=== PATIENT | male | born 1980 | race Caucasian/White ===

== ENCOUNTER 2017-11-04 21:00 | Emergency (ER) | payer OTHER ==
[~2017-11-04] VITALS: Ht 182.9 cm; Wt 80.4 kg
--- OUTSIDE RECORDS SUMMARY | ~2017-11-04 | XMS | Encounter Summary ---
Demographics + + + | Address | [address] | | | [place] [address] | + + + | Home Phone | | + + + | Preferred Language | Unknown | + + + | Marital Status | Single | + + + | Temple Affiliation | NON | + + + | Race | White | + + + | Ethnic Group | Not or | + + + Author + + + | Author | [facility] | + + + | Organization | [facility] | + + + | Address | Unknown | + + + | Phone | Unavailable | + + + Support +------+ +---------+ + | Name | Relationship | Address | Phone | +------+ +---------+ + ECON | Unknown | | +------+ +---------+ + Care Team Providers + +------+ + | Care Mottler Machine Feeder Name | Role | Phone | + +------+ + | Marlee Duarte MD | PCP | | + +------+ + Encounter Details +--------+ + + + + | Date | Type | Department | Care Team | Description | +--------+ + + + + | 09/16/ | Anesthesia | Preoperative | Chika Dorsey NP | | | 2017 | Event | [facility] at | [address] | | | | | [facility] 4th Floor [address], | | | | | [address] | [place] [address] | | | | | Code: [facility] | [phone] | | | | | for Health and | | | | | | [facility],4th Floor | | | | | | [place], [place] | | | | | | [address] | | | | | | [phone] | | | +--------+ + + + + Anesthesia Record + + + + + | Procedure Name | Responsible | Anesthesia Start | Anesthesia Stop Time | | | Anesthesiologist | Time | | + + + + + | [facility] CONSULT | | | | + + + + + + + | No events on file. | + + +------+ | Meds | +------+ + + + No medications | on file. | + + + + + | No agents on file. | + + + + | No blood administrations on file. | + + + + | No LDAs on file. | + + in this encounter Social History + +-------+ +--------+------+ | Tobacco [...] + + + as of this encounter Plan of Treatment +--------+---------+ + + + | Date | Type | Specialty | Care Team | Description | +--------+---------+ + + + | 12/31/ | Office | Surgery | Constantino Romero, | | | 2017 | Visit | | [address] | | | | | | [address] | | | | | | [place], [place] | | | | | | [address] | | | | | | [phone] | | | | | | | | +--------+---------+ + + + | 04/05/ | Office | Surgery | Liz Rodriguez MD | | | 2018 | Visit | | [address] | | | | | | [address] [place], | | | | | | [place] [address] | | | | | | [phone] | | | | | | | | +--------+---------+ + + + as of this encounter Visit Diagnoses Not on filein this encounter"
--- OUTSIDE RECORDS SUMMARY | ~2017-11-04 | XMS | Encounter Summary ---
Demographics + + + | Address | [address] | | | [place] [address] | + + + | Home Phone [...] Author + + + | Author | [facility] | + + + | Organization | [facility] | + + + | Address | Unknown | + + + | Phone | Unavailable | + + + Support +------+ +---------+ + | Name | Relationship | Address | Phone | +------+ +---------+ + ECON | Unknown | | +------+ +---------+ + Care Team Providers + +------+ + | Care Coal Chute Worker Name | Role | Phone | + +------+ + | Marlee Duarte MD | PCP | | + +------+ + Reason for Visit AUTH/CERT +--------+--------+ + + + + | Status | Reason | Specialty | Diagnoses / | Referred By | Referred To | | | | | Procedures | Contact | Contact | +--------+--------+ + + + + | | | | | | | +--------+--------+ + + + + Encounter Details +--------+---------+ + + + | Date | Type | Department | Care Team | Description | +--------+---------+ + + + | 10/09/ | Surgery | 6A Intra Op [facility] | Jaleesa Burleson, | OPEN VENTRAL HERNIA | | 2018 | | [facility] | MD [address] | REPAIR WITH MESH, | | | | Admitting Desk | [facility] | TRANSVERSUS | | | | Located on the | [place], [place] | ABDOMINIS MUSCLE | | | | floor [address] | [address] | RELEASE | | | | [facility] [address] | [phone] | | | | | [place], [place] | | | | | | [address] | | | +--------+---------+ + + + [...] + + + | Blood Pressure | 130/77 | 10/23/2017 7:58 AM PST | + + + + | Pulse | 83 | 10/23/2017 7:58 AM PST | + + + + | Temperature | 36.6 C (97.9 F) | 10/23/2017 7:58 AM PST | + + + + | Respiratory Rate | 18 | 10/23/2017 7:58 AM PST | + + + + | Oxygen Saturation | 100% | 10/23/2017 7:58 AM PST | + + + + | Inhaled Oxygen | - | - | | Concentration | | | + + + + | Weight | 88 kg (194 lb 0.1 | 10/22/2017 9:13 PM PST | | | oz) | | + + + + | Height | 182.9 cm (6' 0.01") | 10/12/2017 7:00 AM PST | + + + + | Body Mass Index | 26.31 | 10/22/2017 9:13 PM PST | + + + + in this [...] + + + as of this encounter Discharge Summaries Aniket Scott DO - 10/23/2017 12:38 PM PSTFormatting of this note may be different from t he original. Formerly [facility], [facility] and [facility] Green Surgery Team Inpatient Discharge Summary Aniket Scott DO Attending Physician: Jaleesa Burleson Author: Aniket Scott DO Attending Physician: Jaleesa Burleson MD PCP: Marlee Duarte MD Admission Date: 10/09/2017 Discharge Date: 23 Oct 2017 5:58 PM Diagnoses Principal Final Diagnosis: 1. Recurrent Ventral Hernias with Incarceration Additional Diagnoses: 1. Ulcerative colitis with ileoanal anastomosis 2. Postoperative nausea and vomiting 3. Hypokalemia 4. Postoperative ileus 5. Protein-calorie malnutrition 6. Intractable hiccups 7. Perianal abscess Procedures 1. Myofascial cutaneous flap advancement on the right (TAR). 2. Myofascial cutaneous flap advancement on the left (partial TAR). 3. Open repair of recurrent incarcerated ventral hernia. 4. Implantation of a large mesh prosthetic. 5. Cutaneous advancement flap on the right (60 cm2). 6. Cutaneous advancement flap on the left.(60 cm2). 7. Exploratory laparotomy with extensive lysis of adhesions (modifier-[id number] requested). Brief Hospital Course Mr Sharp is a 36 y.o. 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 Hepresents with recurrent incarcerated right ventral hernia as well as incarcerated umbilical incisional hernias. He was admitted on 10/09/17 for repair of large recurrent ventral hernia. He tolerated the p rocedure well, was admitted to [facility] surgery post operatively for ongoing management. His po st operative course was complicated by prolonged ileus, nausea and vomiting. NGT was placed, patient was made NPO, started on TPN. A repeat CT on 10/19/17 was remarkable for a small ~1. 5 cm perianal abscess. Patient was started on IV antibiotics with cipro and flagyl. He respo nded well with resolving leukocytosis. He had return of bowel function. Nausea and vomiting improved with scheduled Reglan. NGT removed, gladys removed. Patient tolerating regular t and taking in adequate calories without issues. He will be discharge today in stable condition. Instructions to follow up with Dr. Fred queen in clinic in two weeks. Pathology: None Medications: Medication List START taking these medications acetaminophen 500 mg Tab Commonly known as: TYLENOL Take 2 tablets by mouth every six hours. baclofen 10 mg Tab Commonly known as: LIORESAL Take 1 tablet by mouth two times daily for 14 days. Indications: intractable hiccups calcium carbonate chewable 200 mg elemental (500 mg total salt) Chew Commonly known as: TUMS Chew and swallow 1 tablet every two hours as needed. ciprofloxacin HCl 500 mg Tab Commonly known as: CIPRO Take 1 tablet by mouth two times daily for 4 days. Indications: abdominal infection HYDROmorphone 2 mg Tab Commonly known as: DILAUDID Take 1 to 2 tablets by mouth every three hours as needed for moderate pain. metoclopramide HCl 5 mg Tab Commonly known as: REGLAN Take 1 tablet by mouth every six hours for 5 days. Indications: prolonged nausea and vomiti ng. metroNIDAZOLE 500 mg Tab Commonly known as: FLAGYL Take 1 tablet by mouth three times daily for 4 days. Wound Care Keep your incision clean and dry. Shower daily with antibacterial soap, pat the incision, let the shower water rinse off the incision and pat dry. Diet Regular Regular diet- There are no restrictions to your diet. You may eat or drink whatever you pr efer, though healthy food choices are recommended. Activity SURGERY DISCHARGE INSTRUCTIONS DIET: Resume your normal pre-operative diet, however it is advisable to eat a light diet for a da y or two following surgery. It is normal to have a decreased appetite for several days afte r surgery. Many patients find that eating multiple small meals after surgery is easier than trying to eat 3 large meals. ACTIVITY: Resume your normal daily pre-operative activities. It is OK, and even encouraged, to do so me light activity such as walking following surgery. There are no recommended restrictions after surgery, however if you lift something and your surgical wounds and areas of repair hu rt, then please stop performing that activity (e.g. Bending over to lift a child, box, etc). If you normally perform strenuous activity including activities such weight lifting, chopp ing wood, or do any significant lifting at work, you should stop these activities should unt il cleared by your doctor at time of followup. You will return to your preoperative activity level, but try to not exhaust yourself while healing. If taking narcotic pain medicine (e.g. Oxycodone, Percocet, Hydrocodone, Vicodin) you canno t drive or operate machinery, as these medicines may make you drowsy and lose concentration. Your reaction time and judgement will be impaired, just as though you were intoxicated. WOUND CARE: You have one of two types of coverings over your surgical incisions: either a special surgi pradeep glue or steri-strips with a covered dressing. If you received Dermabond surgical glue o eugenie your incisions it will start to fall off naturally and eventually flake off; there are n o outer dressings to remove. If you received steri-strips, there will be an outer dressing with gauze & tape or clear Tegaderm. The outer dressing should be removed in 48 hours, but leave the steri-strips on. The steri-strips will remain on until they start to curl off on the ends. After they start to curl (~10-14 days), it is ok to gently tease them off your sk in. Shower: When your dressing is removed in 48 hours, you may shower regularly and allow soapy water to wash over your incision(s). Pat them dry; do not scrub. Baths: Do not submerge your incisions (tub/pool/bath) for at least 7 days. Rubbing/Irritation: If clothes rub your incision, we recommend covering with loose gauze or a band-aid after your outer dressing has been removed. Sunscreen: Protection of a recent incision from the sun is preferable for the first 6 month s, otherwise the scar tissue may darken abnormally. Using sunblock over incisions reduces th is cosmetic concern. Lotions/Creams: Do not use other lotions, creams or ointments on incision unless directed t o do so by your physician. MEDICATIONS: Resume all your normal pre-operative medications. If you were on high-dose aspirin (324 mg ), it is ok to restart that in 1 week. If you were on baby-dose aspirin (81 mg), it is ok t o continue that medication. Pain Medications: Acetaminophen (Tylenol) and ibuprofen (Advil, Motrin) can be very effecti ve for post-operative pain. As long as you don't have allergies or sensitivities to these me dications you may take 650mg of acetaminophen and 400mg ibuprofen every 6 hours. Stagger the m every 3 hours for better pain control. Take ibuprofen with food and limit its use to one week, as it can irritate your stomach. If you still experience significant post-operative p ain, then you may take the prescribed narcotic-opioid (e.g. oxycodone, hydrocodone, Vicodin, [place], Percocet, Dilaudid) as needed. However, Vicodin/[place] and Percocet contain acetam inophen in the pill itself so be sure to take EITHER Vicodin/Percocet OR Tylenol (Acetaminop hen), not both at the same time. Opioid pain medications may cause constipation, so be sure to take a stool softener if you take an opioid pain medication. Swelling/Pain: In addition to pain medications, you should apply an ice pack or bag of froz en peas in a thin cloth for the next [address] over the bandaged incision and the area of surgery (e.g. groin regions) for about 20-30 minutes at a time. This will help to n umb the area and reduce swelling, however it does not hasten healing. CONSTIPATION: Narcotic-opioid pain medications (e.g. oxycodone, hydrocodone, Vicodin, [place], Percocet, Di laudid) can be constipating, therefore you should take a stool softener on the same day as s tarting your narcotic pain medicine. Options include: Milk of Magnesia: 2 Tablespoons Twice daily Colace (=Docusate): 1 pill Twice daily While these are some recommendations, any [id number] stool softener should work, and generics are fine to use. Increase your fluids, especially your intake of water Increase your activity. Walk frequently. CALL MD: Please call your surgeon if you experience persistent pain not controlled with medications, persistent nausea or vomiting, chest pain, difficulty breathing, or drainage/redness from t he wound. If you are concerned about any aspect of your postoperative course, please call Dr Holger Burleson's office ([phone]), especially if you are considering going to an Emergency Room. FOLLOW-UP: Please call Dr. Burleson's office ([phone]) to schedule a follow-up appointment for 2 weeks after discharge. Condition on Discharge Stable Future Appointments Provider Department Dept Phone Center 10/29/2017 12:00 PM Jaleesa Burleson [facility] at [facility] 6th Floor [phone] D [facility] 04/05/2018 1:40 PM Liz Rodriguez [facility] 6th Floor [phone] Formerly [facility] Schedule the following appointment(s) when you get home Marlee Duarte MD . Specialty: Internal Medicine Contact information [facility] [address] [place] [address] Physical Exam: Vital Signs at discharge: Ht 1.829 m (6' 0.01"), Wt 88 kg (194 lb 0.1 oz), BP 130/77, Pulse 83, Temperature 36.6 C (97.9 F), RR 18, SpO2 100%, BMI 26.31 kg/(m^2). General: comfortable, NAD Respiratory: unlabored breathing Cardio: Mild regular tachycardia Abdomen: soft, nontender, Incision clean dry and intact. Wearing abd binder, mildly distend ed. [place] out, steri strips placed. Minimal drainage from superior aspect of incision, mil d erythema. Extremities: WWP, no edema Mental status: awake and alert Drain: removed Outstanding labs/studies: None When to Call: Please call [facility] ([phone]) or the [facility] typesetting machine operator/tender [phone] after hours and ask for the [facility] Physician Production Control Specialist, Nurse or Surgery Resi dent information clerk cashier if you have any of the followin. Difficulty breathing or unusual shortness of breath 2. Excessive bleeding, drainage, redness and/or swelling at the operative site 3. Fevers (>101.5), chills, increased pain that is not relieved by pain medications 4. Persistent nausea or vomiting Discharging Physician: Aniket Scott DO Attending Physician: Jaleesa Scott DO [facility] Surgery Pager# [phone] [facility] [address] [address] in this encounter Discharge Instructions Jenny Boyer RN - 10/23/2017 Discharge Nurse: Jenny Boyer RN Date: 10/23/2017 Discharge Time: 11:29 AM in this encounter Medications at Time of Discharge + + +--------+---------+ + + | Medication | Sig. | Disp. | Refills | Start | End Date | | | | | | Date | | + + +--------+---------+ + + | acetaminophen 500 | Take 2 tablets by | 100 | 3 | 10/23/19 | | | mg oral tablet | mouth every six | tablet | | 18 | | | | hours. | | | | | + + +--------+---------+ + + | baclofen 10 mg | Take 1 tablet by | 28 | 1 | 10/23/19 | | | oral | mouth two times | tablet | | 18 | 8 | | tabletIndications: | daily for 14 days. | | | | | | intractable hiccups | Indications: | | | | | | | intractable hiccups | | | | | + + +--------+---------+ + + | calcium carbonate | Chew and swallow 1 | | | 10/23/19 | | | chewable 200 mg | tablet every two | | | 18 | | | elemental (500 mg | hours as needed. | | | | | | total salt) oral | | | | | | | tablet,chewable | | | | | | + + +--------+---------+ + + | HYDROmorphone 2 mg | Take 1 to 2 tablets | 60 | 0 | 10/23/19 | | | oral tablet | by mouth every three | tablet | | 18 | | | | hours as needed for | | | | | | | moderate pain. | | | | | + + +--------+---------+ + + | ciprofloxacin HCl | Take 1 tablet by | 8 | 0 | 10/23/19 | | | 500 mg oral | mouth two times | tablet | | 18 | 8 | | tabletIndications: | daily for 4 days. | | | | | | intra-abdominal | Indications: | | | | | | infection | abdominal infection | | | | | + + +--------+---------+ + + | metoclopramide HCl | Take 1 tablet by | 20 | 0 | 10/23/19 | | | 5 mg oral | mouth every six | tablet | | 18 | 8 | | tabletIndications: | hours for 5 days. | | | | | | prolonged nausea and | Indications: | | | | | | vomiting. | prolonged nausea and | | | | | | | vomiting. | | | | | + + +--------+---------+ + + | metroNIDAZOLE 500 | Take 1 tablet by | 12 | 0 | 10/23/19 | | | mg oral tablet | mouth three times | tablet | | 18 | 8 | | | daily for 4 days. | | | | | + + +--------+---------+ + + as of this encounter Progress Notes Mark Haynes MD - 10/22/2017 5:44 AM PSTFormatting of this note may be different f rom the original. [facility] Surgery Progress Note Attending Physician: Jaleesa Burleson MD Patient: NEW LICEA [id number] 24H events/Subjective: -tolerating diet -continued BM -no further emesis -ambulating -WBC down to 10.6 this am -1632 kcal yesterday, 684 kcal the day before Objective: BP 134/68 | Pulse 80 | Temp 36.7 C (98.1 F) | RR 18 | Ht 1.829 m (6' 0.01") | Wt 82.5 k g (181 lb 12.8 oz) | SpO2 100% | BMI 24.65 kg/(m^2) Exam: General: comfortable, NAD Respiratory: unlabored breathing Cardio: Mild regular tachycardia Abdomen: soft, nontender, Incision clean dry and intact. Wearing abd binder, mildly distend ed Extremities: WWP, no edema Mental status: awake and alert Drain: removed Lab Results Component Value Date NA 134 10/21/2017 K 3.8 10/21/2017 CL 99 10/21/2017 BICARB 29 10/21/2017 BUN 14 10/21/2017 CR 0.77 10/21/2017 GLU 130 10/21/2017 CA 8.4 10/21/2017 ANIONGAP 6 10/21/2017 ANIONALBCOR 9 10/21/2017 Assessment and Plan: New Licea is a 37 y.o. male sp sp Retrorectus ventral hernia repair with transversus a bdominus release and placement of Bard soft mesh and Lysis of adhesions 10/09/17. Postoperati ve course notable for prolonged ileus, extensive workup negative POD#13 Abdominal Wall Reconstruction Comprehensive Care Pathway Plan: deviations from standard pathway bolded 1. Activity: Ambulate TID 2. regular diet 3. Enoxaparin prophylaxis 4. 5. Bowel regimen: Senna S BID, miralax daily - holding in the setting of loose stool 6. Pain: po HM + IV HM Acetaminophen 1000mg q6h 7. Drains removed, staple removal before discharge with blue package steri strips with alte rnating full and half length 8. Abdominal Binder PRN for comfort as ambulating 9. Glucose WNL, stop checks and SSI 11. Continue Baclofen BID prn hiccups. 12. Protein calorie malnutrition - moderate: On TPN #Perianal abscess -empiric cipro + metronidazole x 7 days Dispo: 1-2 days, if continues to tolerate diet without n/v The attending of record for this patient is Dr. Nick MD. Mark Haynes MD General Surgery, R-3 pg. [id number] Formerly [facility], [facility] [place] Associated attestation - Jaleesa Burleson MD - 10/22/2017 8:14 PM PST ATTENDING ADDENDUM: I saw, examined, and evaluated the patient. I agree with the findings and the plan of care as documented in the resident's/fellow s/advanced practitioner provider's note, with akil tions/edits made to the note to reflect my findings and clinical impression. -Patient continues to improve. No n/v overnight and hernandez PO. Afebrile and WBC down to 10. -Anticipate discharge tomorrow. Based on PO intake, possible dc without TPN. Jaleesa Burleson MD [facility] [address] [place] [address] Aniket Scott DO - 10/21/2017 7:48 AM PSTFormatting of this note may be different from t erma original. [facility] Surgery Progress Note Attending Physician: Jaleesa Burleson MD Patient: NEW LICEA [id number] 24H events/Subjective: -one episode of emesis yesterday -passing flatus, BM x 4 -tolerating PO, increasing in quantity -drain out yesterday -started IV cipro/flagyl yesterday -wbc from 18.5-16 -afebrile Objective: BP 122/73 | Pulse 92 | Temp 36.5 C (97.7 F) | RR 16 | Ht 1.829 m (6' 0.01") | Wt 83.1 k g (183 lb 3.2 oz) | SpO2 100% | BMI 24.84 kg/(m^2) Exam: General: comfortable, NAD Respiratory: unlabored breathing Cardio: Mild regular tachycardia Abdomen: soft, nontender, Incision clean dry and intact. Wearing abd binder, distention imp roved Extremities: WWP, no edema Mental status: awake and alert Drain: removed Lab Results Component Value Date NA 134 10/21/2017 K 3.8 10/21/2017 CL 99 10/21/2017 BICARB 29 10/21/2017 BUN 14 10/21/2017 CR 0.77 10/21/2017 GLU 101 10/21/2017 CA 8.4 10/21/2017 ANIONGAP 6 10/21/2017 ANIONALBCOR 9 10/21/2017 Assessment and Plan: New Licea is a 37 y.o. male sp sp Retrorectus ventral hernia repair with transversus a bdominus release and placement of Bard soft mesh and Lysis of adhesions 10/09/17 POD#12 Abdominal Wall Reconstruction Comprehensive Care Pathway Plan: deviations from standard pathway bolded 1. Activity: Ambulate TID 2. regular diet 3. Enoxaparin prophylaxis 4. Entereg (alvimopan) 12mg PO BID until documented bowel function or POD#7 - dc now with b owel function 5. Antibiotics: None indicated 6. Bowel regimen: Senna S BID, miralax daily - holding in the setting of loose stool 7. Pain: po HM + IV HM Acetaminophen 1000mg q6h Gabapentin 300mg PO TID-discontinued Diazepam (for muscle spasm) 2mg PO q6h for 48h w/ holding for sedation parameters (not f or MARCIN, >65yo) Will increase IV HM interval to q 6 hrs 8. Drains removed, staple removal before discharge with blue package steri strips with alte rnating full and half length 9. Abdominal Binder PRN for comfort as ambulating 10. Glucose WNL, stop checks and SSI 11. Continue Baclofen BID prn hiccups. 12. Protein calorie malnutrition - moderate: On TPN, contacted CM about home TPN Dispo: 4-5 days, if improved bowel function, leukocytosis resolving, likely home with TPN and po abx The attending of record for this patient is Dr. Nick MD. [place] [place] [id number] Associated attestation - Jaleesa Burleson MD - 10/21/2017 8:38 PM PST ATTENDING ADDENDUM: I saw, examined, and evaluated the patient. I agree with the findings and the plan of care as documented in the resident's/fellow s/advanced practitioner provider's note, with akil tions/edits made to the note to reflect my findings and clinical impression. -Continues to improved, but still intermittent emesis. Decreasing WBC on abx. Started TPN. -Will start Reglan to assist with GI motility. Cont reg diet + TPN until hernandez adequate prot ein/calories by mouth. Anticipate discharge on TPN in next couple days. Jaleesa Burleson MD [facility] [address] [place] [address] Mark Haynes MD - 10/20/2017 6:43 PM PSTGreen Surgery Rectal Exam: External anus without lesion, defect or erythema. Tone good, staple line intact, anastomosi s patent, no blood, nontender, no palpable fluid collection, or fluctuance. Mark Haynes MD General Surgery, R-3 pg. [id number] [facility] [place] KristinejuliannKylahKATHYA - 10/20/2017 6:16 AM PSTFormatting of this note may be different f rom the original. [facility] Progress Note Attending Physician: Jaleesa Burleson MD Patient: NEW LICEA [id number] 24H events/Subjective: -one episode of emesis yesterday -continued with hiccups, improved -passing flatus, BM x 3 -tolerating minimal PO, had strawberries -the drain has low output, 10 mls, light brown, will evaluate later Objective: BP 124/74 | Pulse 89 | Temp 37 C (98.6 F) | RR 16 | Ht 1.829 m (6' 0.01") | Wt 87.7 kg (193 lb 5.5 oz) | SpO2 96% | BMI 26.22 kg/(m^2) Exam: General: comfortable, NAD Respiratory: unlabored breathing Cardio: Mild regular tachycardia Abdomen: soft, nontender, Incision clean dry and intact. Wearing abd binder, distention imp roved Extremities: WWP, no edema Mental status: awake and alert Drain: SS fluid x1 Lab Results Component Value Date NA 133 10/20/2017 K 3.7 10/20/2017 CL 98 10/20/2017 BICARB 30 10/20/2017 BUN 18 10/20/2017 CR 0.78 10/20/2017 GLU 122 10/20/2017 CA 8.4 10/20/2017 ANIONGAP 5 10/20/2017 ANIONALBCOR 12 10/19/2017 Assessment and Plan: New Licea is a 37 y.o. male sp sp Retrorectus ventral hernia repair with transversus a bdominus release and placement of Bard soft mesh and Lysis of adhesions 10/09/17 POD#11 Abdominal Wall Reconstruction Comprehensive Care Pathway Plan: deviations from standard pathway bolded 1. Activity: Ambulate TID 2. regular diet 3. Enoxaparin prophylaxis 4. Entereg (alvimopan) 12mg PO BID until documented bowel function or POD#7 - dc now with b owel function 5. Antibiotics: None indicated 6. Bowel regimen: Senna S BID, miralax daily - holding in the setting of loose stool 7. Pain: po HM + IV HM Acetaminophen 1000mg q6h Gabapentin 300mg PO TID Diazepam (for muscle spasm) 2mg PO q6h for 48h w/ holding for sedation parameters (not f or MARCIN, >65yo) 8. One drain, stripped BID on MD barlow, RN TID. To be removed possibly today, staple remov al before discharge with blue package steri strips with alternating full and half length 9. Abdominal Binder PRN for comfort as ambulating 10. Glucose WNL, stop checks and SSI 11. Continue Baclofen BID prn hiccups. 12. Protein calorie malnutrition - moderate: PICC line placement and TPN today. Labs richard wn. -advance diet today -CT AP completed. Findings: GI TRACT: 1.6 x 1.6 cm rim-enhancing collection at the anus. Ileoanal anastomosi s with an appears intact. Patient is status post colectomy. There is diffuse dilatation of t he small bowel, measuring up to 7.6 cm, without transition point. No bowel wall thickening. The stomach is distended. There is a small hiatal hernia. PERITONEUM: Trace pelvic free fluid. IMPRESSION: 1. Diffuse small bowel dilatation without transition point, consistent with ileus. 2. 1.6 cm collection at the anus may represent perianal abscess. Dispo: 4-5 days, if improved bowel function, leukocytosis resolving, able to transition of f TPN, PICC placement 10/20. The attending of record for this patient is Dr. Nick MD. Mrak Haynes MD General Surgery, R-3 pg. [phone] [facility] Kylah Casas, [facility] [address] [place] [address] Associated attestation - Jaleesa Burleson MD - 10/21/2017 7:44 AM [facility] ATTENDING ADDENDUM: I saw, examined, and evaluated the patient. I agree with the findings and the plan of care as documented in the resident's/fellow s/advanced practitioner provider's note, with akil tions/edits made to the note to reflect my findings and clinical impression. -CT showed diffuse ileus without focal obstruction. Very small yaakov-anal fluid collection without air. AWR looks intact. WBC up to 18. -Clinically, patient looks and feels improved. Abd with min distention, soft, min tender. Incision c/d/i. Drain with thin serosang. -A/P: -While he continues to improve, he still has intermittent n/v with ileus, though with + parish wel function. -Will start cipro/flagyl for presumed yaakov-anal abscess, as there are no other sources of elevated WBC, though patient afebrile with stable vitals. -TPN via PICC for inconsistent PO intake. Can continue reg diet as hernandez. -OK to remove drain. Jaleesa Burleson MD [facility] [address] [place] [address] KristineKylah [facility] - 10/19/2017 5:45 AM PSTFormatting of this note may be different f rom the original. [facility] Progress Note Attending Physician: Jaleesa Burleson MD Patient: NEW LICEA [id number] 24H events/Subjective: -one episode of emesis yesterday -continued with hiccups, not improved -passing flatus Objective: BP 125/84 | Pulse 101 | Temp 37.2 C (99 F) | RR 16 | Ht 1.829 m (6' 0.01") | Wt 87.7 kg (193 lb 5.5 oz) | SpO2 95% | BMI 26.22 kg/(m^2) Exam: General: comfortable, NAD Respiratory: unlabored breathing Cardio: Mild regular tachycardia Abdomen: soft, nontender, Incision clean dry and intact. Wearing abd binder, distention imp roved Extremities: WWP, no edema Mental status: awake and alert Drain: SS fluid x1 Assessment and Plan: New Licea is a 37 y.o. male sp sp Retrorectus ventral hernia repair with transversus a bdominus release and placement of Bard soft mesh and Lysis of adhesions 10/09/17 POD#10 Abdominal Wall Reconstruction Comprehensive Care Pathway Plan: deviations from standard pathway bolded 1. Activity: Ambulate TID 2. CLD advance to regular diet this am 3. Enoxaparin prophylaxis 4. Entereg (alvimopan) 12mg PO BID until documented bowel function or POD#7 - dc now with b owel function 5. Antibiotics: None indicated 6. Bowel regimen: Senna S BID, miralax daily - holding in the setting of loose stool 7. Pain: po HM + IV HM Acetaminophen 1000mg q6h Gabapentin 300mg PO TID Diazepam (for muscle spasm) 2mg PO q6h for 48h w/ holding for sedation parameters (not f or MARCIN, >65yo) 8. One drain, stripped BID on MD cain, RN TID. To be removed when reaches 30mL/24hr., rem oving right drain today: right drain removed 10/13 9. Abdominal Binder PRN for comfort as ambulating 10. Glucose WNL, stop checks and SSI 11. Discontinue Flomax. 12. Start Baclofen BID prn hiccups. -advance diet today -CT AP completed. Findings: GI TRACT: 1.6 x 1.6 cm rim-enhancing collection at the anus. Ileoanal anastomosi s with an appears intact. Patient is status post colectomy. There is diffuse dilatation of t he small bowel, measuring up to 7.6 cm, without transition point. No bowel wall thickening. The stomach is distended. There is a small hiatal hernia. PERITONEUM: Trace pelvic free fluid. IMPRESSION: 1. Diffuse small bowel dilatation without transition point, consistent with ileus. 2. 1.6 cm collection at the anus may represent perianal abscess. Dispo: TBD, pending nausea/vomiting control, ROBF The attending of record for this patient is Dr. Nick MD. Mark Haynes MD General Surgery, R-3 pg. [id number] [facility] [place] Kylah Casas, [facility] [address] [place] [address] Associated attestation - Jaleesa Burleson MD - 10/20/2017 3:37 PM PST ATTENDING ADDENDUM: I saw, examined, and evaluated the patient. I agree with the findings and the plan of care as documented in the resident's/fellow s/advanced practitioner provider's note, with akil tions/edits made to the note to reflect my findings and clinical impression. -Pt continues to slowly improve, but still reports hiccups. Afebrile with stable vital sign s. Only hernandez small amount PO. +BMs. -On exam, abd softly distended. Incision c/d/i without any erythema or drainage. . Mild ten derness without any rebound/guarding. Drain with thin serosang fluid without any purulence. -Plan: -Given prolonged length of ileus will get CT abd/pelvis with IV and PO contrast. -Will consider initiating TPN with PICC line, though no clear source of obstruction. The CT will help guide decisions on TPN and PO intake. Jaleesa Burleson MD [facility] [address] [place] [address] Mark Haynes MD - 10/18/2017 11:11 AM PSTGreen Surgery Progress Note Attending Physician: Jaleesa Burleson MD Patient: NEW LICEA [id number] 24H events/Subjective: -one episode of emesis yesterday, associated with hiccups -diet decreased to CLD -continued stools yesterday -pain, distention improved -hungry this am -WBC up to 16k today Objective: BP 118/78 | Pulse 92 | Temp 36.8 C (98.2 F) | RR 16 | Ht 1.829 m (6' 0.01") | Wt 87.7 k g (193 lb 5.5 oz) | SpO2 93% | BMI 26.22 kg/(m^2) Exam: General: comfortable, NAD Respiratory: unlabored breathing Cardio: Mild regular tachycardia Abdomen: soft, nontender, Incision clean dry and intact. Wearing abd binder, distention imp roved Extremities: WWP, no edema Mental status: awake and alert Drain: SS fluid x1 Assessment and Plan: New Licea is a 37 y.o. male sp sp Retrorectus ventral hernia repair with transversus a bdominus release and placement of Bard soft mesh and Lysis of adhesions 18 POD#9 Abdominal Wall Reconstruction Comprehensive Care Pathway Plan: deviations from standard pathway bolded 1. Activity: Ambulate TID 2. CLD advance to regular diet this am 3. Enoxaparin prophylaxis 4. Entereg (alvimopan) 12mg PO BID until documented bowel function or POD#7 - dc now with b owel function 5. Antibiotics: None indicated 6. Bowel regimen: Senna S BID, miralax daily - holding in the setting of loose stool 7. Pain: po HM + IV HM Acetaminophen 1000mg q6h Gabapentin 300mg PO TID Diazepam (for muscle spasm) 2mg PO q6h for 48h w/ holding for sedation parameters (not f or MARCIN, >65yo) 8. One drain, stripped BID on MD barlow, RN TID. To be removed when reaches 30mL/24hr., rem oving right drain today: right drain removed 10/13 9. Abdominal Binder PRN for comfort as ambulating 10. Glucose WNL, stop checks and SSI -advance diet today -consider CT AP if continued unexplained emesis and inability to tolerate po without ongoin g bowel function Dispo: TBD, pending nausea/vomiting control, ROBF The attending of record for this patient is Dr. Nick MD. Mark Haynes MD General Surgery, R-3 pg. [id number] [facility] Associated attestation - Shawna Rahman MD - 10/19/2017 3:09 PM PSTATTENDING NOTE I saw and evaluated the patient. I agree with the findings and the plan of care as kvng olivera in the resident s note. Clinically looks well this morning. Feeling hungry and passing "lots of gas". Frequency of bowel movements near baseline. Abdomen is soft, flat and nonte nder. He does have an elevated WBC but in the absence of signs and symptoms of infection (no fevers, benign abdomen, no incisional erythema, negative ROS (no cough, dysuria, pain)), wi ll hold off on further imaging. Advance diet as tolerated. Shawna Rahman MD Division of Gastrointestinal and [place] [address] Office: [phone] Mark Haynes MD - 10/17/2017 4:12 PM PSTGreen Surgery Progress Note Attending Physician: Jaleesa Burleson MD Patient: NEW LICEA [id number] 24H events/Subjective: -NGT out yesterday evening -denies nausea, no emesis overnight -tolerating sips -continued stools yesterday Objective: BP 148/81 | Pulse 85 | Temp 36.4 C (97.5 F) | RR 16 | Ht 1.829 m (6' 0.01") | Wt 87.7 k g (193 lb 5.5 oz) | SpO2 100% | BMI 26.22 kg/(m^2) Exam: General: comfortable, NAD Respiratory: unlabored breathing Cardio: Mild regular tachycardia Abdomen: soft, appropriately tender, Incision clean dry and intact. Wearing abd binder, mi ldly distended Extremities: WWP, no edema Mental status: awake and alert Drain: SS fluid x1 Assessment and Plan: New Licea is a 37 y.o. male sp sp Retrorectus ventral hernia repair with transversus a bdominus release and placement of Bard soft mesh and Lysis of adhesions 10/09/17 POD#8 Abdominal Wall Reconstruction Comprehensive Care Pathway Plan: deviations from standard pathway bolded 1. Activity: Ambulate TID 2. CLD advance to regular diet tonight 3. Enoxaparin prophylaxis 4. Entereg (alvimopan) 12mg PO BID until documented bowel function or POD#7 - dc now with b owel function 5. Antibiotics: None indicated 6. Bowel regimen: Senna S BID, miralax daily - holding in the setting of loose stool 7. Pain: Hydromorphone [employer] - transition off today to po HM + IV HM Acetaminophen 1000mg q6h Gabapentin 300mg PO TID Diazepam (for muscle spasm) 2mg PO q6h for 48h w/ holding for sedation parameters (not f or MARCIN, >65yo) 8. One drain, stripped BID on MD barlow, RN TID. To be removed when reaches 30mL/24hr., rem oving right drain today: right drain removed 10/13 9. Abdominal Binder PRN for comfort as ambulating 10. Glucose WNL, stop checks and SSI -advance diet tonight, transition off [employer] Dispo: TBD, pending nausea/vomiting control, ROBF The attending of record for this patient is Dr. Nick MD. Mark Haynes MD General Surgery, R-3 pg. [phone] [facility] Associated attestation - Shawna Rahman MD - 10/19/2017 3:04 PM PSTATTENDING NOTE I saw and evaluated the patient. I agree with the findings and the plan of care as kvng olivera in the resident s note. Decreased appetite but no nausea currently. Having flatus and BMs. Will advance diet as tolerated and transition to oral pain meds. Incision looks good. Shawna Rahman MD Division of Gastrointestinal and [place] [address] Office: [phone] Mark Haynes MD - 10/16/2017 6:25 AM PSTGreen Surgery Progress Note Attending Physician: Jaleesa Burleson MD Patient: NEW LICEA [id number] 24H events/Subjective: -AF -Feeling better this am with 1 BM -NGT ~850 light bilious output -SBFT w/contrast yesterday - contrast quickly dissipated, no obvious evidence of progressio n -drain 50 ml Objective: BP 136/85 | Pulse 83 | Temp 36.3 C (97.3 F) | RR 18 | Ht 1.829 m (6' 0.01") | Wt 87.7 k g (193 lb 5.5 oz) | SpO2 98% | BMI 26.22 kg/(m^2) Exam: General: comfortable, NAD Respiratory: unlabored breathing Cardio: Mild regular tachycardia Abdomen: soft, appropriately tender, Incision clean dry and intact. Wearing abd binder, mi ldly distended Extremities: WWP, no edema Mental status: awake and alert Drain: SS fluid x1, clot in tubing, stripped Assessment and Plan: New Licea is a 37 y.o. male sp sp Retrorectus ventral hernia repair with transversus a bdominus release and placement of Bard soft mesh and Lysis of adhesions 10/09/17 POD#7 Abdominal Wall Reconstruction Comprehensive Care Pathway Plan: deviations from standard pathway bolded 1. Activity: Ambulate TID 2. NPO with NGT for nausea/vomiting, ileus 3. Enoxaparin prophylaxis 4. Entereg (alvimopan) 12mg PO BID until documented bowel function or POD#7 - dc now with b owel function 5. Antibiotics: None indicated 6. Bowel regimen: Senna S BID, miralax daily - holding in the setting of loose stool 7. Pain: Hydromorphone [employer] - transition off when tolerating diet Acetaminophen 1000mg q6h Gabapentin 300mg PO TID Diazepam (for muscle spasm) 2mg PO q6h for 48h w/ holding for sedation parameters (not f or MARCIN, >65yo) 8. Two drains, stripped BID on MD barlow, RN TID. To be removed when reaches 30mL/24hr., re moving right drain today: right drain removed 10/13 9. Abdominal Binder PRN for comfort as ambulating 10. Glucose WNL, stop checks and SSI -can place NGT to gravity if additional BM later today Dispo: TBD, pending nausea/vomiting control, ROBF The attending of record for this patient is Dr. Nick MD. [place] [id number] Mark Haynes MD General Surgery, R-3 pg. [id number] [facility] [place] Associated attestation - Jaleesa Burleson MD - 10/18/2017 11:40 AM PST ATTENDING ADDENDUM: I saw, examined, and evaluated the patient. I agree with the findings and the plan of care as documented in the resident's/fellow s/advanced practitioner provider's note, with akil tions/edits made to the note to reflect my findings and clinical impression. -Ileus continue to trouble patient, though he is showing signs of improvement and having in creased bowel function. -OK for NGT to gravity trials and likely removal later today. Will need to start PO intake soon or consider TPN, though will still attempt enteral nutrition. Jaleesa Burleson MD [facility] [address] [place] [address] Aniekt Scott DO - 10/15/2017 6:07 AM PSTGreen Surgery Progress Note Attending Physician: Jaleesa Burleson MD Patient: NEW LICEA [id number] 24H events/Subjective: -AF -episodes of nausea, w/bilious emesis ~ 1L -KUB revealed dilated loops of bowel -no BMs since early yesterday -placed NGT ~350 light bilious output since placement Objective: BP 145/84 | Pulse 91 | Temp 36.7 C (98.1 F) | RR 16 | Ht 1.829 m (6' 0.01") | Wt 87.7 k g (193 lb 5.5 oz) | SpO2 95% | BMI 26.22 kg/(m^2) Exam: General: comfortable, NAD Respiratory: unlabored breathing Cardio: Mild regular tachycardia Abdomen: soft, appropriately tender, Incision clean dry and intact. Wearing abd binder, mi ldly distended Extremities: WWP, no edema Mental status: awake and alert Drain: SS fluid x1, clot in tubing, stripped Assessment and Plan: New Licea is a 37 y.o. male sp sp Retrorectus ventral hernia repair with transversus a bdominus release and placement of Bard soft mesh and Lysis of adhesions 10/09/17 POD#6 Abdominal Wall Reconstruction Comprehensive Care Pathway Plan: deviations from standard pathway bolded 1. Activity: Ambulate TID 2. NPO for nausea/vomiting, ileus 3. Enoxaparin prophylaxis 4. Entereg (alvimopan) 12mg PO BID until documented bowel function or POD#7 - dc now with b owel function 5. Antibiotics: None indicated 6. Bowel regimen: Senna S BID, miralax daily - holding in the setting of loose stool 7. Pain: Hydromorphone [employer] - transition off today Acetaminophen 1000mg q6h Gabapentin 300mg PO TID Diazepam (for muscle spasm) 2mg PO q6h for 48h w/ holding for sedation parameters (not f or MARCIN, >65yo) 8. Two drains, stripped BID on MD barlow, RN TID. To be removed when reaches 30mL/24hr., re moving right drain today: right drain removed yesterday 9. Abdominal Binder PRN for comfort as ambulating 10. Glucose WNL, stop checks and SSI 11. Increasing nausea and vomiting, NGT placed, will do contrast study today with gastrogra fin with follow up KUB in 4 hours. -transitioned off [employer] Dispo: TBD, pending nausea/vomiting control, ROBF The attending of record for this patient is Dr. Nick MD. Jovanni Scott [place] Pg [phone] Associated attestation - Jaleesa Burleson MD - 10/15/2017 5:56 PM PST ATTENDING ADDENDUM: I saw, examined, and evaluated the patient. I agree with the findings and the plan of care as documented in the resident's/fellow s/advanced practitioner provider's note, with akil tions/edits made to the note to reflect my findings and clinical impression. -N/V overnight necessitating NGT placement. No bowel function overnight. -On exam, patient looks uncomfortable. Abd is softly distended. Incision c/d/i with very mild staple erythema; no drainage. Mildly tender to palp. -Plan: Restart IVF and IV pain medicine. Will increase anti-emetics. Initial abd x-rays a ppear more like ileus pattern, but will instill gastrografin down NGT and take additional xr ays to track progression of contrast. Hold discharge. Jaleesa Burleson MD [facility] [address] [place] [address] Aniket Scott, DO - 10/14/2017 8:28 AM PSTGreen Surgery Progress Note Attending Physician: Jaleesa Burleson MD Patient: NEW LICEA [id number] 24H events/Subjective: -AF/AGUILAR overnight -d/c'ed [employer]EL yesterday, pain controlled -episodes of nausea, emesis x1 -still taking in minimal PO Objective: BP 131/85 | Pulse 103 | Temp 36.8 C (98.2 F) | RR 16 | Ht 1.829 m (6' 0.01") | Wt 87.7 kg (193 lb 5.5 oz) | SpO2 97% | BMI 26.22 kg/(m^2) Exam: General: comfortable, NAD Respiratory: unlabored breathing Cardio: Mild regular tachycardia Abdomen: soft, appropriately tender, Incision clean dry and intact. Wearing abd binder Extremities: WWP, no edema Mental status: awake and alert Drain: SS fluid x1, clot in tubing, stripped Assessment and Plan: New Licea is a 37 y.o. male sp sp Retrorectus ventral hernia repair with transversus a bdominus release and placement of Bard soft mesh and Lysis of adhesions 18 POD#5 Abdominal Wall Reconstruction Comprehensive Care Pathway Plan: deviations from standard pathway bolded 1. Activity: Ambulate TID 2. Reg diet 3. Enoxaparin prophylaxis 4. Entereg (alvimopan) 12mg PO BID until documented bowel function or POD#7 - dc now with b owel function 5. Antibiotics: None indicated 6. Bowel regimen: Senna S BID, miralax daily - holding in the setting of loose stool 7. Pain: Hydromorphone [employer] - transition off today Acetaminophen 1000mg q6h Gabapentin 300mg PO TID Diazepam (for muscle spasm) 2mg PO q6h for 48h w/ holding for sedation parameters (not f or MARCIN, >65yo) 8. Two drains, stripped BID on MD barlow, RN TID. To be removed when reaches 30mL/24hr., re moving right drain today: right drain removed yesterday 9. Abdominal Binder PRN for comfort as ambulating 10. Glucose WNL, stop checks and SSI -transitioned off [employer], now with ROBF Dispo: dc in 1-2 days with pain control and improved PO intake The attending of record for this patient is Dr. Nick MD. Jovanni Hassanu [place] Pg [phone] Associated attestation - Jaleesa Burleson MD - 10/14/2017 2:15 PM PST ATTENDING ADDENDUM: I saw, examined, and evaluated the patient. I agree with the findings and the plan of care as documented in the resident's/fellow s/advanced practitioner provider's note, with akil tions/edits made to the note to reflect my findings and clinical impression. -Intermittent small volume emesis, but still having multiple BMs. Hernandez only small amount PO . -On exam, somewhat uncomfortable, but no acute distress. Abd soft, nondistended, approp te nder without any peritoneal signs. Very mild staple erythema superiorly, but no cellulitis or drainage. Drain with serosang fluid. -Plan: -Would schedule anti-emetics as well as PRN -Cont reg diet with protein supplements. Advised patient to try and take in some PO, even sipping on protein suppl. -Will switch PO meds to dilaudid to see if that helps with pain and nausea (possiblly from oxycodone)/ -Will hold off discharge for now, but if improved today will consider discharge in net 24- 48 hours. Jaleesa Burleson MD [facility] [address] [place] [address] TylerAniket - 10/13/2017 6:20 AM PSTGreen Surgery Progress Note Attending Physician: Jaleesa Burleson MD Patient: NEW LICEA [id number] 24H events/Subjective: -AF/AGUILAR overnight -tolerating diet, still minimal PO -continues to have multiple small liquid BMs overnight -transition off [employer] today Objective: BP 132/84 | Pulse 107 | Temp 37 C (98.6 F) | RR 18 | Ht 1.829 m (6' 0.01") | Wt 87.7 kg (193 lb 5.5 oz) | SpO2 95% | BMI 26.22 kg/(m^2) Exam: General: comfortable, NAD Respiratory: unlabored breathing Cardio: Mild regular tachycardia Abdomen: soft, appropriately tender, Incision clean dry and intact. Wearing abd binder Extremities: WWP, no edema Mental status: awake and alert Drain: SS fluid x2 Assessment and Plan: New Licea is a 37 y.o. male sp sp Retrorectus ventral hernia repair with transversus a bdominus release and placement of Bard soft mesh and Lysis of adhesions 10/09/17 POD#4 Abdominal Wall Reconstruction Comprehensive Care Pathway Plan: deviations from standard pathway bolded 1. Activity: Ambulate TID 2. Reg diet 3. Enoxaparin prophylaxis 4. Entereg (alvimopan) 12mg PO BID until documented bowel function or POD#7 - dc now with b owel function 5. Antibiotics: None indicated 6. Bowel regimen: Senna S BID, miralax daily - holding in the setting of loose stool 7. Pain: Hydromorphone [employer] - transition off today Acetaminophen 1000mg q6h Gabapentin 300mg PO TID Diazepam (for muscle spasm) 2mg PO q6h for 48h w/ holding for sedation parameters (not f or MARCIN, >65yo) 8. Two drains, stripped BID on MD rounds, RN TID. To be removed when reaches 30mL/24hr., re moving right drain today 9. Abdominal Binder PRN for comfort as ambulating 10. Glucose WNL, stop checks and SSI -transitioning off [employer] today, now with ROBF Dispo: dc in 1-2 days with pain control The attending of record for this patient is Dr. Nick MD. Jovanni Scott R1 Pg [phone] Associated attestation - Jaleesa Burleson MD - 10/13/2017 12:24 PM PST ATTENDING ADDENDUM: I saw, examined, and evaluated the patient. I agree with the findings and the plan of care as documented in the resident's/fellow s/advanced practitioner provider's note, with akil tions/edits made to the note to reflect my findings and clinical impression. -+bowel function, hernandez PO though with limited appetite. -On exam, no signs of infection. R drain with serous fluid and L with thin serosang fluid. Approp tenderness without any rebound/guarding. -Plan: -Cont to ambulate in hallway -Reg diet + Protein supplements. -Advised to take in at least 1/2 yogurt daily (pro-biotics) -Remove RIGHT drain today -Anticipate discharge tomorrow. Jaleesa Burleson MD [facility] [address] [place] [address] Dalila Jonas MD - 10/10/2017 7:15 AM PSTFormatting of this note may be different from the original. [facility] Progress Note Hospital Day: 1 Author: Dalila Jonas MD Attending Physician: Jaleesa Burleson MD Patient: NEW LICEA [id number] 24H events/Subjective: Pt comfortable in bed this morning. - No acute events overnight. - sp Retrorectus ventral hernia repair with transversus abdominus release and placement of Bard soft mesh and Lysis of adhesions 10/09/17 - pain controlled ov - afebrile Objective: BP 123/65 | Pulse 114 | Temp 36.1 C (97 F) | RR 16 | Ht 1.829 m (6') | Wt 87.7 kg (193 lb 5.5 oz) | SpO2 96% | BMI 26.22 kg/(m^2) Intake/Output Summary (Last 24 hours) at 10/10/17 0715 Last data filed at 10/10/17 0700 Gross per 24 hour Intake 4828.75 ml Output 1689 ml Net 3139.75 ml Exam: General: comfortable, NAD HEENT: NCAT Respiratory: unlabored breathing on RA Cardio: Regular rate Abdomen: soft, appropriately tender, Incision clean dry and intact. Wearing abd binder Extremities: WWP, no edema Mental status: awake and alert : Llanos in place and draining yellow urine Drain: SS fluid x2 Data: Reviewed Mg low 1.8 Assessment and Plan: New Licea is a 37 y.o. male sp sp Retrorectus ventral hernia repair with transversus a bdominus release and placement of Bard soft mesh and Lysis of adhesions 118 POD#1 Abdominal Wall Reconstruction Comprehensive Care Pathway Plan: deviations from standard pathway bolded 1. Activity: Ambulate TID; PT referral (POD#1) for abdominal precautions 2. Clear liquid diet with plan to advance to regular breakfast tomorrow (const. Carb) Currently on ISS, not IDDM at home 3. Enoxaparin prophylaxis started POD# 0 4. Entereg (alvimopan) 12mg PO BID until documented bowel function or POD#7 5. Antibiotics: None indicated 6. Bowel regimen: Senna S BID 7. Fluids: mIVF POD 0: D5 / 0.45NS+KCL at 125mL/hr POD#1 change to 75/hr POD#2 continue at 75/hr, heplock at end of day if tolerating PO 8. Pain: Hydromorphone [employer] until POD #3 Acetaminophen 1000mg q6h Gabapentin 300mg PO TID Diazepam (for muscle spasm) 2mg PO q6h for 48h w/ holding for sedation parameters (not f or MARCIN, >65yo) 9. Labs: morning on POD# 1 only Remarkable for low Mg, repleted 10. Two drains, stripped BID on MD barlow, RN TID. To be removed when reaches 30mL/24hr. 11. Llanos in place, will d/c POD#1 12. Abdominal Binder PRN for comfort as ambulating 13. Discontinue insulin drip, place on moderate sliding scale Stable Problems/ issues Disposition Planning: Remains POD# 3-4 The plan of care was discussed with the [facility] Team. The attending of record for this patient is Jaleesa Burleson MD. Dalila Jonas MD R1 =[place] Team= Pager: [phone] Associated attestation - Jaleesa Burleson MD - 10/10/2017 1:52 PM PST ATTENDING ADDENDUM: I saw, examined, and evaluated the patient. I agree with the findings and the plan of care as documented in the resident's/fellow s/advanced practitioner provider's note, with akil tions/edits made to the note to reflect my findings and clinical impression. -Pt looks well POD#1. Dressings c/d/i. Drains with serosang fluid. Mild-mod tenderness to palpation. -Plan: AWR Pathway: Start clears + isopure. OOB/ambulate. D/C rodolfo Burleson MD [facility] [address]A [address] [place] [address] Sebas Gunter MD - 10/09/2017 10:47 PM PSTPost-op check Patient is comfortable in bed, saying pain is well controlled, no nausea or vomiting. Patie nt is hemodynamically appropriate and incisions look c/d/i. Sebas Gunter MDin this encounter Plan of Treatment +--------+---------+ + + + | Date | Type | Specialty | Care Team | Description | +--------+---------+ + + + | 12/31/ | Office | Surgery | Jaleesa Burleson, | | | 2017 | Visit | | [address] | | | | | | [address] | | | | | | [place] | | | | | | [address] | | | | | | [phone] | | | | | | | | +--------+---------+ + + + | 04/05/ | Office | Surgery | Liz Rodriguez MD | | | 2017 | Visit | | [address] | | | | | | [place] [address] [facility] | | | | | | [place] [address] | | | | | | [phone] | | | | | | | | +--------+---------+ + + + as of this encounter Procedures + +--------+ + + + | Procedure Name | Priori | Date/Time | Associated Diagnosis | Comments | | | ty | | | | + +--------+ + + + | VENTRAL HERNIA | Electi | 10/09/2017 | RECURRENT | | | REPAIR WITH | ve | 10:15 AM | INCARCERATED VENTRAL | | | TRANSVERSUS | Surgic | PST | HERNIA | | | ABDOMINIS MUSCLE | al | | | | | RELEASE | | | | | + +--------+ + + + +---+--------+ | | | | | Specia | | | l | | | Needs | | | | | | OVERNI | | | GHT | | | DAYPAT | | | IENT | +---+--------+ in this encounter Results CAPILLARY BLOOD GLUCOSE (NO CHG), POC (10/23/2017 7:49 AM) + +-------+ + | Component | Value | Ref Range | + +-------+ + | BLOOD GLUCOSE, POC | 97 | 70 - 99 mg/dL | + +-------+ + + + + | Specimen | Performing Laboratory | + + + | | [facility] [address] | | | [place] [address] | + + + CAPILLARY BLOOD GLUCOSE (NO CHG), POC (10/23/2017 5:39 AM) + +-------+ + | Component | Value | Ref Range | + +-------+ + | BLOOD GLUCOSE, POC | 93 | 70 - 99 mg/dL | + +-------+ + + + + | Specimen | Performing Laboratory | + + + | | [facility] POINT OF CARE TESTS [address] | | | [place] [address] | + + + CAPILLARY BLOOD GLUCOSE (NO CHG), POC (10/23/2017 12:02 AM) + +---------+ + | Component | Value | Ref Range | + +---------+ + | BLOOD GLUCOSE, POC | 108 (H) | 70 - 99 mg/dL | + +---------+ + + + + | Specimen | Performing Laboratory | + + + | | [facility], POINT OF CARE TESTS [address] | | | [place] [address] | + + + CAPILLARY BLOOD GLUCOSE (NO CHG), POC (10/22/2017 6:31 PM) + +---------+ + | Component | Value | Ref Range | + +---------+ + | BLOOD GLUCOSE, POC | 106 (H) | 70 - 99 mg/dL | + +---------+ + + + + | Specimen | Performing Laboratory | + + + | | [facility], POINT OF CARE TESTS [address] | | | [place] [address] | + + + CAPILLARY BLOOD GLUCOSE (NO CHG), POC (10/22/2017 1:16 PM) + +---------+ + | Component | Value | Ref Range | + +---------+ + | BLOOD GLUCOSE, POC | 109 (H) | 70 - 99 mg/dL | + +---------+ + + + + | Specimen | Performing Laboratory | + + + | | [facility], POINT OF CARE TESTS [address] | | | [place] [address] | + + + CAPILLARY BLOOD GLUCOSE (NO CHG), POC (10/22/2017 5:48 AM) + +---------+ + | Component | Value | Ref Range | + +---------+ + | BLOOD GLUCOSE, POC | 125 (H) | 70 - 99 mg/dL | + +---------+ + + + + | Specimen | Performing Laboratory | + + + | | [facility], POINT OF CARE TESTS [address] | | | [place] [address] | + + + CBC (HEMOGRAM) ONLY (10/22/2017 4:22 AM) + + + + | Component | Value | Ref Range | + + + + | WHITE CELL COUNT | 10.58 | 3.50 - 10.80 K/cu mm | + + + + | RED CELL COUNT | 4.40 (L) | 4.50 - 6.00 M/cu mm | + + + + | HEMOGLOBIN | 11.2 (L) | 13.5 - 17.5 g/dL | + + + + | HEMATOCRIT | 35.7 (L) | 41.0 - 53.0 % | + + + + | MCV | 81.1 | 80.0 - 96.0 fL | + + + + | MCHC | 31.4 | 33.0 - 35.5 g/dL | + + + + | RDW SD | 42.4 | 35.1 - 46.3 fL | + + + + | PLATELET COUNT | 271 | 150 - 400 K/cu mm | + + + + | MPV | 9.2 (L) | 9.7 - 12.3 fL | + + + + | NRBC% | 0.0 | 0.0 - 0.3 % | + + + + | NRBC# | 0.00 | 0.00 - 0.02 K/cu mm | + + + + + + + | Specimen | Performing Laboratory | + + + | Blood | [facility], CORE [address] [place] [address] | | | [place] [address] | + + + CBC ONLY (10/22/2017 4:22 AM) + + + | Specimen | Performing Laboratory | + + + | Blood | | + + + + + | Narrative | + + | The following orders were created for panel order CBC ONLY. | | Procedure | | Abnormality Status | | --------- | | ------ CBC (HEMOGRAM) | | ONLY[[id number]] Abnormal Final | | result Please view results for these tests on the | | individual orders. | + + CAPILLARY BLOOD GLUCOSE (NO CHG), POC (10/21/2017 11:51 PM) + +---------+ + | Component | Value | Ref Range | + +---------+ + | BLOOD GLUCOSE, POC | 130 (H) | 70 - 99 mg/dL | + +---------+ + + + + | Specimen | Performing Laboratory | + + + | | [facility] POINT OF CARE TESTS [address] | | | [place] [address] | + + + CAPILLARY BLOOD GLUCOSE (NO CHG), POC (10/21/2017 6:05 PM) + +-------+ + | Component | Value | Ref Range | + +-------+ + | BLOOD GLUCOSE, POC | 91 | 70 - 99 mg/dL | + +-------+ + + + + | Specimen | Performing Laboratory | + + + | | [facility] POINT OF CARE TESTS [address] | | | [place] [address] | + + + CAPILLARY BLOOD GLUCOSE (NO CHG), POC (10/21/2017 12:20 PM) + +---------+ + | Component | Value | Ref Range | + +---------+ + | BLOOD GLUCOSE, POC | 124 (H) | 70 - 99 mg/dL | + +---------+ + + + + | Specimen | Performing Laboratory | + + + | | [facility], POINT OF CARE TESTS [address] | | | [place] [address] | + + + CAPILLARY BLOOD GLUCOSE (NO CHG), POC (10/21/2017 6:35 AM) + +---------+ + | Component | Value | Ref Range | + +---------+ + | BLOOD GLUCOSE, POC | 101 (H) | 70 - 99 mg/dL | + +---------+ + + + + | Specimen | Performing Laboratory | + + + | | [facility], [facility] TEST[facility] [address] | | | [place] [address] | + + + CBC (HEMOGRAM) ONLY (10/21/2017 4:07 AM) + + + + | Component | Value | Ref Range | + + + + | WHITE CELL COUNT | 15.98 (H) | 3.50 - 10.80 K/cu mm | + + + + | RED CELL COUNT | 5.10 | 4.50 - 6.00 M/cu mm | + + + + | HEMOGLOBIN | 13.0 (L) | 13.5 - 17.5 g/dL | + + + + | HEMATOCRIT | 41.0 | 41.0 - 53.0 % | + + + + | MCV | 80.4 | 80.0 - 96.0 fL | + + + + | MCHC | 31.7 | 33.0 - 35.5 g/dL | + + + + | RDW SD | 41.9 | 35.1 - 46.3 fL | + + + + | PLATELET COUNT | 310 | 150 - 400 K/cu mm | + + + + | MPV | 9.0 (L) | 9.7 - 12.3 fL | + + + + | NRBC% | 0.0 | 0.0 - 0.3 % | + + + + | NRBC# | 0.00 | 0.00 - 0.02 K/cu mm | + + + + + + + | Specimen | Performing Laboratory | + + + | Blood | [facility], CORE [address] [place] [address] | | | [place] [address] | + + + CBC ONLY (10/21/2017 4:07 AM) + + + | Specimen | Performing Laboratory | + + + | Blood | | + + + + + | Narrative | + + | The following orders were created for panel order CBC ONLY. | | Procedure | | Abnormality Status | | --------- | | ------ CBC (HEMOGRAM) | | ONLY[[id number]] Abnormal Final | | result Please view results for these tests on the | | individual orders. | + + RENAL FUNCTION SET (NA,K,CL,CO2,BUN,CREAT,GLUC,CA,PHOS,ALB ) (10/21/2017 4:06 AM) + +---------+ + | Component | Value | Ref Range | + +---------+ + | GLUCOSE, PLASMA | 113 (H) | 70 - 99 mg/dL | | (LAB) | | | + +---------+ + | BUN, PLASMA (LAB) | 14 | 6 - 20 mg/dL | + +---------+ + | CREATININE PLASMA | 0.77 | 0.70 - 1.30 mg/dL | | (LAB) | | | + +---------+ + | EGFR - | >60 | >60 mL/min | | [place] | | | + +---------+ + | EGFR NON | >60 | >60 mL/min | | -[place] | | | + +---------+ + | SODIUM, PLASMA (LAB) | 134 (L) | 136 - 145 mmol/L | + +---------+ + | POTASSIUM, PLASMA | 3.8 | 3.4 - 5.0 mmol/L | | (LAB) | | | + +---------+ + | CHLORIDE, PLASMA | 99 | 97 - 108 mmol/L | | (LAB) | | | + +---------+ + | TOTAL CO2, PLASMA | 29 | 21 - 32 mmol/L | | (LAB) | | | + +---------+ + | CALCIUM, PLASMA | 8.4 (L) | 8.6 - 10.2 mg/dL | | (LAB) | | | + +---------+ + | CALCIUM(ALB | 9.4 | 8.6 - 10.2 mg/dL | | CORRECTED) | | | + +---------+ + | ALBUMIN, PLASMA | 2.8 (L) | 3.5 - 4.7 g/dL | | (LAB) | | | + +---------+ + | PHOSPHORUS, PLASMA | 3.3 | 2.4 - 4.7 mg/dL | | (LAB) | | | + +---------+ + | POTASSIUM CMNT | No Hemo | | + +---------+ + | ANION GAP | 6 | 4 - 11 mmol/L | + +---------+ + | ANION GAP(ALB | 9 | 4 - 11 mmol/L | | CORRECTED) | | | + +---------+ + + + + | Specimen | Performing Laboratory | + + + | Blood | [facility], [facility] [address] [place] [address] | | | [place] [address] | + + + + + | Narrative | + + | Adult glucose reference range change effective 7-12-17. GFR is estimated using the | | MDRD equation recommended by the National Kidney Disease Education Program. | | Estimated GFR Interpretive Information: <60 mL/min/1.73 sq | | m Chronic Kidney Disease <15 mL/min/1.73 sq | | m Kidney Failure Estimated GFR greater that 60 mL/min/1.73 | | sq m is of limited clinical value. The MDRD equation is not valid in the following | | situations: - Patients under 18 years of age - Severe malnutrition or obesity - | | Vegetarian diet - Rapidly changing kidney function | + + CAPILLARY BLOOD GLUCOSE (NO CHG), POC (10/21/2017 12:01 AM) + +---------+ + | Component | Value | Ref Range | + +---------+ + | BLOOD GLUCOSE, POC | 133 (H) | 70 - 99 mg/dL | + +---------+ + + + + | Specimen | Performing Laboratory | + + + | | [facility], POINT OF [facility] TESTS [address] | | | [place] [address] | + + + CBC (HEMOGRAM) ONLY (10/20/2017 10:29 AM) + + + + | Component | Value | Ref Range | + + + + | WHITE CELL COUNT | 18.50 (H) | 3.50 - 10.80 K/cu mm | + + + + | RED CELL COUNT | 5.31 | 4.50 - 6.00 M/cu mm | + + + + | HEMOGLOBIN | 13.4 (L) | 13.5 - 17.5 g/dL | + + + + | HEMATOCRIT | 43.1 | 41.0 - 53.0 % | + + + + | MCV | 81.2 | 80.0 - 96.0 fL | + + + + | MCHC | 31.1 | 33.0 - 35.5 g/dL | + + + + | RDW SD | 42.8 | 35.1 - 46.3 fL | + + + + | PLATELET COUNT | 447 (H) | 150 - 400 K/cu mm | + + + + | MPV | 9.0 (L) | 9.7 - 12.3 fL | + + + + | NRBC% | 0.0 | 0.0 - 0.3 % | + + + + | NRBC# | 0.00 | 0.00 - 0.02 K/cu mm | + + + + + + + | Specimen | Performing Laboratory | + + + | Blood | [facility], CORE [address] [facility] | | | [place] [address] | + + + CBC ONLY (10/20/2017 10:29 AM) + + + | Specimen | Performing Laboratory | + + + | Blood | | + + + + + | Narrative | + + | The following orders were created for panel order CBC ONLY. | | Procedure | | Abnormality Status | | --------- | | ------ CBC (HEMOGRAM) | | ONLY[[id number]] Abnormal Final | | result Please view results for these tests on the | | individual orders. | + + C-REACTIVE PROTEIN (10/20/2017 10:29 AM) + + + + | Component | Value | Ref Range | + + + + | C-REACTIVE PROTEIN | 18.9 (H) | <10.0 mg/L | + + + + + + + | Specimen | Performing Laboratory | + + + | Blood | [facility], [address]ORE [address] | | | [place] [address] | + + + + + | Narrative | + + | New method, new reference range and new reporting units as of 03/01/2014. | + + PREALBUMIN (10/20/2017 10:29 AM) + +-------+ + | Component | Value | Ref Range | + +-------+ + | PREALBUMIN | 21.0 | 17.0 - 42.0 mg/dL | + +-------+ + + + + | Specimen | Performing Laboratory | + + + | Blood | [facility] [id number] [place] [address] | | | [phone] | + + + CALCIUM, IONIZED, WHOLE BLOOD (10/20/2017 10:29 AM) + + + + | Component | Value | Ref Range | + + + + | DELMY ICA, WHOLE BLD | 1.11 (L) | 1.14 - 1.32 mmol/L | + + + + | PH, WHOLE BLOOD | 7.42 | | + + + + | ICA, CORRECTED TO PH | 1.13 (L) | 1.14 - 1.28 mmol/L | | 7.4 | | | + + + + + + + | Specimen | Performing Laboratory | + + + | Blood | [facility], [address] [place] [address] | | | [place] [address] | + + + ALT, PLASMA (10/20/2017 10:29 AM) + +--------+ + | Component | Value | Ref Range | + +--------+ + | ALT (SGPT) | 82 (H) | <=60 U/L | + +--------+ + + + + | Specimen | Performing Laboratory | + + + | Blood | [facility], CORE [address] [place] [address] | | | [place] [address] | + + + TRIGLYCERIDES, PLASMA (10/20/2017 10:29 AM) + +---------+ + | Component | Value | Ref Range | + +---------+ + | TRIGLYCERIDES | 182 (H) | <150 mg/dL | + +---------+ + + + + | Specimen | Performing Laboratory | + + + | Blood | [facility], CORE [address] | | | [place] [address] | + + + + + | Narrative | + + | Triglyceride Reference Range: Normal: <150 mg/dL | | Borderline High: 150-199 mg/dL High: 200-499 mg/dL | | Very High: >=500 mg/dL | + + AST, PLASMA (10/20/2017 10:29 AM) + +---------+ + | Component | Value | Ref Range | + +---------+ + | AST(SGOT) | 34 | <=41 U/L | + +---------+ + | AST CMNT | No Hemo | | + +---------+ + + + + | Specimen | Performing Laboratory | + + + | Blood | [facility], [address] [facility] [address] | | | [place] [address] | + + + ALKALINE PHOSPHATASE, PLASMA (10/20/2017 10:29 AM) + +-------+ + | Component | Value | Ref Range | + +-------+ + | ALK PHOS | 99 | 53 - 128 U/L | + +-------+ + + + + | Specimen | Performing Laboratory | + + + | Blood | [facility], [address] | | | [place] [address] | + + + BILIRUBIN DIRECT (10/20/2017 10:29 AM) + +---------+ + | Component | Value | Ref Range | + +---------+ + | BILIRUBIN DIRECT | <0.1 | 0.0 - 0.3 mg/dL | + +---------+ + | BILI D CMNT | No Hemo | | + +---------+ + + + + | Specimen | Performing Laboratory | + + + | Blood | [facility], CORE [address] | | | [place] [address] | + + + BILIRUBIN TOTAL (10/20/2017 10:29 AM) + +---------+ + | Component | Value | Ref Range | + +---------+ + | BILIRUBIN TOTAL | 0.4 | 0.3 - 1.2 mg/dL | + +---------+ + | BILI T CMNT | No Hemo | | + +---------+ + + + + | Specimen | Performing Laboratory | + + + | Blood | [facility], [address] | | | [place] [address] | + + + PHOSPHORUS, PLASMA (10/20/2017 10:29 AM) + +-------+ + | Component | Value | Ref Range | + +-------+ + | PHOSPHORUS, PLASMA | 3.3 | 2.4 - 4.7 mg/dL | | (LAB) | | | + +-------+ + + + + | Specimen | Performing Laboratory | + + + | Blood | [facility], [address] [place] [address] | | | [place] [address] | + + + ALBUMIN, PLASMA (10/20/2017 10:29 AM) + +---------+ + | Component | Value | Ref Range | + +---------+ + | ALBUMIN, PLASMA | 2.8 (L) | 3.5 - 4.7 g/dL | | (LAB) | | | + +---------+ + + + + | Specimen | Performing Laboratory | + + + | Blood | [facility], CORE [address] [facility] | | | [place], [place] [address] | + + + MAGNESIUM, PLASMA (10/20/2017 10:29 AM) + +-------+ + | Component | Value | Ref Range | + +-------+ + | MAGNESIUM,PLASMA | 2.4 | 1.6 - 2.6 mg/dL | + +-------+ + + + + | Specimen | Performing Laboratory | + + + | Blood | [facility], [address]ORE [address] [facility] | | | [place] [address] | + + + + + | Narrative | + + | Reference range change effective 8/15/17. | + + BASIC METABOLIC SET (NA, K, CL, TCO2, BUN, CR, GLU, CA) (10/20/2017 10:29 AM) + +---------+ + | Component | Value | Ref Range | + +---------+ + | GLUCOSE, PLASMA | 122 (H) | 70 - 99 mg/dL | | (LAB) | | | + +---------+ + | BUN, PLASMA (LAB) | 18 | 6 - 20 mg/dL | + +---------+ + | CREATININE PLASMA | 0.78 | 0.70 - 1.30 mg/dL | | (LAB) | | | + +---------+ + | EGFR - | >60 | >60 mL/min | | [place] | | | + +---------+ + | EGFR NON | >60 | >60 mL/min | | -[place] | | | + +---------+ + | SODIUM, PLASMA (LAB) | 133 (L) | 136 - 145 mmol/L | + +---------+ + | POTASSIUM, PLASMA | 3.7 | 3.4 - 5.0 mmol/L | | (LAB) | | | + +---------+ + | CHLORIDE, PLASMA | 98 | 97 - 108 mmol/L | | (LAB) | | | + +---------+ + | TOTAL CO2, PLASMA | 30 | 21 - 32 mmol/L | | (LAB) | | | + +---------+ + | CALCIUM, PLASMA | 8.4 (L) | 8.6 - 10.2 mg/dL | | (LAB) | | | + +---------+ + | ANION GAP | 5 | 4 - 11 mmol/L | + +---------+ + | POTASSIUM CMNT | No Hemo | | + +---------+ + + + + | Specimen | Performing Laboratory | + + + | Blood | [facility], CORE [address] [facility] | | | [place] [address] | + + + + + | Narrative | + + | Adult glucose reference range change effective 7-12-17. GFR is estimated using the | | MDRD equation recommended by the National Kidney Disease Education Program. | | Estimated GFR Interpretive Information: <60 mL/min/1.73 sq | | m Chronic Kidney Disease <15 mL/min/1.73 sq | | m Kidney Failure Estimated GFR greater that 60 mL/min/1.73 | | sq m is of limited clinical value. The MDRD equation is not valid in the following | | situations: - Patients under 18 years of age - Severe malnutrition or obesity - | | Vegetarian diet - Rapidly changing kidney function | + + X-RAY PORTABLE CHEST PICC LINE CHECK (10/20/2017 9:45 AM) + + + | Specimen | Performing Laboratory | + + + | | [facility] VOICE RECOGNITION | + + + + + | Narrative | + + | EXAM: SD CHEST PICC LINE CHECK 10/20/17 09:17:09 HISTORY: PICC placement | | COMPARISON: None FINDINGS: Left upper extremity PICC tip is at the cavoatrial | | junction. The cardiomediastinal silhouette is unremarkable. Scattered atelectasis noted. | | There is no pleural effusion, pneumothorax or pulmonary edema. IMPRESSION: | | Left upper extremity PICC tip at the cavoatrial junction. Minimal scattered | | atelectasis. I have personally reviewed the images and, if necessary, edited the | | report. I agree with the report as now presented. | + + + + | Procedure Note | + + | Service Account, [employer] Res In Interface - 10/20/2017 1:09 PM PST EXAM: SD CHEST | | PICC LINE CHECK 10/20/17 09:17:09 HISTORY: PICC placementCOMPARISON: NoneFINDINGS: Left | | upper extremity PICC tip is at the cavoatrial junction. The cardiomediastinal silhouette | | is unremarkable. Scattered atelectasis noted. There is no pleural effusion, | | pneumothorax or pulmonary edema.IMPRESSION: Left upper extremity PICC tip at the | | cavoatrial junction.Minimal scattered atelectasis.I have personally reviewed the images | | and, if necessary, edited the report. I agree with the report as now presented. | | | |Left upper extremity PICC tip is at the cavoatrial junction. The cardiomediastinal silhouet te is unremarkable. Scattered atelectasis noted. There is no pleural effusion, pneumothorax or pulmonary edema. | | | |IMPRESSION: | | | |Left upper extremity PICC tip at the cavoatrial junction. | | | |Minimal scattered atelectasis. | | | | | |I have personally reviewed the images and, if necessary, edited the report. I agree with t he report as now presented. | + + PICC LINE (10/20/2017 9:09 AM) + + | Narrative | + + | Uzma Poon RN 10/20/2017 9:40 AM PICC LINE Performed by: YURY, | | UZMA Authorized by: JALEESA BURLESON PICC/Midline Insertion Procedure Note | | Indications:Antibiotics Procedure location: Unit:14 Room: #12 Providers: PICC | | Nurse name: Elana Poon RN Assisted by Isabel Barakat RN BSN Pre-Procedure Consent: | | written consent obtained Consent given by: Patient Patient identity confirmed per | | protocol: Yes Team Pause: Immediatly prior to the procedure a pause per protocol was | | called. A pause verifies correct patient, procedure, equipment, child support specialist and | | site/side marked as required. CLABSI Prevention Bundle: Skin | | preparation: Chloraprep Protective barrier: Cap, Mask, Hand scrub, Gown, | | Gloves and Full body drape. Cap and mask worn by assistive personnel.Sterile | | Ultrasound techniques (sterile gel, and sterile probe cover) used | | Dressing: Dressing applied prior of removal of full | | barrier drape and hemostatic agent applied Procedure Details Patient was placed | | in appropriate position The vascular anatomy was identified by Ultrasound Guidance.wire | | through the needle, introducer over the wire, then catheter through the introducer | | Tip was placed using TLS (Tip Locating System) and TPS (Tip Positioning System). . A | | non-tunneled PICC Double lumen 5 Fr was placed in the Left Head area Basilic | | vein. Catheter lot number: [id number] with a length of 55 cm was selected and | | trimmed 0 to a remaining length of 55 All ports aspirated for blood and flushed | | with saline Procedure comments: Arm circumference 29 inch 13 cm above AC Vein | | .68 Power-injectable line: yes Attempts 1 attempt(s) were made Complications None | | PICC catheter tip location Chest radiograph ordered to verify placement and Line | | verified by radiograph Adjustments made after chest film obtained: none External | | measurement of catheter exposed: 7 cm. PICC catheter tip location: Cavo-Atrial | | Junction Estimated blood loss: <10mL | + + VAT: PICC INSERTION W/US (10/20/2017 8:45 AM) + + | Narrative | + + | See procedure note. | + + CT ABDOMEN AND PELVIS W IV CONTRAST (10/19/2017 11:47 AM) + + + | Specimen | Performing Laboratory | + + + | | [facility] VOICE RECOGNITION | + + + + + | Narrative | + + | EXAM: CT of the abdomen and pelvis with contrast HISTORY: Postop ileus. History of | | retrorectus ventral hernia repair with transversus abdominis release and placement of | | Bard soft mesh. History of ulcerative colitis status post colectomy. COMPARISON: | | 03/04/17 TECHNIQUE: CT of the abdomen and pelvis with non-ionic iodinated | | intravenous contrast. Coronal and sagittal reformats were created. FINDINGS: | | LOWER THORAX: Unremarkable. LIVER: Unremarkable. BILIARY: The gallbladder is | | surgically absent. No biliary dilatation. PANCREAS: Unremarkable. SPLEEN: | | Unremarkable. ADRENALS: Unremarkable. KIDNEYS/URETERS: Unremarkable. PELVIC | | ORGANS/BLADDER: Unremarkable. GI TRACT: 1.6 x 1.6 cm rim-enhancing collection at the | | anus at the 6:00 position. Ileoanal anastomosis with an appears intact. Patient is | | status post colectomy. There is diffuse dilatation of the small bowel, measuring up to | | 7.6 cm, without transition point. No bowel wall thickening. The stomach is distended. | | There is a small hiatal hernia. PERITONEUM: Trace pelvic free fluid. LYMPH NODES: | | No lymphadenopathy. VESSELS: Unremarkable. BONES AND SOFT TISSUES: Postsurgical | | changes from recent anterior abdominal wall hernia repair noted. A surgical drain | | terminates in the pelvis. IMPRESSION: 1. Diffuse small bowel dilatation without | | transition point, consistent with ileus. 2. 1.6 cm collection at the anus may | | represent perianal abscess. I have personally reviewed the images and, if | | necessary, edited the report. I agree with the report as now presented. | + + + + | Procedure Note | + + | Service Account, Radiant Res In Interface - 10/20/2017 8:31 AM PST EXAM: CT of the | | abdomen and pelvis with contrastHISTORY: Postop ileus. History of retrorectus ventral | | hernia repair with transversus abdominis release and placement of Bard soft mesh. | | History of ulcerative colitis status post colectomy. COMPARISON: 03/04/17TECHNIQUE: CT of | | the abdomen and pelvis with non-ionic iodinated intravenous contrast. Coronal and | | sagittal reformats were created.FINDINGS:LOWER THORAX: Unremarkable.LIVER: | | Unremarkable.BILIARY: The gallbladder is surgically absent. No biliary | | dilatation.PANCREAS: Unremarkable.SPLEEN: Unremarkable.ADRENALS: | | Unremarkable.KIDNEYS/URETERS: Unremarkable.PELVIC ORGANS/BLADDER: Unremarkable.GI TRACT: | | 1.6 x 1.6 cm rim-enhancing collection at the anus at the 6:00 position. Ileoanal | | anastomosis with an appears intact. Patient is status post colectomy. There is diffuse | | dilatation of the small bowel, measuring up to 7.6 cm, without transition point. No | | bowel wall thickening. The stomach is distended. There is a small hiatal | | hernia.PERITONEUM: Trace pelvic free fluid.LYMPH NODES: No lymphadenopathy.VESSELS: | | Unremarkable.BONES AND SOFT TISSUES: Postsurgical changes from recent anterior abdominal | | wall hernia repair noted. A surgical drain terminates in the pelvis.IMPRESSION: 1. | | Diffuse small bowel dilatation without transition point, consistent with ileus.2. 1.6 cm | | collection at the anus may represent perianal abscess.I have personally reviewed the | | images and, if necessary, edited the report. I agree with the report as now presented. | |PELVIC ORGANS/BLADDER: Unremarkable. | | | |GI TRACT: 1.6 x 1.6 cm rim-enhancing collection at the anus at the 6:00 position. Ileoanal anastomosis with an appears intact. Patient is status post colectomy. There is diffuse dilat ation of the small bowel, measuring | |up to 7.6 cm, without transition point. No bowel wall thickening. The stomach is distended. There is a small hiatal hernia. | |PERITONEUM: Trace pelvic free fluid. | | | |LYMPH NODES: No lymphadenopathy. | |VESSELS: Unremarkable. | | | |BONES AND SOFT TISSUES: Postsurgical changes from recent anterior abdominal wall hernia rep air noted. A surgical drain terminates in the pelvis. | | | |IMPRESSION: | | | |1. Diffuse small bowel dilatation without transition point, consistent with ileus. | | | |2. 1.6 cm collection at the anus may represent perianal abscess. | | | | | |I have personally reviewed the images and, if necessary, edited the report. I agree with t he report as now presented. | + + RENAL FUNCTION SET (NA,K,CL,CO2,BUN,CREAT,GLUC,CA,PHOS,ALB ) (10/19/2017 10:02 AM) + +---------+ + | Component | Value | Ref Range | + +---------+ + | GLUCOSE, PLASMA | 100 (H) | 70 - 99 mg/dL | | (LAB) | | | + +---------+ + | BUN, PLASMA (LAB) | 22 (H) | 6 - 20 mg/dL | + +---------+ + | CREATININE PLASMA | 0.90 | 0.70 - 1.30 mg/dL | | (LAB) | | | + +---------+ + | EGFR - | >60 | >60 mL/min | | [place] | | | + +---------+ + | EGFR NON | >60 | >60 mL/min | | -[place] | | | + +---------+ + | SODIUM, PLASMA (LAB) | 135 (L) | 136 - 145 mmol/L | + +---------+ + | POTASSIUM, PLASMA | 3.7 | 3.4 - 5.0 mmol/L | | (LAB) | | | + +---------+ + | CHLORIDE, PLASMA | 96 (L) | 97 - 108 mmol/L | | (LAB) | | | + +---------+ + | TOTAL CO2, PLASMA | 29 | 21 - 32 mmol/L | | (LAB) | | | + +---------+ + | CALCIUM, PLASMA | 8.9 | 8.6 - 10.2 mg/dL | | (LAB) | | | + +---------+ + | CALCIUM(ALB | 9.7 | 8.6 - 10.2 mg/dL | | CORRECTED) | | | + +---------+ + | ALBUMIN, PLASMA | 3.0 (L) | 3.5 - 4.7 g/dL | | (LAB) | | | + +---------+ + | PHOSPHORUS, PLASMA | 4.1 | 2.4 - 4.7 mg/dL | | (LAB) | | | + +---------+ + | POTASSIUM CMNT | No Hemo | | + +---------+ + | ANION GAP | 10 | 4 - 11 mmol/L | + +---------+ + | ANION GAP(ALB | 12 (H) | 4 - 11 mmol/L | | CORRECTED) | | | + +---------+ + + + + | Specimen | Performing Laboratory | + + + | Blood | [facility], [address] [facility] | | | [place] [address] | + + + + + | Narrative | + + | Adult glucose reference range change effective 712-17. GFR is estimated using the | | MDRD equation recommended by the National Kidney Disease Education Program. | | Estimated GFR Interpretive Information: <60 mL/min/1.73 sq | | m Chronic Kidney Disease <15 mL/min/1.73 sq | | m Kidney Failure Estimated GFR greater that 60 mL/min/1.73 | | sq m is of limited clinical value. The MDRD equation is not valid in the following | | situations: - Patients under 18 years of age - Severe malnutrition or obesity - | | Vegetarian diet - Rapidly changing kidney function | + + CBC (HEMOGRAM) ONLY (10/18/2017 7:00 AM) + + + + | Component | Value | Ref Range | + + + + | WHITE CELL COUNT | 16.21 (H) | 3.50 - 10.80 K/cu mm | + + + + | RED CELL COUNT | 5.31 | 4.50 - 6.00 M/cu mm | + + + + | HEMOGLOBIN | 13.4 (L) | 13.5 - 17.5 g/dL | + + + + | HEMATOCRIT | 42.9 | 41.0 - 53.0 % | + + + + | MCV | 80.8 | 80.0 - 96.0 fL | + + + + | MCHC | 31.2 | 33.0 - 35.5 g/dL | + + + + | RDW SD | 43.5 | 35.1 - 46.3 fL | + + + + | PLATELET COUNT | 489 (H) | 150 - 400 K/cu mm | + + + + | MPV | 8.5 (L) | 9.7 - 12.3 fL | + + + + | NRBC% | 0.0 | 0.0 - 0.3 % | + + + + | NRBC# | 0.00 | 0.00 - 0.02 K/cu mm | + + + + + + + | Specimen | Performing Laboratory | + + + | Blood | [facility], [address] | | | [place] [address] | + + + CBC ONLY (10/18/2017 7:00 AM) + + + | Specimen | Performing Laboratory | + + + | Blood | | + + + + + | Narrative | + + | The following orders were created for panel order CBC ONLY. | | Procedure | | Abnormality Status | | --------- | | ------ CBC (HEMOGRAM) | | ONLY[[id number]] Abnormal Final | | result Please view results for these tests on the | | individual orders. | + + RENAL FUNCTION SET (NA,K,CL,CO2,BUN,CREAT,GLUC,CA,PHOS,ALB ) (10/18/2017 7:00 AM) + +---------+ + | Component | Value | Ref Range | + +---------+ + | GLUCOSE, PLASMA | 111 (H) | 70 - 99 mg/dL | | (LAB) | | | + +---------+ + | BUN, PLASMA (LAB) | 19 | 6 - 20 mg/dL | + +---------+ + | CREATININE PLASMA | 0.80 | 0.70 - 1.30 mg/dL | | (LAB) | | | + +---------+ + | EGFR - | >60 | >60 mL/min | | [place] | | | + +---------+ + | EGFR NON | >60 | >60 mL/min | | -[place] | | | + +---------+ + | SODIUM, PLASMA (LAB) | 136 | 136 - 145 mmol/L | + +---------+ + | POTASSIUM, PLASMA | 3.9 | 3.4 - 5.0 mmol/L | | (LAB) | | | + +---------+ + | CHLORIDE, PLASMA | 101 | 97 - 108 mmol/L | | (LAB) | | | + +---------+ + | TOTAL CO2, PLASMA | 27 | 21 - 32 mmol/L | | (LAB) | | | + +---------+ + | CALCIUM, PLASMA | 9.1 | 8.6 - 10.2 mg/dL | | (LAB) | | | + +---------+ + | CALCIUM(ALB | 9.9 | 8.6 - 10.2 mg/dL | | CORRECTED) | | | + +---------+ + | ALBUMIN, PLASMA | 3.0 (L) | 3.5 - 4.7 g/dL | | (LAB) | | | + +---------+ + | PHOSPHORUS, PLASMA | 4.6 | 2.4 - 4.7 mg/dL | | (LAB) | | | + +---------+ + | POTASSIUM CMNT | No Hemo | | + +---------+ + | ANION GAP | 8 | 4 - 11 mmol/L | + +---------+ + | ANION GAP(ALB | 10 | 4 - 11 mmol/L | | CORRECTED) | | | + +---------+ + + + + | Specimen | Performing Laboratory | + + + | Blood | [facility], [address] [facility] [address] | | | [place] [address] | + + + + + | Narrative | + + | Adult glucose reference range change effective 7-12-17. GFR is estimated using the | | MDRD equation recommended by the National Kidney Disease Education Program. | | Estimated GFR Interpretive Information: <60 mL/min/1.73 sq | | m Chronic Kidney Disease <15 mL/min/1.73 sq | | m Kidney Failure Estimated GFR greater that 60 mL/min/1.73 | | sq m is of limited clinical value. The MDRD equation is not valid in the following | | situations: - Patients under 18 years of age - Severe malnutrition or obesity - | | Vegetarian diet - Rapidly changing kidney function | + + RENAL FUNCTION SET (NA,K,CL,CO2,BUN,CREAT,GLUC,CA,PHOS,ALB ) (10/18/2017 4:15 AM) + + + + | Component | Value | Ref Range | + + + + | GLUCOSE, PLASMA | 109 (H) | 70 - 99 mg/dL | | (LAB) | | | + + + + | BUN, PLASMA (LAB) | 18 | 6 - 20 mg/dL | + + + + | CREATININE PLASMA | 0.68 (L) | 0.70 - 1.30 mg/dL | | (LAB) | | | + + + + | EGFR - | >60 | >60 mL/min | | [place] | | | + + + + | EGFR NON | >60 | >60 mL/min | | -[place] | | | + + + + | SODIUM, PLASMA (LAB) | 135 (L) | 136 - 145 mmol/L | + + + + | POTASSIUM, PLASMA | 6.2 (HH) | 3.4 - 5.0 mmol/L | | (LAB) | | | + + + + | CHLORIDE, PLASMA | 100 | 97 - 108 mmol/L | | (LAB) | | | + + + + | TOTAL CO2, PLASMA | 26 | 21 - 32 mmol/L | | (LAB) | | | + + + + | CALCIUM, PLASMA | 9.1 | 8.6 - 10.2 mg/dL | | (LAB) | | | + + + + | CALCIUM(ALB | 10.1 | 8.6 - 10.2 mg/dL | | CORRECTED) | | | + + + + | ALBUMIN, PLASMA | 2.8 (L) | 3.5 - 4.7 g/dL | | (LAB) | | | + + + + | PHOSPHORUS, PLASMA | 5.1 (H) | 2.4 - 4.7 mg/dL | | (LAB) | | | + + + + | POTASSIUM CMNT | Mk Hemo | | + + + + | ANION GAP | 9 | 4 - 11 mmol/L | + + + + | ANION GAP(ALB | 12 (H) | 4 - 11 mmol/L | | CORRECTED) | | | + + + + + + + | Specimen | Performing Laboratory | + + + | Blood | [facility], [address] [facility] | | | [place] [address] | + + + + + | Narrative | + + | Adult glucose reference range change effective 7-12-17. Sample hemolyzed. Results | | for K, Total Bili, Direct Bili, AST, LDH, or HDL may be inaccurate. Refer to comment | | under test result. GFR is estimated using the MDRD equation recommended by the National | | Kidney Disease Education Program. Estimated GFR Interpretive Information: <60 | | mL/min/1.73 sq m Chronic Kidney Disease <15 mL/min/1.73 sq | | m Kidney Failure Estimated GFR greater that 60 mL/min/1.73 | | sq m is of limited clinical value. The MDRD equation is not valid in the following | | situations: - Patients under 18 years of age - Severe malnutrition or obesity - | | Vegetarian diet - Rapidly changing kidney function | + + MAGNESIUM, PLASMA (10/16/2017 6:07 AM) + +---------+ + | Component | Value | Ref Range | + +---------+ + | MAGNESIUM,PLASMA | 2.7 (H) | 1.6 - 2.6 mg/dL | + +---------+ + + + + | Specimen | Performing Laboratory | + + + | Blood | [facility], [address] [facility] | | | [place] [address] | + + + + + | Narrative | + + | Reference range change effective 05/12/17. | + + RENAL FUNCTION SET (NA,K,CL,CO2,BUN,CREAT,GLUC,CA,PHOS,ALB ) (10/16/2017 6:07 AM) + +---------+ + | Component | Value | Ref Range | + +---------+ + | GLUCOSE, PLASMA | 123 (H) | 70 - 99 mg/dL | | (LAB) | | | + +---------+ + | BUN, PLASMA (LAB) | 17 | 6 - 20 mg/dL | + +---------+ + | CREATININE PLASMA | 0.80 | 0.70 - 1.30 mg/dL | | (LAB) | | | + +---------+ + | EGFR - | >60 | >60 mL/min | | [place] | | | + +---------+ + | EGFR NON | >60 | >60 mL/min | | -[place] | | | + +---------+ + | SODIUM, PLASMA (LAB) | 143 | 136 - 145 mmol/L | + +---------+ + | POTASSIUM, PLASMA | 3.8 | 3.4 - 5.0 mmol/L | | (LAB) | | | + +---------+ + | CHLORIDE, PLASMA | 107 | 97 - 108 mmol/L | | (LAB) | | | + +---------+ + | TOTAL CO2, PLASMA | 29 | 21 - 32 mmol/L | | (LAB) | | | + +---------+ + | CALCIUM, PLASMA | 8.6 | 8.6 - 10.2 mg/dL | | (LAB) | | | + +---------+ + | CALCIUM(ALB | 9.7 | 8.6 - 10.2 mg/dL | | CORRECTED) | | | + +---------+ + | ALBUMIN, PLASMA | 2.6 (L) | 3.5 - 4.7 g/dL | | (LAB) | | | + +---------+ + | PHOSPHORUS, PLASMA | 3.5 | 2.4 - 4.7 mg/dL | | (LAB) | | | + +---------+ + | POTASSIUM CMNT | No Hemo | | + +---------+ + | ANION GAP | 7 | 4 - 11 mmol/L | + +---------+ + | ANION GAP(ALB | 10 | 4 - 11 mmol/L | | CORRECTED) | | | + +---------+ + + + + | Specimen | Performing Laboratory | + + + | Blood | [facility], [address] [facility] | | | [place] [address] | + + + + + | Narrative | + + | Adult glucose reference range change effective 7-12-17. GFR is estimated using the | | MDRD equation recommended by the National Kidney Disease Education Program. | | Estimated GFR Interpretive Information: <60 mL/min/1.73 sq | | m Chronic Kidney Disease <15 mL/min/1.73 sq | | m Kidney Failure Estimated GFR greater that 60 mL/min/1.73 | | sq m is of limited clinical value. The MDRD equation is not valid in the following | | situations: - Patients under 18 years of age - Severe malnutrition or obesity - | | Vegetarian diet - Rapidly changing kidney function | + + X-RAY ABDOMEN 1 VIEW (10/15/2017 6:15 PM) + + + | Specimen | Performing Laboratory | + + + | | [facility] | + + + + + | Narrative | + + | EXAM: ABDOMEN 1 VIEW HISTORY: KUB performed 10/15/17 at 5:57 PM compared to | | 12:34 PM on the same date COMPARISON: Same date 12:34 PM FINDINGS: 2 | | portable upright views of the abdomen obtained after the administration of positive oral | | contrast by non-radiology personnel. Nasogastric tube remains within position. | | Interval decompression of the stomach. Some contrast is noted within the left lower | | quadrant, and there continues to be marked distention of the small bowel without | | evidence of significant interval decompression. IMPRESSION: Contrast still | | within the stomach with some within the left lower quadrant without significant interval | | change in the intervening 5 hours. END IMPRESSION I have personally | | reviewed the images and, if necessary, edited the report. I agree with the report as | | now presented. | + + + + | Procedure Note | + + | Service Account, Quippi In Interface - 10/16/2017 10:44 AM PST EXAM: ABDOMEN 1 | | VIEWHISTORY: KUB performed 10/15/17 at 5:57 PM compared to 12:34 PM on the same | | dateCOMPARISON: Same date 12:34 PMFINDINGS: 2 portable upright views of the abdomen | | obtained after the administration of positive oral contrast by non-radiology | | personnel.Nasogastric tube remains within position. Interval decompression of the | | stomach. Some contrast is noted within the left lower quadrant, and there continues to | | be marked distention of the small bowel without evidence of significant interval | | decompression.IMPRESSION:Contrast still within the stomach with some within the left | | lower quadrant without significant interval change in the intervening 5 hours.END | | IMPRESSIONI have personally reviewed the images and, if necessary, edited the report. I | | agree with the report as now presented. | |IMPRESSION: | | | |Contrast still within the stomach with some within the left lower quadrant without signific ant interval change in the intervening 5 hours. | | | | | |END IMPRESSION | | | | | |I have personally reviewed the images and, if necessary, edited the report. I agree with t he report as now presented. | + + X-RAY PORTABLE ABDOMEN 1 VIEW (10/15/2017 12:43 PM) + + + | Specimen | Performing Laboratory | + + + | | [facility] | + + + + + | Narrative | + + | HISTORY: Evaluate postoperative ileus after contrast ingestion. COMPARISON: KUB | | performed 3:07 AM earlier the same day. IMPRESSION: 2 portable upright views of | | the abdomen obtained after the administration of positive oral contrast by non-radiology | | personnel. Most of the contrast remains within the gastric fundus and distal | | esophagus. The tip of a nasogastric tube remains in the gastric outlet. Persistent | | moderate to marked gaseous distention of the small bowel reidentified. Some positive | | oral contrast has progressed into dilated small bowel loops in the left lower quadrant. | | I have personally reviewed the images and, if necessary, edited the report. I | | agree with the report as now presented. | + + + -+ | Procedure Note | + -+ | Service Account, Murphy Ledezma In Interface - 10/15/2017 1:28 PM PST HISTORY: Evaluate | | postoperative ileus after contrast ingestion.COMPARISON: KUB performed 3:07 AM earlier | | the same day.IMPRESSION:2 portable upright views of the abdomen obtained after the | | administration of positive oral contrast by non-radiology personnel.Most of the contrast | | remains within the gastric fundus and distal esophagus. The tip of a nasogastric tube | | remains in the gastric outlet.Persistent moderate to marked gaseous distention of the | | small bowel reidentified. Some positive oral contrast has progressed into dilated small | | bowel loops in the left lower quadrant.I have personally reviewed the images and, if | | necessary, edited the report. I agree with the report as now presented. | | | |Persistent moderate to marked gaseous distention of the small bowel reidentified. Some posi tive oral contrast has progressed into dilated small bowel loops in the left lower quadrant. | | | | | |I have personally reviewed the images and, if necessary, edited the report. I agree with t he report as now presented. | + -+ CBC (HEMOGRAM) ONLY (10/15/2017 4:06 AM) + + + + | Component | Value | Ref Range | + + + + | WHITE CELL COUNT | 11.32 (H) | 3.50 - 10.80 K/cu mm | + + + + | RED CELL COUNT | 4.62 | 4.50 - 6.00 M/cu mm | + + + + | HEMOGLOBIN | 11.7 (L) | 13.5 - 17.5 g/dL | + + + + | HEMATOCRIT | 36.9 (L) | 41.0 - 53.0 % | + + + + | MCV | 79.9 (L) | 80.0 - 96.0 fL | + + + + | MCHC | 31.7 | 33.0 - 35.5 g/dL | + + + + | RDW SD | 43.0 | 35.1 - 46.3 fL | + + + + | PLATELET COUNT | 464 (H) | 150 - 400 K/cu mm | + + + + | MPV | 8.6 (L) | 9.7 - 12.3 fL | + + + + | NRBC% | 0.0 | 0.0 - 0.3 % | + + + + | NRBC# | 0.00 | 0.00 - 0.02 K/cu mm | + + + + + + + | Specimen | Performing Laboratory | + + + | Blood | [facility] [address] [place] [address] | | | [place] [address] | + + + CBC ONLY (10/15/2017 4:06 AM) + + + | Specimen | Performing Laboratory | + + + | Blood | | + + + + + | Narrative | + + | The following orders were created for panel order CBC ONLY. | | Procedure | | Abnormality Status | | --------- | | ------ CBC (HEMOGRAM) | | ONLY[[id number]] Abnormal Final | | result Please view results for these tests on the | | individual orders. | + + MAGNESIUM, PLASMA (10/15/2017 4:06 AM) + +-------+ + | Component | Value | Ref Range | + +-------+ + | MAGNESIUM,PLASMA | 2.6 | 1.6 - 2.6 mg/dL | + +-------+ + + + + | Specimen | Performing Laboratory | + + + | Blood | [facility], [address] | | | [place], [place] [address] | + + + + + | Narrative | + + | Reference range change effective 05/12/17. | + + RENAL FUNCTION SET (NA,K,CL,CO2,BUN,CREAT,GLUC,CA,PHOS,ALB ) (10/15/2017 4:06 AM) + +---------+ + | Component | Value | Ref Range | + +---------+ + | GLUCOSE, PLASMA | 143 (H) | 70 - 99 mg/dL | | (LAB) | | | + +---------+ + | BUN, PLASMA (LAB) | 19 | 6 - 20 mg/dL | + +---------+ + | CREATININE PLASMA | 0.75 | 0.70 - 1.30 mg/dL | | (LAB) | | | + +---------+ + | EGFR - | >60 | >60 mL/min | | [place] | | | + +---------+ + | EGFR NON | >60 | >60 mL/min | | -[place] | | | + +---------+ + | SODIUM, PLASMA (LAB) | 139 | 136 - 145 mmol/L | + +---------+ + | POTASSIUM, PLASMA | 3.7 | 3.4 - 5.0 mmol/L | | (LAB) | | | + +---------+ + | CHLORIDE, PLASMA | 105 | 97 - 108 mmol/L | | (LAB) | | | + +---------+ + | TOTAL CO2, PLASMA | 29 | 21 - 32 mmol/L | | (LAB) | | | + +---------+ + | CALCIUM, PLASMA | 8.7 | 8.6 - 10.2 mg/dL | | (LAB) | | | + +---------+ + | CALCIUM(ALB | 10.0 | 8.6 - 10.2 mg/dL | | CORRECTED) | | | + +---------+ + | ALBUMIN, PLASMA | 2.4 (L) | 3.5 - 4.7 g/dL | | (LAB) | | | + +---------+ + | PHOSPHORUS, PLASMA | 2.8 | 2.4 - 4.7 mg/dL | | (LAB) | | | + +---------+ + | POTASSIUM CMNT | No Hemo | | + +---------+ + | ANION GAP | 5 | mmol/L | + +---------+ + | ANION GAP(ALB | 9 | 4 - 11 mmol/L | | CORRECTED) | | | + +---------+ + + + + | Specimen | Performing Laboratory | + + + | Blood | [facility], [address] | | | [place] [address] | + + + + + | Narrative | + + | Adult glucose reference range change effective 712-17. GFR is estimated using the | | MDRD equation recommended by the National Kidney Disease Education Program. | | Estimated GFR Interpretive Information: <60 mL/min/1.73 sq | | m Chronic Kidney Disease <15 mL/min/1.73 sq | | m Kidney Failure Estimated GFR greater that 60 mL/min/1.73 | | sq m is of limited clinical value. The MDRD equation is not valid in the following | | situations: - Patients under 18 years of age - Severe malnutrition or obesity - | | Vegetarian diet - Rapidly changing kidney function | + + X-RAY ABD LTD FEEDING TUBE EVAL PORTABLE (10/15/2017 3:12 AM) + + + | Specimen | Performing Laboratory | + + + | | [facility] | + + + + + | Narrative | + + | HISTORY: Evaluate nasogastric tube. COMPARISON: KUB of 10/14/17. IMPRESSION: | | Single frontal view of the abdomen obtained. The tip of nasogastric tube is in the | | gastric outlet, pointing toward the pylorus. Moderate to marked gaseous distention of | | visualized small bowel loops persists. I have personally reviewed the images and, | | if necessary, edited the report. I agree with the report as now presented. | + + + + | Procedure Note | + + | Service Account, [employer] Res In Interface - 10/15/2017 9:01 AM PST HISTORY: Evaluate | | nasogastric tube.COMPARISON: KUB of 10/14/17.IMPRESSION:Single frontal view of the | | abdomen obtained. The tip of nasogastric tube is in the gastric outlet, pointing toward | | the pylorus. Moderate to marked gaseous distention of visualized small bowel loops | | persists.I have personally reviewed the images and, if necessary, edited the report. I | | agree with the report as now presented. | |Single frontal view of the abdomen obtained. The tip of nasogastric tube is in the gastric outlet, pointing toward the pylorus. Moderate to marked gaseous distention of visualized sma ll bowel loops persists. | | | | | |I have personally reviewed the images and, if necessary, edited the report. I agree with t he report as now presented. | + + X-RAY PORTABLE ABDOMEN 1 VIEW (10/14/2017 6:24 PM) + + + | Specimen | Performing Laboratory | + + + | | [facility] | + + + + + | Narrative | + + | HISTORY: Evaluate for ileus. COMPARISON: Outside CT of 03/04/17. IMPRESSION: | | 2 frontal views of the abdomen obtained. Midline skin gladys noted. Moderate to marked | | gaseous distention of visualized bowel loops suggests ileus. I have personally | | reviewed the images and, if necessary, edited the report. I agree with the report as | | now presented. | + + + + | Procedure Note | + + | Service Account, Murphy Ledezma In Interface - 10/15/2017 9:01 AM PST HISTORY: Evaluate | | for ileus.COMPARISON: Outside CT of 03/04/17.IMPRESSION:2 frontal views of the abdomen | | obtained. Midline skin gladys noted. Moderate to marked gaseous distention of | | visualized bowel loops suggests ileus.I have personally reviewed the images and, if | | necessary, edited the report. I agree with the report as now presented. | | | |2 frontal views of the abdomen obtained. Midline skin gladys noted. Moderate to marked gas eous distention of visualized bowel loops suggests ileus. | | | | | |I have personally reviewed the images and, if necessary, edited the report. I agree with t he report as now presented. | + + MAGNESIUM, PLASMA (10/14/2017 6:00 AM) + +-------+ + | Component | Value | Ref Range | + +-------+ + | MAGNESIUM,PLASMA | 2.4 | 1.6 - 2.6 mg/dL | + +-------+ + + + + | Specimen | Performing Laboratory | + + + | Blood | [facility], [address] | | | [place] [address] | + + + + + | Narrative | + + | Reference range change effective 05/12/17. | + + RENAL FUNCTION SET (NA,K,CL,CO2,BUN,CREAT,GLUC,CA,PHOS,ALB ) (10/14/2017 6:00 AM) + +---------+ + | Component | Value | Ref Range | + +---------+ + | GLUCOSE, PLASMA | 119 (H) | 70 - 99 mg/dL | | (LAB) | | | + +---------+ + | BUN, PLASMA (LAB) | 14 | 6 - 20 mg/dL | + +---------+ + | CREATININE PLASMA | 0.73 | 0.70 - 1.30 mg/dL | | (LAB) | | | + +---------+ + | EGFR - | >60 | >60 mL/min | | [place] | | | + +---------+ + | EGFR NON | >60 | >60 mL/min | | -[place] | | | + +---------+ + | SODIUM, PLASMA (LAB) | 140 | 136 - 145 mmol/L | + +---------+ + | POTASSIUM, PLASMA | 3.7 | 3.4 - 5.0 mmol/L | | (LAB) | | | + +---------+ + | CHLORIDE, PLASMA | 103 | 97 - 108 mmol/L | | (LAB) | | | + +---------+ + | TOTAL CO2, PLASMA | 26 | 21 - 32 mmol/L | | (LAB) | | | + +---------+ + | CALCIUM, PLASMA | 8.8 | 8.6 - 10.2 mg/dL | | (LAB) | | | + +---------+ + | CALCIUM(ALB | 10.0 | 8.6 - 10.2 mg/dL | | CORRECTED) | | | + +---------+ + | ALBUMIN, PLASMA | 2.5 (L) | 3.5 - 4.7 g/dL | | (LAB) | | | + +---------+ + | PHOSPHORUS, PLASMA | 3.2 | 2.4 - 4.7 mg/dL | | (LAB) | | | + +---------+ + | POTASSIUM CMNT | No Hemo | | + +---------+ + | ANION GAP | 11 | mmol/L | + +---------+ + | ANION GAP(ALB | 14 (H) | 4 - 11 mmol/L | | CORRECTED) | | | + +---------+ + + + + | Specimen | Performing Laboratory | + + + | Blood | [facility], [address] | | | [place] [address] | + + + + + | Narrative | + + | Adult glucose reference range change effective 7-12-17. GFR is estimated using the | | MDRD equation recommended by the National Kidney Disease Education Program. | | Estimated GFR Interpretive Information: <60 mL/min/1.73 sq | | m Chronic Kidney Disease <15 mL/min/1.73 sq | | m Kidney Failure Estimated GFR greater that 60 mL/min/1.73 | | sq m is of limited clinical value. The MDRD equation is not valid in the following | | situations: - Patients under 18 years of age - Severe malnutrition or obesity - | | Vegetarian diet - Rapidly changing kidney function | + + CAPILLARY BLOOD GLUCOSE (NO CHG), POC (10/10/2017 9:36 PM) + +---------+ + | Component | Value | Ref Range | + +---------+ + | BLOOD GLUCOSE, POC | 123 (H) | 70 - 99 mg/dL | + +---------+ + + + + | Specimen | Performing Laboratory | + + + | | [facility], [facility] [address] | | | [place] [address] | + + + CAPILLARY BLOOD GLUCOSE (NO CHG), POC (10/10/2017 6:32 PM) + +---------+ + | Component | Value | Ref Range | + +---------+ + | BLOOD GLUCOSE, POC | 116 (H) | 70 - 99 mg/dL | + +---------+ + + + + | Specimen | Performing Laboratory | + + + | | [facility] [address] | | | [place] [address] | + + + CAPILLARY BLOOD GLUCOSE (NO CHG), POC (10/10/2017 12:29 PM) + +---------+ + | Component | Value | Ref Range | + +---------+ + | BLOOD GLUCOSE, POC | 121 (H) | 70 - 99 mg/dL | + +---------+ + + + + | Specimen | Performing Laboratory | + + + | | [facility] [address] | | | [place] [address] | + + + CAPILLARY BLOOD GLUCOSE (NO CHG), POC (10/10/2017 8:45 AM) + +-------+ + | Component | Value | Ref Range | + +-------+ + | BLOOD GLUCOSE, POC | 98 | 70 - 99 mg/dL | + +-------+ + + + + | Specimen | Performing Laboratory | + + + | | [facility], [facility] [address] | | | [place] [address] | + + + CAPILLARY BLOOD GLUCOSE (NO CHG), POC (10/10/2017 6:58 AM) + +---------+ + | Component | Value | Ref Range | + +---------+ + | BLOOD GLUCOSE, POC | 117 (H) | 70 - 99 mg/dL | + +---------+ + + + + | Specimen | Performing Laboratory | + + + | | [facility] [address] | | | [place] [address] | + + + CBC (HEMOGRAM) ONLY (10/10/2017 5:06 AM) + + + + | Component | Value | Ref Range | + + + + | WHITE CELL COUNT | 15.74 (H) | 3.50 - 10.80 K/cu mm | + + + + | RED CELL COUNT | 5.15 | 4.50 - 6.00 M/cu mm | + + + + | HEMOGLOBIN | 13.1 (L) | 13.5 - 17.5 g/dL | + + + + | HEMATOCRIT | 40.8 (L) | 41.0 - 53.0 % | + + + + | MCV | 79.2 (L) | 80.0 - 96.0 fL | + + + + | MCHC | 32.1 | 33.0 - 35.5 g/dL | + + + + | RDW SD | 41.1 | 35.1 - 46.3 fL | + + + + | PLATELET COUNT | 420 (H) | 150 - 400 K/cu mm | + + + + | MPV | 9.2 (L) | 9.7 - 12.3 fL | + + + + | NRBC% | 0.0 | 0.0 - 0.3 % | + + + + | NRBC# | 0.00 | 0.00 - 0.02 K/cu mm | + + + + + + + | Specimen | Performing Laboratory | + + + | Blood | [facility], [address]ORE [address] | | | [place] [address] | + + + MAGNESIUM, PLASMA (10/10/2017 5:06 AM) + +-------+ + | Component | Value | Ref Range | + +-------+ + | MAGNESIUM,PLASMA | 1.8 | 1.6 - 2.6 mg/dL | + +-------+ + + + + | Specimen | Performing Laboratory | + + + | Blood | [facility], [address] [address] | | | [place] [address] | + + + + + | Narrative | + + | Reference range change effective 05/12/17. | + + RENAL FUNCTION SET (NA,K,CL,CO2,BUN,CREAT,GLUC,CA,PHOS,ALB ) (10/10/2017 5:06 AM) + +---------+ + | Component | Value | Ref Range | + +---------+ + | GLUCOSE, PLASMA | 110 (H) | 70 - 99 mg/dL | | (LAB) | | | + +---------+ + | BUN, PLASMA (LAB) | 10 | 6 - 20 mg/dL | + +---------+ + | CREATININE PLASMA | 0.97 | 0.70 - 1.30 mg/dL | | (LAB) | | | + +---------+ + | EGFR - | >60 | >60 mL/min | | [place] | | | + +---------+ + | EGFR NON | >60 | >60 mL/min | | -[place] | | | + +---------+ + | SODIUM, PLASMA (LAB) | 136 | 136 - 145 mmol/L | + +---------+ + | POTASSIUM, PLASMA | 4.2 | 3.4 - 5.0 mmol/L | | (LAB) | | | + +---------+ + | CHLORIDE, PLASMA | 103 | 97 - 108 mmol/L | | (LAB) | | | + +---------+ + | TOTAL CO2, PLASMA | 25 | 21 - 32 mmol/L | | (LAB) | | | + +---------+ + | CALCIUM, PLASMA | 7.8 (L) | 8.6 - 10.2 mg/dL | | (LAB) | | | + +---------+ + | CALCIUM(ALB | 8.7 | 8.6 - 10.2 mg/dL | | CORRECTED) | | | + +---------+ + | ALBUMIN, PLASMA | 2.9 (L) | 3.5 - 4.7 g/dL | | (LAB) | | | + +---------+ + | PHOSPHORUS, PLASMA | 3.0 | 2.4 - 4.7 mg/dL | | (LAB) | | | + +---------+ + | POTASSIUM CMNT | No Hemo | | + +---------+ + | ANION GAP | 8 | mmol/L | + +---------+ + | ANION GAP(ALB | 10 | 4 - 11 mmol/L | | CORRECTED) | | | + +---------+ + + + + | Specimen | Performing Laboratory | + + + | Blood | [facility], [address] | | | [place] [address] | + + + + + | Narrative | + + | Adult glucose reference range change effective 7-12-17. GFR is estimated using the | | MDRD equation recommended by the National Kidney Disease Education Program. | | Estimated GFR Interpretive Information: <60 mL/min/1.73 sq | | m Chronic Kidney Disease <15 mL/min/1.73 sq | | m Kidney Failure Estimated GFR greater that 60 mL/min/1.73 | | sq m is of limited clinical value. The MDRD equation is not valid in the following | | situations: - Patients under 18 years of age - Severe malnutrition or obesity - | | Vegetarian diet - Rapidly changing kidney function | + + CBC ONLY (10/10/2017 5:06 AM) + + + | Specimen | Performing Laboratory | + + + | Blood | | + + + + + | Narrative | + + | The following orders were created for panel order CBC ONLY. | | Procedure | | Abnormality Status | | --------- | | ------ CBC (HEMOGRAM) | | ONLY[[id number]] Abnormal Final | | result Please view results for these tests on the | | individual orders. | + + CAPILLARY BLOOD GLUCOSE (NO CHG), POC (10/10/2017 5:04 AM) + +---------+ + | Component | Value | Ref Range | + +---------+ + | BLOOD GLUCOSE, POC | 115 (H) | 70 - 99 mg/dL | + +---------+ + + + + | Specimen | Performing Laboratory | + + + | | [facility], [facility] [address] | | | [place] [address] | + + + CAPILLARY BLOOD GLUCOSE (NO CHG), POC (10/10/2017 2:59 AM) + +---------+ + | Component | Value | Ref Range | + +---------+ + | BLOOD GLUCOSE, POC | 113 (H) | 70 - 99 mg/dL | + +---------+ + + + + | Specimen | Performing Laboratory | + + + | | [facility], [facility]ARE TESTS [address] | | | [place] [address] | + + + CAPILLARY BLOOD GLUCOSE (NO CHG), POC (10/10/2017 12:54 AM) + +---------+ + | Component | Value | Ref Range | + +---------+ + | BLOOD GLUCOSE, POC | 104 (H) | 70 - 99 mg/dL | + +---------+ + + + + | Specimen | Performing Laboratory | + + + | | [facility], [facility] [address] | | | [place] [address] | + + + CAPILLARY BLOOD GLUCOSE (NO CHG), POC (10/09/2017 11:47 PM) + +---------+ + | Component | Value | Ref Range | + +---------+ + | BLOOD GLUCOSE, POC | 106 (H) | 70 - 99 mg/dL | + +---------+ + + + + | Specimen | Performing Laboratory | + + + | | [facility], [facility] [address] | | | [place] [address] | + + + CAPILLARY BLOOD GLUCOSE (NO CHG), POC (10/09/2017 10:40 PM) + +---------+ + | Component | Value | Ref Range | + +---------+ + | BLOOD GLUCOSE, POC | 148 (H) | 70 - 99 mg/dL | + +---------+ + + + + | Specimen | Performing Laboratory | + + + | | [facility], POINT OF CARE TESTS [address] | | | [place] [address] | + + + GLUCOSE, PLASMA (10/09/2017 9:17 PM) + +---------+ + | Component | Value | Ref Range | + +---------+ + | GLUCOSE, PLASMA | 188 (H) | 70 - 99 mg/dL | | (LAB) | | | + +---------+ + + + + | Specimen | Performing Laboratory | + + + | Blood | [facility], [address]ORE [address] | | | [place] [address] | + + + + + | Narrative | + + | Adult glucose reference range change effective 04-08-17. On arrival to unit | + + CAPILLARY BLOOD GLUCOSE (NO CHG), POC (10/09/2017 9:07 PM) + +---------+ + | Component | Value | Ref Range | + +---------+ + | BLOOD GLUCOSE, POC | 187 (H) | 70 - 99 mg/dL | + +---------+ + + + + | Specimen | Performing Laboratory | + + + | | [facility], [facility] TEST[facility] [address] | | | [place] [address] | + + + PROCEDURE NOTE (10/09/2017 8:00 PM)CAPILLARY BLOOD GLUCOSE (NO CHG), POC (10/09/2017 7:33 PM) + +---------+ + | Component | Value | Ref Range | + +---------+ + | BLOOD GLUCOSE, POC | 160 (H) | 70 - 99 mg/dL | + +---------+ + + + + | Specimen | Performing Laboratory | + + + | | [facility], [facility] [address] | | | [place] [address] | + + + PROCEDURE NOTE (10/09/2017 7:15 PM) + + | Procedure Note | + + | Jaleesa Burleson MD - 10/09/2017 7:15 PM [facility] OPERATIVE REPORT PROCEDURE DATE: | | 10/09/2017PREOPERATIVE DIAGNOSIS: Recurrent ventral hernias with incarceration. | | POSTOPERATIVE DIAGNOSIS: Recurrent ventral hernia with incarceration. | | OPERATION/PROCEDURE: 1. Myofascial cutaneous flap advancement on the right (TAR).2. | | Myofascial cutaneous flap advancement on the left (partial TAR).3. Open repair of | | recurrent incarcerated ventral hernia.4. Implantation of a large mesh prosthetic.5. | | Cutaneous advancement flap on the right (60 cm2). 6. Cutaneous advancement flap on the | | left.(60 cm2). 7. Exploratory laparotomy with extensive lysis of adhesions (modifier-22 | | requested).ATTENDING SURGEON: Jaleesa Burleson MDASSISTANT(S): Mark Haynes MD | | R3 ANESTHESIA: General + Local.FLUIDS: 4000 mLESTIMATED BLOOD LOSS: 250 mL.URINE | | OUTPUT: 600 DRAINS: 19-Fr Donavon drains x2 (retromuscular above mesh), Llanos catheter. | | SPECIMEN(S): None.COMPLICATIONS: None.FINDINGS: Large right-sided stoma site hernia at | | linea semilunaris with incarcerated omentum, large dilated small bowel anastomosis with | | multiple interloop adhesions taken down. Numerous abdominal wall adhesions, worse in | | the pelvis. Retrorectus dissection performed bilaterally plus transversus abdominus | | release (TAR) performed on the right (side of stoma site hernia) and partial TAR on | | left. Thin transversalis fascia with a number of defects, patched with Vicryl mesh x2. | | HERNIA DIMENSIONS: Total size of 12.5 cm wide x 15 cm vertical length, inclusive of | | large right-sided previous stoma site defect at the linea semilunaris ~6 cm wide x 8 cm | | vertical + 2 cm umbilical defect + a couple tiny Vietnamese cheese defects along the midline. | | MESH IMPLANTS: 33 cm wide x 42 cm long Bard soft polypropylene mesh (trimmed 30x30 cm | | mesh rotated in a padmaja formation).INDICATIONS: New Licea is a 37 year old male | | with a complex abdominal history including ulcerative pancolitis s/p laparoscopic total | | abdominal colectomy and end ileostomy (09/25/2006), cholelithiasis s/p laparoscopic | | cholecystectomy (09/2012), bowel obstruction s/p ileostomy revision for strangulation | | (12/05/2013), open completion proctocolectomy, ileal J pouch-anal anastomosis and | | diverting ileostomy, and primary repair of large parastomal hernia (10/18/2015), | | ileostomy takedown (01/17/2016). He presented to my office with symptomatic enlargement | | of his hernias and understood all the risks and benefits of a major abdominal | | reconstruction. A complete PARQ session was held in my office, additional questions | | with discussion were completed.DESCRIPTION OF PROCEDURE: The patient was brought to the | | room and placed on the table in supine position. he was induced, intubated and general | | anesthesia given. Perioperative DVT prophylaxis was achieved using preoperative | | subcutaneous heparin and SCD stockings throughout the case. Prophylactic antibiotics | | were given prior to incision as well as re-dosed during the case at appropriate | | intervals. After a pause and pediatric radiologist-out by the entire operating staff, the abdomen | | was prepped and draped very widely using Ioban as an additional covering after marking | | any scars or superficial abnormalities. Any safety precautions were addressed. We then | | performed a midline laparotomy extending from the subxiphoid region to the suprapubic | | region. We excised the majority of his midline stretched chronic ischemic scar tissue | | (discussed more in detail later in this note). Upon entering the abdomen, we | | encountered significant adhesions. Because of the significant adhesive disesase, we | | spent almost 3 hours performing adhesiolysis to free up the bowel, with the most severe | | adhesions in the suprapubic region and the right lateral abdominal wall. A previous | | small bowel anastomosis was noted to be dilated, but without any signs of ischemia. | | There was no abrupt transition point nearby, though there were multiple adhesions in | | this area of bowel, along with adherent bands of omentum. The combination of these bands | | may have been contributing to the bowel distention. We freed up almost all of the | | anterior abdominal wall adhesions. However, given the tenacity of the pelvic adhesions | | we limited our suprapubic and pelvic dissections in an effort to reduce risk to bowel. | | Several omental bleeding sites were clamped and tied with 2-0 Polysorb ties, and light | | use of cautery was used for smaller vessels well away from bowel. We carefully | | inspected the viscera and found no evidence of inadvertent injury. Hemostasis was | | excellent. We then placed a large countable white towel in the abdominal cavity to | | cover and protect the viscera during further dissection.We turned our attention to the | | hernia for repair. The total size of the hernias was approximately 12.5 cm wide | | (transverse) x 15 cm long (vertical length), inclusive of large right-sided previous | | stoma site defect at the linea semilunaris ~6 cm wide x 8 cm vertical + 2 cm umbilical | | defect + a couple tiny [place] cheese defects along the midline. Given the size and | | complexity of the hernia, this clearly required a major abdominal reconstruction. We | | proceeded with the retromuscular repair utilizing myofascial cutaneous advancement flaps | | using the Transversus Abdominis Muscle Release (TAR) technique. We discussed | | performing just a retro-rectus dissection, however, there was excessive tension on the | | fascia as well as the larger defect at the right linea semilunaris, and a retro-rectus | | repair would clearly be insufficient to properly repair this hernia. We started on the | | patient's right side and entered the retromuscular plane. The retrorectus space was | | dissected to identify the perforators to the rectus muscle, just medial to the linea | | semilunaris. Of note, the central area of the retrorectus plane was quite scarred from | | his previous operations. We dissected inferiorly into the space of Retzius, identifying | | Harjeet | | | | s ligaments, and superiorly towards the costal margin. Preserving the perforators to | | the rectus muscle, we incised the posterior rectus fascia just medial to the linea | | semilunaris and exposed the underlying fibers of the transverse abdominis muscle. Those | | fibers were divided in their entirety along the medial attachment to allow significant | | medialization of posterior rectus fascia and subsequent medial advancement of the rectus | | muscle. This was done to subsequently restore the linea alba. It also allowed | | significant dissection in the retromuscular space into the lateral retroperitoneum. Of | | note, the central area, which was noted to be immediately adjacent to his large | | right-sided previous ostomy site hernia, was very stuck. In order to release this | | portion the TAR plane was dissected from the superior and inferior aspects then joined | | laterally to the hernia. The stuck area was dissected away from the hernia defect, | | leaving a large rent in the posterior fascia which was later closed with a vicryl mesh | | patch. Inferiorly, the myopectineal orifice was dissected and planes, while superiorly, | | we dissected above the costal margin in the retrosternal space. Because of the size | | and complexity of this defect, this was not sufficient and we performed myofascial | | release on the left side. Once again, the posterior rectus fascia was incised and | | retromuscular plane was created. The perforators to the rectus muscle were identified | | and spared. However, on the left side only a partial TAR was performed to gain | | additional myofascial advancement superiorly, as well as to place the mesh in a | | contiguous plane in the subxiphoid region. Just medial to the linea semilunaris at the | | superior aspect, the posterior rectus fascia was incised and the underlying fibers of | | the transverse abdominis muscle were identified and divided. We dissected out laterally | | in the retromuscular space and then superiorly into the subcostal region and subxiphoid | | space. The release allowed enough medialization of posterior rectus fascia and | | subsequent advancement of the rectus muscle for the purpose of episcopal of linea | | alba, as well as to achieve good superior mesh overlap. Inferiorly, the myopectineal | | orifice was dissected and planes with the previously dissected space of Retzius were | | connected. Once again, we were able to dissect above the costal margin superiorly, thus | | connecting the dissection planes. Both Harjeet ligaments were visualized. After | | completing our transversus abdominis muscle release on the right and a partial TAR on | | the left (only superiorly) with complete retrorectus dissection on this side, providing | | sufficient space and medialization for hernia repair, hemostasis was achieved. Prior to | | closing the posterior fascia we addressed rents on the right side. Using Vicryl mesh, | | two large rents on the right posterior fascia were closed using a Vicryl mesh patch. | | The inferior rent (site of larger hernia) was patched with an ~8x8 cm patch while a more | | superior subcostal rent was patched with a ~5 cm x 7 cm vicryl mesh piece; these were | | sewn in using running 2-0 Maxon sutures. Other small fenestrations were closed with | | simple figure-of-8 stitches using 2-0 Maxon. At this point, the advanced posterior | | rectus fasciae and transversalis fascia were reapproximated using 2-0 Maxon sutures, | | starting at both ends and tying in the middle. When complete the posterior fascia was | | complete without any defects. The large countable white towel was removed prior to | | complete closure of the posterior sheath. The retromuscular pocket and hernia sac were | | then thoroughly irrigated and lavaged using a Pulsavac lavage with 3 L of antibiotic | | solution. The right-sided hernia sac was excised from the hernia cavity using traction | | and cautery. The space received additional Pulseavac lavage, and hemostasis was achieved | | with cautery. The hernia cavity was collapsed down using several interrupted 2-0 | | Polysorb sutures to lessen the space of the hernia cavity. The fascia defect edges | | were closed vertically (orientation of less tension) using multiple #1 Maxon | | figure-of-8 sutures. The defect closed well without excess tension. After this we then | | moved on to mesh placement. We utilized a 33 cm wide x 42 cm long Bard soft | | polypropylene mesh (trimmed 30x30 cm mesh and rotated in a padmaja formation). This was | | secured superiorly, inferiorly, and laterally using #1 Maxon sutures and a suture | | passer. The wound was then thoroughly irrigated with the antibiotic solution Pulsavac | | lavage. Two 19-Fr round Donavon drains were then placed at the superior aspect and draped | | above the mesh superiorly and inferiorly. These drains were secured in place using 2-0 | | Prolene suture. For postoperative pain control, a transversus abdominis plane (TAP) | | block was performed on the right side using 1/4% Bupivacaine, which was infused infusing | | in the transversalis abdomins plane on the right side under direct visualization; | | additional local was infused into the fascia of the closed right-sided hernia defect. | | Our attention was then made to close our anterior fascia to restore the linea alba, | | using running #1 Maxons starting at both ends and tying in the middle. Of note, we | | incorporated the smaller midline hernia defects within our midline closure. We were | | able to successfully close the fascia fully thus restoring the linea alba and covering | | our synthetic mesh. Attention was then turned to the skin where a gap was present from | | excising the chronic ischemic scar as previously dictated. This gap necessitated | | cutaneous advancement flaps bilaterally. Approximately 4 cm wide x 30 cm of chronic | | ischemic scar was excised using a combination of sharp and cautery dissection. Because | | of the skin and soft tissue defect overlying the closed fascia, cutaneous advancement | | flaps were required. We started on the right using cautery to dissect a suprafascial | | flap, extending approximately 2-3 cm lateral, with total flap size 2 cm wide x 30 cm | | long. Bleeding was stopped with cautery. Because this was insufficient for wound | | closure the same had to be performed on the contralateral (left) side. As before, | | cautery was used to dissect a suprafascial flap, extending approximately 2 cm lateral, | | with total flap size mirroring the other side, approximately 2-3 cm wide x 30 cm long. | | Light oozing was easily stopped with cautery. The flaps were thoroughly irrigated with | | the antibiotic-solution and pulse-vac. Subcutaneous tissue was closed in layers, using | | multiple interrupted deep dermal sutures using 2-0 Polysorb followed by the skin running | | 3-0 Polysorb. Skin gladys were also used to close the skin. Dermabond was applied | | over the stab incisions. The skin was then cleaned and dried and sterile dressings were | | applied over the wounds. All needle, sponge, and instrument counts were correct | | throughout and at the end the case. I, the attending surgeon, was present throughout | | the entire case. The patient was extubated in the OR and transported to the PACU in | | stable condition. Family was notified of the patient's status and course of the | | operation with questions answered. CHRISTINA Holder CHARACTERISTICS:# Prior | | Abdominal Surgeries: 5+# Prior Hernia Repairs: 2Mesh Used?: yesType of Mesh(es): | | unknown [facility] Wound Classification: 1Modified Ventral Hernia Working Group Grade: 1 | | Grade 1: Low risk of complications; No Hx wound infection Grade 2: Co-Morbid (smoker, | | obese, COPD, DM, Hx wound infection) Grade 3: A. Clean-Contaminated, B. Contaminated, | | C. DirtyEHS Hernia Location Classification (M1-5, L1-4): M2-4 + L2-3----- | + + CAPILLARY BLOOD GLUCOSE (NO CHG), POC (10/09/2017 7:01 PM) + +---------+ + | Component | Value | Ref Range | + +---------+ + | BLOOD GLUCOSE, POC | 190 (H) | 70 - 99 mg/dL | + +---------+ + + + + | Specimen | Performing Laboratory | + + + | | [facility] [address] | | | [place] [address] | + + + PROCEDURE NOTE (10/09/2017 6:50 PM) + + | Narrative | + + | Jaleesa Burleson MD 10/09/2017 7:15 PM BRIEF OPERATIVE NOTE Procedure | | Date: 10/09/2017 Author: Mark Haynes MD Attending Physician: Jaleesa | | MD Nick Assistants: Mark Haynes MD Preoperative | | Diagnosis: Recurrent incarcerated ventral hernias Postoperative Diagnosis: same | | Procedure Performed: 1. Retrorectus ventral hernia repair with transversus | | abdominus release and placement of Bard soft mesh 2. Lysis of adhesions Findings: | | Large parastomal hernia with incarcerated omentum, large dilated small bowel | | anastomosis with number of interloop adhesions, taken down. Thin adhesions to the | | lower midline abdominal wall taken down, Retrorectus dissection performed | | bilaterally, transversus abdominus release performed on the right (side of parastomal | | hernia). Thin transversalis fascia with a number of defects, patched with Vicryl mesh | | x2. Soft Bard mesh placed in retrorectus/TAR plane. Two drains left above mesh. | | Complications: none Fluids: EBL: 250 ml, UOP: 600 ml and crystalloid: 3 L | | Specimens: None Drains: L BECKY placed in pelvis, R BECKY placed superiorly, both above | | mesh Disposition: PACU then acute care [place]: Remove POD #1 by MD | | Diet: CLD in am on POD#1 DVT prophylaxis: okay to begin POD 0 at 2100 | | Antibiotic Plan: None Glycemic control: None Dressing care: No wound care | | required Activity restrictions: Abdominal precautions Initial surgical | | contact: Bertin aguero at pager [phone] | + + CAPILLARY BLOOD GLUCOSE (NO CHG), POC (10/09/2017 4:29 PM) + +---------+ + | Component | Value | Ref Range | + +---------+ + | BLOOD GLUCOSE, POC | 129 (H) | 70 - 99 mg/dL | + +---------+ + + + + | Specimen | Performing Laboratory | + + + | | [facility] [place] [facility] [address] | | | [place] [address] | + + + CARDIOLOGY (10/09/2017)in this encounter Visit Diagnoses Not on filein this encounter Admitting Diagnoses + + | Diagnosis | + + | RECURRENT INCARCERATED VENTRAL HERNIA | + + Administered Medications + +--------+ +------+------+---------+ | Medication Order | MAR | Action | Dose | Rate | Site | | | Action | Date | | | | + +--------+ +------+------+---------+ | | Given | | | | Abdomen | | [id number] | | 8 16:15 | | | | | S IRRGATION (antibiotic implant) | | PST | | | | | INTRAPROCEDURE PRN, Starting Fri | | | | | | | 10/09/17 at 1615, Until Fri | | | | | | | 10/09/17 at 1846 | | | | | | + +--------+ +------+------+---------+ +---+---+ | | | +---+---+ + +-------+ +-------+---+ + | bupivacaine (PF) | Given | | 40 mL | | Surgical | | (MARCAINE,SENSORCAINE-MPF) 0.25 % | | 8 17:28 | | | Site | | (2.5 mg/mL) injection | | PST | | | | | INTRAPROCEDURE PRN, Starting Fri | | | | | | | 10/09/17 at 1728, Until Fri | | | | | | | 10/09/17 at 1846 | | | | | | + +-------+ +-------+---+ + +---+---+ | | | +---+---+ in this encounter
--- OUTSIDE RECORDS SUMMARY | ~2017-11-04 | XMS | Encounter Summary ---
Demographics + + + | Address | [address] | | | [place] [address] | + + + | Home Phone | | + + + | Preferred Language | Unknown | + + + | Marital Status | Single | + + + | Mandaeism Affiliation | NON | + + + | Race | White | + + + | Ethnic Group | Not or | + + + Author + + + | Author | [facility] | + + + | Organization | [facility] | + + + | Address | Unknown | + + + | Phone | Unavailable | + + + Support +------+ +---------+ + | Name | Relationship | Address | Phone | +------+ +---------+ + ECON | Unknown | | +------+ +---------+ + Care Team Providers + +------+ + | Care Parlor Maid Name | Role | Phone | + +------+ + | Marlee Duarte MD | PCP | | + +------+ + Encounter Details +--------+---------+ + + + | Date | Type | Department | Care Team | Description | +--------+---------+ + + + | 10/05/ | Office | Preoperative | Willie, | Preop examination | | 2018 | Visit | Medicine Clinic at | Juan Carlos Gordillo NP [phone] | (Primary Dx) | | | | [facility] 4th Floor [address] | [facility] | | | | | [address] | [address] [place], [place] | | | | | Code: [address] | [address] | | | | | for Health and | [phone] | | | | | Healing,4th Floor | | | | | | [facility] [place] | | | | | | [address] | | | | | | [phone] | | | +--------+---------+ + + + Anesthesia Record + + [...] + + + | Blood Pressure | 136/82 | 10/05/2017 1:10 PM PST | + + + + | Pulse | 104 | 10/05/2017 1:10 PM PST | + + + + | Temperature | 36.7 C (98 F) | 10/05/2017 1:10 PM PST | + + + + | Respiratory Rate | 20 | 10/05/2017 1:10 PM PST | + + + + | Oxygen Saturation | 98% | 10/05/2017 1:10 PM PST | + + + + | Inhaled Oxygen | - | - | | Concentration | | | + + + + | Weight | 88.9 kg (196 lb) | 10/05/2017 1:10 PM PST | + + + + | Height | 182.9 cm (6') | 10/05/2017 1:10 PM PST | + + + + | Body Mass Index | 26.58 | 10/05/2017 1:10 PM PST | + + + + in this encounter Instructions Patient Instructions - Juan Carlos Tapia NP - 10/05/2017 1:20 PM PST PREOPERATIVE INSTRUCTIONS Please consider having a flu shot, if possible, before surgery Empty stomach before surgery On the day BEFORE your surgery, drink plenty of fluids and stay well hydrated NOTHING to eat or drink after midnight the night before surgery. This includes water, coffee, candy, mints, gum. Medications Instructions On the evening before your surgery, take ALL your usual evening medications Other medications not specifically mentioned are at your discretion as to taking or not taking on the morning of surgery. Unless otherwise directed by your surgeon, do not take any Aspirin, fish oil supplements , vitamin E or non-steroidal anti-inflammatory (NSAIDs i.e. Advil, Aleve, Ibuprofen) or herb al supplements 7 days prior to your surgery. These drugs may interfere with normal blood lion tting and may cause excessive bleeding and bruising during or after the surgery. If you need a pain medication for general purposes, use Tylenol as directed. OK to take it even on the morning of surgery, if needed. If you are in doubt about any medications that you are taking, please contact our office . Skin preparation to help avoid surgical site infections ERINNS GUIDE TO GENERAL SKIN CLEANSING AT HOME BEFORE SURGERY Before you bathe or shower: ? Read the instructions given to you by your healthcare practitioner, and begin your genera l skin cleansing protocol as directed. ? Carefully read all directions on the product label. ? Hibiclens is not to be used on the head or face, keep out of the eyes, ears and mouth. ? Hibiclens is not to be used in the genital area. ? Hibiclens should not be used if you are allergic to chlorhexidine gluconate or any other ingredients in this preparation. *See Hibiclens label for full product information and precautions. When you bathe or shower the night before your surgery: ? If you plan to wash your hair, do so with your regular shampoo. Then rinse hair and body thoroughly to remove any shampoo residue. ? Wash your face with your regular soap or water only. ? Thoroughly rinse your body with warm water from neck down. ? Use Hibiclens as you would any other liquid soap. Please do not put the Hibiclens on a wa sh cloth, apply directly to the skin and wash gently. Apply the minimum amount of Hibiclens necessary to cover the skin. Leave the Hibiclens on your skin for 1 minute, then rinse off. ? Rinse thoroughly with warm water. ? Do not use your regular soap after applying and rinsing Hibiclens. When using Hibiclens for a second day in a row (morning of surgery, as soon as you wake up) : ? Shower/bathe again using Hibiclens in the same method as described above. ? Do not apply any lotions, deodorants, powders or perfumes to the body areas that have been cleaned with Hibiclens. Other Important Guidelines ? Do not shave the surgical area Do not smoke, drink alcohol or use recreational drugs for 24 hours before your surgery Watch for any change in your health condition. Let your surgeon know right away if you do not feel well. ? Do not wear makeup, perfume, lotions, deodorant, powder or hairspray. Do not wear any jewelry to the hospital. Wear loose, comfortable clothing. Leave all your valuables at home. Allow enough travel time so you re not late for your check in for surgery. Please remember to brush your teeth the night before and the morning of your procedure. Preventing post op complications while you are in the hospital Use an incentive spirometer or peep breathe to keep your lungs working properly an d to help prevent respiratory complications. It helps you take long, deep breaths. Use it at least once every hour while you are awake. Leg and feet exercises will maintain good circulation and help prevent blood clots in yo ur legs. Sometimes your doctor will order sequential air compression stockings. Compressed air helps the circulation in your legs. Walking and moving will help stimulate normal circulation and deep breathing. After you r surgery, your nurse may ask you to sit, stand or walk. Surgery check-in location: Admitting - [facility], ninth floor [facility] Surgery Check in Time: The Preoperative Medicine Clinic is not in the position to give you accurate information regarding surgical check in time. We refer you back to your surgical office regarding this important information. Going Home Your surgical team will decide when you are medically ready to go home. If you stayed in the hospital after surgery, please arrange for your ride to come for yo u around 9AM on the day your doctor says you can go home. If you have questions or concerns after you go home, call your doctor s office. If it is after office hours, call the [facility] recovery operator at [phone] and ask them to page him or h er. in this encounter Progress Notes Monica Bowers MA - 10/05/2017 1:20 PM PSTVenipuncture performed in clinic, blood sample obtained from Right antecubital site Juan Carlos Tapia NP - 10/05/2017 1:20 PM PSTFor matting of this note may be different from the original. PREOPERATIVE CONSULT NOTE Author: Juan Carlos Tapia NP Referring Physician: Constantino Romero MD Primary Care Provider: Marlee Duarte MD Reason for Consult: Preoperative evaluation and risk assessment Proposed Procedure/Date: OPEN VENTRAL HERNIA REPAIR WITH MESH (TRANSVERSUS ABDOMINIS MUSCLE RELEASE)/10-09-2017 HISTORY OF PRESENT ILLNESS: New Valencia is a 37 y.o. male here for preoperative evaluati on of medical problems in anticipation of the above procedure. Pt has dx of ventral hernia. Symptoms related to the diagnosis: Mr. Valencia has had a colectomy Aug-2006 for ulcerativ e colitis, then had bowel obstruction in November-2013, cholecystectomy in 2011, colostomy take down in 2015, developed multiple ventral hernias and returns to have it fixed (location, d uration,timing, quality, associated symptoms, modifying factors) Pertinent medical problems discussed during this visit: GERD, uses milk PRN H/o ulcerative colitis, s/p complete colectomy in 2005 Perioperative cardiac risks: CAD no CHF no CVA no CKD with creatinine >2 no DM treated with insulin no Functional Capacity: High (>10 mets) Prior complications of anesthesia: none ROS: Pertinent HPI: New Valencia is a pleasant 37 y.o. male seen in [facility] clinic today for pre-o p evaluation prior to OPEN VENTRAL HERNIA REPAIR WITH MESH (TRANSVERSUS ABDOMINIS MUSCLE REL EASE) Pulmonary: Within Defined Limits except as noted below no cough no sputum no URI no shor tness of breath no wheezing Pt. Has no asthma no COPD No dx of sleep apnea Cardiovascular: No physical limitations, walks 10,000 steps a day at work, denies SOB, PARRA, CP, angina Within Defined Limits except as noted below Functional Capacity: Moderate - cyanosis, PND, palpitations, chest pressure and syncope no CAD no CHF no hypertension no valvular problems/murmurs no pacemaker GI/Hepatic: Within Defined Limits except as noted below no GI Bleed GERD Control: rare/on ly with certain foods No liver disease no hepatitis OTHER GI gallstones : Within Defined Limits except as noted below no renal failure no dialysis Endo: Within Defined Limits except as noted below no Diabetes: Neurological: Within Defined limits except as noted below no seizures HX CORTICOSTEROID (h ad prednisone for ulcerative colitis in 2005) Remote > 6 months no psychiatric problem no d ementia no pain Current Pain Level: Current pain level: 0 MS: Within Defined Limits except as noted below no arthritis Heme/Onc: Within Defined Limits except as noted below Pt. has: no active bleeding no Bleedi ng diathesis / thrombotic bleeding Previous Transfusions: no transfusion hx Hx: no other he me, Malignancy: no cancer, Location: Metastasis: Skin: Within Defined Limits except as noted below No open wounds or sores No hx MRSA/VRE/Ac tive skin infection Obstetrics: Current medications reviewed / updated Current Outpatient Prescriptions Medication Sig ACETAMINOPHEN (TYLENOL ORAL) Take 1,000 mg by mouth every six hours as needed. CALCIUM CARBONATE (TUMS ORAL) Take by mouth. Level of confidence in medication reconciliation accuracy: High Allergies reviewed / updated Allergies Allergen Reactions Bee Pollen Bronchospasm and Wheez/Dyspnea Morphine Arthralgia Reaction is pain to the back of neck. Past medical history reviewed / updated Past Medical History: Diagnosis Date Bowel obstruction Fulminant ulcerative colitis (HCC) Parastomal hernia Past surgery reviewed / updated Past Surgical History Procedure Laterality Date Pr biopsy/excision, lymph node(s) 1980 Laparoscopic total abdominal colectomy/end ileostomy 09/25/2006 Right shoulder arthroscopy 05/07/12 Exploratory laparotomy for blockage December 05, 2013 [place], [place] Laparoscopic cholecystectomy September, Open completion proctocolectomy, ileal j pouch-anal anastomosis, parastomal hernia repa ir 10/18/15 epidural side effects : had to have NG tube 2x Ileostomy takedown 01/17/2016 Family history reviewed / updated Family History Problem Relation Heart Disease Mother pericarditis GI Mother no IBD in family Cancer Mother no colorectal polyps or cancer in family Non-contributory Mother pericarditis GI Maternal Grandmother diverticulitis Social history reviewed / updated Social History Substance Use Topics Smoking status: Never Smoker Smokeless tobacco: Never Used Alcohol use No PHYSICAL EXAM: Last Vitals: BP 136/82 | Pulse 104 | Temp (Src) 36.7 C (98 F) (Oral) | RR 20 | Ht 1.829 m (6') | Wt 88.9 kg (196 lb) | SpO2 98% | BMI 26.58 kg/(m^2) Body mass index is 26.58 kg/m . General: Patients general appearance: Healthy, Alert, No distress, Cooperative, Age appropr iate and Smiling Head & Neck/Airway: NC/AT; PERRL; EOMI; nl appearing ears and nose. Neck ROM: full Neck Cir cumference: 40 cm. TM Distance:Normal Dentition: dental implants, bridges or caps present, missing teeth and c hipped teeth Dentition Comments: upper partial. Ramirez: Yes Mallampati: I Mouth Opening: > = 3 cm C-Spine: normal Neck Anatomy: Normal Jaw Protrusion: Normal, lower incisors can protr ude past upper incisors Lung Exam: No respiratory distress. Normal breathing pattern. breath sounds normal Cardiac: No murmurs, gallops or rubs. Rhythm: regular Rate: normal murmur, carotid bruit a nd peripheral edema Abdominal: General Findings: no abdominal tenderness Bowel Sounds: bowel sounds are anuj l Musculoskeletal: Findings: tone normal and normal strength Neuro/Psych: No focal neuro deficits; Alert and appropriate; nl affect. alert Findings: Cr anial nerves 2-12 intact, Motor 5/5 strength globally with normal tone, No tremor, Alert, or iented to person, place, time, Normal affect and Normal gait and station Integument: At the site of the ostomy the patient reports it is reddened and "raw "appearin g. No purulent drainage noted. - lesion, rash and open wounds Color: pink Texture: Skin texture - normal Turgor: turgor normal Implants: None, Comments: ostomy LABS & DATA REVIEWED/ORDERED Lab Results Component Value Date WBC 14.86 01/18/2016 HB 11.9 01/18/2016 HCT 37.1 01/18/2016 PLT 296 01/18/2016 MCV 78.4 01/18/2016 RDW 41.1 01/18/2016 Lab Results Component Value Date NA 135 01/18/2016 K 4.5 01/18/2016 CL 105 01/18/2016 BICARB 22 01/18/2016 BUN 11 01/18/2016 CR 0.78 01/18/2016 GLU 120 01/18/2016 CA 8.3 01/18/2016 AST 42 01/02/2016 ALT 92 01/02/2016 AP 143 01/02/2016 TBILI 0.5 01/02/2016 TP 9.1 01/02/2016 ALB 4.6 01/02/2016 DIRBILI 0.1 09/27/2006 Lab Results Component Value Date ABO A 01/02/2016 RH Positive 01/02/2016 Lab Results Component Value Date A1C 5.2 01/02/2016 EKG: Not needed Perioperative risk calculators 2014 ACC/AHA Perioperative Cardiac Risk Stratification (assumes non-emergent, non-cardiac p rocedure) Are active cardiac conditions present? No Calculate the combined surgical and patient-specific risk: using the Irizarry perioperative ca rdiac risk calculator, the risk of major adverse cardiac event (MACE) is: less than 1%. No further risk stratification for coronary disease is indicated. Estimated ASA class 3 Other perioperative risk calculators: Not Applicable ASSESSMENT and RECOMMENDATIONS: Perioperative risk assessment: New [place] is a 37 y.o. male with diagnosis of vent ral hernia, scheduled for OPEN VENTRAL HERNIA REPAIR WITH MESH (TRANSVERSUS ABDOMINIS MUSCLE RELEASE). Based on the clinical information obtained and reviewed during this visit, the o verall assessment is that the patient is having elective major surgery with no identified ri sk factors. The patient is stable / optimized for surgery. Additional testing/optimizatio n is not needed. Medication management recommendations: The patient was advised to continue all usual med ications except as noted in Patient Instructions (After Visit Summary given to pt) Pre-procedure antibiotic recommendation: Per standard protocol. GERD, uses milk PRN H/o ulcerative colitis, s/p complete colectomy in 2005 Thank you for the opportunity to contribute to this patient's care. Juan Carlos Tapia NP [facility] PREOPERATIVE MEDICINE CL[facility]IC AT [facility] 4TH FLOOR [address] [facility] [address] I spent time (45 minutes, >50% of the visit) counseling the pt regarding perioperative risk (cardiac/bleeding/ DVT/ respiratory failure/ infection, etc) and methods to mitigate risk. I advised the patient regarding NPO requirements, hydration before surgery, showering, gen eral body hygiene. All pre-procedure instructions given to the patient (after-visit summary ). All of patient's questions were addressed. The patient verbalized understanding of the instructions given. in this encounter Plan of Treatment +--------+---------+ + + + | Date | Type | Specialty | Care Team | Description | +--------+---------+ + + + | 12/31/ | Office | Surgery | Constantino Romero, | | | 2017 | Visit | | [address] | | | | | | [facility] | | | | | | [place], [place] | | | | | | [address] | | | | | | [phone] | | | | | | | | +--------+---------+ + + + | 04/05/ | Office | Surgery | Liz Rodriguez MD | | | 2018 | Visit | | [address] | | | | | | [address] [place], | | | | | | [place] [address] | | | | | | [phone] | | | | | | | | +--------+---------+ + + + + +--------+ + + | Name | Priori | Associated Diagnoses | Order Schedule | | | ty | | | + +--------+ + + | COMMUNICATION TO [facility] LAB DRAW | Routin | Preop examination | Ordered: 10/05/2017 | | | e | | | + +--------+ + + as of this encounter Procedures + +--------+ + + + | Procedure Name | Priori | Date/Time | Associated Diagnosis | Comments | | | ty | | | | + +--------+ + + + | WA COLLECTION VENOUS | Routin | 10/06/2017 | Preop examination | | | BLOOD,VENIPUNCTURE | e | 4:25 PM | | | | | | PST | | | + +--------+ + + + | WA COLLECTION VENOUS | Routin | 10/05/2017 | Preop examination | | | BLOOD,VENIPUNCTURE | e | 1:28 PM | | | | | | PST | | | + +--------+ + + + in this encounter Results CBC (HEMOGRAM) ONLY (10/05/2017 1:42 PM) + + + + | Component | Value | Ref Range | + + + + | WHITE CELL COUNT | 8.70 | 3.50 - 10.80 K/cu mm | + + + + | RED CELL COUNT | 5.93 | 4.50 - 6.00 M/cu mm | + + + + | HEMOGLOBIN | 15.5 | 13.5 - 17.5 g/dL | + + + + | HEMATOCRIT | 46.9 | 41.0 - 53.0 % | + + + + | MCV | 79.1 (L) | 80.0 - 96.0 fL | + + + + | MCHC | 33.0 | 33.0 - 35.5 g/dL | + + + + | RDW SD | 40.8 | 35.1 - 46.3 fL | + + + + | PLATELET COUNT | 364 | 150 - 400 K/cu mm | + + + + | MPV | 8.8 (L) | 9.7 - 12.3 fL | + + + + | NRBC% | 0.0 | 0.0 - 0.3 % | + + + + | NRBC# | 0.00 | 0.00 - 0.02 K/cu mm | + + + + + + + | Specimen | Performing Laboratory | + + + | Blood | [facility], CORE [address] | | | [place] [address] | + + + CBC ONLY (10/05/2017 1:42 PM) + + + | Specimen | Performing Laboratory | + + + | Blood | | + + + + + | Narrative | + + | The following orders were created for panel order CBC ONLY. | | Procedure | | Abnormality Status | | --------- | | ------ CBC (HEMOGRAM) | | ONLY[[id number]] Abnormal Final | | result Please view results for these tests on the | | individual orders. | + + RENAL FUNCTION SET (NA,K,CL,CO2,BUN,CREAT,GLUC,CA,PHOS,ALB ) (10/05/2017 1:42 PM) + +---------+ + | Component | Value | Ref Range | + +---------+ + | GLUCOSE, PLASMA | 77 | 70 - 99 mg/dL | | (LAB) | | | + +---------+ + | BUN, PLASMA (LAB) | 10 | 6 - 20 mg/dL | + +---------+ + | CREATININE PLASMA | 0.94 | 0.70 - 1.30 mg/dL | | (LAB) | | | + +---------+ + | EGFR - | >60 | >60 mL/min | | QATARI | | | + +---------+ + | EGFR NON | >60 | >60 mL/min | | -QATARI | | | + +---------+ + | SODIUM, PLASMA (LAB) | 135 (L) | 136 - 145 mmol/L | + +---------+ + | POTASSIUM, PLASMA | 3.4 | 3.4 - 5.0 mmol/L | | (LAB) | | | + +---------+ + | CHLORIDE, PLASMA | 102 | 97 - 108 mmol/L | | (LAB) | | | + +---------+ + | TOTAL CO2, PLASMA | 26 | 21 - 32 mmol/L | | (LAB) | | | + +---------+ + | CALCIUM, PLASMA | 9.0 | 8.6 - 10.2 mg/dL | | (LAB) | | | + +---------+ + | CALCIUM(ALB | 9.2 | 8.6 - 10.2 mg/dL | | CORRECTED) | | | + +---------+ + | ALBUMIN, PLASMA | 3.8 | 3.5 - 4.7 g/dL | | (LAB) | | | + +---------+ + | PHOSPHORUS, PLASMA | 2.8 | 2.4 - 4.7 mg/dL | | (LAB) | | | + +---------+ + | POTASSIUM CMNT | No Hemo | | + +---------+ + | ANION GAP | 7 | mmol/L | + +---------+ + | ANION GAP(ALB | 7 | 4 - 11 mmol/L | | CORRECTED) | | | + +---------+ + + + + | Specimen | Performing Laboratory | + + + | Blood | [facility], [facility]ORE [address] | | | [place], [place] [address] | + + + + + | Narrative | + + | Adult glucose reference range change effective 7-17. GFR is estimated using the | | [...] Rapidly changing kidney function | + + ANTIBODY SCREEN (10/05/2017 1:41 PM) + + + + | Component | Value | Ref Range | + + + + | Antibody Screen | Negative | | + + + + + + + | Specimen | Performing Laboratory | + + + | Blood | [facility], [facility] MEDICINE [address] [place] [address] | | | [place] [address] | + + + ABO & RH TYPE (10/05/2017 1:41 PM) + + + + | Component | Value | Ref Range | + + + + | ABO Group | A | | + + + + | Rh Type | Positive | | + + + + + + + | Specimen | Performing Laboratory | + + + | Blood | [facility], [facility] MEDICINE [address] | | | [place] [address] | + + + TYPE AND SCREEN (10/05/2017 1:41 PM) + + + | Specimen | Performing Laboratory | + + + | Blood | | + + + + + | Narrative | + + | The following orders were created for panel order TYPE AND SCREEN. | | Procedure | | Abnormality Status | | --------- | | ------ ABO & RH | | TYPE[[id number]] F | | inal result ANTIBODY | | SCREEN[[id number]] Fin | | al result Please view results for these tests on the | | individual orders. | + + in this encounter Visit Diagnoses + + | Diagnosis | + + | Preop examination - Primary | + + | Preoperative examination, unspecified | + +
--- OUTSIDE RECORDS SUMMARY | ~2017-11-04 | XMS | Encounter Summary ---
Demographics + + + | Address | [address] | | | [place] [address] | + + + | Home Phone | | + + + | Preferred Language | Unknown | + + + | Marital Status | Single | + + + | Zoroastrian Affiliation | NON | + + + | Race | White | + + + | Ethnic Group | Not or | + + + Author + + + | Author | [facility] | + + + | Organization | [facility] | + + + | Address | Unknown | + + + | Phone | Unavailable | + + + Support +------+ +---------+ + | Name | Relationship | Address | Phone | +------+ +---------+ + ECON | Unknown | | +------+ +---------+ + Care Team Providers + +------+ + | Care Can Top Setter Name | Role | Phone | + +------+ + | Marlee Duarte MD | PCP | | + +------+ + Encounter Details +--------+ + + + + | Date | Type | Department | Care Team | Description | +--------+ + + + + | 10/19/ | Procedure | [facility] [address] | | | | [address] | [address] | [address] | | | | | | [place] [address] | | | | | | [phone] | | | +--------+ + + + [...] | | 2017 | Visit | | MD Donna Ashraf | | | | | | [address] | | | | | | [place], [place] | | | | | | [address] | | | | | | [phone] | | | | | | | | +--------+---------+ + + + | 04/05/ | Office | Surgery | Liz Rodriguez MD | | | 2017 | Visit | | [address] | | | | | | [address] [facility] | | | | | | [place] [address] | | | | | | [phone] | | | | | | | | +--------+---------+ + + + as of this encounter Visit Diagnoses Not on filein this encounter"
--- OUTSIDE RECORDS SUMMARY | ~2017-11-04 | XMS | Encounter Summary ---
Demographics + + + | Address | [address] | | | [place] [address] | + + + | Home Phone | | + + + | Preferred Language | Unknown | + + + | Marital Status | Single | + + + | Quaker Affiliation | NON | + + + | Race | White | + + + | Ethnic Group | Not or | + + + Author + + + | Author | [facility] | + + + | Organization | [facility] | + + + | Address | Unknown | + + + | Phone | Unavailable | + + + Support +------+ +---------+ + | Name | Relationship | Address | Phone | +------+ +---------+ + ECON | Unknown | | +------+ +---------+ + Care Team Providers + +------+ + | Care Dispensing Optician Apprentice Name | Role | Phone | + [...] | | 2018 | | Center at [facility] 6th | [address] | | | | | Floor [address] | [address] | | | | | Ave Mailcode: CH4S | [place], [place] | | | | | [place] for [facility] | [address] | | | | | [address] | [phone] | | | | | floor [place], [place] | | | | | | [address] | | | | | | [phone] | | | +--------+ + + + [...] Rd | | | | | | [place], [place] | | | | | | [address] | | | | | | [phone] | | | | | | | | +--------+---------+ + + + | 04/05/ | Office | Surgery | Liz Rodriguez MD | | | 2017 | Visit | | [address] | | | | | | [place], | | | | | | [place] [address] | | | | | | [phone] | | | | | | | | +--------+---------+ + + + as of this encounter Visit Diagnoses Not on filein this encounter"
--- OUTSIDE RECORDS SUMMARY | ~2017-11-04 | XMS | Encounter Summary ---
Demographics + + + | Address | [address] | | | [place] [address] | + + + | Home Phone | | + + + | Preferred Language | Unknown | + + + | Marital Status | Single | + + + | Jew Affiliation | NON | + + + | Race | White | + + + | Ethnic Group | Not or | + + + Author + + + | Author | [facility] | + + + | Organization | [facility] | + + + | Address | Unknown | + + + | Phone | Unavailable | + + + Support +------+ +---------+ + | Name | Relationship | Address | Phone | +------+ +---------+ + ECON | Unknown | | +------+ +---------+ + Care Team Providers + +------+ + | Care Integration Specialist Name | Role | Phone | + [...] Request | | Radiology | Diagnoses | [facility], | | | | | | Left arm | Constantino Dunaway MD | | | | | | pain | [address] | | | | | | Procedures | [address] | | | | | | [facility] | [place] | | | | | | VENOUS | [place], [place] | | | | | | DUPLEX UPPER | [address] | | | | | | EXTREMITY | Phone: | | | | | | BILAT COMP | [phone] | | | | | | | Fax: | | | | | | | [phone] | | + +--------+ + + + + Reason for Visit +--------+ + | Reason | Comments | +--------+ + | Other | VM left on [facility] line 11/04/17 at 1018 am | +--------+ + Encounter Details +--------+ + + + + | Date | Type | Department | Care Team | Description | +--------+ + + + + | 11/04/ | Telephone | Digestive Health | Constantino Romero, | Other (VM left on | | 2018 | | Center at [facility] 6th | [address] | [facility] line 11/04/17 at | | | | Floor [address] | [address] | 1018 am) | | | | [address] Mailcode: CH4S | [place], [place] | | | | | [facility] | [address] | | | | | and [address], [address]th | [phone] | | | | | floor [place], [place] | | | | | | [address] | | | | | | [phone] | | | +--------+ + + + [...] Rd | | | | | | [place], [place] | | | | | | [address] | | | | | | [phone] | | | | | | | | +--------+---------+ + + + | 04/05/ | Office | Surgery | Liz Rodriguez MD | | | 2017 | Visit | | [address] | | | | | | [place], | | | | | | [place] [address] | | | | | | [phone] | | | | | | | [...]
--- OUTSIDE RECORDS SUMMARY | ~2017-11-04 | XMS | Encounter Summary ---
Demographics + + + | Address | [address] | | | [place] [address] | + + + | Home Phone | | + + + | Preferred Language | Unknown | + + + | Marital Status | Single | + + + | Episcopal Affiliation | NON | + + + | Race | White | + + + | Ethnic Group | Not or | + + + Author + + + | Author | [facility] | + + + | Organization | [facility] | + + + | Address | Unknown | + + + | Phone | Unavailable | + + + Support +------+ +---------+ + | Name | Relationship | Address | Phone | +------+ +---------+ + ECON | Unknown | | +------+ +---------+ + Care Team Providers + +------+ + | Care Space Controller Name | Role | Phone | + [...] | | Radiology | Diagnoses | [facility], | | | | | | Left arm | Consatntino Dunaway MD | | | | | | pain | [address] | | | | | | Procedures | [address] | | | | | | [facility] | [place] [address] | | | | | | VENOUS | [place], [place] | | | | | | DUPLEX UPPER | [address] | | | | | | EXTREMITY | Phone: | | | | | | BILAT COMP | [phone] | | | | | | | Fax: | | | | | | | [phone] | | + +--------+ + + + + Reason for Visit +--------+ + | Reason | Comments | +--------+ + | Other | VM left on [facility] line 11/04/17 at 1018 am | +--------+ + Encounter Details +--------+ + + + + | Date | Type | Department | Care Team | Description | +--------+ + + + + | 11/04/ | Telephone | Digestive Health | Constantino Romero, | Other (VM left on | | 2018 | | Center at [facility] 6th | [address] | [facility] line 11/04/17 at | | | | Floor [address] | [address] | 1018 am) | | | | [address] Mailcode: CH4S | [place], [place] | | | | | [facility] | [address] | | | | | and [address], 6th | [phone] | | | | | floor [place], [place] | | | | | | [address] | | | | | | [phone] | | | +--------+ + + + [...] Rd | | | | | | [place], [place] | | | | | | [address] | | | | | | [phone] | | | | | | | | +--------+---------+ + + + | 04/05/ | Office | Surgery | Liz Rodriguez MD | | | 2017 | Visit | | [address] | | | | | | [place], | | | | | | [place] [address] | | | | | | [phone] | | | | | | | [...]
--- OUTSIDE RECORDS SUMMARY | ~2017-11-04 | XMS | Encounter Summary ---
Demographics + + + | Address | [address] | | | [place] [address] | + + + | Home Phone | | + + + | Preferred Language | Unknown | + + + | Marital Status | Single | + + + | Orthodoxy Affiliation | NON | + + + | Race | White | + + + | Ethnic Group | Not or | + + + Author + + + | Author | [facility] | + + + | Organization | [facility] | + + + | Address | Unknown | + + + | Phone | Unavailable | + + + Support +------+ +---------+ + | Name | Relationship | Address | Phone | +------+ +---------+ + ECON | Unknown | | +------+ +---------+ + Care Team Providers + +------+ + | Care Lumber Stacker Driver Name | Role | Phone | + +------+ + | Marlee Duarte MD | PCP | | + +------+ + Encounter Details +--------+ + + + + | Date | Type | Department | Care Team | Description | +--------+ + + + + | 09/16/ | Anesthesia | Preoperative | Chika Dorsey NP | | | 2017 | Event | [facility] at | [address] | | | | | [facility] 4th Floor [address] | [address] [place], | | | | | [address] | [place] [address] | | | | | Code: [facility] Center | [phone] | | | | | for Health and | | | | | | [facility],4th Floor | | | | | | [place], [place] | | | | | | [address] | | | | | | [phone] | | | +--------+ + + + [...] Rd | | | | | | [place], [place] | | | | | | [address] | | | | | | [phone] | | | | | | | | +--------+---------+ + + + | 04/05/ | Office | Surgery | Liz Rodriguez MD | | | 2018 | Visit | | [address] | | | | | | [place], | | | | | | [place] [address] | | | | | | [phone] | | | | | | | | +--------+---------+ + + + as of this encounter Visit Diagnoses Not on filein this encounter"
--- OUTSIDE RECORDS SUMMARY | ~2017-11-04 | XMS | Encounter Summary ---
Demographics + + + | Address | [address] | | | [place] [address] | + + + | Home Phone | | + + + | Preferred Language | Unknown | + + + | Marital Status | Single | + + + | Mormonism Affiliation | NON | + + + | Race | White | + + + | Ethnic Group | Not or | + + + Author + + + | Author | [facility] | + + + | Organization | [facility] | + + + | Address | Unknown | + + + | Phone | Unavailable | + + + Support +------+ +---------+ + | Name | Relationship | Address | Phone | +------+ +---------+ + ECON | Unknown | | +------+ +---------+ + Care Team Providers + +------+ + | Care Tire Fabric Impregnating Range Tender Name | Role | Phone | [...] | | 2018 | | Center at [facility] 6th | [address] | | | | | Floor [address] | [address] | | | | | Ave Mailcode: CH[address]S | [place], [place] | | | | | [place] [facility] | [address] | | | | | [address] | [phone] | | | | | floor [place], [place] | | | | | | [address] | | | | | | [phone] | | | +--------+ + + + [...] Rd | | | | | | [place], [place] | | | | | | [address] | | | | | | [phone] | | | | | | | | +--------+---------+ + + + | 04/05/ | Office | Surgery | Liz Rodriguez MD | | | 2017 | Visit | | [address] | | | | | | [place], | | | | | | [place] [address] | | | | | | [phone] | | | | | | | | +--------+---------+ + + + as of this encounter Visit Diagnoses Not on filein this encounter"
--- OUTSIDE RECORDS SUMMARY | ~2017-11-04 | XMS | Encounter Summary ---
Demographics + + + | Address | [address] | | | [place] [address] | + + + | Home Phone | | + + + | Preferred Language | Unknown | + + + | Marital Status | Single | + + + | Confucianism Affiliation | NON | + + + | Race | White | + + + | Ethnic Group | Not or | + + + Author + + + | Author | [facility] | + + + | Organization | [facility] | + + + | Address | Unknown | + + + | Phone | Unavailable | + + + Support +------+ +---------+ + | Name | Relationship | Address | Phone | +------+ +---------+ + ECON | Unknown | | +------+ +---------+ + Care Team Providers + +------+ + | Care Water Regulator And Valve Repairer Name | Role | Phone | + [...] + + | 10/09/ | Hospital | [facility] [address] | Jaleesa Burleson, | | | 2018 - | Encounter | ASIA Luna MD | | | | | [place] [address] | | | | 10/23/ | | [phone] | | | | 2017 | | [...] of this note may be different from kyle srinivasan. [facility] Team Inpatient Discharge Summary Aniket [...] vomiting improved with scheduled Reglan. NGT removed, elpidio removed. Patient tolerating regular t and taking [...] the prescribed narcotic-opioid (e.g. oxycodone, hydrocodone, Vicodin, Chesnee, Percocet, Dilaudid) as needed. However, Vicodin/Chesnee and Percocet contain acetam inophen in the [...] Narcotic-opioid pain medications (e.g. oxycodone, hydrocodone, Vicodin, Chesnee, Percocet, Di laudid) can be constipating, therefore you should take a stool softener on the same day as s tarting your narcotic pain medicine. Options include: Milk of Magnesia: 2 Tablespoons Twice daily Colace (=Docusate): 1 pill Twice daily While these are some recommendations, any xiwp-rea-[id number] stool softener should work, and generics are [...] course, please call Dr Holger Burleson's office ([phone]), especially if you are considering going to an Emergency Room. FOLLOW-UP: Please call Dr. Burleson's office ([phone]) to schedule a follow-up appointment for 2 weeks after discharge. Condition on Discharge Stable Future Appointments Provider Department Dept Phone Center 10/29/2017 12:00 PM Jaleesa Burleson [facility] at [facility] 6th Floor [phone] [facility] 04/05/2018 1:40 PM Liz Rodriguez [facility] at [facility] 6th Floor [phone] [facility] Schedule the following appointment(s) when you get home Marlee Duarte MD . Specialty: Internal Medicine Contact information [facility] [address] [facility] [address] Physical Exam: Vital Signs at discharge: Ht 1.829 m (6' 0.01"), Wt 88 kg (194 lb 0.1 oz), BP 130/77, Pulse 83, Temperature 36.6 C (97.9 F), RR 18, SpO2 100%, BMI 26.31 kg/(m^2). General: comfortable, NAD Respiratory: unlabored breathing Cardio: Mild regular tachycardia Abdomen: soft, nontender, Incision clean dry and intact. Wearing abd binder, mildly distend ed. Elpidio out, steri strips placed. Minimal drainage from superior aspect of incision, mil d erythema. Extremities: WWP, no edema Mental status: awake and alert Drain: removed Outstanding labs/studies: None When to Call: Please call [facility] ([phone]) or the [facility] hydroelectric plant operator after hours and ask for the [facility] Physician Population Health Coach, Nurse or Surgery Resi dent hand stoner if you have any of the followin. Difficulty breathing or unusual shortness of breath 2. Excessive bleeding, drainage, redness and/or swelling at the operative site 3. Fevers (>101.5), chills, increased pain that is not relieved by pain medications 4. Persistent nausea or vomiting Discharging Physician: Aniket Scott DO Attending Physician: Jaleesa Scott DO [facility] Surgery Pager# [phone] [facility] [address] [place], [place] [phone] in this encounter Discharge Instructions Jenny Boyer [...] Physician: Jaleesa Burleson MD Patient: NEW LICEA [id number] 24H events/Subjective: -tolerating diet -continued BM -no [...] Mark Haynes MD General Surgery, R-3 pg. [id number] [facility] Associated attestation - Jaleesa Burleson MD - [...] possible dc without TPN. Jaleesa Burleson MD [facility] [address] [place] [address] Aniket Scott DO - 10/21/2017 7:48 AM PSTFormatting of this note may be different from t erma original. Green Surgery Progress Note Attending Physician: Jaleesa Burleson MD Patient: NEW LICEA [id number] 24H events/Subjective: -one episode of emesis yesterday [...] Dr. Nick MD. Jovanni Scott R1 Pg [id number] Associated attestation - Jaleesa Burleson MD - [...] in next couple days. Jaleesa Burleson MD [facility] [address] [facility] [place] [address] Mark Haynes MD - 10/20/2017 6:43 PM PSTGreen Surgery Rectal Exam: External anus without lesion, defect or erythema. Tone good, staple line intact, anastomosi s patent, no blood, nontender, no palpable fluid collection, or fluctuance. Mark Haynes MD General Surgery, R-3 pg. [id number] [facility] KristineKylah, ACNP - 10/20/2017 6:16 AM PSTFormatting of this note may be different f rom the original. Green Surgery Progress Note Attending Physician: Jaleesa Burleson MD Patient: NEW LICEA [id number] 24H events/Subjective: -one episode of emesis yesterday [...] soft mesh and Lysis of adhesions 18 POD#11 Abdominal Wall Reconstruction Comprehensive Care Pathway [...] PICC line placement and TPN today. Labs wn. -advance diet today -CT AP completed. [...] Mark Haynes MD General Surgery, R-3 pg. [id number] [facility] Kylah Selma Yessenia, [facility] [address] [place] [address] Associated attestation - Jaleesa Burleson MD - [...] -OK to remove drain. Jaleesa Burleson MD [facility] [address] [place], [place] [id number] Kylah Casas, ACNP - 10/19/2017 5:45 AM PSTFormatting of this note may be different f rom the original. Green Surgery Progress Note Attending Physician: Jaleesa Burleson MD Patient: NEW LICEA [id number] 24H events/Subjective: -one episode of emesis yesterday [...] Mark Haynes MD General Surgery, R-3 pg. [id number] [facility] Kylah Selma Yessenia, [facility] [address] [place] [address] Associated attestation - Jaleesa Burleson MD - [...] TPN and PO intake. Jaleesa Burleson MD [facility] [address] [place] [address] Mark Haynes MD - 10/18/2017 11:11 AM PSTGreen Surgery Progress Note Attending Physician: Jaleesa Burleson MD Patient: NEW [id number] 24H events/Subjective: -one episode of emesis yesterday, [...] Drain: SS fluid x1 Assessment and Plan: eNw Licea is a [...] Mark Haynes MD General Surgery, R-3 pg. [id number] [facility] Associated attestation - Shawna Rahman MD - [...] MD Division of Gastrointestinal [place] [address] Office: [phone] Mark Haynes MD - 10/17/2017 4:12 PM PSTGreen Surgery Progress Note Attending Physician: Jaleesa Burleson MD Patient: NEW LICEA [id number] 24H events/Subjective: -NGT out yesterday evening -denies [...] setting of loose stool 7. 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 Nick MD. Mark Haynes MD General Surgery, R-3 pg. [id number] [facility] Associated attestation - Shawna Rahman MD - [...] MD Division of Gastrointestinal and General Surgery [address], [place] [address] Office: [phone] Mark Haynes MD - 10/16/2017 6:25 AM PSTGreen Surgery Progress Note Attending Physician: Jaleesa Burleson MD Patient: NEW LICEA [id number] 24H events/Subjective: -AF -Feeling better this am [...] setting of loose stool 7. 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 Nick MD. Jovanni Scott R1 Pg [id number] Mark Haynes MD General Surgery, R-3 pg. [id number] [facility] Associated attestation - Jaleesa Burleson MD - [...] still attempt enteral nutrition. Jaleesa Burleson MD [facility] [address] [place] [address] Tyler Aniket, DO - 10/15/2017 6:07 AM PSTGreen Surgery Progress Note Attending Physician: Jaleesa Burleson MD Patient: NEW LICEA [id number] 24H events/Subjective: -AF -episodes of nausea, w/bilious [...] setting of loose stool 7. 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 -transitioned off MERCHANDISE ASSOCIATE Dispo: TBD, pending nausea/vomiting control, ROBF The attending of record for this patient is Dr. Nick MD. Jovanni Scott R1 Pg [id number] Associated attestation - Jaleesa Burleson MD - [...] of contrast. Hold discharge. Jaleesa Burleson MD [facility] [address] [facility] [facility] [place] [address] Aniket Scott DO - 10/14/2017 8:28 AM PSTGreen Surgery Progress Note Attending Physician: Jaleesa Burleson MD Patient: NEW LICEA [id number] 24H events/Subjective: -AF/AGUILAR overnight -d/c'ed MERCHANDISE ASSOCIATE yesterday, pain controlled -episodes of nausea, emesis [...] setting of loose stool 7. 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 Nick MD. Jovanni Scott R1 Pg [id number] Associated attestation - Jaleesa Burleson MD - [...] net 24- 48 hours. Jaleesa Burleson MD [facility] [address] [facility] [place] [address] Aniket Scott DO - 10/13/2017 6:20 AM PSTGreen Surgery Progress Note Attending Physician: Jaleesa Burleson MD Patient: NEW [place]A [id number] 24H events/Subjective: -AF/AGUILAR overnight -tolerating diet, still minimal PO -continues to have multiple small liquid BMs overnight -transition off MERCHANDISE ASSOCIATE today Objective: BP 132/84 | Pulse 107 [...] setting of loose stool 7. 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 Nick MD. Jovanni Scott R1 Pg [id number] Associated attestation - Jaleesa Burleson MD - [...] any rebound/guarding. -Plan: -Cont to ambulate in [facility] -Reg diet + Protein supplements. -Advised to take in at least 1/2 yogurt daily (pro-biotics) -Remove RIGHT drain today -Anticipate discharge tomorrow. Jaleesa Burleson MD [facility] [address] [facility] [address] [place], [place] [phone] Dalila Jonas MD - 10/10/2017 7:15 AM PSTFormatting of this note may be different from the original. Green Surgery Progress Note Hospital Day: 1 Author: Dalila Jonas MD Attending Physician: Jaleesa Burleson MD Patient: NEW [id number] 24H events/Subjective: Pt comfortable in bed this [...] kg/(m^2) Intake/Output Summary (Last 24 hours) at 18 0715 Last data filed at 10/10/17 0700 Gross per 24 hour Intake 4828.75 ml Output 1689 ml Net 3139.75 ml Exam: General: comfortable, NAD HEENT: NCAT Respiratory: unlabored breathing on RA Cardio: Regular rate Abdomen: soft, appropriately tender, Incision clean dry and intact. Wearing abd binder Extremities: WWP, no edema Mental status: awake and alert : Reynolds in place and draining yellow urine Drain: [...] day if tolerating PO 8. Pain: Hydromorphone MERCHANDISE ASSOCIATE until POD #3 Acetaminophen 1000mg q6h Gabapentin 300mg PO TID Diazepam (for muscle spasm) 2mg PO q6h for 48h w/ holding for sedation parameters (not f or MARCIN, >65yo) 9. Labs: morning on POD# 1 only Remarkable for low Mg, repleted 10. Two drains, stripped BID on MD barlow RN TID. To be removed when reaches 30mL/24hr. 11. Reynolds in place, will d/c POD#1 12. Abdominal Binder PRN for comfort as ambulating 13. Discontinue insulin drip, place on moderate sliding scale Stable Problems/ issues Disposition Planning: Remains POD# 3-4 The plan of care was discussed with the Green Surgery Team. The attending of record for this patient is Jaleesa Burleson MD. Dalila Jonas MD R1 =[place] [facility]= Pager: [phone] Associated attestation - Jaleesa Burleson MD - [...] Pathway: Start clears + isopure. OOB/ambulate. D/C reynolds Jaleesa Burleson MD [facility] [address] [facility] [place] [address] Sebas Gunter MD - 10/09/2017 10:47 PM [...] | 2017 | Visit | | MD [address] | | | | | | [address] | | | | | | [place], [place] | | | | | | [address] | | | | | | [phone] | | | | | | | | +--------+---------+ + + + | 04/05/ | Office | Surgery | Liz Rodriguez MD | | | 2017 | Visit | | [address] | | | | | | [place], | | | | | | [place] [address] | | | | | | [phone] | | | | | | | [...] TESTS [address] | | | [place] [address] | + + + CAPILLARY BLOOD GLUCOSE (NO CHG), POC (10/23/2017 5:39 AM) + +-------+ + | Component | Value | Ref Range | + +-------+ + | BLOOD GLUCOSE, POC | 93 | 70 - 99 mg/dL | + +-------+ + + + + | Specimen | Performing Laboratory | + + + | | [facility], POINT OF CARE TESTS [address] | | | [place] [address] | + + + CAPILLARY BLOOD GLUCOSE [...] [address] | | | [place] [address] | + + + CAPILLARY BLOOD GLUCOSE (NO CHG), POC (10/22/2017 6:31 PM) + +---------+ + | Component | Value | Ref Range | + +---------+ + | BLOOD GLUCOSE, POC | 106 (H) | 70 - 99 mg/dL | + +---------+ + + + + | Specimen | Performing Laboratory | + + + | | [facility] - ARACELY [facility], POINT OF CARE TESTS [address] | | | [place] [address] | + + + CAPILLARY BLOOD GLUCOSE (NO CHG), POC (10/22/2017 1:16 PM) + +---------+ + | Component | Value | Ref Range | + +---------+ + | BLOOD GLUCOSE, POC | 109 (H) | 70 - 99 mg/dL | + +---------+ + + + + | Specimen | Performing Laboratory | + + + | | [facility] [address] | | | [place] [address] | + + + CAPILLARY BLOOD GLUCOSE (NO CHG), POC (10/22/2017 5:48 AM) + +---------+ + | Component | Value | Ref Range | + +---------+ + | BLOOD GLUCOSE, POC | 125 (H) | 70 - 99 mg/dL | + +---------+ + + + + | Specimen | Performing Laboratory | + + + | | [facility], POINT OF CARE TESTS [address] | | | [place] [address] | + + + CBC (HEMOGRAM) ONLY [...] | + + + | Blood | [facility], CORE [address] [facility] | | | [place] [address] | + + + CBC ONLY (10/22/2017 4:22 AM) + + + | Specimen | Performing Laboratory | + + + | Blood | | + + + + + | Narrative | + + | The following orders were created for panel order CBC ONLY. | | Procedure | | Abnormality Status | | --------- | | ------ CBC (HEMOGRAM) | | ONLY[[id number]] Abnormal Final | | result Please view [...] + + | | [facility] - AR[facility], POINT OF CARE TESTS [address] | | | [place] [address] | + + + CAPILLARY BLOOD GLUCOSE [...] TESTS [address] | | | [place] [address] | + + + CAPILLARY BLOOD GLUCOSE (NO CHG), POC (10/21/2017 12:20 PM) + +---------+ + | Component | Value | Ref Range | + +---------+ + | BLOOD GLUCOSE, POC | 124 (H) | 70 - 99 mg/dL | + +---------+ + + + + | Specimen | Performing Laboratory | + + + | | [facility] JESSICA [facility], POINT OF CARE TESTS [address] | | | [place] [address] | + + + CAPILLARY BLOOD GLUCOSE [...] TESTS [address] | | | [place] [address] | + + + CBC (HEMOGRAM) ONLY [...] | + + + | Blood | [facility], CORE [address] [place] [address] | | | [place] [address] | + + + CBC ONLY (10/21/2017 4:07 AM) + + + | Specimen | Performing Laboratory | + + + | Blood | | + + + + + | Narrative | + + | The following orders were created for panel order CBC ONLY. | | Procedure | | Abnormality Status | | --------- | | ------ CBC (HEMOGRAM) | | ONLY[[id number]] Abnormal Final | | result Please view [...] | >60 | >60 mL/min | | MALIAN | | | + +---------+ + | EGFR NON | >60 | >60 mL/min | | -MALIAN | | | + +---------+ + | [...] | + + + | Blood | [facility], [facility] [address] | | | [place] [address] | + + + + + | [...] Laboratory | + + + | | [facility], POINT OF CARE TESTS [address] | | | [place] [address] | + + + CBC (HEMOGRAM) ONLY [...] | + + + | Blood | [facility], CORE [address] | | | [place] [address] | + + + CBC ONLY (10/20/2017 10:29 AM) + + + | Specimen | Performing Laboratory | + + + | Blood | | + + + + + | Narrative | + + | The following orders were created for panel order CBC ONLY. | | Procedure | | Abnormality Status | | --------- | | ------ CBC (HEMOGRAM) | | ONLY[[id number]] Abnormal Final | | result Please view [...] | + + + | Blood | [facility], CORE [address] [facility] [facility] | | | [place] [address] | + + + + + | [...] | + + + | Blood | [facility] [address] [place], [place] | | | [address] | + + + CALCIUM, IONIZED, WHOLE [...] | + + + | Blood | [facility], CORE [address] [place] [address] | | | [place] [address] | + + + ALT, PLASMA (10/20/2017 10:29 AM) + +--------+ + | Component | Value | Ref Range | + +--------+ + | ALT (SGPT) | 82 (H) | <=60 U/L | + +--------+ + + + + | Specimen | Performing Laboratory | + + + | Blood | [facility], CORE [address] | | | [place], [place] [address] | + + + TRIGLYCERIDES, PLASMA (10/20/2017 10:29 AM) + +---------+ + | Component | Value | Ref Range | + +---------+ + | TRIGLYCERIDES | 182 (H) | <150 mg/dL | + +---------+ + + + + | Specimen | Performing Laboratory | + + + | Blood | [facility], CORE [address] | | | [place] [address] | + + + + + | [...] | + + + | Blood | [facility], CORE [address] | | | [place] [address] | + + + ALKALINE PHOSPHATASE, PLASMA (10/20/2017 10:29 AM) + +-------+ + | Component | Value | Ref Range | + +-------+ + | ALK PHOS | 99 | 53 - 128 U/L | + +-------+ + + + + | Specimen | Performing Laboratory | + + + | Blood | [facility], CORE [address] | | | [place] [address] | + + + BILIRUBIN DIRECT (10/20/2017 [...] | + + + | Blood | [facility], CORE [address] | | | [place] [address] | + + + BILIRUBIN TOTAL (10/20/2017 [...] | + + + | Blood | [facility], CORE [address] | | | [place] [address] | + + + PHOSPHORUS, PLASMA (10/20/2017 10:29 AM) + +-------+ + | Component | Value | Ref Range | + +-------+ + | PHOSPHORUS, PLASMA | 3.3 | 2.4 - 4.7 mg/dL | | (LAB) | | | + +-------+ + + + + | Specimen | Performing Laboratory | + + + | Blood | [facility], CORE [address] [place] [address] | | | [place] [address] | + + + ALBUMIN, PLASMA (10/20/2017 10:29 AM) + +---------+ + | Component | Value | Ref Range | + +---------+ + | ALBUMIN, PLASMA | 2.8 (L) | 3.5 - 4.7 g/dL | | (LAB) | | | + +---------+ + + + + | Specimen | Performing Laboratory | + + + | Blood | [facility], CORE [address] [place] [address] | | | [place] [address] | + + + MAGNESIUM, PLASMA (10/20/2017 10:29 AM) + +-------+ + | Component | Value | Ref Range | + +-------+ + | MAGNESIUM,PLASMA | 2.4 | 1.6 - 2.6 mg/dL | + +-------+ + + + + | Specimen | Performing Laboratory | + + + | Blood | [facility], CORE [address] | | | [place] [address] | + + + + + | [...] | >60 | >60 mL/min | | MALIAN | | | + +---------+ + | EGFR NON | >60 | >60 mL/min | | -MALIAN | | | + +---------+ + | [...] | + + + | Blood | [facility], CORE [address] | | | [place] [address] | + + + + + | [...] | Narrative | + + | EXAM: GA CHEST PICC LINE CHECK 10/20/17 09:17:09 HISTORY: [...] Account, Radiant Res In Interface - 10/20/2017 1:09 PM PST EXAM: GA CHEST | | PICC LINE CHECK 10/20/17 [...] Procedure Note | | Indications:Antibiotics Procedure location: Unit:[facility] Room: #12 Providers: PICC | | Nurse name: Elana Poon RN Assisted by Isabel Barakat GREEN BUILDING ENERGY ENGINEER Pre-Procedure Consent: | | written consent obtained Consent given by: Patient Patient identity confirmed per | | protocol: Yes Team Pause: Immediatly prior to the procedure a pause per protocol was | | called. A pause verifies correct patient, procedure, equipment, production support engineer and | | site/side marked as required. [...] Basilic | | vein. Catheter lot number: [id number] with a length of 55 cm was [...] Laboratory | + + + | | [facility] RADIOLOGY VOICE RECOGNITION | + + + [...] Note | + + | Service Account, Augmate Res In Interface - 10/20/2017 8:31 AM [...] | >60 | >60 mL/min | | MALIAN | | | + +---------+ + | EGFR NON | >60 | >60 mL/min | | -MALIAN | | | + +---------+ + | [...] | + + + | Blood | [facility], CORE [address] | | | [place], [place] [address] | + + + + + | [...] | + + + | Blood | [facility], CORE [address] [facility] | | | [place] [address] | + + + CBC ONLY (10/18/2017 7:00 AM) + + + | Specimen | Performing Laboratory | + + + | Blood | | + + + + + | Narrative | + + | The following orders were created for panel order CBC ONLY. | | Procedure | | Abnormality Status | | --------- | | ------ CBC (HEMOGRAM) | | ONLY[[id number]] Abnormal Final | | result Please view [...] | >60 | >60 mL/min | | MALIAN | | | + +---------+ + | EGFR NON | >60 | >60 mL/min | | -MALIAN | | | + +---------+ + | [...] | + + + | Blood | [facility], CORE [address] | | | [place] [address] | + + + + + | [...] | >60 | >60 mL/min | | MALIAN | | | + + + + | EGFR NON | >60 | >60 mL/min | | -MALIAN | | | + + + + [...] | + + + | Blood | [facility], CORE [address] [facility] | | [facility] [address] | + + + + + | [...] | + + + | Blood | [facility], CORE [address] [place] [address] [place] | | | [place] [address] | + + + + + | [...] | >60 | >60 mL/min | | MALIAN | | | + +---------+ + | EGFR NON | >60 | >60 mL/min | | -MALIAN | | | + +---------+ + | [...] | + + + | Blood | [facility], CORE [address] [facility] | | | [place] [address] | + + + + + | Narrative | + + | Adult glucose reference range change effective 04-08-. GFR is estimated using the | | [...] Service Account, Murphy Ledezma In Interface - 10/16/2017 10:44 AM PST [...] Laboratory | + + + | | [facility] RADIOLOGY VOICE RECOGNITION | + + + [...] Note | + -+ | Service Account, Radiant Res In Interface - 10/15/2017 1:28 PM PST [...] | + + + | Blood | [facility], CORE [address] | | | [place] [address] | + + + CBC ONLY (10/15/2017 4:06 AM) + + + | Specimen | Performing Laboratory | + + + | Blood | | + + + + + | Narrative | + + | The following orders were created for panel order CBC ONLY. | | Procedure | | Abnormality Status | | --------- | | ------ CBC (HEMOGRAM) | | ONLY[[id number]] Abnormal Final | | result Please view [...] | + + + | Blood | [facility], [address] [address] | | | [place] [address] | + + + + + | [...] | >60 | >60 mL/min | | MALIAN | | | + +---------+ + | EGFR NON | >60 | >60 mL/min | | -MALIAN | | | + +---------+ + | [...] | + + + | Blood | [facility], [facility] [address] | | | [place] [address] | + + + + + | [...] Note | + + | Service Account, [employer] In Interface - 10/15/2017 9:01 AM PST [...] views of the abdomen obtained. Midline skin elpidio noted. Moderate to marked | | gaseous distention of visualized bowel loops suggests ileus. I have personally | | reviewed the images and, if necessary, edited the report. I agree with the report as | | now presented. | + + + + | Procedure Note | + + | Service Anabella, [employer] In Interface - 10/15/2017 9:01 AM PST HISTORY: Evaluate | | for ileus.COMPARISON: Outside CT of 03/04/17.IMPRESSION:2 frontal views of the abdomen | | obtained. Midline skin elpidio noted. Moderate to marked gaseous distention of | | visualized bowel loops suggests ileus.I have personally reviewed the images and, if | | necessary, edited the report. I agree with the report as now presented. | | | |2 frontal views of the abdomen obtained. Midline skin elpidio noted. Moderate to marked gas eous distention [...] | + + + | Blood | [facility], [facility]ORE [address] [place] [address] | | | [place] [address] | + + + + + | [...] | >60 | >60 mL/min | | MALIAN | | | + +---------+ + | EGFR NON | >60 | >60 mL/min | | -MALIAN | | | + +---------+ + | [...] | + + + | Blood | [facility], [facility] [address] | | | [place] [address] | + + + + + | Narrative | + + | Adult glucose reference range change effective 04-08-. GFR is estimated using the | | [...] [address] | | | [place] [address] | + + + CAPILLARY BLOOD GLUCOSE [...] [address] | | | [place] [address] | + + + CAPILLARY BLOOD GLUCOSE (NO CHG), POC (10/10/2017 12:29 PM) + +---------+ + | Component | Value | Ref Range | + +---------+ + | BLOOD GLUCOSE, POC | 121 (H) | 70 - 99 mg/dL | + +---------+ + + + + | Specimen | Performing Laboratory | + + + | | [facility] [place], POINT OF CARE TESTS [address] | | | [place] [address] | + + + CAPILLARY BLOOD GLUCOSE (NO CHG), POC (10/10/2017 8:45 AM) + +-------+ + | Component | Value | Ref Range | + +-------+ + | BLOOD GLUCOSE, POC | 98 | 70 - 99 mg/dL | + +-------+ + + + + | Specimen | Performing Laboratory | + + + | | [facility] POINT OF CARE TESTS [address] | | | [place] [address] | + + + CAPILLARY BLOOD GLUCOSE (NO CHG), POC (10/10/2017 6:58 AM) + +---------+ + | Component | Value | Ref Range | + +---------+ + | BLOOD GLUCOSE, POC | 117 (H) | 70 - 99 mg/dL | + +---------+ + + + + | Specimen | Performing Laboratory | + + + | | [facility], POINT OF CARE TESTS [address] | | | [place] [address] | + + + CBC (HEMOGRAM) ONLY [...] | + + + | Blood | [facility], [facility] [address] | | | [place] [address] | + + + MAGNESIUM, PLASMA (10/10/2017 5:06 AM) + +-------+ + | Component | Value | Ref Range | + +-------+ + | MAGNESIUM,PLASMA | 1.8 | 1.6 - 2.6 mg/dL | + +-------+ + + + + | Specimen | Performing Laboratory | + + + | Blood | [facility], [facility] [address] | | | [place] [address] | + + + + + | [...] | >60 | >60 mL/min | | MALIAN | | | + +---------+ + | EGFR NON | >60 | >60 mL/min | | -MALIAN | | | + +---------+ + | [...] | + + + | Blood | [facility], CORE [address] | | | [place] [address] | + + + + + | [...] | | ------ CBC (HEMOGRAM) | | ONLY[[id number]] Abnormal Final | | result Please view [...] [facility], POINT OF CARE TESTS [address] | | | [place] [address] | + + + CAPILLARY BLOOD GLUCOSE (NO CHG), POC (10/10/2017 2:59 AM) + +---------+ + | Component | Value | Ref Range | + +---------+ + | BLOOD GLUCOSE, POC | 113 (H) | 70 - 99 mg/dL | + +---------+ + + + + | Specimen | Performing Laboratory | + + + | | [facility], PO[facility] OF CARE TESTS [address] | | | [place] [address] | + + + CAPILLARY BLOOD GLUCOSE (NO CHG), POC (10/10/2017 12:54 AM) + +---------+ + | Component | Value | Ref Range | + +---------+ + | BLOOD GLUCOSE, POC | 104 (H) | 70 - 99 mg/dL | + +---------+ + + + + | Specimen | Performing Laboratory | + + + | | [facility] [employer], POINT OF CARE TESTS [address] | | | [place] [address] | + + + CAPILLARY BLOOD GLUCOSE [...] [address] | | | [facility] [place] [address] | + + + CAPILLARY BLOOD GLUCOSE (NO CHG), POC (10/09/2017 10:40 PM) + +---------+ + | Component | Value | Ref Range | + +---------+ + | BLOOD GLUCOSE, POC | 148 (H) | 70 - 99 mg/dL | + +---------+ + + + + | Specimen | Performing Laboratory | + + + | | [facility] POINT OF [facility] TESTS [address] | | | [place] [address] | + + + GLUCOSE, PLASMA (10/09/2017 9:17 PM) + +---------+ + | Component | Value | Ref Range | + +---------+ + | GLUCOSE, PLASMA | 188 (H) | 70 - 99 mg/dL | | (LAB) | | | + +---------+ + + + + | Specimen | Performing Laboratory | + + + | Blood | [facility], [address] [address] | | | [place] [address] | + + + + + | Narrative | + + | Adult glucose reference range change effective 04-08-. On arrival to unit | + + [...] [address] | | | [place] [address] | + + + PROCEDURE NOTE (10/09/2017 8:00 PM)CAPILLARY BLOOD GLUCOSE (NO CHG), POC (10/09/2017 7:33 PM) + +---------+ + | Component | Value | Ref Range | + +---------+ + | BLOOD GLUCOSE, POC | 160 (H) | 70 - 99 mg/dL | + +---------+ + + + + | Specimen | Performing Laboratory | + + + | | [facility], POINT OF CARE TESTS [address] | | | [place] [address] | + + + PROCEDURE NOTE (10/09/2017 [...] 19-Fr Donavon drains x2 (retromuscular above mesh), Reynolds catheter. | | SPECIMEN(S): None.COMPLICATIONS: None.FINDINGS: Large [...] cm umbilical defect + a couple tiny Mozambican cheese defects along the midline. | | [...] | | intervals. After a pause and time clock inspector-out by the entire operating staff, the abdomen [...] | | defect + a couple tiny [place] cheese defects along the midline. Given the [...] the rectus muscle for the purpose of congregation of linea | | alba, as well [...] skin running | | 3-0 Polysorb. Skin elpidio were also used to close the skin. [...] | + + + | | [facility], POINT OF CARE TESTS [address] | | | [place] [address] | + + + PROCEDURE NOTE (10/09/2017 6:50 PM) + + | Narrative | + + | aJleesa Burleson MD 10/09/2017 7:15 PM BRIEF OPERATIVE [...] | mesh Disposition: PACU then acute care Reynolds: Remove POD #1 by MD | | Diet: CLD in am on POD#1 DVT prophylaxis: okay to begin POD 0 at 2100 | | Antibiotic Plan: None Glycemic control: None Dressing care: No wound care | | required Activity restrictions: Abdominal precautions Initial surgical | | contact: Bertin aguero at pager [phone] | + + CAPILLARY BLOOD GLUCOSE (NO CHG), POC (10/09/2017 4:29 PM) + +---------+ + | Component | Value | Ref Range | + +---------+ + | BLOOD GLUCOSE, POC | 129 (H) | 70 - 99 mg/dL | + +---------+ + + + + | Specimen | Performing Laboratory | + + + | | [facility], POINT OF [facility] TESTS [address] | | | [place] [address] | + + + CARDIOLOGY (10/09/2017)in this [...] +---+---+ | | | +---+---+ + + | acetaminophen (TYLENOL) tablet | | 1 dose, Starting 10/09/17 at | | 2010, Until 10/09/17 at 2016 | + + +---+---+ | | +---+---+ + +-------+ +-------+---+---+ | [...] +---+---+ | | | +---+---+ + + | alvimopan (ENTEREG) capsule 1 | | dose, Starting 10/09/17 at | | 0844, Until 10/09/17 at 0857 | + + +---+---+ | | +---+---+ + +-------+ +-------+---+---+ | baclofen (LIORESAL) tablet 10 | Given | | 10 mg | | | | mg 10 mg, oral, THREE TIMES | | 8 17:18 | | | | | DAILY NEEDED, Starting Mon | | PST | | | | | 10/19/17 at 0953, Until Fri | | | | | | | 10/23/17 at 1838, hiccups | | | | | | + [...] | | | | | 0205, Until Thu10/23/17 at 1838, | | | [...] | | TWICE DAILY, First dose on Yessi | | PST | | | | [...] +-------+-------+---+ +---+---+ | | | +---+---+ + +-------+ +-------+---+---+ | diatrizoate meglumine-sodium | Given | | 90 mL | | | | (JOSEFAAFSEBASTIEN JONES) | | 8 09:26 | | | [...] | | | | | 1009, Until 10/23/17 at 1838, | | | [...] +---+---+ | | | +---+---+ + + | diphenhydrAMINE (BENADRYL) | | injection 1 dose, Starting Fri | | 10/09/17 at 2010, Until Fri | | 10/09/17 at 2012 | + + +---+---+ | | +---+---+ + +-------+ +-------+---+---+ | diphenhydrAMINE (BENADRYL) | Given | | 25 mg | | | | injection 25 mg 25 mg, | | 8 20:13 | | | | | intravenous, ONCE, 1 dose, Fri | | PST | | | | | 10/09/17 at 2045 | | | | | | + +-------+ +-------+---+---+ +---+---+ | | | +---+---+ + +-------+ +---------+---+---+ | diphenhydrAMINE (BENADRYL) oral [...] +---+---+ | | | +---+---+ + + | heparin injection 1 dose, | | Starting 10/09/17 at 0845, | | Until Thu10/09/17 at 0927 | + + +---+---+ | | +---+---+ + +-------+ +--------+---+---------+ | heparin injection 5,000 Units | Given | | 5,000 | | Abdomen | | 5,000 Units, subcutaneous, | | 8 09:27 | Units | | | | PREPROCEDURE ONCE, 1 dose, | | PST | | | | | Starting 10/09/17 at 0841, | | | | | | | Until 10/09/17 at 0927 | | | | | | + +-------+ +--------+---+---------+ +---+---+ | | | +---+---+ + +-------+ +--------+---+---+ | HYDROmorphone (DILAUDID) | Given | | 0.2 mg | | | | injection 0.2-0.5 mg 0.2-0.5 mg, | | 8 19:12 | | | | | intravenous, POSTPROCEDURE PRN, | | PST | | | | | Starting 10/09/17 at 1742, | | | | | | | Until Thu10/09/17 at 2048, | | | | | [...] | | | | | 0751, Until Thu10/15/17 at 1533, | | | | | [...] + + +---+---+---+ | HYDROmorphone 0.5 mg/mL [employer] | Rate/Dos | | | | | | (ADULT STANDARD DOSE) in 0.9 % | e Verify | 8 05:10 | | | | | NaCl [employer] Dose: 0.2 mg, Lockout | | PST [...] + + +---+---+---+ | HYDROmorphone 0.5 mg/mL [employer] | Rate/Dos | | | | | | (ADULT STANDARD DOSE) in 0.9 % | e Verify | 8 02:00 | | | | | NaCl [employer] Dose: 0.2 mg, Lockout | | PST [...] + + +---+---+---+ | HYDROmorphone 0.5 mg/mL [employer] | Rate/Dos | | | | | | (ADULT STANDARD DOSE) in 0.9 % | e Verify | 8 04:13 | | | | | NaCl [employer] Dose: 0.1 mg, Lockout | | PST [...] mg | | | | bolus from [employer] (ADULT STANDARD | from | 8 08:42 | | | | | DOSE) 0.2 mg intravenous, EVERY | Same Bag | PST | | | | | 10 MINUTES NEEDED, Starting | | | | | | | 10/09/17 at 1848, Until Mon | | | | | | | 10/12/17 at 1310, [employer] clinician | | | | | | | rescue bolus. If exceeding 2 | | | | | | | doses in a rolling 60 minute time | | | | | | | frame, contact provider for [employer] | | | | | | | [...] mg | | | | bolus from [employer] (ADULT STANDARD | from | 8 18:46 | | | | | DOSE) 0.2 mg intravenous, EVERY | Same Bag | PST | | | | | 10 MINUTES NEEDED, Starting | | | | | | | 10/12/17 at 1318, Until Tue | | | | | | | 10/13/17 at 0751, [employer] clinician | | | | | | | rescue bolus. If exceeding 2 | | | | | | | doses in a rolling 60 minute time | | | | | | | frame, contact provider for [employer] | | | | | | | assessment | | | | | | + + + +--------+---+---+ +---+---+ | | | +---+---+ + + + +--------+---+---+ | HYDROmorphone 0.5 mg/mL rescue | Bolus | | 0.2 mg | | | | bolus from [employer] (ADULT STANDARD | from | 8 01:41 | | | | | DOSE) 0.2 mg intravenous, EVERY | Same Bag | PST | | | | | 10 MINUTES NEEDED, Starting | | | | | | | Yessi 10/15/17 at 1532, Until Sat | | | | | | | 10/17/17 at 1614, [employer] clinician | | | | | | | rescue bolus. If exceeding 2 | | | | | | | doses in a rolling 60 minute time | | | | | | | frame, contact provider for [employer] | | | | | | | [...] | | | | | NEEDED, Starting Thu10/16/17 at | | PST | | | [...] | | | | | 0751, Until e 10/13/17 at 1514, | | | | [...] | | | | | 10/21/17 at 2058 | | | | | [...] | mL/hr | | | intravenous, TPN 2099, Starting | | PST | | | | | 10/21/17 at 2100, Until Yessi | | | | | | | 10/22/17 at 2059 | | | | | | + [...] | | +-------+ +--------+---+---+ | Given | 10/17/201 | 0.4 mg | | | | | 8 09:29 | | | | | | PST | | | | +-------+ +--------+---+---+ +---+---+ | | | +---+---+
--- OUTSIDE RECORDS SUMMARY | ~2017-11-04 | XMS | Encounter Summary ---
Demographics + + + | Address | [address] | | | [place] [address] | + + + | Home Phone | | + + + | Preferred Language | Unknown | + + + | Marital Status | Single | + + + | Hinduism Affiliation | NON | + + + [...] Team Providers + +------+ + | Care Project Management Professional Name | Role | Phone | + +------+ + | Marlee Duarte MD | PCP | | + +------+ + Encounter Details +--------+ + + + + | Date | Type | Department | Care Team | Description | +--------+ + + + + | 10/23/ | Pharmacy | Outpatient Retail | | | | 2017 | Visit | [facility]acy | | | | | | [address] | | | | | | [facility] | | | | | | [place], [place] | | | | | | [address] | | | +--------+ + + + [...] | | | | | | [place], [place] | | | | | | [address] | | | | | | [phone] | | | | | | | | +--------+---------+ + + + | 04/05/ | Office | Surgery | Liz Rodriguez MD | | | 2017 | Visit | | [address] | | | | | | [facility] | | | | | | [place] [address] | | | | | | [phone] | | | | | | | | +--------+---------+ + + + as of this encounter Visit Diagnoses Not on filein this encounter"
--- OUTSIDE RECORDS SUMMARY | ~2017-11-04 | XMS | Clinical Summary ---
Demographics + + + | Address | [address] | | | [place] [address] | + + + | Home Phone | | + + + | Preferred Language | Unknown | + + + | Marital Status | Single | + + + | Holiness Affiliation | NON | + + + [...] Team Providers + +------+ + | Care Printer [employer] Print [employer] Name | Role | Phone | + +------+ + | Marlee Duarte MD | PP | | + +------+ + Source Comments JEREMY is fully live on both [facility] Amb[facility] and [facility] InPatient.[facility] Allergies + + + + + + [...] | | | + + +--------+---------+------+------+-------+ | baclofen 10 mg | Take 1 tablet by | 28 | 1 | 01/2 | 02/0 | Activ | | oral | mouth two times | tablet | | 6/20 | 9/20 | e | | tabletIndications: | daily for 14 days. | | | 18 | 18 | | | intractable hiccups | Indications: | | | | | | | | intractable hiccups | | | | | | + + +--------+---------+------+------+-------+ | HYDROmorphone 2 mg | Take 1 to 2 tablets | 60 | 0 | 01/2 | | Activ | | oral tablet | by mouth every three | tablet | | 6/20 | | e | | | hours as needed for | | | 18 | | | | | moderate pain. | | | | | | + + +--------+---------+------+------+-------+ | ciprofloxacin HCl | Take 1 tablet by | 8 | 0 | 01/2 | 01/3 | Expir | | 500 mg oral | mouth two times | tablet | | 6/20 | 0/20 | ed | | tabletIndications: | daily for 4 days. | | | 18 | 18 | | | intra-abdominal | Indications: | | | | | | | infection | abdominal infection | | | | | | + + +--------+---------+------+------+-------+ | metoclopramide HCl | Take 1 tablet by | 20 | 0 | 01/2 | / | Expir | | 5 mg oral | mouth every six | tablet | | 6/20 | 10/17 | ed | | tabletIndications: | hours for 5 days. | | | 18 | 18 | | | prolonged nausea and | Indications: | | | | | | | vomiting. | prolonged nausea and | | | | | | | | vomiting. | | | | | | + + +--------+---------+------+------+-------+ | metroNIDAZOLE 500 | Take 1 tablet by | 12 | 0 | 01/2 | 09/30 | Expir | | mg oral tablet | mouth three times | tablet | | / | 020 | ed | | | daily for 4 days. | | | 18 | 18 | | + + +--------+---------+------+------+-------+ Active Problems [...] + | 11/04/ | Telephone | | Jaleesa Burleson, | Irene ( left on | | 2017 | | | MD | [facility] line 11/04/17 at | | | | | | 1018 am) | +--------+ + + + + | 10/28/ | Telephone | | Jaleesa Burleson, | Scheduling | 2017 | | | MD | | +--------+ + + + + | 10/23/ | Pharmacy | | | | | 2017 | Visit | | | | +--------+ + + + + | 10/19/ | Procedure | | | | | 2017 | Pass | | | | +--------+ + + + + | 10/09/ | Hospital | | Jaleesa Burleson, | | | 2018 - | Encounter | | | | | | | | | | | 10/23/ | | | | | | 2018 | | | | | +--------+ + [...] | | | original. | | | [place] | | | Health and | | | Science | | | [facility] | | | reen | | | Surgery | | | TeamInpatie | | | nt | | | Discharge | | | SummaryBenj | | | zambrano Tyler, | | | DOAttending | | | Physician: | | | Jaleesa | | | Nick | | | Author: | | | Aniket | | | Tyler, | | | DOAttending | | | Physician: | | | Jaleesa | | | Nick | | | MDPCP: | | | Mkertridge | | | MD Gerald | | | Admission | | | Date: | | | 10/09/2017Di | | | scharge | | | Date: | | | Sep 2017 | | [...] | | up with | | | | | | Nick | | | [...] | | , Vicodin, | | | Grampian, | | | Percocet, | | | [...] | | , Vicodin, | | | Grampian, | | | Percocet, | | | [...] | | | Dr. | | | iNck's | | | office | | | [phone] | | | [phone]), | | | especially | | | if you are | | | considering | | | going to | | | an | | | Emergency | | | Room. | | | FOLLOW-UP: | | | Please call | | | Dr. | | | Nick's | | | office | | | [phone] | | | [phone]) to | | [...] | | 12:00 PM | | | Jaleesa B | | | Nick | | | Digestive | | | Health | | | Center at | | | [facility] | | | Floor | | | [phone] | | | 3 Dig | | [...] | | Keerti | | | MD Holger Duarte | | | | | | Specialty: | | | Internal | | | MedicineCon | | | tact | | | information | | | [place] | | | Medical | | | [id number] | | | [place] | | | [place] | | | [place] | | | [phone] | | | | | | Physical | | | [...] | | | clinic | | | [phone] | | | [phone]) or the | | | [facility] | | | inverform machine operator | | | [phone]) | | | [phone] | | | after hours | | | and ask | | | for the | | | Green | | | Surgery | | | Physician | | | Grave Cleaner, | | | Nurse or | | [...] | | | Physician: | | | Jaleesa | | | Nick | | | Benjamin | | | Tyler, | | | [facility] | | | Surgery | | | [phone] | | | [phone] Pager# | | | [phone] | | | [phone] | | | [address] | | | [place], | | | [place] | | | [phone] | | [phone] | +---+ + +--------+ +---+ + + | 10/09/ | Anesthesia | | Jaswinder Tao, | | | 2017 | Event | | MD | | +--------+ +---+ + + | 10/09/ | Procedure | | | | | 2018 | Pass | | | | +--------+ +---+ + + | 10/09/ | Surgery | | Jaleesa Burleson, | OPEN VENTRAL HERNIA | | 2018 | | | MD | REPAIR WITH MESH, | | | | | | TRANSVERSUS | | | | | | ABDOMINIS MUSCLE | | | | | | RELEASE | +--------+ +---+ + + | 10/05/ | Office | | Willie, | Preop examination | | 2018 | Visit | | Juan Carlos Gordillo NP | (Primary Dx) | +--------+ +---+ + + | 09/16/ | Anesthesia | | Chika Dorsey NP | | | 2016 | Event | | | | +--------+ +---+ + + from Last 3 Months Family History [...] PM PST | + + + + Plan of Treatment +--------+---------+ + + + | Date | Type | Specialty | Care Team | Description | +--------+---------+ + + + | 12/31/ | Office | | Jaleesa Burleson, | | | 2017 | Visit | | [address] | | | | | | [address] | | | | | | [place], [place] | | | | | | [address] | | | | | | [phone] | | | | | | | | +--------+---------+ + + + | 04/05/ | Office | | Liz Rodriguez MD | | | 2017 | Visit | | [address] | | | | | | [place] [place], | | | | | | [place] [address] | | | | | | [phone] | | | | | | | | +--------+---------+ + + + + + + + + | Health Maintenance | Due Date | Last Done | Comments | + + + + + | INFLUENZA VACCINE | | | | | (FLU SHOT) | 7 | | | + + + + [...] | n | ETHICON | | | [id number] | | Hernia Repair - | | | | | | | | [id number]: Qty: 1 on | | | | | | | | 10/09/2017 by Nick, | | | | | | | | Jaleesa Dunaway MD | | | | | | | + +------+--------+ +--------+--------+--------+ | M[employer] Bard [id number] | | N/A: | BARD | | 08/27/ | [id number] | | Hernia Soft Lightweight Low | | Abdome | | | 2019 | 6 / | | Profile Strong Knit | | n | | | | [id number] | | Construction Monofilament - | | | | | | 029 | | [id number]: Qty: 1 on | | | | | | | | 10/09/2017 by Nick, | | | | | | | | Jaleesa Dunaway MD | | | | | | | + +------+--------+ +--------+--------+--------+ Procedures + +--------+ + + + | [...] DAYPAT | | | IENT | +---+--------+ + +--------+ + +---+ | [facility] COLLECTION VENOUS | Routin | 10/06/2017 | Preop examination | | | BLOOD,VENIPUNCTURE | e | 4:25 PM | | | | | | PST | | | + +--------+ + +---+ | [facility] COLLECTION VENOUS | Routin | 10/05/2017 | Preop examination | | | BLOOD,VENIPUNCTURE | e | 1:28 PM | | | | | | PST | | | + +--------+ + +---+ from Last 3 Months Results CAPILLARY BLOOD GLUCOSE (NO CHG), POC (10/23/2017 7:49 AM)Only the most recent of 25 resul ts within the time period is included. + +-------+ + | Component | Value | Ref Range | + +-------+ + | BLOOD GLUCOSE, POC | 97 | 70 - 99 mg/dL | + +-------+ + + + + | Specimen | Performing Laboratory | + + + | | [facility], POINT OF CARE TESTS [address] | | | [place] [address] | + + + CBC (HEMOGRAM) ONLY (10/22/2017 4:22 AM)Only the most recent of 7 results within the time period is included. + + + + | Component | [...] | + + + | Blood | [facility], CORE [address] [place] [address] | | | [place] [address] | + + + CBC ONLY (10/22/2017 4:22 AM)Only the most recent of 7 results within the time period is i ncluded. + + + | Specimen | Performing Laboratory | + + + | Blood | | + + + + + | Narrative | + + | The following orders were created for panel order CBC ONLY. | | Procedure | | Abnormality Status | | --------- | | ------ CBC (HEMOGRAM) | | ONLY[[id number]] Abnormal Final | | result Please view results for these tests on the | | individual orders. | + + RENAL FUNCTION SET (NA,K,CL,CO2,BUN,CREAT,GLUC,CA,PHOS,ALB ) (10/21/2017 4:06 AM)Only the most recent of 9 results within the time period is included. + +---------+ + | Component | Value [...] | >60 | >60 mL/min | | AUSTRALIAN | | | + +---------+ + | EGFR NON | >60 | >60 mL/min | | -AUSTRALIAN | | | + +---------+ + | [...] | + + + | Blood | [facility], CORE [address] [facility] | | | [place] [address] | + + + + + | [...] Rapidly changing kidney function | + + PREALBUMIN (10/20/2017 10:29 AM) + +-------+ + | Component | Value | Ref Range | + +-------+ + | PREALBUMIN | 21.0 | 17.0 - 42.0 mg/dL | + +-------+ + + + + | Specimen | Performing Laboratory | + + + | Blood | [facility] [id number] [place] [address] | | | [address] | + + + ALT, PLASMA (10/20/2017 10:29 AM) + +--------+ + | Component | Value | Ref Range | + +--------+ + | ALT (SGPT) | 82 (H) | <=60 U/L | + +--------+ + + + + | Specimen | Performing Laboratory | + + + | Blood | [facility], CORE [address] | | | [place] [address] | + + + BASIC METABOLIC SET (NA, K, [...] | >60 | >60 mL/min | | AUSTR[place]IAN | | | + +---------+ + | EGFR NON | >60 | >60 mL/min | | -AUSTRALIAN | | | + +---------+ + | [...] | + + + | Blood | [facility], CORE [address] [facility] [address] | | | [place] [address] | + + + + + | [...] Rapidly changing kidney function | + + C-REACTIVE PROTEIN (10/20/2017 10:29 AM) + + + + | Component | Value | Ref Range | + + + + | C-REACTIVE PROTEIN | 18.9 (H) | <10.0 mg/L | + + + + + + + | Specimen | Performing Laboratory | + + + | Blood | [facility], CORE [address] [facility] | | | [place] [address] | + + + + + | Narrative | + + | New method, new reference range and new reporting units as of 03/01/2014. | + + PHOSPHORUS, PLASMA (10/20/2017 10:29 AM) + +-------+ + | Component | Value | Ref Range | + +-------+ + | PHOSPHORUS, PLASMA | 3.3 | 2.4 - 4.7 mg/dL | | (LAB) | | | + +-------+ + + + + | Specimen | Performing Laboratory | + + + | Blood | [facility], CORE [address] [place] [address] | | | [place] [address] | + + + AST, PLASMA (10/20/2017 10:29 AM) + +---------+ + | Component | Value | Ref Range | + +---------+ + | AST(SGOT) | 34 | <=41 U/L | + +---------+ + | AST CMNT | No Hemo | | + +---------+ + + + + | Specimen | Performing Laboratory | + + + | Blood | [facility], CORE [address] [facility] | | | [place] [address] | + + + CALCIUM, IONIZED, WHOLE [...] | + + + | Blood | [facility], CORE [address] [place] [address] | | | [place] [address] | + + + ALBUMIN, PLASMA (10/20/2017 10:29 AM) + +---------+ + | Component | Value | Ref Range | + +---------+ + | ALBUMIN, PLASMA | 2.8 (L) | 3.5 - 4.7 g/dL | | (LAB) | | | + +---------+ + + + + | Specimen | Performing Laboratory | + + + | Blood | [facility], CORE [address] [facility] | | | [place] [address] | + + + BILIRUBIN DIRECT (10/20/2017 [...] | + + + | Blood | [facility], [facility] [address] [place] [address] | | | [place] [address] | + + + ALKALINE PHOSPHATASE, PLASMA (10/20/2017 10:29 AM) + +-------+ + | Component | Value | Ref Range | + +-------+ + | ALK PHOS | 99 | 53 - 128 U/L | + +-------+ + + + + | Specimen | Performing Laboratory | + + + | Blood | [facility], CORE [address] [place] [address] | | | [place] [address] | + + + MAGNESIUM, PLASMA (10/20/2017 10:29 AM)Only the most recent of 5 results within the time sheree chawla is included. + +-------+ + | Component | Value | Ref Range | + +-------+ + | MAGNESIUM,PLASMA | 2.4 | 1.6 - 2.6 mg/dL | + +-------+ + + + + | Specimen | Performing Laboratory | + + + | Blood | [facility], CORE [address] [place] [address] | | | [place] [address] | + + + + + | Narrative | + + | Reference range change effective 05/12/17. | + + TRIGLYCERIDES, PLASMA (10/20/2017 10:29 AM) + +---------+ + | Component | Value | Ref Range | + +---------+ + | TRIGLYCERIDES | 182 (H) | <150 mg/dL | + +---------+ + + + + | Specimen | Performing Laboratory | + + + | Blood | [facility], CORE [address] [facility] | | | [place] [address] | + + + + + | Narrative | + + | Triglyceride Reference Range: Normal: <150 mg/dL | | Borderline High: 150-199 mg/dL High: 200-499 mg/dL | | Very High: >=500 mg/dL | + + BILIRUBIN TOTAL (10/20/2017 10:29 AM) + +---------+ + | Component | Value | Ref Range | + +---------+ + | BILIRUBIN TOTAL | 0.4 | 0.3 - 1.2 mg/dL | + +---------+ + | BILI T CMNT | No Hemo | | + +---------+ + + + + | Specimen | Performing Laboratory | + + + | Blood | [facility], CORE [address] [facility] | | | [place] [address] | + + + X-RAY PORTABLE CHEST PICC LINE CHECK (10/20/2017 9:45 AM) + + + | Specimen | Performing Laboratory | + + + | | [facility] RAD[facility] VOICE RECOGNITION | + + + + + | Narrative | + + | EXAM: VA CHEST PICC LINE CHECK 10/20/17 09:17:09 HISTORY: [...] Note | + + | Service Account, [employer] In Interface - 10/20/2017 1:09 PM PST EXAM: VA CHEST | | PICC LINE CHECK 10/20/17 [...] necessary, edited the report. I agree with kyle ritchie report as now presented. | + + [...] A pause verifies correct patient, procedure, equipment, support architect and | | site/side marked as required. [...] Basilic | | vein. Catheter lot number: [id number] with a length of 55 cm was [...] Laboratory | + + + | | [facility] RADIOLOGY VOICE RECOGNITION | + + + [...] as now presented. | + + X-RAY ABDOMEN 1 VIEW [...] | + + | Service Account, [facility] In Interface - 10/16/2017 10:44 AM PST [...] X-RAY PORTABLE ABDOMEN 1 VIEW (10/15/2017 12:43 PM)Only the most recent of 2 results within the time period is included. + + + | Specimen | Performing Laboratory | + + + | | [facility] RAD[facility] VOICE RECOGNITION | + + + [...] | Procedure Note | + -+ | Murphy Polanco Res In Interface - 10/15/2017 1:28 PM [...] report as now presented. | + -+ X-RAY ABD LTD FEEDING TUBE EVAL PORTABLE [...] Account, Radiant Res In Interface - 10/15/2017 9:01 [...] report as now presented. | + + GLUCOSE, PLASMA (10/09/2017 9:17 PM) + +---------+ + | Component | Value | Ref Range | + +---------+ + | GLUCOSE, PLASMA | 188 (H) | 70 - 99 mg/dL | | (LAB) | | | + +---------+ + + + + | Specimen | Performing Laboratory | + + + | Blood | [facility], CORE [address] | | | [place] [address] | + + + + + | Narrative | + + | Adult glucose reference range change effective 04-08-17. On arrival to unit | + + PROCEDURE NOTE (10/09/2017 8:00 PM)Only the most recent of 3 results within the time o is included.ANE ETT (10/09/2017 7:47 PM) + + | Narrative | + + | Tom Michaels CRNA 10/09/2017 11:48 AM Procedure Reason for Intubation: | | For surgical procedure, Location Performed: [place] , Patient was preoxygenated Mask | | Ventilation Grade 1 - Ventilated by mask Intubation Blade type: Akira , Blade | | size: 4, Atraumatic laryngoscopy: Atraumatic Laryngoscopy, Intubation adjuncts: Other | | Other intubation adjuncts: BURP, Laryngoscopic view: Grade II, Number of Attempts: 2, | | Positive for EtCO2: Yes, Breath sounds: Bilateral and equal Prior intubation | | attempts: Blade type: Akira , Blade size: 3, Atraumatic Laryngoscopy: second | | Atraumatic Laryngoscopy, Intubation adjuncts: N/A, , Laryngoscopic view: Grade IV, | | Fiberoptics used: N/A ETT Ett Adult: Single-lumen cuffed ETT Size: 7.5 ETT | | secured with: ETT kingsley and adhesive tape Depth at Teeth: 22 Cm Airway | | leak: No Narrative Attending physically present | + + CARDIOLOGY (10/09/2017)ANTIBODY SCREEN (10/05/2017 1:41 PM) + + + + | Component | Value | Ref Range | + + + + | Antibody Screen | Negative | | + + + + + + + | Specimen | Performing Laboratory | + + + | Blood | [facility], TRANSF[facility]ION MEDICINE [address] | | | [address] [address] | + + + TYPE AND SCREEN [...] | ------ ABO & RH | | TYPE[[id number]] F | | inal result ANTIBODY | | SCREEN[[id number]] Fin | | al result Please view results for these tests on the | | individual orders. | + + ABO & RH TYPE (10/05/2017 1:41 PM) + + + + | Component | Value | Ref Range | + + + + | ABO Group | A | | + + + + | Rh Type | Positive | | + + + + + + + | Specimen | Performing Laboratory | + + + | Blood | [facility], TRANSF[facility]ION MEDICINE [address] [place] [address] | | | [place] [address] | + + + from Last 3 Months
--- OUTSIDE RECORDS SUMMARY | ~2017-11-04 | XMS | Encounter Summary ---
Demographics + + + | Address | [address] | | | [place] [address] | + + + | Home Phone | | + + + | Preferred Language | Unknown | + + + | Marital Status | Single | + + + | Scientologist Affiliation | NON | + + + | Race | White | + + + | Ethnic Group | Not or | + + + Author + + + | Author | [facility] | + + + | Organization | [facility] | + + + | Address | Unknown | + + + | Phone | Unavailable | + + + Support +------+ +---------+ + | Name | Relationship | Address | Phone | +------+ +---------+ + ECON | Unknown | | +------+ +---------+ + Care Team Providers + +------+ + | Care Sales Trainee Name | Role | Phone | + [...] [address] | | | | | | [place] [address] | | | | | | [phone] | | | +--------+ + + + [...] Rd | | | | | | [place], [place] | | | | | | [address] | | | | | | [phone] | | | | | | | | +--------+---------+ + + + | 04/05/ | Office | Surgery | Liz Rodriguez MD | | | 2017 | Visit | | [address] | | | | | | [place] [address] [facility] | | | | | | [place] [address] | | | | | | [phone] | | | | | | | | +--------+---------+ + + + as of this encounter Visit Diagnoses Not on filein this encounter"
--- OUTSIDE RECORDS SUMMARY | ~2017-11-04 | XMS | Encounter Summary ---
Demographics + + + | Address | [address] | | | [place] [address] | + + + | Home Phone | | + + + | Preferred Language | Unknown | + + + | Marital Status | Single | + + + | Tenriism Affiliation | NON | + + + | Race | White | + + + | Ethnic Group | Not or | + + + Author + + + | Author | [facility] | + + + | Organization | [facility] | + + + | Address | Unknown | + + + | Phone | Unavailable | + + + Support +------+ +---------+ + | Name | Relationship | Address | Phone | +------+ +---------+ + ECON | Unknown | | +------+ +---------+ + Care Team Providers + +------+ + | Care Commissary Steward Name | Role | Phone | + [address] | | | | | | [facility] | | | | | | [place], [place] | | | | | | [address] | | | +--------+ + + + [...] [address] | | | | | | [place], [place] | | | | | | [address] | | | | | | [phone] | | | | | | | | +--------+---------+ + + + | 04/05/ | Office | Surgery | Liz Rodriguez MD | | | 2017 | Visit | | [address] | | | | | | [place] [address]fer [facility] | | | | | | [place] [address] | | | | | | [phone] | | | | | | | | +--------+---------+ + + + as of this encounter Visit Diagnoses Not on filein this encounter"
--- OUTSIDE RECORDS SUMMARY | ~2017-11-04 | XMS | Encounter Summary ---
Demographics + + + | Address | [address] | | | [place] [address] | + + + | Home Phone | | + + + | Preferred Language | Unknown | + + + | Marital Status | Single | + + + | Lutheran Affiliation | NON | + + + | Race | White | + + + | Ethnic Group | Not or | + + + Author + + + | Author | [facility] | + + + | Organization | [facility] | + + + | Address | Unknown | + + + | Phone | Unavailable | + + + Support +------+ +---------+ + | Name | Relationship | Address | Phone | +------+ +---------+ + ECON | Unknown | | +------+ +---------+ + Care Team Providers + +------+ + | Care Civil Engineering Design Draftsperson Name | Role | Phone | + [...] + + + + | 10/09/ | Anesthesia | 6A Intra Op [facility] | Jaswinder Tao, | | | 2017 | | [facility] | [address] | | | | | Admitting Desk | [facility] | | | | | Located on the | [place], [place] | | | | | [facility] [address] [facility] | [address] | | | | | [facility] | [phone] | | | | | [place], [place] | | | | | | [address] | | | +--------+ + + + + Anesthesia Record + + + + + | Procedure Name | Responsible | Anesthesia Start | Anesthesia Stop Time | | | Anesthesiologist | Time | | + + + + + | VENTRAL HERNIA | Jaswinder Tao MD | 01/12/18 1021 | 10/09/17 1855 | | REPAIR WITH | | | | | TRANSVERSUS | | | | | ABDOMINIS MUSCLE | | | | | RELEASE (N/A | | | | | Abdomen) | | | | + + + + + +----+---+ + + | Da | T | Event | Comment | | te | i | | | | | m | | | | | e | | | +----+---+ + + | 01 | 1 | Pt. Check | Prior to anesthesia start, pt. Identified, examined, chart | | /1 | 0 | | reviewed, PARQ held, anesthetic plan made or approved by | | 2/ | 1 | | attending anesthesiologist. NPO status confirmed as appropriate | | 20 | 0 | | for procedure Preoperative evaluation: unchanged | | 18 | | | | +----+---+ + + | | 1 | Eq Check | Anesthesia machine checked Equipment verified | | | 0 | | | | | 1 | | | | | 9 | | | +----+---+ + + | | 1 | An Start | | | | 0 | | | | | 2 | | | | | 1 | | | +----+---+ + + | | 1 | An Start | | | | 0 | Data | | | | 2 | | | | | 8 | | | +----+---+ + + | | 1 | An Start | | | | 0 | Data | | | | 3 | | | | | 1 | | | +----+---+ + + | | 1 | Vitals | Monitors applied Vital signs checked Patient ready for anesthesia | | | 0 | Checked | | | | 3 | | | | | 8 | | | +----+---+ + + | | 1 | ETT | | | | 0 | | | | | 3 | | | | | 8 | | | +----+---+ + + | | 1 | Ready | | | | 0 | | | | | 4 | | | | | 0 | | | +----+---+ + + | | 1 | Abx | | | | 0 | Administere | | | | 5 | d | | | | 5 | | | +----+---+ + + | | 1 | Pause | | | | 0 | | | | | 5 | | | | | 9 | | | +----+---+ + + | | 1 | Incision | | | | 1 | | | | | 1 | | | | | 7 | | | +----+---+ + + | | 1 | Quick Note | Surgeon requests fluid restriction. | | | 3 | | | | | 3 | | | | | 2 | | | +----+---+ + + | | 1 | AN | X3 breaths for 10 seconds at 30 cm H20 | | | 6 | Recruitment | | | | 1 | Breath | | | | 1 | | | +----+---+ + + | | 1 | Quick Note | CBG 129 mg/dL | | | 6 | | | | | 3 | | | | | 0 | | | +----+---+ + + | | 1 | Local | 0.25% bupivicaine plain. 40 ml | | | 7 | Anesthetic | | | | 2 | by Surgeon | | | | 6 | | | +----+---+ + + | | 1 | Surgery end | | | | 8 | | | | | 4 | | | | | 0 | | | +----+---+ + + | | 1 | An Extubate | Neuromuscular function Intact. Pharynx suctioned. Patient obeys | | | 8 | | commands. Adequate pulmonary mechanics. | | | 4 | | | | | 4 | | | +----+---+ + + | | 1 | an stop | | | | 8 | data | | | | 4 | | | | | 6 | | | +----+---+ + + | | 1 | PACU Rpt | | | | 8 | Given | | | | 5 | | | | | 4 | | | +----+---+ + + | | 1 | Anesthesia | | | | 8 | End | | | | 5 | | | | | 5 | | | +----+---+ + + +------+ | Meds | +------+ + + + | Name | Total | + + + | ceFAZolin (ANCEF) injection 2 g | 4 g | + + + | midazolam | 2 mg | + + + | fentaNYL | 250 mcg | + + + | HYDROmorphone | 0.8 mg | + + + | ketamine | 30 mg | + + + | ketamine INF (10mg/mL) | 129,280 mcg | + + + | lidocaine 2% | 100 mg | + + + | rocuronium | 200 mg | + + + | lidocaine 0.4 % (4 mg/mL) INF | 902 mg | + + + | glycopyrrolate | 0.4 mg | + + + | neostigmine | 3 mg | + + + | dexamethasone | 10 mg | + + + | ondansetron | 4 mg | + + + | propofol | 160 mg | + + + | lidocaine 0.4% bolus (4 mg/mL) | 120 mg | + + + | PHENYLEPHrine | 500 mcg | + + + | LR | 3,500 mL | + + + | LR | 543.75 mL | + + + + + | No agents on file. | + + + + | No blood administrations on file. | + + +--------+ + + + | Type | Details | Placement | Removal | +--------+ + + + | Incisi | 10/09/17; 1123; Nick BURR; | 10/09/17 112 by | | | on | Anterior, Midline; abdomen | Hilda Joya RN | | +--------+ + + + | Wound | 10/09/17; 1650; No; Right; | 10/09/171650 by | | | | Lateral; abdomen | Hilda Joya RN | | +--------+ + + + | Wound | 10/09/17; 1653; No; Right; | 10/09/171653 by | | | | Anterior; adb- lower quadrant | Hilda Joya RN | | +--------+ + + + | Wound | 10/09/17; 1653; No; Right; | 10/09/171653 by | | | | Anterior; adb- upper quadrant | Hilda Joya RN | | +--------+ + + + | Wound | 10/09/17; 1654; No; Left; | 10/09/171654 by | | | | Anterior; abdomen | Hilda Joya RN | | +--------+ + + + | Wound | 10/09/17; 1654; No; Left; | 10/09/171654 by | | | | Anterior; adb- lower quadrant | Hilda Joya RN | | +--------+ + + + | Wound | 10/09/17; 1655; No; Left; | 10/09/171655 by | | | | Anterior; adb- upper quadrant | Hilda Joya RN | | +--------+ + + + | Periph | 10/09/17; 911; Right; | 10/09/17911 by | 10/14/171649 by | | eral | Antecubital; 20 g; No; Positive; | Bernie Schroeder RN | Amanda Ball RN | | IV | 10/14/17; 1650; Site problems | | | +--------+ + + + | Urethr | 10/09/17; 1045; Antione Joya RN; | 10/09/17 1045 by | 10/10/17 0950 by | | radha | Romi; 16 Fr.; 10 mL; 10/10/17; | Hilda Joya RN | Shalonda Looney CNA | | Ryan | 0950 | | | | er | | | | +--------+ + + + | Drain | 10/09/17; 1731; Dr. Romero; | 10/09/17 173 by | 10/20/171899 by | | | Donavon (19Fr); Left; Lower; | Dora Rader RN | Bessie Zafar, | | | abdomen; 1; 10/20/17; 1900; (per | | RN | | | MD) | | | +--------+ + + + | Drain | 10/09/17; 1732; Dr. Romero; | 10/09/17 173 by | 10/13/17 1400 by | | | Donavon (19Fr); Right; Upper; | Dora Rader RN | Marilyn Mcgraw RN | | | abdomen; 2; 10/13/17; 1400 | | | +--------+ + + + in this encounter Social History [...] Rd | | | | | | [place], [place] | | | | | | [address] | | | | | | [phone] | | | | | | | | +--------+---------+ + + + | 04/05/ | Office | Surgery | Liz Rodriguez MD | | | 2017 | Visit | | [address] | | | | | | [place], | | | | | | [place] [address] | | | | | | [phone] | | | | | | | | +--------+---------+ + + + as of this encounter Results ANE ETT (10/09/2017 7:47 PM) + + | [...] adjuncts: Other | | Other intubation adjuncts: BURLela, Laryngoscopic view: Grade II, Number of Attempts: [...] Narrative Attending physically present | + + in this encounter Visit Diagnoses Not on filein this encounter Administered Medications + +--------+ +------+------+------+ | Medication Order | MAR | Action | Dose | Rate | Site | | | Action | Date | | | | + +--------+ +------+------+------+ | ceFAZolin (ANCEF) injection 2 g | Given | | 2 g | | | | 2 g, intravenous, PREPROCEDURE | | 8 10:55 | | | | | ONCE, 1 dose, Starting Fri | | PST | | | | | 10/09/17 at 0841, Until Fri | | | | | | | 10/09/17 at 1455 | | | | | | + +--------+ +------+------+------+ +-------+ +-----+---+---+ | Given | | 2 g | | | | | 8 14:55 | | | | | | PST | | | | +-------+ +-----+---+---+ +---+---+ | | | +---+---+ + +-------+ +-------+---+---+ | dexamethasone (DECADRON) | Given | | 10 mg | | | | injection INTRAPROCEDURE PRN, | | 8 11:07 | | | | | Starting 10/09/17 at 1107, | | PST | | | | | Until 10/09/17 at 1846 | | | | | | + +-------+ +-------+---+---+ +---+---+ | | | +---+---+ + +-------+ +---------+---+---+ | fentaNYL citrate (PF) | Given | | 125 mcg | | | | (SUBLIMAZE) injection | | 8 10:38 | | | | | INTRAPROCEDURE PRN, Starting Fri | | PST | | | | | 10/09/17 at 1038, Until Fri | | | | | | | 10/09/17 at 1846 | | | | | | + +-------+ +---------+---+---+ +-------+ +--------+---+---+ | Given | | 50 mcg | | | | | 8 11:15 | | | | | | PST | | | | +-------+ +--------+---+---+ | Given | | 75 mcg | | | | | 8 12:13 | | | | | | PST | | | | +-------+ +--------+---+---+ +---+---+ | | | +---+---+ + +-------+ +--------+---+---+ | glycopyrrolate (REMA) | Given | | 0.4 mg | | | | injection INTRAPROCEDURE PRN, | | 8 18:15 | | | | | Starting 10/09/17 at 1815, | | PST | | | | | Until Thu10/09/17 at 1846 | | | | | | + +-------+ +--------+---+---+ +---+---+ | | | +---+---+ + +-------+ +--------+---+---+ | HYDROmorphone (DILAUDID) | Given | | 0.4 mg | | | | injection INTRAPROCEDURE PRN, | | 8 15:05 | | | | | Starting 10/09/17 at 1505, | | PST | | | | | Until 10/09/17 at 1846 | | | | | | + +-------+ +--------+---+---+ +-------+ +--------+---+---+ | Given | | 0.4 mg | | | | | 8 17:30 | | | | | | PST | | | | +-------+ +--------+---+---+ +---+---+ | | | +---+---+ + +-------+ +-------+---+---+ | ketamine (KETALAR) injection | Given | | 30 mg | | | | INTRAPROCEDURE PRN, Starting Fri | | 8 10:50 | | | | | 10/09/17 at 1050, Until Fri | | PST | | | | | 10/09/17 at 1846 | | | | | | + +-------+ +-------+---+---+ +---+---+ | | | +---+---+ + +---------+ + +-------+---+ | ketamine (KETALAR) IV infusion | New Bag | | 4 | 1.92 | | | INTRAPROCEDURE CONTINUOUS PRN, | | 8 10:50 | mcg/kg/m | mL/hr | | | Starting 10/09/17 at 1050, | | PST | in | | | | Until 10/09/17 at 1846 | | | | | | + +---------+ + +-------+---+ +---+---+ | | | +---+---+ + +---------+ +---+ +---+ | lactated Ringers IV | New Bag | | | 75 mL/hr | | | INTRAPROCEDURE CONTINUOUS PRN, | | 8 11:15 | | | | | Starting 10/09/17 at 1115, | | PST | | | | | Until 10/09/17 at 1846 | | | | | | + +---------+ +---+ +---+ +---+---+ | | | +---+---+ + + + +---+---+---+ | lactated Ringers IV | given by | | | | | | INTRAPROCEDURE CONTINUOUS PRN, | | 8 16:30 | | | | | Starting 10/09/17 at 1021, | anesthes | PST | | | | | Until 10/09/17 at 1846 | iology | | | | | + + + +---+---+---+ + + +---+---+---+ | New Bag | | | | | | | 8 17:25 | | | | | | PST | | | | + + +---+---+---+ | given by anesthesiology | | | | | | | 8 17:45 | | | | | | PST | | | | + + +---+---+---+ +---+---+ | | | +---+---+ + +-------+ +--------+---+---+ | lidocaine (XLYCAINE) injection | Given | | 120 mg | | | | INTRAPROCEDURE PRN, Starting Fri | | 8 10:50 | | | | | 10/09/17 at 1050, Until Fri | | PST | | | | | 18 at 1846 | | | | | | + +-------+ +--------+---+---+ +---+---+ | | | +---+---+ + +-------+ +--------+---+---+ | lidocaine (XYLOCAINE MPF) 2 % | Given | | 100 mg | | | | (20 mg/mL) injection | | 8 10:38 | | | | | INTRAPROCEDURE PRN, Starting Fri | | PST | | | | | 10/09/17 at 1038, Until Fri | | | | | | | 10/09/17 at 1846 | | | | | | + +-------+ +--------+---+---+ +---+---+ | | | +---+---+ + +---------+ + + +---+ | lidocaine (XYLOCAINE) 1999 | New Bag | | 1.5 | 30 mL/hr | | | mg/500 mL (4 mg/mL) IV infusion | | 8 10:56 | mg/kg/hr | | | | (RTU) INTRAPROCEDURE CONTINUOUS | | PST | | | | | PRN, Starting 10/09/17 at | | | | | | | 1056, Until 10/09/17 at 1846 | | | | | | + +---------+ + + +---+ +---+---+ | | | +---+---+ + +-------+ +------+---+---+ | midazolam (VERSED) injection | Given | | 2 mg | | | | INTRAPROCEDURE PRN, Starting Fri | | 8 10:21 | | | | | 10/09/17 at 1021, Until Fri | | PST | | | | | 10/09/17 at 1854 | | | | | | + +-------+ +------+---+---+ +---+---+ | | | +---+---+ + +-------+ +------+---+---+ | neostigmine (PROSTIGMIN) | Given | | 3 mg | | | | injection intravenous, | | 8 18:15 | | | | | INTRAPROCEDURE PRN, Starting Fri | | PST | | | | | 10/09/17 at 1815, Until Fri | | | | | | | 10/09/17 at 1846 | | | | | | + +-------+ +------+---+---+ +---+---+ | | | +---+---+ + +-------+ +------+---+---+ | ondansetron (ZOFRAN) injection | Given | | 4 mg | | | | INTRAPROCEDURE PRN, Starting Fri | | 8 17:50 | | | | | 10/09/17 at 1750, Until Fri | | PST | | | | | 10/09/17 at 1846 | | | | | | + +-------+ +------+---+---+ +---+---+ | | | +---+---+ + +-------+ +---------+---+---+ | PHENYLEPHrine 100 mcg/mL IV | Given | | 200 mcg | | | | syringe INTRAPROCEDURE PRN, | | 8 11:50 | | | | | Starting 10/09/17 at 1150, | | PST | | | | | Until 10/09/17 at 1846 | | | | | | + +-------+ +---------+---+---+ +-------+ +---------+---+---+ | Given | | 100 mcg | | | | | 8 12:13 | | | | | | PST | | | | +-------+ +---------+---+---+ | Given | | 200 mcg | | | | | 8 16:08 | | | | | | PST | | | | +-------+ +---------+---+---+ +---+---+ | | | +---+---+ + +-------+ +--------+---+---+ | propofol INTRAPROCEDURE PRN, | Given | | 160 mg | | | | Starting 10/09/17 at 1038, | | 8 10:38 | | | | | Until 10/09/17 at 1846 | | PST | | | | + +-------+ +--------+---+---+ +---+---+ | | | +---+---+ + +-------+ +-------+---+---+ | rocuronium (ZEMURON) injection | Given | | 20 mg | | | | INTRAPROCEDURE PRN, Starting Fri | | 8 14:56 | | | | | 10/09/17 at 1038, Until Fri | | PST | | | | | 10/09/17 at 1846 | | | | | | + +-------+ +-------+---+---+ +-------+ +-------+---+---+ | Given | | 20 mg | | | | | 8 16:04 | | | | | | PST | | | | +-------+ +-------+---+---+ | Given | | 10 mg | | | | | 8 17:00 | | | | | | PST | | | | +-------+ +-------+---+---+ +---+---+ | | | +---+---+ in this encounter"
--- OUTSIDE RECORDS SUMMARY | ~2017-11-04 | XMS | Clinical Summary ---
Demographics + + + | Address | [address] | | | [place] [address] | + + + | Home Phone | | + + + | Preferred Language | Unknown | + + + | Marital Status | Single | + + + | Faith Affiliation | NON | + + + [...] Team Providers + +------+ + | Care Staining Machine Operator Name | Role | Phone | + +------+ + | Marlee Duarte MD | PP | | + +------+ + Source Comments JEREMY is fully live on both [facility] Ambulatory and [facility] InPatient.[facility] Allergies + + + + [...] | 11/04/ | Telephone | | Jaleesa Bruleson, | Irene ( left on | | 2017 | | | MD | [facility] line 11/04/17 at | | | [...] | | | original. | | | [place] | | | Health and | | [...] | | , Vicodin, | | | [place], | | | Percocet, | | [...] | | , Vicodin, | | | [place], | | | Percocet, | | [...] | | | information | | | [place] | | | Medical | | | [id number] | | | [place] | | | Dr[place]os [place] | | | [place] | | | [phone] | | | | | | Physical [...] | | | [facility] | | | searchlight operator | | | [phone] | | | [phone] | | | after hours | | | and ask | | | for the | | | [place] | | | Surgery | | | Physician | | | Jewel Diameter Gauger, | | | Nurse or | | [...] | | | Surgery | | | [phone] | | | 11 Pager# | | | [phone] | | | [phone] | | | [address] | | | [place] | | | [place] | | | [phone] | | [phone] | +---+ + +--------+ +---+ + + [...] Rd | | | | | | [place], [place] | | | | | | [address] | | | | | | [phone] | | | | | | | | +--------+---------+ + + + | 04/05/ | Office | | Liz Rodriguez MD | | | 2017 | Visit | | [address] | | | | | | [place], | | | | | | [place] [address] | | | | | | [phone] | | | | | | | [...] | n | ETHICON | | | [id number] | | Hernia Repair - | | | | | | | | [id number]: Qty: 1 on | | | | | | | | 10/09/2017 by Nick, | | | | | | | | Jaleesa Dunaway MD | | | | | | | + +------+--------+ +--------+--------+--------+ | [facility] [employer] [facility] [id number] | | N/A: | BARD | | 08/27/ | [id number] | | Hernia Soft Lightweight Low | | Abdome | | | 2019 | 6 / | | Profile Strong Knit | | n | | | | [id number] | | Construction Monofilament - | | | | | | 029 | | [id number]: Qty: 1 on | | | | [...] | +---+--------+ + +--------+ + +---+ | KS COLLECTION VENOUS | Routin | 10/06/2017 | Preop examination | | | BLOOD,VENIPUNCTURE | e | 4:25 PM | | | | | | PST | | | + +--------+ + +---+ | KS COLLECTION VENOUS | Routin | 10/05/2017 | [...] Laboratory | + + + | | [facility], POINT OF CARE TESTS [address] | | | [place] [address] | + + + CBC (HEMOGRAM) ONLY [...] | + + + | Blood | [facility], CORE [address] [place] [address] | | | [place] [address] | + + + CBC ONLY (10/22/2017 [...] | | ------ CBC (HEMOGRAM) | | ONLY[[id number]] Abnormal Final | | result Please view [...] | >60 | >60 mL/min | | MOZAMBICAN | | | + +---------+ + | EGFR NON | >60 | >60 mL/min | | -MOZAMBICAN | | | + +---------+ + | [...] | + + + | Blood | [facility], CORE [address] [facility] | | | [place] [address] | + + + + + | [...] | + + + | Blood | [facility] [id number] [place] [address] | | | [address] | + + + ALT, PLASMA (10/20/2017 10:29 AM) + +--------+ + | Component | Value | Ref Range | + +--------+ + | ALT (SGPT) | 82 (H) | <=60 U/L | + +--------+ + + + + | Specimen | Performing Laboratory | + + + | Blood | [facility], CORE [address] | | | [place] [address] | + + + BASIC METABOLIC SET [...] | >60 | >60 mL/min | | MOZAMBICAN | | | + +---------+ + | EGFR NON | >60 | >60 mL/min | | -MOZAMBICAN | | | + +---------+ + | [...] | + + + | Blood | [facility], CORE [address] | | | [place] [address] | + + + + + | [...] | + + + | Blood | [facility], CORE [address] [facility] | | | [place] [address] | + + + + + | [...] | + + + | Blood | [facility], [address]ORE [address] [place] [address] | | | [place] [address] | + + + AST, PLASMA (10/20/2017 10:29 AM) + +---------+ + | Component | Value | Ref Range | + +---------+ + | AST(SGOT) | 34 | <=41 U/L | + +---------+ + | AST CMNT | No Hemo | | + +---------+ + + + + | Specimen | Performing Laboratory | + + + | Blood | [facility], [facility]ORE [address] [facility] | | | [place] [address] | + + + CALCIUM, IONIZED, WHOLE [...] | + + + | Blood | [facility], [place] [address] [place] [address] | | | [place] [address] | + + + ALBUMIN, PLASMA (10/20/2017 10:29 AM) + +---------+ + | Component | Value | Ref Range | + +---------+ + | ALBUMIN, PLASMA | 2.8 (L) | 3.5 - 4.7 g/dL | | (LAB) | | | + +---------+ + + + + | Specimen | Performing Laboratory | + + + | Blood | [facility], [facility] [address] [facility] | | | [place] [address] | + + + BILIRUBIN DIRECT (10/20/2017 [...] | + + + | Blood | [facility], [facility] [address] [place] [address] | | | [place] [address] | + + + ALKALINE PHOSPHATASE, PLASMA (10/20/2017 10:29 AM) + +-------+ + | Component | Value | Ref Range | + +-------+ + | ALK PHOS | 99 | 53 - 128 U/L | + +-------+ + + + + | Specimen | Performing Laboratory | + + + | Blood | [facility], CORE [address] [place] [address] | | | [place] [address] | + + + MAGNESIUM, PLASMA (10/20/2017 [...] | + + + | Blood | [facility], [place] [place] [address] | | | [place] [address] | + + + + + | [...] | + + + | Blood | [facility], [facility] [address] [facility] | | | [place] [address] | + + + + + | [...] | + + + | Blood | [facility], [facility]ORE [address] [facility] | | | [place] [address] | + + + X-RAY PORTABLE CHEST PICC LINE CHECK (10/20/2017 9:45 AM) + + + | Specimen | Performing Laboratory | + + + | | [facility] RADI[facility]Y VOICE RECOGNITION | + + + + + | Narrative | + + | EXAM: KS CHEST PICC LINE CHECK 10/20/17 09:17:09 HISTORY: [...] Note | + + | Service Account, NebuAd In Interface - 10/20/2017 1:09 PM PST EXAM: KS CHEST | | PICC LINE CHECK 10/20/17 [...] A pause verifies correct patient, procedure, equipment, patient support associate and | | site/side marked as required. [...] Basilic | | vein. Catheter lot number: [id number] with a length of 55 cm was [...] Laboratory | + + + | | [facility] RAD[facility] VOICE RECOGNITION | + + [...] | + + | Service Account, Murphy First To File In Interface - 10/16/2017 10:44 AM PST [...] Laboratory | + + + | | [facility] RADI[facility]Y VOICE RECOGNITION | + + [...] | + + + | Blood | [facility], CORE [address] | | | [place] [address] | + + + + + | [...] | + + + | Blood | [facility], TRANSFUSION MEDICINE [address] | | | [place] [address] | + + + TYPE AND SCREEN [...] | ------ ABO & RH | | TYPE[[id number]] F | | inal result ANTIBODY | | SCREEN[[id number]] Fin | | al result Please view [...] | + + + | Blood | [facility] LABORATORY SERVICES, TRANSFUSION MEDICINE [address] [place] [address] | | | [place] [address] | + + + from Last 3 Months
--- OUTSIDE RECORDS SUMMARY | ~2017-11-04 | XMS | Encounter Summary ---
Demographics + + + | Address | [address] | | | [place] [address] | + + + | Home Phone | | + + + | Preferred Language | Unknown | + + + | Marital Status | Single | + + + | Anabaptism Affiliation | NON | + + + | Race | White | + + + | Ethnic Group | Not or | + + + Author + + + | Author | [facility] | + + + | Organization | [facility] | + + + | Address | Unknown | + + + | Phone | Unavailable | + + + Support +------+ +---------+ + | Name | Relationship | Address | Phone | +------+ +---------+ + ECON | Unknown | | +------+ +---------+ + Care Team Providers + +------+ + | [facility] Education Coordinator Name | Role | Phone | + +------+ + | Marlee Duarte MD | PCP | | + +------+ + Encounter Details +--------+ + + + + | Date | Type | Department | Care Team | Description | +--------+ + + + + | 10/09/ | Procedure | 6A Intra Op [facility] | | | | 2017 | Pass | [facility] | | | | | | Admitting Desk | | | | | | Located on the 9 | | | | | | floor [facility] | | | | | | [facility] | | | | | | [place], [place] | | | | | | [address] | | | +--------+ + + + [...] [address] | | | | | | [place], [place] | | | | | | [address] | | | | | | [phone] | | | | | | | | +--------+---------+ + + + | 04/05/ | Office | Surgery | Liz Rodriguez MD | | | 2017 | Visit | | [address] | | | | | | [address] [facility] | | | | | | [place] [address] | | | | | | [phone] | | | | | | | | +--------+---------+ + + + as of this encounter Visit Diagnoses Not on filein this encounter"
--- OUTSIDE RECORDS SUMMARY | ~2017-11-04 | XMS | Encounter Summary ---
Demographics + + + | Address | [address] | | | [place] [address] | + + + | Home Phone | | + + + | Preferred Language | Unknown | + + + | Marital Status | Single | + + + | Evangelical Affiliation | NON | + + + | Race | White | + + + | Ethnic Group | Not or | + + + Author + + + | Author | [facility] | + + + | Organization | [facility] | + + + | Address | Unknown | + + + | Phone | Unavailable | + + + Support +------+ +---------+ + | Name | Relationship | Address | Phone | +------+ +---------+ + ECON | Unknown | | +------+ +---------+ + Care Team Providers + +------+ + | Care Cigar Packer And Shader Name | Role | Phone | + +------+ + | Marlee Duarte MD | PCP | | + +------+ + Encounter Details +--------+ + + + + | Date | Type | Department | Care Team | Description | +--------+ + + + + | 10/09/ | Procedure | 6A Intra [facility] | | | | 2017 | Pass | [facility] | | | | | | Admitting Desk | | | | | | Located on the 9 | | | | | | floor [facility] | | | | | | [facility] | | | | | | [place], [place] | | | | | | [address] | | | +--------+ + + + [...] [address] | | | | | | [place], [place] | | | | | | [address] | | | | | | [phone] | | | | | | | | +--------+---------+ + + + | 04/05/ | Office | Surgery | Liz Rodriguez MD | | | 2017 | Visit | | [address] | | | | | | [place]fer [facility] | | | | | | [place] [address] | | | | | | [phone] | | | | | | | | +--------+---------+ + + + as of this encounter Visit Diagnoses Not on filein this encounter"
--- OUTSIDE RECORDS SUMMARY | ~2017-11-04 | XMS | Encounter Summary ---
Demographics + + + | Address | [address] | | | [place] [address] | + + + | Home Phone | | + + + | Preferred Language | Unknown | + + + | Marital Status | Single | + + + | Baptist Affiliation | NON | + + + | Race | White | + + + | Ethnic Group | Not or | + + + Author + + + | Author | [facility] | + + + | Organization | [facility] | + + + | Address | Unknown | + + + | Phone | Unavailable | + + + Support +------+ +---------+ + | Name | Relationship | Address | Phone | +------+ +---------+ + ECON | Unknown | | +------+ +---------+ + Care Team Providers + +------+ + | Care Bunk Assembler Name | Role | Phone | + [...] | (Primary Dx) | | | | [facility] 4th Floor [address] | [facility] | | | | | [address] | [address] [place], [place] | | | | | Code: [address] | [address] | | | | | for Health and | [phone] | | | | | Healing,4th Floor | | | | | | [facility] [place] | | | | | | [address] | | | | | | [phone] | | | +--------+---------+ + + + [...] or walk. Surgery check-in location: Admitting - [facility], ninth floor [facility] Surgery Check in Time: The Preoperative Medicine [...] it is after office hours, call the [facility] dust collector operator at [phone] and ask them to page him or [...] Exploratory laparotomy for blockage December 05, 2013 [place], [place] Laparoscopic cholecystectomy September, Open completion proctocolectomy, [...] this patient's care. Juan Carlos Tapia NP [facility] AT [facility] 4TH FLOOR [address] [facility] [address] I spent time (45 minutes, >50% [...] | | 2017 | Visit | | [address] | | | | | | [facility] | | | | | | [place], [place] | | | | | | [address] | | | | | | [phone] | | | | | | | | +--------+---------+ + + + | 04/05/ | Office | Surgery | Liz Rodriguez MD | | | 2018 | Visit | | [address] | | | | | | [place]fer [place], | | | | | | [place] [address] | | | | | | [phone] | | | | | | | | +--------+---------+ + + + + +--------+ + + | Name | Priori | Associated Diagnoses | Order Schedule | | | ty | | | + +--------+ + + | COMMUNICATION TO [facility] | Routin | Preop examination | Ordered: 10/05/2017 | | | e | | | + +--------+ + + as of this encounter Procedures + +--------+ + + + | Procedure Name | Priori | Date/Time | Associated Diagnosis | Comments | | | ty | | | | + +--------+ + + + | [place] COLLECTION VENOUS | Routin | 10/06/2017 | Preop examination | | | BLOOD,VENIPUNCTURE | e | 4:25 PM | | | | | | PST | | | + +--------+ + + + | [place] COLLECTION VENOUS | Routin | 10/05/2017 | [...] + + + | Blood | [facility], CORE [address] [facility] | | | [place] [address] | + + + CBC ONLY (10/05/2017 1:42 PM) + + + | Specimen | Performing Laboratory | + + + | Blood | | + + + + + | Narrative | + + | The following orders were created for panel order CBC ONLY. | | Procedure | | Abnormality Status | | --------- | | ------ CBC (HEMOGRAM) | | ONLY[[id number]] Abnormal Final | | result Please view [...] | >60 | >60 mL/min | | [place] | | | + +---------+ + | EGFR NON | >60 | >60 mL/min | | -[place] | | | + +---------+ + | [...] + + + | Blood | [facility], CORE [address] [facility] | | | [place], [place] [address] | + + + + + | [...] + + + | Blood | [facility], TRANSFUSION MEDICINE [address] [place] [address] | | | [place] [address] | + + + ABO & RH [...] + + + | Blood | [facility], TRANSFUSION MEDICINE [address] | | | [place] [address] | + + + TYPE AND SCREEN [...] | ------ ABO & RH | | TYPE[[id number]] F | | inal result ANTIBODY | | SCREEN[[id number]] Fin | | al result Please view results for these tests on the | | individual orders. | + + in this encounter Visit Diagnoses + + | Diagnosis | + + | Preop examination - Primary | + + | Preoperative examination, unspecified | + +
--- OUTSIDE RECORDS SUMMARY | ~2017-11-04 | XMS | Encounter Summary ---
Demographics + + + | Address | [address] | | | [place] [address] | + + + | Home Phone [...] Author | [facility] | + + + | Organization | [facility] | + + + | Address | Unknown | + + + | Phone | Unavailable | + + + Support +------+ +---------+ + | Name | Relationship | Address | Phone | +------+ +---------+ + ECON | Unknown | | +------+ +---------+ + Care Team Providers + +------+ + | Care Rn Bariatric Name | Role | Phone | + [...] + + | 10/09/ | Hospital | [facility] [address] | Jaleesa Burleson, | | | 2018 - | Encounter | ASIA Luna MD | | | | | [place] [address] | | | | 10/23/ | | [phone] | | | | 2017 | | [...] note may be different from kyle srinivasan. [facility] Green [facility] Team Inpatient Discharge Summary Aniket [...] the prescribed narcotic-opioid (e.g. oxycodone, hydrocodone, Vicodin, Purchase, Percocet, Dilaudid) as needed. However, Vicodin/Purchase and Percocet contain acetam inophen in the [...] Narcotic-opioid pain medications (e.g. oxycodone, hydrocodone, Vicodin, Purchase, Percocet, Di laudid) can be constipating, therefore you should take a stool softener on the same day as s tarting your narcotic pain medicine. Options include: Milk of Magnesia: 2 Tablespoons Twice daily Colace (=Docusate): 1 pill Twice daily While these are some recommendations, any chhq-[id number] stool softener should work, and generics are [...] course, please call Dr Holger Burleson's office ([phone]), especially if you are considering going to an Emergency Room. FOLLOW-UP: Please call Dr. Burleson's office ([phone]) to schedule a follow-up appointment for 2 weeks after discharge. Condition on Discharge Stable Future Appointments Provider Department Dept Phone Center 10/29/2017 12:00 PM Jaleesa Burleson [facility] 6th Floor [phone] [facility] 04/05/2018 1:40 PM Liz Rodriguez [facility] 6th Floor [phone] [facility] Schedule the following appointment(s) when you get home Marlee Duarte MD . Specialty: Internal Medicine Contact information [facility] [address] [facility] [address] Physical Exam: Vital Signs at discharge: Ht [...] labs/studies: None When to Call: Please call [facility] ([phone]) or the [facility] pipe smoker machine operator [phone] after hours and ask for the [facility] Physician Stitchdown Toe Former, Nurse or Surgery Resi dent aeronautics teacher if you have any of the followin. Difficulty breathing or unusual shortness of breath 2. Excessive bleeding, drainage, redness and/or swelling at the operative site 3. Fevers (>101.5), chills, increased pain that is not relieved by pain medications 4. Persistent nausea or vomiting Discharging Physician: Aniket Scott DO Attending Physician: Jaleesa Scott DO [facility] Surgery Pager# [phone] [facility] [address] [place], [place] [phone] in this encounter Discharge Instructions Jenny Boyer [...] Physician: Jaleesa Burleson MD Patient: NEW LICEA [id number] 24H events/Subjective: -tolerating diet -continued BM -no [...] Mark Haynes MD General Surgery, R-3 pg. [id number] [facility] Associated attestation - Jaleesa Burleson MD - [...] possible dc without TPN. Jaleesa Burleson MD [facility] [address] [place] [address] Aniket Scott DO - 10/21/2017 7:48 AM PSTFormatting of this note may be different from t erma original. Green Surgery Progress Note Attending Physician: Jaleesa Burleson MD Patient: NEW LICEA [id number] 24H events/Subjective: -one episode of emesis yesterday [...] Dr. Nick MD. Jovanni Scott R1 Pg [id number] Associated attestation - Jaleesa Burleson MD - [...] in next couple days. Jaleesa Burleson MD [facility] [address] [facility] [place] [address] Mark Haynes MD - 10/20/2017 6:43 PM PSTGreen Surgery Rectal Exam: External anus without lesion, defect or erythema. Tone good, staple line intact, anastomosi s patent, no blood, nontender, no palpable fluid collection, or fluctuance. Mark Haynes MD General Surgery, R-3 pg. 14727 [facility] KristineKylah, ACNP - 10/20/2017 6:16 AM PSTFormatting of this note may be different f rom the original. [facility] Progress Note Attending Physician: Jaleesa Burleson MD Patient: NEW LICEA [id number] 24H events/Subjective: -one episode of emesis yesterday [...] Mark Haynes MD General Surgery, R-3 pg. 03645 [facility] Kylah Selma Yessenia, [facility] [address] [place] [address] Associated attestation - Jaleesa Burleson MD - [...] -OK to remove drain. Jaleesa Burleson MD [facility] [address] [place], [place] [phone] Kylah Casas, ACNP - 10/19/2017 5:45 AM PSTFormatting of this note may be different f rom the original. [facility] Progress Note Attending Physician: Jaleesa Burleson MD Patient: NEW LICEA [id number] 24H events/Subjective: -one episode of emesis yesterday [...] Mark Haynes MD General Surgery, R-3 pg. 48116 [facility] Kylah Selma Yessenia, [facility] [address] [place] [address] Associated attestation - Jaleesa Burleson MD - [...] TPN and PO intake. Jaleesa Burleson MD [facility] [address] [place] [address] Mark Haynes MD - 10/18/2017 11:11 AM [...] Mark Haynes MD General Surgery, R-3 pg. 33215 [facility] Associated attestation - Shawna Rahman MD - [...] MD Division of Gastrointestinal [place] [address] Office: [phone] Mark Haynes MD - 10/17/2017 4:12 PM PSTGreen Surgery Progress Note Attending Physician: Jaleesa Burleson MD Patient: NEW LICEA [id number] 24H events/Subjective: -NGT out yesterday evening -denies [...] setting of loose stool 7. 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 Nick MD. Mark Haynes MD General Surgery, R-3 pg. 18241 [facility] Associated attestation - Shawna Rahman MD - [...] MD Division of Gastrointestinal and General Surgery [address], [place] [address] Office: [phone] Mark Haynes MD - 10/16/2017 6:25 AM PSTGreen Surgery Progress Note Attending Physician: Jaleesa Burleson MD Patient: NEW LICEA [id number] 24H events/Subjective: -AF -Feeling better this am [...] setting of loose stool 7. 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 Nick MD. Jovanni Scott R1 Pg [id number] Mark Haynes MD General Surgery, R-3 pg. 55873 [facility] Associated attestation - Jaleesa Burleson MD - [...] still attempt enteral nutrition. Jaleesa Burleson MD [facility] [address] [place] [address] Tyler Aniket, DO - 10/15/2017 6:07 AM PSTGreen Surgery Progress Note Attending Physician: Jaleesa Burleson MD Patient: NEW LICEA [id number] 24H events/Subjective: -AF -episodes of nausea, w/bilious [...] setting of loose stool 7. 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 -transitioned off GRAVITY PROSPECTING OPERATOR HELPER Dispo: TBD, pending nausea/vomiting control, ROBF The attending of record for this patient is Dr. Nick MD. Jovanni Scott R1 Pg [phone] Associated attestation - Jaleesa Burleson MD - [...] of contrast. Hold discharge. 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 male sp sp [...] setting of loose stool 7. 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 Nick MD. Jovanni Scott R1 Pg [phone] Associated attestation - Jaleesa Burleson MD - [...] net 24- 48 hours. 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 Nick MD. Jovanni Scott R1 Pg [phone] Associated attestation - Jaleesa Burleson MD - [...] any rebound/guarding. -Plan: -Cont to ambulate in [facility] -Reg diet + Protein supplements. -Advised to take in at least 1/2 yogurt daily (pro-biotics) -Remove RIGHT drain today -Anticipate discharge tomorrow. Jaleesa Burleson MD [facility] [address] [facility] [address] [place], [place] [phone] Dalila Jonas MD - 10/10/2017 7:15 AM [...] day if tolerating PO 8. 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 Dalila Jonas MD R1 =[place] [facility]= Pager: [phone] Associated attestation - Jaleesa Burleson MD - [...] isopure. OOB/ambulate. D/C reynolds Jaleesa Burleson MD [facility] [address] [facility] [place] [address] Sebas Gunter MD - 10/09/2017 10:47 PM PSTPost-op check Patient is comfortable in bed, saying pain is well controlled, no nausea or vomiting. Patie nt is hemodynamically appropriate and incisions look c/d/i. eSbas Gunter MDin this encounter Plan of Treatment [...] | | | | | | [place], [place] | | | | | | [address] | | | | | | [phone] | | | | | | | | +--------+---------+ + + + | 04/05/ | Office | Surgery | Liz Rodriguez MD | | | 2017 | Visit | | [address] | | | | | | [place], | | | | | | [place] [address] | | | | | | [phone] | | | | | | | [...] TESTS [address] | | | [place] [address] | + + + CAPILLARY BLOOD GLUCOSE (NO CHG), POC (10/23/2017 5:39 AM) + +-------+ + | Component | Value | Ref Range | + +-------+ + | BLOOD GLUCOSE, POC | 93 | 70 - 99 mg/dL | + +-------+ + + + + | Specimen | Performing Laboratory | + + + | | [facility], POINT OF CARE TESTS [address] | | | [place] [address] | + + + CAPILLARY BLOOD GLUCOSE [...] [address] | | | [place] [address] | + + + CAPILLARY BLOOD GLUCOSE [...] [address] | | | [place] [address] | + + + CAPILLARY BLOOD GLUCOSE (NO CHG), POC (10/22/2017 1:16 PM) + +---------+ + | Component | Value | Ref Range | + +---------+ + | BLOOD GLUCOSE, POC | 109 (H) | 70 - 99 mg/dL | + +---------+ + + + + | Specimen | Performing Laboratory | + + + | | [facility], POINT OF CARE TESTS [address] | | | [place] [address] | + + + CAPILLARY BLOOD GLUCOSE (NO CHG), POC (10/22/2017 5:48 AM) + +---------+ + | Component | Value | Ref Range | + +---------+ + | BLOOD GLUCOSE, POC | 125 (H) | 70 - 99 mg/dL | + +---------+ + + + + | Specimen | Performing Laboratory | + + + | | [facility] [place] [facility], POINT OF CARE TESTS [address] | | | [place] [address] | + + + CBC (HEMOGRAM) ONLY [...] | + + + | Blood | [facility] LABORATORY SERVICES, CORE [address] [facility] | | | [place] [address] | + + + CBC ONLY (10/22/2017 4:22 AM) + + + | Specimen | Performing Laboratory | + + + | Blood | | + + + + + | Narrative | + + | The following orders were created for panel order CBC ONLY. | | Procedure | | Abnormality Status | | --------- | | ------ CBC (HEMOGRAM) | | ONLY[[id number]] Abnormal Final | | result Please view [...] + + | | [facility] - [facility] [place], POINT OF CARE TESTS [address] | | | [place] [address] | + + + CAPILLARY BLOOD GLUCOSE [...] TESTS [address] | | | [place] [address] | + + + CAPILLARY BLOOD GLUCOSE (NO CHG), POC (10/21/2017 12:20 PM) + +---------+ + | Component | Value | Ref Range | + +---------+ + | BLOOD GLUCOSE, POC | 124 (H) | 70 - 99 mg/dL | + +---------+ + + + + | Specimen | Performing Laboratory | + + + | | [facility] JESSICA [facility], POINT OF CARE TESTS [address] | | | [place] [address] | + + + CAPILLARY BLOOD GLUCOSE [...] TESTS [address] | | | [place] [address] | + + + CBC (HEMOGRAM) ONLY [...] | + + + | Blood | [facility] LABORATORY SERVICES, CORE [address] [place] [address] | | | [place] [address] | + + + CBC ONLY (10/21/2017 4:07 AM) + + + | Specimen | Performing Laboratory | + + + | Blood | | + + + + + | Narrative | + + | The following orders were created for panel order CBC ONLY. | | Procedure | | Abnormality Status | | --------- | | ------ CBC (HEMOGRAM) | | ONLY[[id number]] Abnormal Final | | result Please view [...] | >60 | >60 mL/min | | [place] | | | + +---------+ + | EGFR NON | >60 | >60 mL/min | | -[place] | | | + +---------+ + | [...] | + + + | Blood | [facility] LABORATORY SERVICES, [facility] [address] | | | [place] [address] | + + + + + | [...] Laboratory | + + + | | [facility], POINT OF CARE TESTS [address] | | | [place] [address] | + + + CBC (HEMOGRAM) ONLY [...] | + + + | Blood | [facility] LABORATORY SERVICES, CORE [address] [facility] | | | [place] [address] | + + + CBC ONLY (10/20/2017 10:29 AM) + + + | Specimen | Performing Laboratory | + + + | Blood | | + + + + + | Narrative | + + | The following orders were created for panel order CBC ONLY. | | Procedure | | Abnormality Status | | --------- | | ------ CBC (HEMOGRAM) | | ONLY[[id number]] Abnormal Final | | result Please view [...] | + + + | Blood | [facility] LABORATORY SERVICES, CORE [address] [facility] | | | [place] [address] | + + + + + | [...] | + + + | Blood | [facility] [address] [place], [place] | | | [address] | + + + CALCIUM, IONIZED, WHOLE [...] | + + + | Blood | [facility] LABORATORY SERVICES, CORE [address] [place] [address] | | | [place] [address] | + + + ALT, PLASMA (10/20/2017 10:29 AM) + +--------+ + | Component | Value | Ref Range | + +--------+ + | ALT (SGPT) | 82 (H) | <=60 U/L | + +--------+ + + + + | Specimen | Performing Laboratory | + + + | Blood | [facility] LABORATORY SERVICES, CORE [address] [facility] | | | [place], [place] [address] | + + + TRIGLYCERIDES, PLASMA (10/20/2017 10:29 AM) + +---------+ + | Component | Value | Ref Range | + +---------+ + | TRIGLYCERIDES | 182 (H) | <150 mg/dL | + +---------+ + + + + | Specimen | Performing Laboratory | + + + | Blood | [facility], CORE [address] | | | [place] [address] | + + + + + | [...] | + + + | Blood | [facility] LABORATORY SERVICES, CORE [address] | | | [place] [address] | + + + ALKALINE PHOSPHATASE, PLASMA (10/20/2017 10:29 AM) + +-------+ + | Component | Value | Ref Range | + +-------+ + | ALK PHOS | 99 | 53 - 128 U/L | + +-------+ + + + + | Specimen | Performing Laboratory | + + + | Blood | [facility] LABORATORY SERVICES, CORE [address] | | | [place] [address] | + + + BILIRUBIN DIRECT (10/20/2017 [...] | + + + | Blood | [facility] LABORATORY SERVICES, CORE [address] [facility] | | | [place] [address] | + + + BILIRUBIN TOTAL (10/20/2017 [...] | + + + | Blood | [facility] LABORATORY SERVICES, CORE [address] [facility] | | | [place] [address] | + + + PHOSPHORUS, PLASMA (10/20/2017 10:29 AM) + +-------+ + | Component | Value | Ref Range | + +-------+ + | PHOSPHORUS, PLASMA | 3.3 | 2.4 - 4.7 mg/dL | | (LAB) | | | + +-------+ + + + + | Specimen | Performing Laboratory | + + + | Blood | [facility] LABORATORY SERVICES, CORE [address] [place] [address] | | | [place] [address] | + + + ALBUMIN, PLASMA (10/20/2017 10:29 AM) + +---------+ + | Component | Value | Ref Range | + +---------+ + | ALBUMIN, PLASMA | 2.8 (L) | 3.5 - 4.7 g/dL | | (LAB) | | | + +---------+ + + + + | Specimen | Performing Laboratory | + + + | Blood | [facility] LABORATORY SERVICES, CORE [address] [place] [address] | | | [place] [address] | + + + MAGNESIUM, PLASMA (10/20/2017 10:29 AM) + +-------+ + | Component | Value | Ref Range | + +-------+ + | MAGNESIUM,PLASMA | 2.4 | 1.6 - 2.6 mg/dL | + +-------+ + + + + | Specimen | Performing Laboratory | + + + | Blood | [facility], CORE [address] [facility] | | | [place] [address] | + + + + + | [...] | >60 | >60 mL/min | | [place] | | | + +---------+ + | EGFR NON | >60 | >60 mL/min | | -[place] | | | + +---------+ + | [...] | + + + | Blood | [facility], CORE [address] [facility] | | | [place] [address] | + + + + + | [...] | Narrative | + + | EXAM: ND CHEST PICC LINE CHECK 10/20/17 09:17:09 HISTORY: [...] Interface - 10/20/2017 1:09 PM PST EXAM: ND CHEST | | PICC LINE CHECK 10/20/17 [...] Note | | Indications:Antibiotics Procedure location: Unit:[facility] Room: #12 Providers: PICC | | Nurse name: Elana Poon RN Assisted by Isabel Barakat AUTOMAT CAR ATTENDANT Pre-Procedure Consent: | | written consent obtained Consent given by: Patient Patient identity confirmed per | | protocol: Yes Team Pause: Immediatly prior to the procedure a pause per protocol was | | called. A pause verifies correct patient, procedure, equipment, it application support analyst and | | site/side marked as required. [...] Basilic | | vein. Catheter lot number: [id number] with a length of 55 cm was [...] Laboratory | + + + | | [facility] RADIOLOGY VOICE RECOGNITION | + + [...] Note | + + | Service Account, [employer] Res In Interface - 10/20/2017 8:31 AM [...] | >60 | >60 mL/min | | [place] | | | + +---------+ + | EGFR NON | >60 | >60 mL/min | | -[place] | | | + +---------+ + | [...] | + + + | Blood | [facility] LABORATORY SERVICES, CORE [address] [facility] | | | [place], [place] [address] | + + + + + | [...] | + + + | Blood | [facility] LABORATORY SERVICES, CORE [address] [facility] | | | [place] [address] | + + + CBC ONLY (10/18/2017 7:00 AM) + + + | Specimen | Performing Laboratory | + + + | Blood | | + + + + + | Narrative | + + | The following orders were created for panel order CBC ONLY. | | Procedure | | Abnormality Status | | --------- | | ------ CBC (HEMOGRAM) | | ONLY[[id number]] Abnormal Final | | result Please view [...] | >60 | >60 mL/min | | [place] | | | + +---------+ + | EGFR NON | >60 | >60 mL/min | | -[place] | | | + +---------+ + | [...] | + + + | Blood | [facility] LABORATORY SERVICES, CORE [address] | | | [place] [address] | + + + + + | [...] | >60 | >60 mL/min | | [place] | | | + + + + | EGFR NON | >60 | >60 mL/min | | -[place] | | | + + + + [...] | + + + | Blood | [facility] LABORATORY SERVICES, CORE [address] [facility] | | | [facility] [address] | + + + + + | [...] | + + + | Blood | [facility] LABORATORY SERVICES, CORE [address] [place] [address] [place] | | | [place] [address] | + + + + + | [...] | >60 | >60 mL/min | | [place] | | | + +---------+ + | EGFR NON | >60 | >60 mL/min | | -[place] | | | + +---------+ + | [...] | + + + | Blood | [facility], CORE [address] [facility] | | | [place] [address] | + + + + + | [...] Laboratory | + + + | | [facility] RADIOLOGY VOICE RECOGNITION | + + [...] | + + + | Blood | [facility] LABORATORY SERVICES, CORE [address] [facility] | | | [place] [address] | + + + CBC ONLY (10/15/2017 4:06 AM) + + + | Specimen | Performing Laboratory | + + + | Blood | | + + + + + | Narrative | + + | The following orders were created for panel order CBC ONLY. | | Procedure | | Abnormality Status | | --------- | | ------ CBC (HEMOGRAM) | | ONLY[[id number]] Abnormal Final | | result Please view [...] | + + + | Blood | [facility] LABORATORY SERVICES, CORE [address] [facility] | | | [place] [address] | + + + + + | [...] | >60 | >60 mL/min | | [place] | | | + +---------+ + | EGFR NON | >60 | >60 mL/min | | -[place] | | | + +---------+ + | [...] | + + + | Blood | [facility] LABORATORY SERVICES, CORE [address] [facility] | | | [place] [address] | + + + + + | [...] Note | + + | Service Account, Identify In Interface - 10/15/2017 9:01 AM PST [...] | + + + | Blood | [facility], CORE [address] [place] [address] | | | [place] [address] | + + + + + | [...] | >60 | >60 mL/min | | [place] | | | + +---------+ + | EGFR NON | >60 | >60 mL/min | | -[place] | | | + +---------+ + | [...] | + + + | Blood | [facility] LABORATORY SERVICES, CORE [address] | | | [place] [address] | + + + + + | [...] [address] | | | [place] [address] | + + + CAPILLARY BLOOD GLUCOSE [...] [address] | | | [place] [address] | + + + CAPILLARY BLOOD GLUCOSE (NO CHG), POC (10/10/2017 12:29 PM) + +---------+ + | Component | Value | Ref Range | + +---------+ + | BLOOD GLUCOSE, POC | 121 (H) | 70 - 99 mg/dL | + +---------+ + + + + | Specimen | Performing Laboratory | + + + | | [facility], POINT OF CARE TESTS [address] | | | [place] [address] | + + + CAPILLARY BLOOD GLUCOSE (NO CHG), POC (10/10/2017 8:45 AM) + +-------+ + | Component | Value | Ref Range | + +-------+ + | BLOOD GLUCOSE, POC | 98 | 70 - 99 mg/dL | + +-------+ + + + + | Specimen | Performing Laboratory | + + + | | [facility] [address] | | | [place] [address] | + + + CAPILLARY BLOOD GLUCOSE [...] [address] | | | [place] [address] | + + + CBC (HEMOGRAM) ONLY [...] | + + + | Blood | [facility], [facility] [place] [address] | | | [place] [address] | + + + MAGNESIUM, PLASMA (10/10/2017 5:06 AM) + +-------+ + | Component | Value | Ref Range | + +-------+ + | MAGNESIUM,PLASMA | 1.8 | 1.6 - 2.6 mg/dL | + +-------+ + + + + | Specimen | Performing Laboratory | + + + | Blood | [facility], [facility] [address] | | | [place] [address] | + + + + + | [...] | >60 | >60 mL/min | | [place] | | | + +---------+ + | EGFR NON | >60 | >60 mL/min | | -[place] | | | + +---------+ + | [...] | + + + | Blood | [facility], CORE [address] | | | [place] [address] | + + + + + | [...] | | ------ CBC (HEMOGRAM) | | ONLY[[id number]] Abnormal Final | | result Please view [...] TESTS [address] | | | [place] [address] | + + + CAPILLARY BLOOD GLUCOSE (NO CHG), POC (10/10/2017 2:59 AM) + +---------+ + | Component | Value | Ref Range | + +---------+ + | BLOOD GLUCOSE, POC | 113 (H) | 70 - 99 mg/dL | + +---------+ + + + + | Specimen | Performing Laboratory | + + + | | [facility], POINT OF CARE TESTS [address] | | | [place] [address] | + + + CAPILLARY BLOOD GLUCOSE (NO CHG), POC (10/10/2017 12:54 AM) + +---------+ + | Component | Value | Ref Range | + +---------+ + | BLOOD GLUCOSE, POC | 104 (H) | 70 - 99 mg/dL | + +---------+ + + + + | Specimen | Performing Laboratory | + + + | | [facility], POINT OF CARE TESTS [address] | | | [place] [address] | + + + CAPILLARY BLOOD GLUCOSE [...] [address] | | | [employer] [facility] [place] [address] | + + + CAPILLARY BLOOD GLUCOSE (NO CHG), POC (10/09/2017 10:40 PM) + +---------+ + | Component | Value | Ref Range | + +---------+ + | BLOOD GLUCOSE, POC | 148 (H) | 70 - 99 mg/dL | + +---------+ + + + + | Specimen | Performing Laboratory | + + + | | [facility] [address] | | | [place] [address] | + + + GLUCOSE, PLASMA (10/09/2017 9:17 PM) + +---------+ + | Component | Value | Ref Range | + +---------+ + | GLUCOSE, PLASMA | 188 (H) | 70 - 99 mg/dL | | (LAB) | | | + +---------+ + + + + | Specimen | Performing Laboratory | + + + | Blood | [facility], [facility] [address] | | | [place] [address] | + + + + + | [...] [address] | | | [place] [address] | + + + PROCEDURE NOTE (10/09/2017 8:00 PM)CAPILLARY BLOOD GLUCOSE (NO CHG), POC (10/09/2017 7:33 PM) + +---------+ + | Component | Value | Ref Range | + +---------+ + | BLOOD GLUCOSE, POC | 160 (H) | 70 - 99 mg/dL | + +---------+ + + + + | Specimen | Performing Laboratory | + + + | | [facility], POINT OF CARE TESTS [address] | | | [place] [address] | + + + PROCEDURE NOTE (10/09/2017 [...] cm umbilical defect + a couple tiny Sudanese cheese defects along the midline. | | [...] | | intervals. After a pause and signal timer-out by the entire operating staff, the abdomen [...] | | defect + a couple tiny Sudanese cheese defects along the midline. 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 | | | [place] [address] | + + + PROCEDURE NOTE (10/09/2017 [...] | | contact: Bertin aguero at pager [phone] | + + CAPILLARY BLOOD GLUCOSE (NO CHG), POC (10/09/2017 4:29 PM) + +---------+ + | Component | Value | Ref Range | + +---------+ + | BLOOD GLUCOSE, POC | 129 (H) | 70 - 99 mg/dL | + +---------+ + + + + | Specimen | Performing Laboratory | + + + | | [facility], [facility] [address] | | | [place] [address] | + + + CARDIOLOGY (10/09/2017)in this [...] + + +---+---+---+ | HYDROmorphone 0.5 mg/mL GRAVITY PROSPECTING OPERATOR HELPER | Rate/Dos | | | | | | (ADULT STANDARD DOSE) in 0.9 % | e Verify | 8 05:10 | | | | | NaCl GRAVITY PROSPECTING OPERATOR HELPER Dose: 0.2 mg, Lockout | | PST [...] + + +---+---+---+ | HYDROmorphone 0.5 mg/mL GRAVITY PROSPECTING OPERATOR HELPER | Rate/Dos | | | | | | (ADULT STANDARD DOSE) in 0.9 % | e Verify | 8 02:00 | | | | | NaCl GRAVITY PROSPECTING OPERATOR HELPER Dose: 0.2 mg, Lockout | | PST [...] + + +---+---+---+ | HYDROmorphone 0.5 mg/mL GRAVITY PROSPECTING OPERATOR HELPER | Rate/Dos | | | | | | (ADULT STANDARD DOSE) in 0.9 % | e Verify | 8 04:13 | | | | | NaCl GRAVITY PROSPECTING OPERATOR HELPER Dose: 0.1 mg, Lockout | | PST [...] mg | | | | bolus from GRAVITY PROSPECTING OPERATOR HELPER (ADULT STANDARD | from | 8 08:42 | | | | | DOSE) 0.2 mg intravenous, EVERY | Same Bag | PST | | | | | 10 MINUTES NEEDED, Starting | | | | | | | 10/09/17 at 1848, Until Mon | | | | | | | 10/12/17 at 1310, GRAVITY PROSPECTING OPERATOR HELPER clinician | | | | | | | rescue bolus. If exceeding 2 | | | | | | | doses in a rolling 60 minute time | | | | | | | frame, contact provider for GRAVITY PROSPECTING OPERATOR HELPER | | | | | | | [...] mg | | | | bolus from GRAVITY PROSPECTING OPERATOR HELPER (ADULT STANDARD | from | 8 18:46 | | | | | DOSE) 0.2 mg intravenous, EVERY | Same Bag | PST | | | | | 10 MINUTES NEEDED, Starting | | | | | | | 10/12/17 at 1318, Until Tue | | | | | | | 10/13/17 at 0751, GRAVITY PROSPECTING OPERATOR HELPER clinician | | | | | | | rescue bolus. If exceeding 2 | | | | | | | doses in a rolling 60 minute time | | | | | | | frame, contact provider for GRAVITY PROSPECTING OPERATOR HELPER | | | | | | | assessment | | | | | | + + + +--------+---+---+ +---+---+ | | | +---+---+ + + + +--------+---+---+ | HYDROmorphone 0.5 mg/mL rescue | Bolus | | 0.2 mg | | | | bolus from GRAVITY PROSPECTING OPERATOR HELPER (ADULT STANDARD | from | 8 01:41 | | | | | DOSE) 0.2 mg intravenous, EVERY | Same Bag | PST | | | | | 10 MINUTES NEEDED, Starting | | | | | | | Yessi 10/15/17 at 1532, Until Sat | | | | | | | 10/17/17 at 1614, GRAVITY PROSPECTING OPERATOR HELPER clinician | | | | | | | rescue bolus. If exceeding 2 | | | | | | | doses in a rolling 60 minute time | | | | | | | frame, contact provider for GRAVITY PROSPECTING OPERATOR HELPER | | | | | | | [...]
--- OUTSIDE RECORDS SUMMARY | ~2017-11-04 | XMS | Encounter Summary ---
Demographics + + + | Address | [address] | | | [place] [address] | + + + | Home Phone | | + + + | Preferred Language | Unknown | + + + | Marital Status | Single | + + + | Mandaen Affiliation | NON | + + + | Race | White | + + + | Ethnic Group | Not or | + + + Author + + + | Author | [facility] | + + + | Organization | [facility] | + + + | Address | Unknown | + + + | Phone | Unavailable | + + + Support +------+ +---------+ + | Name | Relationship | Address | Phone | +------+ +---------+ + ECON | Unknown | | +------+ +---------+ + Care Team Providers + +------+ + | Care Housing Property Manager Name | Role | Phone | + [...] VENTRAL HERNIA | | 2018 | | [facility] | MD [address] | REPAIR WITH MESH, | | | | Admitting Desk | [facility] | TRANSVERSUS | | | | Located on the | [place], [place] | ABDOMINIS MUSCLE | | | | floor [address] | [address] | RELEASE | | | | [facility] [address] | [phone] | | | | | [place], [place] | | | | | | [address] | | | +--------+---------+ + + + [...] may be different from t he original. [facility] Green Surgery Team Inpatient Discharge Summary [...] the prescribed narcotic-opioid (e.g. oxycodone, hydrocodone, Vicodin, Rimforest, Percocet, Dilaudid) as needed. However, Vicodin/Rimforest and Percocet contain acetam inophen in the [...] Narcotic-opioid pain medications (e.g. oxycodone, hydrocodone, Vicodin, Rimforest, Percocet, Di laudid) can be constipating, therefore you should take a stool softener on the same day as s tarting your narcotic pain medicine. Options include: Milk of Magnesia: 2 Tablespoons Twice daily Colace (=Docusate): 1 pill Twice daily While these are some recommendations, any lgpx-mdb-uericuj stool softener should work, and generics are [...] course, please call Dr Holger Burleson's office ([phone]), especially if you are considering going to an Emergency Room. FOLLOW-UP: Please call Dr. Burleson's office ([phone]) to schedule a follow-up appointment for 2 weeks after discharge. Condition on Discharge Stable Future Appointments Provider Department Dept Phone Center 10/29/2017 12:00 PM Jaleesa Burleson Digestive [facility] at [facility] 6th Floor [phone] [facility] 04/05/2018 1:40 PM Liz Rodriguez Digestive [facility] at [facility] 6th Floor [phone] [facility] Schedule the following appointment(s) when you get home Marlee Duarte MD . Specialty: Internal Medicine Contact information [facility] [address] [place] [address] Physical Exam: Vital Signs at discharge: Ht 1.829 m (6' 0.01"), Wt 88 kg (194 lb 0.1 oz), BP 130/77, Pulse 83, Temperature 36.6 C (97.9 F), RR 18, SpO2 100%, BMI 26.31 kg/(m^2). General: comfortable, NAD Respiratory: unlabored breathing Cardio: Mild regular tachycardia Abdomen: soft, nontender, Incision clean dry and intact. Wearing abd binder, mildly distend ed. [place] out, steri strips placed. Minimal drainage from superior aspect of incision, mil d erythema. Extremities: WWP, no edema Mental status: awake and alert Drain: removed Outstanding labs/studies: None When to Call: Please call [facility] ([phone]) or the [facility] pantograph machine set up operator [phone] after hours and ask for the [facility] Physician Bridge Instructor, Nurse or Surgery Resi dent director of publications if you have any of the followin. Difficulty breathing or unusual shortness of breath 2. Excessive bleeding, drainage, redness and/or swelling at the operative site 3. Fevers (>101.5), chills, increased pain that is not relieved by pain medications 4. Persistent nausea or vomiting Discharging Physician: Aniket Scott DO Attending Physician: Jaleesa Scott DO [facility] Surgery Pager# [phone] [facility] [address] [place] [address] in this encounter Discharge Instructions [...] Physician: Jaleesa Burleson MD Patient: [place] [id number] 24H events/Subjective: -tolerating diet -continued BM -no [...] Mark Haynes MD General Surgery, R-3 pg. [id number] [facility] Associated attestation - Jaleesa Burleson MD - [...] possible dc without TPN. Jaleesa Burleson MD [facility] [address]A [address] [place] [address] Aniket Scott DO - 10/21/2017 7:48 AM PSTFormatting of this note may be different from t erma original. Green Surgery Progress Note Attending Physician: Jaleesa Burleson MD Patient: [place] [id number] 24H events/Subjective: -one episode of emesis yesterday [...] Dr. Nick MD. Jovanni Scott R1 Pg [id number] Associated attestation - Jaleesa Burleson MD - [...] in next couple days. Jaleesa Burleson MD [facility] [address]A [address] [place] [address] Mark Haynes MD - 10/20/2017 6:43 PM PSTGreen Surgery Rectal Exam: External anus without lesion, defect or erythema. Tone good, staple line intact, anastomosi s patent, no blood, nontender, no palpable fluid collection, or fluctuance. Mark Haynes MD General Surgery, R-3 pg. [id number] [facility] [place] KristinejuliannKylahKATHYA - 10/20/2017 6:16 AM PSTFormatting of this note may be different f rom the original. Green Surgery Progress Note Attending Physician: Jaleesa Burleson MD Patient: [place] [id number] 24H events/Subjective: -one episode of emesis yesterday [...] Mark Haynes MD General Surgery, R-3 pg. [phone] [facility] Kylah Casas, [facility] [address]A [address] [place] [address] Associated attestation - Jaleesa Burleson MD - 10/21/2017 7:44 AM [facility] ATTENDING ADDENDUM: I saw, examined, and [...] -OK to remove drain. Jaleesa Burleson MD [facility] [address] [place] [address] KristineKylah [facility] - 10/19/2017 5:45 AM PSTFormatting of this note may be different f rom the original. Green Surgery Progress Note Attending Physician: Jaleesa Burleson MD Patient: [place] [id number] 24H events/Subjective: -one episode of emesis yesterday [...] Mark Haynes MD General Surgery, R-3 pg. [id number] [facility] [place] Kylah Casas, [facility] [address]A [address] [place] [address] Associated attestation - Jaleesa Burleson MD - [...] TPN and PO intake. Jaleesa Burleson MD [facility] [address]A [address] [place] [address] Mark Haynes MD - 10/18/2017 11:11 AM PSTGreen Surgery Progress Note Attending Physician: Jaleesa Burleson MD Patient: [place] [id number] 24H events/Subjective: -one episode of emesis yesterday, [...] Mark Haynes MD General Surgery, R-[phone] [facility] Associated attestation - Shawna Rahman MD - [...] MD Division of [place]astrointestinal [place] [address] Office: [phone] Mark Haynes MD - 10/17/2017 4:12 PM PSTGreen Surgery Progress Note Attending Physician: Jaleesa Burleson MD Patient: [place] [id number] 24H events/Subjective: -NGT out yesterday evening -denies [...] setting of loose stool 7. Pain: Hydromorphone BED RUBBER - transition off today to po HM [...] and SSI -advance diet tonight, transition off BED RUBBER Dispo: TBD, pending nausea/vomiting control, ROBF The attending of record for this patient is Dr. Nick MD. Mark Haynes MD General Surgery, R-[phone] [facility] Associated attestation - Shawna Rahman MD - [...] MD Division of Gastrointestinal [place] [address] Office: [phone] Mark Haynes MD - 10/16/2017 6:25 AM PSTGreen Surgery Progress Note Attending Physician: Jaleesa Burleson MD Patient: [place] [id number] 24H events/Subjective: -AF -Feeling better this am [...] setting of loose stool 7. Pain: Hydromorphone BED RUBBER - transition off when tolerating diet Acetaminophen [...] Dr. Nick MD. Jovanni Scott R1 Pg [id number] Mark Haynes MD General Surgery, R-3 pg. [phone] [facility] [place] Associated attestation - Jaleesa Burleson MD - [...] still attempt enteral nutrition. Jaleesa Burleson MD [facility] [address]A [address] [place] [address] Aniket Scott DO - 10/15/2017 6:07 AM PSTGreen Surgery Progress Note Attending Physician: Jaleesa Burleson MD Patient: [place] [id number] 24H events/Subjective: -AF -episodes of nausea, w/bilious [...] setting of loose stool 7. Pain: Hydromorphone BED RUBBER - transition off today Acetaminophen 1000mg q6h [...] up KUB in 4 hours. -transitioned off BED RUBBER Dispo: TBD, pending nausea/vomiting control, ROBF The attending of record for this patient is Dr. Nick MD. Jovanni Scott R1 Pg [id number] Associated attestation - Jaleesa Burleson MD - [...] of contrast. Hold discharge. Jaleesa Burleson MD [facility] [address]A [address] [facility] [place] [address] Aniket Scott, DO - 10/14/2017 8:28 AM PSTGreen Surgery Progress Note Attending Physician: Jaleesa Burleson MD Patient: [place] [id number] 24H events/Subjective: -AF/AGUILAR overnight -d/c'ed BED RUBBER yesterday, pain controlled -episodes of nausea, emesis [...] setting of loose stool 7. Pain: Hydromorphone BED RUBBER - transition off today Acetaminophen 1000mg q6h [...] WNL, stop checks and SSI -transitioned off BED RUBBER, now with ROBF Dispo: dc in 1-2 days with pain control and improved PO intake The attending of record for this patient is Dr. Nick MD. Jovanni Hassanu R1 Pg [phone] Associated attestation - Jaleesa Burleson MD - [...] net 24- 48 hours. Jaleesa Burleson MD [facility] [address]A [address] [place] [address] TylerAniket - 10/13/2017 6:20 AM PSTGreen Surgery Progress Note Attending Physician: Jaleesa Burleson MD Patient: [place] [id number] 24H events/Subjective: -AF/AGUILAR overnight -tolerating diet, still minimal PO -continues to have multiple small liquid BMs overnight -transition off BED RUBBER today Objective: BP 132/84 | Pulse 107 [...] setting of loose stool 7. Pain: Hydromorphone BED RUBBER - transition off today Acetaminophen 1000mg q6h [...] WNL, stop checks and SSI -transitioning off BED RUBBER today, now with ROBF Dispo: dc in 1-2 days with pain control The attending of record for this patient is Dr. Nick MD. Jovanni Scott R1 Pg [id number] Associated attestation - Jaleesa Burleson MD - [...] today -Anticipate discharge tomorrow. Jaleesa Burleson MD [facility] [address]A [address] [place] [address] Dalila Jonas MD - 10/10/2017 7:15 AM PSTFormatting of this note may be different from the original. Green Surgery Progress Note Hospital Day: 1 Author: Dalila Jonas MD Attending Physician: Jaleesa Burleson MD Patient: [place] [id number] 24H events/Subjective: Pt comfortable in bed this [...] day if tolerating PO 8. Pain: Hydromorphone BED RUBBER until POD #3 Acetaminophen 1000mg q6h Gabapentin [...] Jaleesa Burleson MD. Dalila Jonas MD R1 =[place] [facility]= Pager: [phone] Associated attestation - Jaleesa Burleson MD - [...] + isopure. OOB/ambulate. D/C rodolfo Burleson MD [facility] [address]A [address] [place] [address] Sebas Gunter MD - 10/09/2017 10:47 PM [...] Rd | | | | | | [place] | | | | | | [address] | | | | | | [phone] | | | | | | | | +--------+---------+ + + + | 04/05/ | Office | Surgery | Liz Rodriguez MD | | | 2017 | Visit | | [address] | | | | | | [address] [facility] | | | | | | [place] [address] | | | | | | [phone] | | | | | | | [...] Laboratory | + + + | | [facility], POINT OF CARE TESTS [address] | | | [place] [address] | + + + CAPILLARY BLOOD GLUCOSE (NO CHG), POC (10/23/2017 5:39 AM) + +-------+ + | Component | Value | Ref Range | + +-------+ + | BLOOD GLUCOSE, POC | 93 | 70 - 99 mg/dL | + +-------+ + + + + | Specimen | Performing Laboratory | + + + | | [facility] POINT OF CARE TESTS [address] | | | [place] [address] | + + + CAPILLARY BLOOD GLUCOSE (NO CHG), POC (10/23/2017 12:02 AM) + +---------+ + | Component | Value | Ref Range | + +---------+ + | BLOOD GLUCOSE, POC | 108 (H) | 70 - 99 mg/dL | + +---------+ + + + + | Specimen | Performing Laboratory | + + + | | [facility], POINT OF CARE TESTS [address] | | | [place] [address] | + + + CAPILLARY BLOOD GLUCOSE (NO CHG), POC (10/22/2017 6:31 PM) + +---------+ + | Component | Value | Ref Range | + +---------+ + | BLOOD GLUCOSE, POC | 106 (H) | 70 - 99 mg/dL | + +---------+ + + + + | Specimen | Performing Laboratory | + + + | | [facility], POINT OF CARE TESTS [address] | | | [place] [address] | + + + CAPILLARY BLOOD GLUCOSE (NO CHG), POC (10/22/2017 1:16 PM) + +---------+ + | Component | Value | Ref Range | + +---------+ + | BLOOD GLUCOSE, POC | 109 (H) | 70 - 99 mg/dL | + +---------+ + + + + | Specimen | Performing Laboratory | + + + | | [facility], POINT OF CARE TESTS [address] | | | [place] [address] | + + + CAPILLARY BLOOD GLUCOSE [...] [address] | | | [place] [address] | + + + CBC (HEMOGRAM) ONLY [...] | + + + | Blood | [facility], CORE [address] [place] [address] | | | [place] [address] | + + + CBC ONLY (10/22/2017 4:22 AM) + + + | Specimen | Performing Laboratory | + + + | Blood | | + + + + + | Narrative | + + | The following orders were created for panel order CBC ONLY. | | Procedure | | Abnormality Status | | --------- | | ------ CBC (HEMOGRAM) | | ONLY[[id number]] Abnormal Final | | result Please view [...] + + + | | [facility] POINT OF CARE TESTS [address] | | | [place] [address] | + + + CAPILLARY BLOOD GLUCOSE [...] [address] | | | [place] [address] | + + + CAPILLARY BLOOD GLUCOSE [...] [address] | | | [place] [address] | + + + CAPILLARY BLOOD GLUCOSE (NO CHG), POC (10/21/2017 6:35 AM) + +---------+ + | Component | Value | Ref Range | + +---------+ + | BLOOD GLUCOSE, POC | 101 (H) | 70 - 99 mg/dL | + +---------+ + + + + | Specimen | Performing Laboratory | + + + | | [facility], POINT OF CARE TESTS [address] | | | [place] [address] | + + + CBC (HEMOGRAM) ONLY [...] | + + + | Blood | [facility], CORE [address] [place] [address] | | | [place] [address] | + + + CBC ONLY (10/21/2017 4:07 AM) + + + | Specimen | Performing Laboratory | + + + | Blood | | + + + + + | Narrative | + + | The following orders were created for panel order CBC ONLY. | | Procedure | | Abnormality Status | | --------- | | ------ CBC (HEMOGRAM) | | ONLY[[id number]] Abnormal Final | | result Please view [...] | >60 | >60 mL/min | | [place] | | | + +---------+ + | EGFR NON | >60 | >60 mL/min | | -BAHRAINI | | | + +---------+ + | [...] | + + + | Blood | [facility] SERVICES, [facility] [address] [place] [address] | | | [place] [address] | + + + + + | [...] Laboratory | + + + | | [facility], POINT OF [facility] TESTS [address] | | | [place] [address] | + + + CBC (HEMOGRAM) ONLY [...] + + + | Blood | [facility], CORE [address] [facility] [address] | | | [place] [address] | + + + CBC ONLY (10/20/2017 10:29 AM) + + + | Specimen | Performing Laboratory | + + + | Blood | | + + + + + | Narrative | + + | The following orders were created for panel order CBC ONLY. | | Procedure | | Abnormality Status | | --------- | | ------ CBC (HEMOGRAM) | | ONLY[[id number]] Abnormal Final | | result Please view [...] + + + | Blood | [facility], CORE [address] | | | [place] [address] | + + + + + | [...] | + + + | Blood | [facility] [address] [place] [address] | | | [address] | + + + CALCIUM, IONIZED, WHOLE [...] | + + + | Blood | [facility], CORE [address] [place] [address] | | | [place] [address] | + + + ALT, PLASMA (10/20/2017 10:29 AM) + +--------+ + | Component | Value | Ref Range | + +--------+ + | ALT (SGPT) | 82 (H) | <=60 U/L | + +--------+ + + + + | Specimen | Performing Laboratory | + + + | Blood | [facility], CORE [address] [place] [address] | | | [place] [address] | + + + TRIGLYCERIDES, PLASMA (10/20/2017 10:29 AM) + +---------+ + | Component | Value | Ref Range | + +---------+ + | TRIGLYCERIDES | 182 (H) | <150 mg/dL | + +---------+ + + + + | Specimen | Performing Laboratory | + + + | Blood | [facility], CORE [address] | | | [place] [address] | + + + + + | [...] | + + + | Blood | [facility], CORE [address] [facility] [address] | | | [place] [address] | + + + ALKALINE PHOSPHATASE, PLASMA (10/20/2017 10:29 AM) + +-------+ + | Component | Value | Ref Range | + +-------+ + | ALK PHOS | 99 | 53 - 128 U/L | + +-------+ + + + + | Specimen | Performing Laboratory | + + + | Blood | [facility], CORE [address] | | | [place] [address] | + + + BILIRUBIN DIRECT (10/20/2017 [...] | + + + | Blood | [facility], CORE [address] | | | [place] [address] | + + + BILIRUBIN TOTAL (10/20/2017 [...] | + + + | Blood | [facility], CORE [address] | | | [place] [address] | + + + PHOSPHORUS, PLASMA (10/20/2017 10:29 AM) + +-------+ + | Component | Value | Ref Range | + +-------+ + | PHOSPHORUS, PLASMA | 3.3 | 2.4 - 4.7 mg/dL | | (LAB) | | | + +-------+ + + + + | Specimen | Performing Laboratory | + + + | Blood | [facility], CORE [address] [place] [address] | | | [place] [address] | + + + ALBUMIN, PLASMA (10/20/2017 10:29 AM) + +---------+ + | Component | Value | Ref Range | + +---------+ + | ALBUMIN, PLASMA | 2.8 (L) | 3.5 - 4.7 g/dL | | (LAB) | | | + +---------+ + + + + | Specimen | Performing Laboratory | + + + | Blood | [facility], CORE [address] [facility] | | | [place], [place] [address] | + + + MAGNESIUM, PLASMA (10/20/2017 10:29 AM) + +-------+ + | Component | Value | Ref Range | + +-------+ + | MAGNESIUM,PLASMA | 2.4 | 1.6 - 2.6 mg/dL | + +-------+ + + + + | Specimen | Performing Laboratory | + + + | Blood | [facility], CORE [address] [facility] | | | [place] [address] | + + + + + | [...] | >60 | >60 mL/min | | BAHRAINI | | | + +---------+ + | EGFR NON | >60 | >60 mL/min | | -BAHRAINI | | | + +---------+ + | [...] | + + + | Blood | [facility], CORE [address] [facility] [address] | | | [place] [address] | + + + + + | [...] | Narrative | + + | EXAM: AK CHEST PICC LINE CHECK 10/20/17 09:17:09 HISTORY: [...] Note | + + | Service Account, [employer] In Interface - 10/20/2017 1:09 PM PST EXAM: AK CHEST | | PICC LINE CHECK 10/20/17 [...] A pause verifies correct patient, procedure, equipment, academic support coordinator and | | site/side marked as required. [...] Basilic | | vein. Catheter lot number: [id number] with a length of 55 cm was [...] Laboratory | + + + | | [facility] RADIOLOGY VOICE RECOGNITION | + + + [...] | >60 | >60 mL/min | | BAHRAINI | | | + +---------+ + | EGFR NON | >60 | >60 mL/min | | -BAHRAINI | | | + +---------+ + | [...] + + + | Blood | [facility], CORE [address] [facility] [address] | | | [place] [address] | + + + + + | [...] | + + + | Blood | [facility], [address] | | | [place] [address] | + + + CBC ONLY (10/18/2017 7:00 AM) + + + | Specimen | Performing Laboratory | + + + | Blood | | + + + + + | Narrative | + + | The following orders were created for panel order CBC ONLY. | | Procedure | | Abnormality Status | | --------- | | ------ CBC (HEMOGRAM) | | ONLY[[id number]] Abnormal Final | | result Please view [...] | >60 | >60 mL/min | | BAHRAINI | | | + +---------+ + | EGFR NON | >60 | >60 mL/min | | -BAHRAINI | | | + +---------+ + | [...] | + + + | Blood | [facility], CORE [address] [facility] [address] | | | [place] [address] | + + + + + | [...] | >60 | >60 mL/min | | BAHRAINI | | | + + + + | EGFR NON | >60 | >60 mL/min | | -BAHRAINI | | | + + + + [...] | + + + | Blood | [facility], CORE [address] [facility] | | | [place] [address] | + + + + + | [...] | + + + | Blood | [facility], CORE [address] [facility] | | | [place] [address] | + + + + + | [...] | >60 | >60 mL/min | | BAHRAINI | | | + +---------+ + | EGFR NON | >60 | >60 mL/min | | -BAHRAINI | | | + +---------+ + | [...] | + + + | Blood | [facility], CORE [address] [facility] | | | [place] [address] | + + + + + | [...] Note | + + | Service Account, [employer] In Interface - 10/16/2017 10:44 AM PST [...] Laboratory | + + + | | [facility] RADIOLOGY VOICE RECOGNITION | + + + [...] + + + | Blood | [facility], [facility] [address] [place] [address] | | | [place] [address] | + + + CBC ONLY (10/15/2017 4:06 AM) + + + | Specimen | Performing Laboratory | + + + | Blood | | + + + + + | Narrative | + + | The following orders were created for panel order CBC ONLY. | | Procedure | | Abnormality Status | | --------- | | ------ CBC (HEMOGRAM) | | ONLY[[id number]] Abnormal Final | | result Please view [...] + + + | Blood | [facility], CORE [address] | | | [place], [place] [address] | + + + + + | [...] | >60 | >60 mL/min | | BAHRAINI | | | + +---------+ + | EGFR NON | >60 | >60 mL/min | | -BAHRAINI | | | + +---------+ + | [...] | + + + | Blood | [facility], CORE [address] | | | [place] [address] | + + + + + | [...] Note | + + | Service Account, [employer] In Interface - 10/15/2017 9:01 AM [...] | + + + | Blood | [facility], CORE [address] [facility] | | | [place] [address] | + + + + + | [...] | >60 | >60 mL/min | | BAHRAINI | | | + +---------+ + | EGFR NON | >60 | >60 mL/min | | -BAHRAINI | | | + +---------+ + | [...] | + + + | Blood | [facility], CORE [address] [facility] | | | [place] [address] | + + + + + | [...] [address] | | | [place] [address] | + + + CAPILLARY BLOOD GLUCOSE (NO CHG), POC (10/10/2017 6:32 PM) + +---------+ + | Component | Value | Ref Range | + +---------+ + | BLOOD GLUCOSE, POC | 116 (H) | 70 - 99 mg/dL | + +---------+ + + + + | Specimen | Performing Laboratory | + + + | | [facility] POINT OF CARE TESTS [address] | | | [place] [address] | + + + CAPILLARY BLOOD GLUCOSE [...] [address] | | | [place] [address] | + + + CAPILLARY BLOOD GLUCOSE [...] [address] | | | [place] [address] | + + + CAPILLARY BLOOD GLUCOSE [...] [address] | | | [place] [address] | + + + CBC (HEMOGRAM) ONLY [...] | + + + | Blood | [facility], CORE [address] | | | [place] [address] | + + + MAGNESIUM, PLASMA (10/10/2017 5:06 AM) + +-------+ + | Component | Value | Ref Range | + +-------+ + | MAGNESIUM,PLASMA | 1.8 | 1.6 - 2.6 mg/dL | + +-------+ + + + + | Specimen | Performing Laboratory | + + + | Blood | [facility], CORE [address] | | | [place] [address] | + + + + + | [...] | >60 | >60 mL/min | | BAHRAINI | | | + +---------+ + | EGFR NON | >60 | >60 mL/min | | -BAHRAINI | | | + +---------+ + | [...] | + + + | Blood | [facility], CORE [address] | | | [place] [address] | + + + + + | [...] | | ------ CBC (HEMOGRAM) | | ONLY[[id number]] Abnormal Final | | result Please view [...] + + + | | [facility], POINT OF CARE TESTS [address] | | | [place] [address] | + + + CAPILLARY BLOOD GLUCOSE (NO CHG), POC (10/10/2017 2:59 AM) + +---------+ + | Component | Value | Ref Range | + +---------+ + | BLOOD GLUCOSE, POC | 113 (H) | 70 - 99 mg/dL | + +---------+ + + + + | Specimen | Performing Laboratory | + + + | | [facility], POINT OF CARE TESTS [address] | | | [place] [address] | + + + CAPILLARY BLOOD GLUCOSE (NO CHG), POC (10/10/2017 12:54 AM) + +---------+ + | Component | Value | Ref Range | + +---------+ + | BLOOD GLUCOSE, POC | 104 (H) | 70 - 99 mg/dL | + +---------+ + + + + | Specimen | Performing Laboratory | + + + | | [facility], POINT OF CARE TESTS [address] | | | [place] [address] | + + + CAPILLARY BLOOD GLUCOSE [...] TESTS [address] | | | [place] [address] | + + + CAPILLARY BLOOD GLUCOSE (NO CHG), POC (10/09/2017 10:40 PM) + +---------+ + | Component | Value | Ref Range | + +---------+ + | BLOOD GLUCOSE, POC | 148 (H) | 70 - 99 mg/dL | + +---------+ + + + + | Specimen | Performing Laboratory | + + + | | [facility], POINT OF CARE TESTS [address] | | | [place] [address] | + + + GLUCOSE, PLASMA (10/09/2017 9:17 PM) + +---------+ + | Component | Value | Ref Range | + +---------+ + | GLUCOSE, PLASMA | 188 (H) | 70 - 99 mg/dL | | (LAB) | | | + +---------+ + + + + | Specimen | Performing Laboratory | + + + | Blood | [facility], CORE [address] | | | [place] [address] | + + + + + | [...] Laboratory | + + + | | [facility], POINT OF CARE TESTS [address] | | | [place] [address] | + + + PROCEDURE NOTE (10/09/2017 [...] [address] | | | [place] [address] | + + + PROCEDURE NOTE (10/09/2017 7:15 PM) + + | Procedure Note | + + | Jaleesa Burleson MD - 10/09/2017 7:15 PM [facility] OPERATIVE REPORT PROCEDURE DATE: | | [...] cm umbilical defect + a couple tiny Panamanian cheese defects along the midline. | | [...] | | intervals. After a pause and field trainer-out by the entire operating staff, the abdomen [...] | | defect + a couple tiny Panamanian cheese defects along the midline. Given the [...] the rectus muscle for the purpose of denominational of linea | | alba, as well [...] Used?: yesType of Mesh(es): | | unknown [facility] Wound Classification: 1Modified Ventral Hernia Working [...] TESTS [address] | | | [place] [address] | + + + PROCEDURE NOTE (10/09/2017 [...] | | contact: Bertin aguero at pager [phone] | + + CAPILLARY BLOOD GLUCOSE (NO CHG), POC (10/09/2017 4:29 PM) + +---------+ + | Component | Value | Ref Range | + +---------+ + | BLOOD GLUCOSE, POC | 129 (H) | 70 - 99 mg/dL | + +---------+ + + + + | Specimen | Performing Laboratory | + + + | | [facility] TESTS [address] | | | [place] [address] | + + + CARDIOLOGY (10/09/2017)in this [...] | | | | Abdomen | | [id number] | | 8 16:15 | | | [...]
--- OUTSIDE RECORDS SUMMARY | ~2017-11-04 | XMS | Encounter Summary ---
Demographics + + + | Address | [address] | | | [place] [address] | + + + | Home Phone | | + + + | Preferred Language | Unknown | + + + | Marital Status | Single | + + + | Amish Affiliation | NON | + + + [...] Team Providers + +------+ + | Care Jersey Knitter Name | Role | Phone | + [...] Tao, | | | 2017 | | [facility] | [address] | | | | | Admitting Desk | [facility] | | | | | Located on the | [place], [place] | | | | | [facility] [address] [facility] | [address] | | | | | [facility] | [phone] | | | | | [place], [place] | | | | | | [address] | | | +--------+ + + + [...] by | 10/20/171899 by | | | oDnavon (19Fr); Left; Lower; | Dora Rader RN [...] Rd | | | | | | [place], [place] | | | | | | [address] | | | | | | [phone] | | | | | | | | +--------+---------+ + + + | 04/05/ | Office | Surgery | Liz Rodriguze MD | | | 2017 | Visit | | [address] | | | | | | [place], | | | | | | [place] [address] | | | | | | [phone] | | | | | | | [...]
[~2017-11-04 21:00] MED LIST: AMOXICILLIN875 MG PO; IBUPROFEN600 MG PO
[2017-11-04] MEDS ORDERED: HYDROMORPHONE HC2 MG PO (21:13)
[2017-11-04] MEDS ORDERED: TYLENOL325 MG PO (21:14)
[2017-11-04] MEDS ORDERED: NAPROXEN500 MG PO (22:48)
[2018-01-26] MEDS ORDERED: PERCOCET 10-321 EACH PO (12:14)
== END 2017-11-04 23:03 | disposition home or self-care (01) ==
LOC: ED 21:00
DX: I80.8 Phlebitis and thrombophlebitis of other sites (principal); Z88.5 Allergy status to narcotic agent; Z91.038 Other insect allergy status; Z91.030 Bee allergy status
CPT/HCPCS: 93971; 99284

== ENCOUNTER 2018-01-20 19:53 | Emergency (ER) | payer OTHER ==
[~2018-01-20] VITALS: Ht 182.9 cm; Wt 80.4 kg
--- OUTSIDE RECORDS SUMMARY | ~2018-01-20 | XMS | Encounter Summary ---
Demographics + + + | Address | [address] | | | [place] [address] | + + + | Home Phone | | + + + | Preferred Language | Unknown | + + + | Marital Status | Single | + + + | Yarsani Affiliation | NON | + + + | Race | White | + + + | Ethnic Group | Not or | + + + Author + + + | Author | [facility] | + + + | Organization | [facility] | + + + | Address | Unknown | + + + | Phone | Unavailable | + + + Support + + +---------+ + | Name | Relationship | Address | Phone | + + +---------+ + | JULI ALLEN | ECON | Unknown | | + + +---------+ + Care Team Providers + +------+ + | Care Organic Search Lead Name | Role | Phone | + +------+ + | Marlee Duarte MD | PCP | | + +------+ + Reason for Visit + + + | Reason | Comments | + + + | Postoperative visit | | + + + Encounter Details +--------+---------+ + + + | Date | Type | Department | Care Team | Description | +--------+---------+ + + + | 12/31/ | Office | Digestive Health | Constantino Burleson, | Recurrent ventral | | 2018 | Visit | Center at [facility] | [address] | hernia with | | | | Floor [address] | [address] | incarceration | | | | [address] Mailcode: [id number] | [place], [place] | (Primary Dx) | | | | [facility] | [address] | | | | | and Healing, 6th | [phone] | | | | | floor [place], [place] | | | | | | [address] | | | | | | [phone] | | | +--------+---------+ + + + Social History + +-------+ +--------+------+ | Tobacco Use | Types | Packs/Day | Years | Date | | | | | Used | | + +-------+ +--------+------+ | Never Smoker | | | | | + +-------+ +--------+------+ + +---+---+---+ | Smokeless Tobacco: | | | | | Never Used | | | | + +---+---+---+ + + +---------+ + | Alcohol Use | Drinks/We | oz/Week | Comments | | | ek | | | + + +---------+ + | No | 0 | 0.0 | | | | Standard | | | | | drinks or | | | | | | | | | | equivalen | | | | | t | | | + + +---------+ + + + + | Sex Assigned at | Date Recorded | | | | + + + | Not on file | | + + + as of this encounter Last Filed Vital Signs + + + + | Vital Sign | Reading | Time Taken | + + + + | Blood Pressure | 145/81 | 12/31/2017 12:21 PM PDT | + + + + | Pulse | 97 | 12/31/2017 12:21 PM PDT | + + + + | Temperature | 36.8 C (98.3 F) | 12/31/2017 12:21 PM PDT | + + + + | Respiratory Rate | 18 | 12/31/2017 12:21 PM PDT | + + + + | Oxygen Saturation | 100% | 12/31/2017 12:21 PM PDT | + + + + | Inhaled Oxygen | - | - | | Concentration | | | + + + + | Weight | 88 kg (194 lb) | 12/31/2017 12:21 PM PDT | + + + + | Height | 182.9 cm (6') | 12/31/2017 12:21 PM PDT | + + + + | Body Mass Index | 26.31 | 12/31/2017 12:21 PM PDT | + + + + in this encounter Functional Status + + + + | Functional Status | Response | Date of Assessment | + + + + | Because of a physical, mental, or emotional | No | 10/15/2017 | | condition, do you have serious difficulty | | | | doing errands alone such as visiting the | | | | doctor? | | | + + + + + + + + | Cognitive Status | Response | Date of Assessment | + + + + | Because of a physical, mental, or emotional | No | 10/15/2017 | | condition, do you have serious difficulty | | | | concentrating, remembering, or making | | | | decisions? (5 years old or older) | | | + + + + as of this encounter Progress Notes Constantino Burleson MD - 12/31/2017 12:15 PM PDTFormatting of this note may be different fro m the original. GENERAL SURGERY POSTOP FOLLOW UP DATE OF VISIT: 12/31/2017 REASON FOR VISIT: 2 month postop check HISTORY: [place] is a(n) 37 y.o. male s/p Open ventral hernia repair with abdominal wall reconstruction using TAR component separation with cutaneous advancement flap bilatera lly (60 cm2) with 33 cm wide x 42 cm long Bard soft polypropylene mesh (trimmed 30x30 cm mes h rotated in a padmaja formation) and ex lap with extensive KAVYA on 10/09/17. During admission he developed a prolonged ileus, nausea, and vomiting. An NGT was placed, he was kept NPO an d started on TPN. He also had a perianal abscess seen on repeat CT for which he was started on IV antibiotics with Cipro and Flagyl. His n/v resolved and his NGT was removed and was di scharged on 10/23/17. He developed left arm swelling two weeks after having a PICC line removed, and had an US 11/04/17 showing a superficial vein thrombosis (see results below). He presents today for 2 month postop check. INTERVAL HISTORY: Since his last visit he has done well post op and has no major complain ts. Pain is mild, only requiring an occasional prescribed analgesic pill. he is tolerating PO without n/v and having non-bloody BMs. He reports some abdominal pain on the side with speed walking and has pain after a few steps when running. No drainage from wounds, and no fevers or chills. He denies any further troubles with his left arm. He has normal mobility, strength, and sen sation. Past Surgical History Procedure Laterality Date Pr biopsy/excision, lymph node(s) 1980 Laparoscopic total abdominal colectomy/end ileostomy 09/25/2006 Right shoulder arthroscopy 05/07/12 Exploratory laparotomy for blockage December 05, 2013 [place], Michael Laparoscopic cholecystectomy September, Open completion proctocolectomy, ileal j pouch-anal anastomosis, parastomal hernia repa ir 10/18/15 epidural side effects : had to have NG tube 2x Ileostomy takedown 01/17/2016 Open repair of ventral hernia 10/09/2017 Abdominal wall reconstruction with soft polypropylene mesh PHYSICAL EXAMINATION: BP 145/81 | Pulse 97 | Temp (Src) 36.8 C (98.3 F) (Oral) | RR 18 | Ht 1.829 m (6') | Wt 88 kg (194 lb) | SpO2 100% | BMI 26.31 kg/(m^2) ABDOMEN / SURGICAL SITE: Well healing midline laparotomy scar, no erythema or drainage. Th ere is some palpable midline scar ridge with some thicker deeper scaring in the infraumbilic al region. No fluctuance to suggest seroma. IMAGING: IMPRESSION: 37 y.o. male s/p Open ventral hernia repair with abdominal wall reconstructio n using TAR component separation with cutaneous advancement flap bilaterally with mesh and e x lap with extensive KAVYA, healing and overall doing well postop. No signs of infection and n o signs of hernia recurrence. PLAN: Continue to restrict heavy lifting to <25 lbs for 1 more month. While I encouraged him to increase his activity level overall, I counseled him to reduce physical activity if he ex periences any abdominal pain or symptoms. 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 If possible he should avoid strenuous exercises lifting <25 lbs and if he experience any pain/abdominal discomfort then stop that activity. Abdominal binder for comfort and with ambulation. He can use a T-shirt underneath his bi nder to prevent chaffing. OK to submerge midline wounds (pool/tub/bath). Follow up 1 year postop, or sooner if any questions or concerns. I, Sameer Alanis, am functioning as a scribe for Constantino Burleson MD. ATTENDING ATTESTATION: I have reviewed and verified the above scribed note of my visit with this patient as record ed by Sameer Alanis. CONSTANTINO BURLESON MD [facility] FLOOR [address] Mailcode: [place] [address] in this encounter Plan of Treatment +--------+---------+ + + + | Date | Type | Specialty | Care Team | Description | +--------+---------+ + + + | 04/05/ | Office | Surgery | Liz Rodriguez MD | | | 2017 | Visit | | [address] | | | | | | [place], | | | | | | [place] [address] | | | | | | [phone] | | | | | | | | +--------+---------+ + + + | 01/06/ | Office | Surgery | Constantino Burleson, | | | 2018 | Visit | | [address] | | | | | | [address] | | | | | | [place], [place] | | | | | | [address] | | | | | | [phone] | | | | | | | | +--------+---------+ + + + as of this encounter Visit Diagnoses + + | Diagnosis | + + | 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
--- OUTSIDE RECORDS SUMMARY | ~2018-01-20 | XMS | Encounter Summary ---
Demographics + + + | Address | [address] | | | [place] [address] | + + + | Home Phone | | + + + | Preferred Language | Unknown | + + + | Marital Status | Single | + + + | Anabaptist Affiliation | NON | + + + | Race | White | + + + | Ethnic Group | Not or | + + + Author + + + | Author | [facility] | + + + | Organization | [facility] | + + + | Address | Unknown | + + + | Phone | Unavailable | + + + Support + + +---------+ + | Name | Relationship | Address | Phone | + + +---------+ + | JULI ALLEN | ECON | Unknown | | + + +---------+ + Care Team Providers + +------+ + | Care Chief Mate Name | Role | Phone | + +------+ + | Marlee Duarte MD | PCP | | + +------+ + Reason for Visit + + + | Reason | Comments | + + + | Medical Records | | | Review | | + + + Encounter Details +--------+ + + + + | Date | Type | Department | Care Team | Description | +--------+ + + + + | 11/06/ | Abstract | Digestive Health | Constantino Romero, | Medical Records | | 2018 | | Center at [facility] 6[facility] | [address] | Review | | | | Floor [address] | [address] [facility] | | | | | [place] Mailcode: [address] | [place], [place] | | | | | [facility] | [address] | | | | | and [place]ela, [facility] | [phone] | | | | | floor [place], [place] | | | | | | [address] | | | | | | [phone] | | | +--------+ + + + + Social History + +-------+ [...] + + + as of this encounter Functional Status + + + [...] | | | | | [address] [place], | | | | | | [place] [address] | | | | | | [phone] | | | | | | | | +--------+---------+ + + + | 01/06/ | Office | Surgery | Constantino Romero, | | | 2018 | Visit | | [address] | | | | | | [address] | | | | | | [place], [place] | | | | | | [address] | | | | | | [phone] | | | | | | | | +--------+---------+ + + + as of this encounter Visit Diagnoses Not on filein this encounter"
--- OUTSIDE RECORDS SUMMARY | ~2018-01-20 | XMS | Encounter Summary ---
Demographics + + + | Address | [address] | | | [place] [address] | + + + | Home Phone | | + + + | Preferred Language | Unknown | + + + | Marital Status | Single | + + + | Sikh Affiliation | NON | + + + | Race | White | + + + | Ethnic Group | Not or | + + + Author + + + | Author | [facility] | + + + | Organization | [facility] | + + + | Address | Unknown | + + + | Phone | Unavailable | + + + Support + + +---------+ + | Name | Relationship | Address | Phone | + + +---------+ + | JULI ALLEN | ECON | Unknown | | + + +---------+ + Care Team Providers + +------+ + | Care Speed Operator Name | Role | Phone | + [...] | 2018 | Visit | Center at [facility] 6[facility] | [address] | hernia with | | | | Floor [address] | [address] | incarceration | | | | [address] Mail[address]: [address] | [place], [place] | (Primary Dx) | | | | [facility] | [address] | | | | | and Healing, 6th | [phone] | | | | | floor [place], [place] | | | | | | [address] | | | | | | [phone] | | | +--------+---------+ + + + [...] Exploratory laparotomy for blockage December 05, 2013 [place], Michael Laparoscopic cholecystectomy September, Open completion proctocolectomy, [...] CONSTANTINO BURLESON MD [facility] 6TH FLOOR [address] Mailcode: [place] [address] in this encounter Plan of Treatment +--------+---------+ + + + | Date | Type | Specialty | Care Team | Description | +--------+---------+ + + + | 04/05/ | Office | Surgery | Liz Rodriguez MD | | | 2017 | Visit | | [address] | | | | | | [place], | | | | | | [place] [address] | | | | | | [phone] | | | | | | | | +--------+---------+ + + + | 01/06/ | Office | Surgery | Constantino Burleson, | | | 2018 | Visit | | [address] | | | | | | [address] | | | | | | [place], [place] | | | | | | [address] | | | | | | [phone] | | | | | | | | +--------+---------+ + + + as of this encounter Visit Diagnoses + + | Diagnosis | + + | 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
--- OUTSIDE RECORDS SUMMARY | ~2018-01-20 | XMS | Clinical Summary ---
Demographics + + + | Address | [address] | | | [place] [address] | + + + | Home Phone | | + + + | Preferred Language | Unknown | + + + | Marital Status | Single | + + + | Jainism Affiliation | NON | + + + | Race | White | + + + | Ethnic Group | Not or | + + + Author + + + | Author | NON REVENUE LOCATIONS | + + + | Organization | NON REVENUE LOCATIONS | + + + | Address | Unknown | + + + | Phone | Unavailable | + + + Support + + +---------+ + | Name | Relationship | Address | Phone | + + +---------+ + | JULI ALLEN | ECON | Unknown | | + + +---------+ + Care Team Providers + +------+ + | Care Shaping Machine Tender Name | Role | Phone | + +------+ + | Marlee Duarte MD | PP | | + +------+ + Source Comments JEREMY is fully live on both [facility] and [facility] Allergies + + + + + + | Active Allergy | Reactions | Severity | Noted | Comments | | | | | Date | | + + + + + + | Bee Pollen | Bronchospasm, | High | 05/10/20 | | | | Wheez/Dyspnea | | 07 | | + + + + + + | Morphine | Arthralgia | | 10/01/19 | Reaction is pain | | | | | 16 | to the back of neck. | + + + + + + Current Medications + + +--------+---------+------+------+-------+ | Prescription | Sig. | Disp. | Refills | Star | End | Statu | | | | | | t | Date | s | | | | | | Date | | | + + +--------+---------+------+------+-------+ | calcium carbonate | Chew and swallow 1 | | | 01/2 | | Activ | | chewable 200 mg | tablet every two | | | 6/20 | | e | | elemental (500 mg | hours as needed. | | | 18 | | | | total salt) oral | | | | | | | | tablet,chewable | | | | | | | + + +--------+---------+------+------+-------+ | acetaminophen 500 | Take 2 tablets by | 100 | 3 | 01/2 | | Activ | | mg oral tablet | mouth every six | tablet | | 6/20 | | e | | | hours. | | | 18 | | | + + +--------+---------+------+------+-------+ | HYDROmorphone 2 mg | Take 1 to 2 tablets | 60 | 0 | 01/ | | Activ | | oral tablet | by mouth every three | tablet | | 6/20 | | e | | | hours as needed for | | | 18 | | | | | moderate pain. | | | | | | + + +--------+---------+------+------+-------+ Active Problems + + + | Problem | Noted Date | + + + | Left arm pain | 11/04/2017 | + + + | Postoperative ileus (HCC) | 10/23/2017 | + + + | Perianal abscess | 10/23/2017 | + + + | Moderate protein-calorie malnutrition (HCC) | 10/23/2017 | + + + | Hypokalemia | 10/23/2017 | + + + | Recurrent ventral hernia with incarceration | 07/28/2017 | + + + | Parastomal hernia without obstruction or gangrene | 10/01/2015 | + + + | Severe chronic ulcerative colitis (HCC) | 05/10/2007 | + + + | Parastomal hernia | | + + + | Fulminant ulcerative colitis (HCC) | | + + + | Bowel obstruction | | + + + Encounters +--------+ + + + + | Date | Type | Specialty | Care Team | Description | +--------+ + + + + | 01/14/ | Telephone | | Constantino Romero, | Disability Paperwork | | 2018 | | | MD | | +--------+ + + + + | 04/05/ | Office | | Constantino Romero, | Recurrent ventral | 2017 | Visit | | MD | hernia with | | | | | | incarceration | | | | | | (Primary Dx) | +--------+ + + + + | 12/22/ | Telephone | | Constantino Romero, | | 2017 | | | MD | | +--------+ + + + + | 11/06/ | Abstract | | Constantino Romero, | Medical Records | | 2017 | | | MD | Review | +--------+ + + + + | 11/04/ | Telephone | | Constantino Romero, | Other ( left on | 2017 | | | MD | [facility] line 11/04/17 at | | | | | | 1018 am) | +--------+ + + + + | 10/28/ | Telephone | | Constantino Romero, | Scheduling | | 2017 | | | MD | | +--------+ + + + + | 10/23/ | Pharmacy | | | | | 2017 | Visit | | | | +--------+ + + + + | 10/09/ | Hospital | | Constantino Romero, | | | 2017 - | Encounter | | MD | | | | | | | | | 10/23/ | | | | | | 2017 | | | | | +--------+ + + + + +---+ + | | Discharge | | | Summaries | | | - Tyler, | | | Aniket, | | | DO - | | | 10/23/2017 | | | 12:38 PM | | | PST | | | Formatting | | | of this | | | note may be | | | different | | | from the | | | original. | | | [facility] | | | [facility] | | | [facility] | | | reen | | | Surgery | | | TeamInpatie | | | nt | | | Discharge | | | SummaryBenj | | | juan manuel Scott, | | | DOAttending | | | Physician: | | | Constantino | | | Nick | | | Author: | | | Aniket | | | Tyler, | | | DOAttending | | | Physician: | | | Constantino | | | Nick | | | MDPCP: | | | Keerti | | | MD Gerald | | | Admission | | | Date: | | | 10/09/2017Di | | | scharge | | | Date: 26 | | | Sep 2017 | | | 5:58 PM | | | Diagnoses | | | Principal | | | Final | | | Diagnosis: | | | 1. | | | Recurrent | | | Ventral | | | Hernias | | | with | | | Incarcerati | | | onAdditiona | | | l | | | Diagnoses:1 | | | . | | | Ulcerative | | | colitis | | | with | | | ileoanal | | | anastomosis | | | 2. | | | Postoperati | | | ve nausea | | | and | | | vomiting3. | | | Hypokalemia | | | 4. | | | Postoperati | | | ve ileus5. | | | Protein-pradeep | | | orie | | | malnutritio | | | n6. | | | Intractable | | | hiccups7. | | | Perianal | | | abscessProc | | | edures 1. | | | Myofascial | | | cutaneous | | | flap | | | advancement | | | on the | | | right | | | (TAR). 2. | | | Myofascial | | | cutaneous | | | flap | | | advancement | | | on the | | | left | | | (partial | | | TAR).3. | | | Open repair | | | of | | | recurrent | | | incarcerate | | | d ventral | | | hernia.4. | | | Implantatio | | | n of a | | | large mesh | | | prosthetic. | | | 5. | | | Cutaneous | | | advancement | | | flap on | | | the right | | | (60 cm2). | | | 6. | | | Cutaneous | | | advancement | | | flap on | | | the | | | left.(60 | | | cm2). 7. | | | Exploratory | | | laparotomy | | | with | | | extensive | | | lysis of | | | adhesions | | | (modifier-2 | | | 2 | | | requested). | | | Brief | | | Hospital | | | Course Mr | | | Curtain is | | | a 36 y.o. | | | Male with | | | history of | | | ulcerative | | | colitis | | | with | | | multiple | | | prior | | | abdominal | | | surgeries, | | | most | | | recently | | | including | | | ileostomy | | | takedown | | | and primary | | | repair of | | | parastomal | | | hernia. | | | He present | | | s with | | | recurrent | | | incarcerate | | | d right | | | ventral | | | hernia as | | | well as | | | incarcerate | | | d umbilical | | | incisional | | | hernias. | | | He was | | | admitted on | | | 10/09/17 | | | for repair | | | of large | | | recurrent | | | ventral | | | hernia. He | | | tolerated | | | the | | | procedure | | | well, was | | | admitted to | | | [facility] | | | surgery | | | post | | | operatively | | | for | | | ongoing | | | management. | | | His post | | | operative | | | course was | | | complicated | | | by | | | prolonged | | | ileus, | | | nausea and | | | vomiting. | | | NGT was | | | placed, | | | patient was | | | made NPO, | | | started on | | | TPN. A | | | repeat CT | | | on 10/19/17 | | | was | | | remarkable | | | for a small | | | ~1.5 cm | | | perianal | | | abscess. | | | Patient was | | | started on | | | IV | | | antibiotics | | | with cipro | | | and | | | flagyl. He | | | responded | | | well with | | | resolving | | | leukocytosi | | | s. He had | | | return of | | | bowel | | | function. | | | Nausea and | | | vomiting | | | improved | | | with | | | scheduled | | | Reglan. NGT | | | removed, | | | elpidio | | | removed. | | | Patient | | | tolerating | | | regular | | | diet and | | | taking in | | | adequate | | | calories | | | without | | | issues. | | | He will | | | be | | | discharge | | | today in | | | stable | | | condition. | | | Instruction | | | s to follow | | | up with | | | Dr. | | | Nick | | | in clinic | | | in two | | | weeks. | | | Pathology | | | : | | | NoneMedicat | | | ions: | | | Medication | | | List START | | | taking | | | these | | | medications | | | | | | acetaminoph | | | en 500 mg | | | TabCommonly | | | known as: | | | | | | TYLENOLTake | | | 2 tablets | | | by mouth | | | every six | | | hours. | | | baclofen 10 | | | mg | | | TabCommonly | | | known as: | | | | | | LIORESALTak | | | e 1 tablet | | | by mouth | | | two times | | | daily for | | | 14 days. | | | Indications | | | : | | | intractable | | | hiccups | | | calcium | | | carbonate | | | chewable | | | 200 mg | | | elemental | | | (500 mg | | | total salt) | | | | | | ChewCommonl | | | y known as: | | | TUMSChew | | | and swallow | | | 1 tablet | | | every two | | | hours as | | | needed. | | | ciprofloxac | | | in HCl 500 | | | mg | | | TabCommonly | | | known as: | | | CIPROTake | | | 1 tablet by | | | mouth two | | | times daily | | | for 4 | | | days. | | | Indications | | | : abdominal | | | infection | | | HYDROmorpho | | | ne 2 mg | | | TabCommonly | | | known as: | | | | | | DILAUDIDTak | | | e 1 to 2 | | | tablets by | | | mouth every | | | three | | | hours as | | | needed for | | | moderate | | | pain. | | | metoclopram | | | carlos HCl 5 | | | mg | | | TabCommonly | | | known as: | | | REGLANTake | | | 1 tablet | | | by mouth | | | every six | | | hours for 5 | | | days. | | | Indications | | | : prolonged | | | nausea and | | | vomiting. | | | metroNIDAZO | | | LE 500 mg | | | TabCommonly | | | known as: | | | FLAGYLTake | | | 1 tablet | | | by mouth | | | three times | | | daily for | | | 4 days. | | | Wound Care | | | Keep your | | | incision | | | clean and | | | dry. | | | Shower | | | daily with | | | antibacteri | | | al soap, | | | pat the | | | incision, | | | let the | | | shower | | | water rinse | | | off the | | | incision | | | and pat | | | dry. Diet | | | Regular | | | Regular | | | diet- There | | | are no | | | restriction | | | s to your | | | diet. You | | | may eat or | | | drink | | | whatever | | | you prefer, | | | though | | | healthy | | | food | | | choices are | | | | | | recommended | | | . Activity | | | SURGERY | | | DISCHARGE | | | INSTRUCTION | | | S DIET: | | | Resume your | | | normal | | | pre-operati | | | ve diet, | | | however it | | | is | | | advisable | | | to eat a | | | light diet | | | for a day | | | or two | | | following | | | surgery. | | | It is | | | normal to | | | have a | | | decreased | | | appetite | | | for several | | | days after | | | surgery. | | | Many | | | patients | | | find that | | | eating | | | multiple | | | small meals | | | after | | | surgery is | | | easier than | | | trying to | | | eat 3 large | | | meals. | | | ACTIVITY: | | | Resume your | | | normal | | | daily | | | pre-operati | | | ve | | | activities. | | | It is OK, | | | and even | | | encouraged, | | | to do some | | | light | | | activity | | | such as | | | walking | | | following | | | surgery. | | | There are | | | no | | | recommended | | | | | | restriction | | | s after | | | surgery, | | | however if | | | you lift | | | something | | | and your | | | surgical | | | wounds and | | | areas of | | | repair | | | hurt, then | | | please stop | | | performing | | | that | | | activity | | | (e.g. | | | Bending | | | over to | | | lift a | | | child, box, | | | etc). If | | | you | | | normally | | | perform | | | strenuous | | | activity | | | including | | | activities | | | such weight | | | lifting, | | | chopping | | | wood, or do | | | any | | | significant | | | lifting at | | | work, you | | | should stop | | | these | | | activities | | | should | | | until | | | cleared by | | | your doctor | | | at time of | | | followup. | | | You will | | | return to | | | your | | | preoperativ | | | e activity | | | level, but | | | try to not | | | exhaust | | | yourself | | | while | | | healing. If | | | taking | | | narcotic | | | pain | | | medicine | | | (e.g. | | | Oxycodone, | | | Percocet, | | | Hydrocodone | | | , Vicodin) | | | you cannot | | | drive or | | | operate | | | machinery, | | | as these | | | medicines | | | may make | | | you drowsy | | | and lose | | | concentrati | | | on. Your | | | reaction | | | time and | | | judgement | | | will be | | | impaired, | | | just as | | | though you | | | were | | | intoxicated | | | . WOUND | | | CARE: You | | | have one of | | | two types | | | of | | | coverings | | | over your | | | surgical | | | incisions: | | | either a | | | special | | | surgical | | | glue or | | | steri-strip | | | s with a | | | covered | | | dressing. | | | If you | | | received | | | Dermabond | | | surgical | | | glue over | | | your | | | incisions | | | it will | | | start to | | | fall off | | | naturally | | | and | | | eventually | | | flake off; | | | there are | | | no outer | | | dressings | | | to remove. | | | If you | | | received | | | steri-strip | | | s, there | | | will be an | | | outer | | | dressing | | | with gauze | | | & tape or | | | clear | | | Tegaderm. | | | The outer | | | dressing | | | should be | | | removed in | | | 48 hours, | | | but leave | | | the | | | steri-strip | | | s on. The | | | steri-strip | | | s will | | | remain on | | | until they | | | start to | | | curl off on | | | the ends. | | | After they | | | start to | | | curl | | | (~10-14 | | | days), it | | | is ok to | | | gently | | | tease them | | | off your | | | skin.Shower | | | : When your | | | dressing | | | is removed | | | in 48 | | | hours, you | | | may shower | | | regularly | | | and allow | | | soapy water | | | to wash | | | over your | | | incision(s) | | | . Pat them | | | dry; do not | | | scrub. | | | Baths: Do | | | not | | | submerge | | | your | | | incisions | | | (tub/pool/b | | | ath) for at | | | least 7 | | | days. | | | Rubbing/Irr | | | itation: If | | | clothes | | | rub your | | | incision, | | | we | | | recommend | | | covering | | | with loose | | | gauze or a | | | band-aid | | | after your | | | outer | | | dressing | | | has been | | | removed. | | | Sunscreen: | | | Protection | | | of a recent | | | incision | | | from the | | | sun is | | | preferable | | | for the | | | first 6 | | | months, | | | otherwise | | | the scar | | | tissue may | | | darken | | | abnormally. | | | Using | | | sunblock | | | over | | | incisions | | | reduces | | | this | | | cosmetic | | | concern. | | | Lotions/Cre | | | ams: Do not | | | use other | | | lotions, | | | creams or | | | ointments | | | on incision | | | unless | | | directed to | | | do so by | | | your | | | physician. | | | MEDICATIONS | | | : Resume | | | all your | | | normal | | | pre-operati | | | ve | | | medications | | | . If you | | | were on | | | high-dose | | | aspirin | | | (324 mg), | | | it is ok to | | | restart | | | that in 1 | | | week. If | | | you were on | | | baby-dose | | | aspirin (81 | | | mg), it is | | | ok to | | | continue | | | that | | | medication. | | | Pain | | | Medications | | | : | | | Acetaminoph | | | en | | | (Tylenol) | | | and | | | ibuprofen | | | (Advil, | | | Motrin) can | | | be very | | | effective | | | for | | | post-operat | | | oswaldo pain. | | | As long as | | | you don't | | | have | | | allergies | | | or | | | sensitiviti | | | es to these | | | | | | medications | | | you may | | | take 650mg | | | of | | | acetaminoph | | | en and | | | 400mg | | | ibuprofen | | | every 6 | | | hours. | | | Stagger | | | them every | | | 3 hours for | | | better | | | pain | | | control. | | | Take | | | ibuprofen | | | with food | | | and limit | | | its use to | | | one week, | | | as it can | | | irritate | | | your | | | stomach. | | | If you | | | still | | | experience | | | significant | | | | | | post-operat | | | oswaldo pain, | | | then you | | | may take | | | the | | | prescribed | | | narcotic-op | | | ioid (e.g. | | | oxycodone, | | | hydrocodone | | | , Vicodin, | | | Mico, | | | Percocet, | | | Dilaudid) | | | as needed. | | | However, | | | | | | Vicodin/Nor | | | co and | | | Percocet | | | contain | | | acetaminoph | | | en in the | | | pill itself | | | so be sure | | | to take | | | EITHER | | | Vicodin/Per | | | cocet OR | | | Tylenol | | | (Acetaminop | | | hen), not | | | both at the | | | same time. | | | Opioid | | | pain | | | medications | | | may cause | | | constipatio | | | n, so be | | | sure to | | | take a | | | stool | | | softener if | | | you take | | | an opioid | | | pain | | | medication. | | | | | | Swelling/Pa | | | in: In | | | addition to | | | pain | | | medications | | | , you | | | should | | | apply an | | | ice pack or | | | bag of | | | frozen peas | | | in a thin | | | cloth for | | | the next 48 | | | hours. | | | Place this | | | over the | | | bandaged | | | incision | | | and the | | | area of | | | surgery | | | (e.g. groin | | | regions) | | | for about | | | 20-30 | | | minutes at | | | a time. | | | This will | | | help to | | | numb the | | | area and | | | reduce | | | swelling, | | | however it | | | does not | | | hasten | | | healing. | | | CONSTIPATIO | | | N: | | | Narcotic-op | | | ioid pain | | | medications | | | (e.g. | | | oxycodone, | | | hydrocodone | | | , Vicodin, | | | Mico, | | | Percocet, | | | Dilaudid) | | | can be | | | constipatin | | | g, | | | therefore | | | you should | | | take a | | | stool | | | softener on | | | the same | | | day as | | | starting | | | your | | | narcotic | | | pain | | | medicine. | | | Options | | | include:Mil | | | k of | | | Magnesia: 2 | | | | | | Tablespoons | | | Twice | | | dailyColace | | | | | | (=Docusate) | | | : 1 pill | | | Twice | | | dailyWhile | | | these are | | | some | | | recommendat | | | ions, any | | | over-the-co | | | unter stool | | | softener | | | should | | | work, and | | | generics | | | are fine to | | | use. | | | Increase | | | your | | | fluids, | | | especially | | | your intake | | | of water | | | Increase | | | your | | | activity. | | | Walk | | | frequently. | | | CALL MD: | | | Please call | | | your | | | surgeon if | | | you | | | experience | | | persistent | | | pain not | | | controlled | | | with | | | medications | | | , | | | persistent | | | nausea or | | | vomiting, | | | chest pain, | | | difficulty | | | breathing, | | | or | | | drainage/re | | | dness from | | | the wound. | | | If you are | | | concerned | | | about any | | | aspect of | | | your | | | postoperati | | | ve course, | | | please call | | | Dr. | | | Nick's | | | office | | | [phone] | [phone]), | | | especially | | | if you are | | | considering | | | going to | | | an | | | Emergency | | | Room. | | | FOLLOW-UP: | | | Please call | | | Dr. | | | Nick's | | | office | | | ( | | | [phone]) to | | | schedule a | | | follow-up | | | appointment | | | for 2 | | | weeks after | | | | | | discharge.C | | | ondition on | | | Discharge | | | Stable | | | Future | | | Appointment | | | s | | | Provider | | | Department | | | Dept Phone | | | Center | | | 10/29/2017 | | | 12:00 PM | | | [facility] | | | [facility] | | | [facility] | | | [facility] | | | [facility] at | | | [facility] | | | Floor | | | [phone] | | | [facility] | | | Health | | | 04/05/2018 | | | 1:40 PM Liz | | | [facility] | | | [facility] | | | Health | | | Center at | | | [facility] | | | Floor | | | [phone] | | | [address] [facility] | | | Health | | | Schedule | | | the | | | following | | | appointment | | | (s) when | | | you get | | | home | | | Keerti | | | MD Gerald . | | | | | | Specialty: | | | Internal | | | [facility] | | | tact | | | information | | | [place] | | | Medical | | | [id number] | | | [place] | | | [place] | | | [place] | | | [phone] | | [phone] | | | Physical | | | Exam:Vital | | | Signs at | | | discharge: | | | Ht 1.829 m | | | (6' 0.01"), | | | Wt 88 kg | | | (194 lb 0.1 | | | oz), BP | | | 130/77, | | | Pulse 83, | | | Temperature | | | 36.6 C | | | (97.9 F), | | | RR 18, | | | SpO2 100%, | | | BMI 26.31 | | | kg/(m^2). | | | General: | | | comfortable | | | , NAD | | | Respiratory | | | : unlabored | | | | | | breathingCa | | | rdio: Mild | | | regular | | | tachycardia | | | Abdomen: | | | soft, | | | nontender, | | | Incision | | | clean dry | | | and intact. | | | Wearing | | | abd binder, | | | mildly | | | distended. | | | Elpidio | | | out, steri | | | strips | | | placed. | | | Minimal | | | drainage | | | from | | | superior | | | aspect of | | | incision, | | | mild | | | erythema. | | | Extremities | | | : WWP, no | | | edema | | | Mental | | | status: | | | awake and | | | alertDrain: | | | | | | removedOuts | | | tanding | | | labs/studie | | | s: NoneWhen | | | to Call: | | | Please call | | | [facility] | | | Surgery | | | clinic | | | [phone] | | [phone]) or the | | | [facility] | | | acid operator | | | [phone] | | [phone] | | | after hours | | | and ask | | | for the | | | [facility] | | | Surgery | | | Physician | | | Jewelry Cutter, | | | Nurse or | | | Surgery | | | Resident on | | | call if | | | you have | | | any of the | | | followin | | | . | | | Difficulty | | | breathing | | | or unusual | | | shortness | | | of breath2. | | | Excessive | | | bleeding, | | | drainage, | | | redness | | | and/or | | | swelling at | | | the | | | operative | | | site3. | | | Fevers | | | (>101.5), | | | chills, | | | increased | | | pain that | | | is not | | | relieved by | | | pain | | | medications | | | 4. | | | Persistent | | | nausea or | | | vomitingDis | | | charging | | | Physician: | | | Aniket | | | Tyler, | | | DOAttending | | | Physician: | | | Constantino | | | Nick | | | MDBenjamin | | | Tyler, | | | DOOHSU | | | Surgery | | | [phone] | | | [phone] Pager# | | | [phone] | | | [phone] | | [address] | | | [address] | | | [place], | | | [place] | | | [phone] | | [phone] | [phone]+ + from Last 3 Months Family History + + +------+ + | Medical History | Relation | Name | Comments | + + +------+ + | GI | Maternal | | diverticulitis | | | Grandmoth | | | | | er | | | + + +------+ + | Cancer | Mother | | no colorectal polyps or cancer in family | + + +------+ + | GI | Mother | | no IBD in family | + + +------+ + | Heart Disease | Mother | | pericarditis | + + +------+ + | Non-contributory | Mother | | pericarditis | + + +------+ + + +------+--------+ + | Relation | Name | Status | Comments | + +------+--------+ + | Maternal Grandmother | | | | + +------+--------+ + | Mother | | | | + +------+--------+ + Social History + +-------+ +--------+------+ | Tobacco Use | Types | Packs/Day | Years | Date | | | | | Used | | + +-------+ +--------+------+ | Never Smoker | | | | | + +-------+ +--------+------+ + +---+---+---+ | Smokeless Tobacco: | | | | | Never Used | | | | + +---+---+---+ + + | Tobacco Cessation: Counseling Given: Yes | + + + + +---------+ + | Alcohol Use [...] on file | | + + + Last Filed Vital Signs + + + [...] PM PDT | + + + + Plan of Treatment +--------+---------+ + + + | Date | Type | Specialty | Care Team | Description | +--------+---------+ + + + | 04/05/ | Office | | Liz Rodriguez MD | | | 2017 | Visit | | [address] | | | | | | [place], | | | | | | [place] [address] | | | | | | [phone] | | | | | | | | +--------+---------+ + + + | 01/06/ | Office | | Constantino Romero, | | | 2018 | Visit | | [address] | | | | | | [address] | | | | | | [place], [place] | | | | | | [address] | | | | | | [phone] | | | | | | | | +--------+---------+ + + + + + + + + | Health Maintenance | Due Date | Last Done | Comments | + + + + + | INFLUENZA VACCINE | | | | | (FLU SHOT) | 8 | | | + + + + + Implants + +------+--------+ +--------+--------+--------+ | Implanted | Type | Area | Manufacture | Device | Expira | Model | | | | | r | | tion | / | | | | | | Identi | Date | Serial | | | | | | fier | | / Lot | + +------+--------+ +--------+--------+--------+ | Mesh Surgical Vicryl 6x6in | | N/A: | CHERELLE & | | 06/27/ | [id number] / | | Absorbable Sterile | | Abdome | CHERELLE | | 2020 | / | | Polyglactin [address] | | n | ETHICON | | | [id number] | | Hernia Repair - | | | | | | | | [id number]: Qty: 1 on | | | | | | | | 10/09/2017 by Nick, | | | | | | | | Constantino Dunaway MD | | | | | | | + +------+--------+ +--------+--------+--------+ | Mesh Surgical Bard [id number] | | N/A: | BARD | | 08/27/ | [id number] | | Hernia Soft Lightweight Low | | Abdome | | | 2019 | 6 / | | Profile [employer] | | n | | | | /[id number] | | [employer] - | | | | | | 029 | | [id number]: Qty: 1 on | | | | | | | | 10/09/2017 by Nick, | | | | | | | | Constantino Dunaway MD | | | | | | | + +------+--------+ +--------+--------+--------+ Results CAPILLARY BLOOD GLUCOSE (NO CHG), POC (10/23/2017 7:49 AM)Only the most recent of 6 result s within the time period is included. + +-------+ + | Component | Value | Ref Range | + +-------+ + | BLOOD GLUCOSE, POC | 97 | 70 - 99 mg/dL | + +-------+ + + + + | Specimen | Performing Laboratory | + + + | | [facility], POINT OF CARE TESTS [address] | | | [place] [address] | + + + CBC (HEMOGRAM) ONLY [...] | + + + | Blood | [facility], [address] | | | [place] [address] | + + + CBC ONLY (10/22/2017 4:22 AM) + + + | Specimen | Performing Laboratory | + + + | Blood | | + + + + + | Narrative | + + | The following orders were created for panel order CBC ONLY. | | Procedure | | Abnormality Status | | --------- | | ------ CBC (HEMOGRAM) | | ONLY[[id number]] Abnormal Final | | result Please view results for these tests on the | | individual orders. | + + from Last 3 Months
--- OUTSIDE RECORDS SUMMARY | ~2018-01-20 | XMS | Encounter Summary ---
Demographics + + + | Address | [address] | | | [place] [address] | + + + | Home Phone | | + + + | Preferred Language | Unknown | + + + | Marital Status | Single | + + + | Latter Day Affiliation | NON | + + + | Race | White | + + + | Ethnic Group | Not or | + + + Author + + + | Author | [facility] | + + + | Organization | [facility] | + + + | Address | Unknown | + + + | Phone | Unavailable | + + + Support + + +---------+ + | Name | Relationship | Address | Phone | + + +---------+ + | JULI ALLEN | ECON | Unknown | | + + +---------+ + Care Team Providers + +------+ + | Care Manager Aerospace Name | Role | Phone | + +------+ + | Marlee Duarte MD | PCP | | + +------+ + Reason for Visit + + + | Reason | Comments | + + + | Disability Paperwork | | + + + Encounter Details +--------+ + + + + | Date | Type | Department | Care Team | Description | +--------+ + + + + | 01/14/ | Telephone | Digestive Health | Constantino Romero, | Disability Paperwork | | 2017 | | Center at [facility] | MD [address] | | | | | Floor [address] | [address] | | | | | [address] Mailcode: [email or web address] | [place], [place] | | | | | [facility] | [address] | | | | | and [address], [address] | [phone] | | | | | floor [place], [place] | | | | | | [address] | | | | | | [phone] | | | +--------+ + + + [...] | | | | | [address] [place], | | | | | | [place] [address] | | | | | | [phone] | | | | | | | | +--------+---------+ + + + | 01/06/ | Office | Surgery | Constantino Romero, | | | 2018 | Visit | | MD Donna Ashraf | | | | | | [address] | | | | | | [place] | | | | | | [address] | | | | | | [phone] | | | | | | | | +--------+---------+ + + + as of this encounter Visit Diagnoses Not on filein this encounter"
--- OUTSIDE RECORDS SUMMARY | ~2018-01-20 | XMS | Encounter Summary ---
Demographics + + + | Address | [address] | | | [place] [address] | + + + | Home Phone | | + + + | Preferred Language | Unknown | + + + | Marital Status | Single | + + + | Congregational Affiliation | NON | + + + | Race | White | + + + | Ethnic Group | Not or | + + + Author + + + | Author | [facility] | + + + | Organization | [facility] | + + + | Address | Unknown | + + + | Phone | Unavailable | + + + Support + + +---------+ + | Name | Relationship | Address | Phone | + + +---------+ + | JULI ALLEN | ECON | Unknown | | + + +---------+ + Care Team Providers + +------+ + | Care Premix Operator Concentrate Name | Role | Phone | + [...] | | 2017 | | Center at [facility] [address] | MD [address] | | | | | Floor [address] | [address] | | | | | [address] Mailcode: [email or web address] | [place], [place] | | | | | [facility] | [address] | | | | | and [address], [address] | [phone] | | | | | floor [place], [place] | | | | | | [address] | | | | | | [phone] | | | +--------+ + + + [...] | | | | | [address] [place], | | | | | | [place] [address] | | | | | | [phone] | | | | | | | | +--------+---------+ + + + | 01/06/ | Office | Surgery | Constantino Romero, | | | 2018 | Visit | | MD Donna Ashraf | | | | | | [address] | | | | | | [place] | | | | | | [address] | | | | | | [phone] | | | | | | | | +--------+---------+ + + + as of this encounter Visit Diagnoses Not on filein this encounter"
--- OUTSIDE RECORDS SUMMARY | ~2018-01-20 | XMS | Encounter Summary ---
Demographics + + + | Address | [address] | | | [place] [address] | + + + | Home Phone | | + + + | Preferred Language | Unknown | + + + | Marital Status | Single | + + + | Orthodox Affiliation | NON | + + + [...] Team Providers + +------+ + | Care Converter Operator Name | Role | Phone | [...] +--------+--------+ + + + + Encounter Details +--------+ + + + + | Date | Type | Department | Care Team | Description | +--------+ + + + + | 10/09/ | Hospital | [facility] [address] | Jaleesa Burleson, | | | 2017 - | Encounter | [address] | | | | | | [place] [address] | | | | 10/23/ | | [phone] | | | | 2017 | | [...] may be different from t erma original. [facility] Surgery Team Inpatient Discharge Summary Aniket Scott [...] the prescribed narcotic-opioid (e.g. oxycodone, hydrocodone, Vicodin, [place], Percocet, Dilaudid) as needed. However, Vicodin/[place] and Percocet contain acetam inophen in the [...] Narcotic-opioid pain medications (e.g. oxycodone, hydrocodone, Vicodin, [place], Percocet, Di laudid) can be constipating, therefore you should take a stool softener on the same day as s tarting your narcotic pain medicine. Options include: Milk of Magnesia: 2 Tablespoons Twice daily Colace (=Docusate): 1 pill Twice daily While these are some recommendations, any uyra-qph-riltmmy stool softener should work, and generics are [...] course, please call Dr Holger Burleson's office ([phone]), especially if you are considering going to an Emergency Room. FOLLOW-UP: Please call Dr. Burleson's office ([phone]) to schedule a follow-up appointment for 2 weeks after discharge. Condition on Discharge Stable Future Appointments Provider Department Dept Phone Center 10/29/2017 12:00 PM Jaleesa Burleson Digestive [facility] at [facility] 6th Floor [phone] Alina [facility] 04/05/2018 1:40 PM Liz Rodriguez Dig[facility] at [facility] 6th Floor [phone] [facility] Schedule the following appointment(s) when you get home Marlee Duarte MD . Specialty: Internal Medicine Contact information [facility] [address] [place] [address] Physical Exam: Vital Signs at discharge: Ht 1.829 m (6' 0.01"), Wt 88 kg (194 lb 0.1 oz), BP 130/77, Pulse 83, Temperature 36.6 C (97.9 F), RR 18, SpO2 100%, BMI 26.31 kg/(m^2). General: comfortable, NAD Respiratory: unlabored breathing Cardio: Mild regular tachycardia Abdomen: soft, nontender, Incision clean dry and intact. Wearing abd binder, mildly distend ed. Armbrust out, steri strips placed. Minimal drainage from superior aspect of incision, mil d erythema. Extremities: WWP, no edema Mental status: awake and alert Drain: removed Outstanding labs/studies: None When to Call: Please call [facility] ([phone]) or the [facility] tensioning machine operator after hours and ask for the [facility] Physician Radiology Director, Nurse or Surgery Resi dent call worker person if you have any of the followin. Difficulty breathing or unusual shortness of breath 2. Excessive bleeding, drainage, redness and/or swelling at the operative site 3. Fevers (>101.5), chills, increased pain that is not relieved by pain medications 4. Persistent nausea or vomiting Discharging Physician: Aniket Scott DO Attending Physician: Jaleesa Scott DO [facility] Surgery Pager# [phone] [place], [place] [phone] in this encounter Discharge Instructions Jenny Boyer [...] Physician: Jaleesa Burleson MD Patient: NEW [place]A [id number] 24H events/Subjective: -tolerating diet -continued BM -no [...] Mark Haynes MD General Surgery, R-3 pg. [id number] [facility] [place] Associated attestation - Jaleesa Burleson MD - [...] possible dc without TPN. Jaleesa Burleson MD [facility] [address] [place] [address] Aniket Scott DO - 10/21/2017 7:48 AM PSTFormatting of this note may be different from t he original. [facility] Progress Note Attending Physician: Jaleesa Burleson MD Patient: NEW LICEA [id number] 24H events/Subjective: -one episode of emesis yesterday [...] Dr. Nick MD. Jovanni Scott R1 Pg [id number] Associated attestation - Jaleesa Burleson MD - [...] in next couple days. Jaleesa Burleson MD [facility] [address] [place] [address] Mark Haynes MD - 10/20/2017 6:43 PM PSTGreen Surgery Rectal Exam: External anus without lesion, defect or erythema. Tone good, staple line intact, anastomosi s patent, no blood, nontender, no palpable fluid collection, or fluctuance. Mark Haynes MD General Surgery, R-3 pg. [id number] [facility] [place] KristineKylah, [facility] - 10/20/2017 6:16 AM PSTFormatting of this note may be different f rom the original. [facility] Progress Note Attending Physician: Jaleesa Burleson MD Patient: NEW LICEA [id number] 24H events/Subjective: -one episode of emesis yesterday [...] Bard soft mesh and Lysis of adhesions 1 POD#11 Abdominal Wall Reconstruction Comprehensive Care Pathway [...] PICC line placement and TPN today. Labs dra deras. -advance diet today -CT AP completed. Findings: [...] Mark Haynes MD General Surgery, R-3 pg. [id number] [facility] Kylah Casas, [facility] [address] [place] [address] Associated attestation - Jaleesa Burleson MD - 10/21/2017 7:44 AM PST ATTENDING ADDENDUM: I saw, examined, [...] -OK to remove drain. Jaleesa Burleson MD [facility] [address] [place] [address] Yessenia Kylah, [facility] - 10/19/2017 5:45 AM PSTFormatting of this note may be different f rom the original. [facility] Progress Note Attending Physician: Jaleesa Burleson MD Patient: NEW LICEA [id number] 24H events/Subjective: -one episode of emesis yesterday [...] perianal abscess. Dispo: TBD, pending nausea/vomiting control, ROBGautam The attending of record for this patient is Dr. Nick MD. Mark Haynes MD General Surgery, R-3 pg. [id number] [facility] [place] Kylah Casas [facility] [address] [place] [address] Associated attestation - Jaleesa Burleson MD - [...] TPN and PO intake. Jaleesa Burleson MD [facility] [address] [place] [address] Mark Haynes MD - 10/18/2017 11:11 AM PSTGreen Surgery Progress Note Attending Physician: Jaleesa Burleson MD Patient: NEW [place]A [id number] 24H events/Subjective: -one episode of emesis yesterday, [...] soft mesh and Lysis of adhesions 10/09/17 POD#9 Abdominal Wall Reconstruction Comprehensive Care Pathway [...] Mark Haynes MD General Surgery, R-3 pg. [id number] [facility] Associated attestation - Shawna Rahman MD [...] MD Division of Gastrointestinal and [place] [address] Office: [phone] Mark Haynes MD - 10/17/2017 4:12 PM PSTGreen Surgery Progress Note Attending Physician: Jaleesa Burleson MD Patient: NEW LICEA [id number] 24H events/Subjective: -NGT out yesterday evening -denies [...] setting of loose stool 7. Pain: Hydromorphone PLAYGROUND MONITOR - transition off today to po HM [...] and SSI -advance diet tonight, transition off PLAYGROUND MONITOR Dispo: TBD, pending nausea/vomiting control, ROBF The attending of record for this patient is Dr. Nick MD. Mark Haynes MD General Surgery, R-3 pg. [id number] [facility] Associated attestation - Shawna Rahman MD [...] MD Division of Gastrointestinal and General Surgery [address], [place] [address] Office: [phone] Mark Haynes MD - 10/16/2017 6:25 AM PSTGreen Surgery Progress Note Attending Physician: Jaleesa Burleson MD Patient: [place] [id number] 24H events/Subjective: -AF -Feeling better this am [...] setting of loose stool 7. Pain: Hydromorphone PLAYGROUND MONITOR - transition off when tolerating diet Acetaminophen [...] Dr. Nick MD. Jovanni Scott R1 Pg [id number] Mark Haynes MD General Surgery, R-3 pg. [phone] [facility] [place] Associated attestation - Jaleesa Burleson MD - [...] TPN, though will still attempt enteral nutrition. Jaelesa Burleson MD [facility] [address] [place] [address] Aniket Scott DO - 10/15/2017 6:07 AM PSTGreen Surgery Progress Note Attending Physician: Jaleesa Burleson MD Patient: [place]A [id number] 24H events/Subjective: -AF -episodes of nausea, w/bilious [...] setting of loose stool 7. Pain: Hydromorphone PLAYGROUND MONITOR - transition off today Acetaminophen 1000mg q6h [...] up KUB in 4 hours. -transitioned off PLAYGROUND MONITOR Dispo: TBD, pending nausea/vomiting control, ROBF The attending of record for this patient is Dr. Nick MD. Jovanni Scott R1 Pg [id number] Associated attestation - Jaleesa Burleson MD - [...] of contrast. Hold discharge. Jaleesa Burleson MD [facility] [address] [place] [address] Aniket Scott DO - 10/14/2017 8:28 AM PSTGreen Surgery Progress Note Attending Physician: Jaleesa Burleson MD Patient: [place] [id number] 24H events/Subjective: -AF/AGUILAR overnight -d/c'ed PLAYGROUND MONITOR yesterday, pain controlled -episodes of nausea, emesis [...] soft mesh and Lysis of adhesions 10/09/17 POD#5 Abdominal Wall Reconstruction Comprehensive Care Pathway [...] setting of loose stool 7. Pain: Hydromorphone PLAYGROUND MONITOR - transition off today Acetaminophen 1000mg q6h [...] WNL, stop checks and SSI -transitioned off PLAYGROUND MONITOR, now with ROBF Dispo: dc in 1-2 days with pain control and improved PO intake The attending of record for this patient is Dr. Nick MD. Jovanni Scott R1 Pg [phone] Associated attestation - Jaleesa Burleson MD - [...] net 24- 48 hours. Jaleesa Burleson MD [facility] [address] [place] [address] Aniket Scott, - 10/13/2017 6:20 AM PSTGreen Surgery Progress Note Attending Physician: Jaleesa Burleson MD Patient: [place] [id number] 24H events/Subjective: -AF/AGUILAR overnight -tolerating diet, still minimal PO -continues to have multiple small liquid BMs overnight -transition off PLAYGROUND MONITOR today Objective: BP 132/84 | Pulse 107 [...] setting of loose stool 7. Pain: Hydromorphone PLAYGROUND MONITOR - transition off today Acetaminophen 1000mg q6h [...] WNL, stop checks and SSI -transitioning off PLAYGROUND MONITOR today, now with ROBF Dispo: dc in 1-2 days with pain control The attending of record for this patient is Dr. Nick MD. Jovanni Scott R1 Pg [phone] Associated attestation - Jaleesa Burleson MD - [...] today -Anticipate discharge tomorrow. Jaleesa Burleson MD [facility] [address] [place] [address] Dalila Jonas MD - 10/10/2017 7:15 AM PSTFormatting of this note may be different from the original. [facility] Surgery Progress Note Hospital Day: 1 Author: Dalila Jonas MD Attending Physician: Jaleesa Burleson MD Patient: NEW L[place]A [id number] 24H events/Subjective: Pt comfortable in bed this morning. - No acute events overnight. - sp Retrorectus ventral hernia repair with transversus abdominus release and placement of Bard soft mesh and Lysis of adhesions 118 - pain controlled ov - afebrile Objective: [...] day if tolerating PO 8. Pain: Hydromorphone PLAYGROUND MONITOR until POD #3 Acetaminophen 1000mg q6h Gabapentin [...] Jaleesa Burleson MD. Dalila Jonas MD R1 =Bertin Team= Pager: [phone] Associated attestation - Jaleesa Burleson MD - [...] + isopure. OOB/ambulate. D/C rodolfo Burleson MD [facility] [address] [place] [address] Sebas Gunter MD - 10/09/2017 10:47 PM [...] | | | | | [address] [place], | | | | | | [place] [address] | | | | | | [phone] | | | | | | | | +--------+---------+ + + + | 01/06/ | Office | Surgery | Jaleesa Burleson, | | | 2018 | Visit | | [address] | | | | | | [address] | | | | | | [place], [place] | | | | | | [address] | | | | | | [phone] | | | | | | | [...] Laboratory | + + + | | [facility], POINT OF CARE TESTS [address] | | | [place] [address] | + + + CAPILLARY BLOOD GLUCOSE (NO CHG), POC (10/23/2017 5:39 AM) + +-------+ + | Component | Value | Ref Range | + +-------+ + | BLOOD GLUCOSE, POC | 93 | 70 - 99 mg/dL | + +-------+ + + + + | Specimen | Performing Laboratory | + + + | | [facility], POINT OF CARE TESTS [address] | | | [place] [address] | + + + CAPILLARY BLOOD GLUCOSE (NO CHG), POC (10/23/2017 12:02 AM) + +---------+ + | Component | Value | Ref Range | + +---------+ + | BLOOD GLUCOSE, POC | 108 (H) | 70 - 99 mg/dL | + +---------+ + + + + | Specimen | Performing Laboratory | + + + | | [facility], POINT OF CARE TESTS [address] | | | [place] [address] | + + + CAPILLARY BLOOD GLUCOSE [...] [address] | | | [place] [address] | + + + CAPILLARY BLOOD GLUCOSE [...] [address] | | | [place] [address] | + + + CAPILLARY BLOOD GLUCOSE [...] [address] | | | [place] [address] | + + + CBC (HEMOGRAM) ONLY [...] | + + + | Blood | [facility], CORE [address] [facility] | | | [place] [address] | + + + CBC ONLY (10/22/2017 4:22 AM) + + + | Specimen | Performing Laboratory | + + + | Blood | | + + + + + | Narrative | + + | The following orders were created for panel order CBC ONLY. | | Procedure | | Abnormality Status | | --------- | | ------ CBC (HEMOGRAM) | | ONLY[[id number]] Abnormal Final | | result Please view [...] [address] | | | [place] [address] | + + + CAPILLARY BLOOD GLUCOSE (NO CHG), POC (10/21/2017 6:05 PM) + +-------+ + | Component | Value | Ref Range | + +-------+ + | BLOOD GLUCOSE, POC | 91 | 70 - 99 mg/dL | + +-------+ + + + + | Specimen | Performing Laboratory | + + + | | [facility], PO[facility] TEST[facility] [address] | | | [place] [address] | + + + CAPILLARY BLOOD GLUCOSE (NO CHG), POC (10/21/2017 12:20 PM) + +---------+ + | Component | Value | Ref Range | + +---------+ + | BLOOD GLUCOSE, POC | 124 (H) | 70 - 99 mg/dL | + +---------+ + + + + | Specimen | Performing Laboratory | + + + | | [facility], POINT OF CARE TESTS [address] | | | [place] [address] | + + + CAPILLARY BLOOD GLUCOSE [...] [address] | | | [place] [address] | + + + CBC (HEMOGRAM) ONLY [...] | + + + | Blood | [facility] SERVICES, CORE [address] [place] [address] | | | [place] [address] | + + + CBC ONLY (10/21/2017 4:07 AM) + + + | Specimen | Performing Laboratory | + + + | Blood | | + + + + + | Narrative | + + | The following orders were created for panel order CBC ONLY. | | Procedure | | Abnormality Status | | --------- | | ------ CBC (HEMOGRAM) | | ONLY[[id number]] Abnormal Final | | result Please view [...] | >60 | >60 mL/min | | [place] | | | + +---------+ + | EGFR NON | >60 | >60 mL/min | | -[place] | | | + +---------+ + | [...] | + + + | Blood | [facility]OR[facility] SERVICES, [facility] [address] [facility] | | | [place] [address] | + + + + + | [...] [address] | | | [place] [address] | + + + CBC (HEMOGRAM) ONLY [...] | + + + | Blood | [facility], CORE [address] [facility] | | | [place] [address] | + + + CBC ONLY (10/20/2017 10:29 AM) + + + | Specimen | Performing Laboratory | + + + | Blood | | + + + + + | Narrative | + + | The following orders were created for panel order CBC ONLY. | | Procedure | | Abnormality Status | | --------- | | ------ CBC (HEMOGRAM) | | ONLY[[id number]] Abnormal Final | | result Please view [...] | + + + | Blood | [facility], CORE [address] [place] [address] | | | [place] [address] | + + + + + | [...] | + + + | Blood | [facility] [id number] [place] [address] | | | [address] | + + + CALCIUM, IONIZED, WHOLE [...] | + + + | Blood | [facility], CORE [address] [facility] | | | [place] [address] | + + + ALT, PLASMA (10/20/2017 10:29 AM) + +--------+ + | Component | Value | Ref Range | + +--------+ + | ALT (SGPT) | 82 (H) | <=60 U/L | + +--------+ + + + + | Specimen | Performing Laboratory | + + + | Blood | [facility] LABORATORY [facility], CORE [address] [place] [address] | | | [place], [place] [address] | + + + TRIGLYCERIDES, PLASMA (10/20/2017 10:29 AM) + +---------+ + | Component | Value | Ref Range | + +---------+ + | TRIGLYCERIDES | 182 (H) | <150 mg/dL | + +---------+ + + + + | Specimen | Performing Laboratory | + + + | Blood | [facility], CORE [address] [facility] | | | [place] [address] | + + + + + | [...] | + + + | Blood | [facility], CORE [address] | | | [place] [address] | + + + ALKALINE PHOSPHATASE, PLASMA (10/20/2017 10:29 AM) + +-------+ + | Component | Value | Ref Range | + +-------+ + | ALK PHOS | 99 | 53 - 128 U/L | + +-------+ + + + + | Specimen | Performing Laboratory | + + + | Blood | [facility], CORE [address] [facility] | | | [place] [address] | + + + BILIRUBIN DIRECT (10/20/2017 [...] | + + + | Blood | [facility], CORE [address] | | | [place] [address] | + + + BILIRUBIN TOTAL (10/20/2017 [...] | + + + | Blood | [facility], CORE [address] | | | [place] [address] | + + + PHOSPHORUS, PLASMA (10/20/2017 10:29 AM) + +-------+ + | Component | Value | Ref Range | + +-------+ + | PHOSPHORUS, PLASMA | 3.3 | 2.4 - 4.7 mg/dL | | (LAB) | | | + +-------+ + + + + | Specimen | Performing Laboratory | + + + | Blood | [facility], CORE [address] [facility] | | | [place] [address] | + + + ALBUMIN, PLASMA (10/20/2017 10:29 AM) + +---------+ + | Component | Value | Ref Range | + +---------+ + | ALBUMIN, PLASMA | 2.8 (L) | 3.5 - 4.7 g/dL | | (LAB) | | | + +---------+ + + + + | Specimen | Performing Laboratory | + + + | Blood | [facility], CORE [address] [place] [address] | | | [place] [address] | + + + MAGNESIUM, PLASMA (10/20/2017 10:29 AM) + +-------+ + | Component | Value | Ref Range | + +-------+ + | MAGNESIUM,PLASMA | 2.4 | 1.6 - 2.6 mg/dL | + +-------+ + + + + | Specimen | Performing Laboratory | + + + | Blood | [facility], CORE [address] [facility] | | | [place] [address] | + + + + + | Narrative | + + | Reference range change effective 05/12/17. | + + BASIC METABOLIC SET (NA, [...] | >60 | >60 mL/min | | [place] | | | + +---------+ + | EGFR NON | >60 | >60 mL/min | | -[place] | | | + +---------+ + | [...] | + + + | Blood | [facility] LAB[facility], CORE [address] [facility] | | | [facility] [address] | + + + + + | Narrative | + + | Adult glucose reference range change effective 04-08-17. GFR is estimated using the | | [...] Note | + + | Service Account, [employer] In Interface - 10/20/2017 1:09 PM [...] Procedure Note | | Indications:Antibiotics Procedure location: Unit:[facility] Room: #12 Providers: PICC | | Nurse name: Elana Poon RN Assisted by Isabel Barakat RN BSN Pre-Procedure Consent: | | written consent obtained Consent given by: Patient Patient identity confirmed per | | protocol: Yes Team Pause: Immediatly prior to the procedure a pause per protocol was | | called. A pause verifies correct patient, procedure, equipment, bioinformatics support specialist and | | site/side marked [...] Basilic | | vein. Catheter lot number: [id number] with a length of 55 cm was [...] Laboratory | + + + | | [facility] RADIOLOGY VOICE RECOGNITION | + [...] | >60 | >60 mL/min | | [place] | | | + +---------+ + | EGFR NON | >60 | >60 mL/min | | -[place] | | | + +---------+ + | [...] | + + + | Blood | [facility], CORE [address] [place] [address] | | | [place] [address] | + + + + + | [...] | + + + | Blood | [facility] SERVICES, [facility] [address] [place] [address] | | | [place] [address] | + + + CBC ONLY (10/18/2017 7:00 AM) + + + | Specimen | Performing Laboratory | + + + | Blood | | + + + + + | Narrative | + + | The following orders were created for panel order CBC ONLY. | | Procedure | | Abnormality Status | | --------- | | ------ CBC (HEMOGRAM) | | ONLY[[id number]] Abnormal Final | | result Please view [...] | >60 | >60 mL/min | | [place] | | | + +---------+ + | EGFR NON | >60 | >60 mL/min | | -[place] | | | + +---------+ + | [...] | + + + | Blood | [facility], [facility] [address] | | | [place] [address] | + + + + + | [...] | >60 | >60 mL/min | | [place] | | | + + + + | EGFR NON | >60 | >60 mL/min | | -[place] | | | + + + + [...] | + + + | Blood | [facility], [facility] [address] [facility] | | | [place] [address] | + + + + + | [...] | + + + | Blood | [facility], CORE [address] | | | [place] [address] | + + + + + | [...] | >60 | >60 mL/min | | [place] | | | + +---------+ + | EGFR NON | >60 | >60 mL/min | | -[place] | | | + +---------+ + | [...] | + + + | Blood | [facility], CORE [address] | | | [facility] [address] | + + + + + | Narrative | + + | Adult glucose reference range change effective 717. GFR is estimated using the | | [...] Note | + + | Service Account, [employer]) In Interface - 10/16/2017 10:44 AM PST [...] Laboratory | + + + | | [facility] RADIOLOGY VOICE RECOGNITION | + [...] Note | + -+ | Service Account, [employer] [facility]) In Interface - 10/15/2017 1:28 PM PST [...] | + + + | Blood | [facility], CORE [address] [facility] | | | [place] [address] | + + + CBC ONLY (10/15/2017 4:06 AM) + + + | Specimen | Performing Laboratory | + + + | Blood | | + + + + + | Narrative | + + | The following orders were created for panel order CBC ONLY. | | Procedure | | Abnormality Status | | --------- | | ------ CBC (HEMOGRAM) | | ONLY[[id number]] Abnormal Final | | result Please view [...] | + + + | Blood | [facility], CORE [address] [facility] | | | [place] [address] | + + + + + | [...] | >60 | >60 mL/min | | [place] | | | + +---------+ + | EGFR NON | >60 | >60 mL/min | | -[place] | | | + +---------+ + | [...] | + + + | Blood | [facility], CORE [address] [facility] | | | [place] [address] | + + + + + | [...] Note | + + | Service Account, [employer] In Interface - 10/15/2017 9:01 AM [...] | + + | Service Account, [employer] In Interface - 10/15/2017 9:01 AM [...] | + + + | Blood | [facility] LABORATORY [facility], [facility] [address] | | | [place], [place] [address] | + + + + + | [...] | >60 | >60 mL/min | | [place] | | | + +---------+ + | EGFR NON | >60 | >60 mL/min | | -[place] | | | + +---------+ + | [...] | + + + | Blood | [facility], [place] [address] [place] [address] | | | [place] [address] | + + + + + | Narrative | + + | Adult glucose reference range change effective 04-08-17. GFR is estimated using the | | [...] [address] | | | [place] [address] | + + + CAPILLARY BLOOD GLUCOSE [...] [address] | | | [place] [address] | + + + CAPILLARY BLOOD GLUCOSE [...] [address] | | | [place] [address] | + + + CAPILLARY BLOOD GLUCOSE [...] [address] | | | [place] [address] | + + + CAPILLARY BLOOD GLUCOSE (NO CHG), POC (10/10/2017 6:58 AM) + +---------+ + | Component | Value | Ref Range | + +---------+ + | BLOOD GLUCOSE, POC | 117 (H) | 70 - 99 mg/dL | + +---------+ + + + + | Specimen | Performing Laboratory | + + + | | [facility] [address] | | | [place] [address] | + + + CBC (HEMOGRAM) ONLY [...] | + + + | Blood | [facility], [place] [address] [place] [address] | | | [place] [address] | + + + MAGNESIUM, PLASMA (10/10/2017 5:06 AM) + +-------+ + | Component | Value | Ref Range | + +-------+ + | MAGNESIUM,PLASMA | 1.8 | 1.6 - 2.6 mg/dL | + +-------+ + + + + | Specimen | Performing Laboratory | + + + | Blood | [facility], [facility] [address] [address] | | | [place] [address] | + + + + + | [...] | >60 | >60 mL/min | | [place] | | | + +---------+ + | EGFR NON | >60 | >60 mL/min | | -[place] | | | + +---------+ + | [...] | + + + | Blood | [facility], [facility] [address] | | | [place] [address] | + + + + + | Narrative | + + | Adult glucose reference range change effective 04-08-17. GFR is estimated using the | | [...] | | ------ CBC (HEMOGRAM) | | ONLY[[id number]] Abnormal Final | | result Please view [...] + + + | | [facility], PO[facility] CARE TESTS [address] | | | [place] [address] | + + + CAPILLARY BLOOD GLUCOSE [...] TESTS [address] | | | [place] [address] | + + + CAPILLARY BLOOD GLUCOSE (NO CHG), POC (10/10/2017 12:54 AM) + +---------+ + | Component | Value | Ref Range | + +---------+ + | BLOOD GLUCOSE, POC | 104 (H) | 70 - 99 mg/dL | + +---------+ + + + + | Specimen | Performing Laboratory | + + + | | [facility], POINT [facility] CARE TESTS [address] | | | [place] [address] | + + + CAPILLARY BLOOD GLUCOSE (NO CHG), POC (10/09/2017 11:47 PM) + +---------+ + | Component | Value | Ref Range | + +---------+ + | BLOOD GLUCOSE, POC | 106 (H) | 70 - 99 mg/dL | + +---------+ + + + + | Specimen | Performing Laboratory | + + + | | [facility], [facility] [address] | | | [place] [address] | + + + CAPILLARY BLOOD GLUCOSE [...] [address] | | | [place] [address] | + + + GLUCOSE, PLASMA (10/09/2017 9:17 PM) + +---------+ + | Component | Value | Ref Range | + +---------+ + | GLUCOSE, PLASMA | 188 (H) | 70 - 99 mg/dL | | (LAB) | | | + +---------+ + + + + | Specimen | Performing Laboratory | + + + | Blood | [facility], [facility] [address] | | | [place] [address] | + + + + + | [...] [facility]Y WRIGHT, POINT OF CARE TESTS [address] | | | [place] [address] | + + + PROCEDURE NOTE (10/09/2017 8:00 PM)CAPILLARY BLOOD GLUCOSE (NO CHG), POC (10/09/2017 7:33 PM) + +---------+ + | Component | Value | Ref Range | + +---------+ + | BLOOD GLUCOSE, POC | 160 (H) | 70 - 99 mg/dL | + +---------+ + + + + | Specimen | Performing Laboratory | + + + | | [facility] WR[facility], POINT OF CARE TESTS [address] | | | [place] [address] | + + + PROCEDURE NOTE (10/09/2017 7:15 PM) + + | Procedure Note | + + | Jaleesa Burleson MD - 10/09/2017 7:15 PM PST OPERATIVE REPORT PROCEDURE DATE: | | 10/09/2017PREOPERATIVE [...] cm umbilical defect + a couple tiny Montserratian cheese defects along the midline. | | [...] | | intervals. After a pause and multimedia programmer-out by the entire operating staff, the abdomen [...] | | defect + a couple tiny Montserratian cheese defects along the midline. Given the [...] the rectus muscle for the purpose of mandaeism of linea | | alba, as well [...] Used?: yesType of Mesh(es): | | unknown CDC Wound Classification: 1Modified Ventral Hernia Working Group [...] [address] | | | [place] [address] | + + + PROCEDURE NOTE (10/09/2017 [...] acute care [place]: Remove POD #1 by | | Diet: CLD in am on POD#1 DVT prophylaxis: okay to begin POD 0 at 2100 | | Antibiotic Plan: None Glycemic control: None Dressing care: No wound care | | required Activity restrictions: Abdominal precautions Initial surgical | | contact: Bertin aguero at pager [phone] | + + CAPILLARY BLOOD GLUCOSE (NO CHG), POC (10/09/2017 4:29 PM) + +---------+ + | Component | Value | Ref Range | + +---------+ + | BLOOD GLUCOSE, POC | 129 (H) | 70 - 99 mg/dL | + +---------+ + + + + | Specimen | Performing Laboratory | + + + | | [facility] WRIGHT, [facility] TESTS [address] | | | [place] [address] | + + + CARDIOLOGY (10/09/2017)in this encounter Visit Diagnoses + + | Diagnosis | + + | 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 | + + | Incisional hernia with obstruction | + + | Intestinal obstruction, unspecified cause, unspecified whether partial or complete | + + | Parastomal hernia without obstruction or gangrene | + + | Hernia of unspecified site of abdominal cavity without mention of obstruction or | | gangrene | + + | Postoperative intra-abdominal abscess, initial encounter (HCC) | + + | Severe chronic ulcerative colitis (HCC) | + + | Ulcerative colitis, unspecified | + + | Postoperative ileus (HCC) | + + | Other digestive system complications | + + | Perianal abscess | + + | Abscess of anal and rectal regions | + + | Moderate protein-calorie malnutrition (HCC) | + + | Malnutrition of moderate degree | + + | Hypokalemia | + + | Hypopotassemia | + + Admitting Diagnoses + + | Diagnosis | + + | RECURRENT INCARCERATED VENTRAL HERNIA | + + Administered Medications + +--------+ + +------+------+ | Medication Order | MAR | Action | Dose | Rate | Site | | | Action | Date | | | | + +--------+ + +------+------+ | acetaminophen (TYLENOL) tablet | Given | | 1,000 mg | | | | 1,000 mg 1,000 mg, oral, EVERY 6 | | 8 22:15 | | | | | HOURS, First dose on Thu10/09/17 | | PST | | | | | at 2200, Until Discontinued | | | | | | + +--------+ + +------+------+ +-------+ + +---+---+ | Given | | 1,000 mg | | | | | 8 03:35 | | | | | | PST | | | | +-------+ + +---+---+ | Given | | 1,000 mg | | | | | 8 10:16 | | | | | | PST | | | | +-------+ + +---+---+ + +---+ | | | + +---+ | acetaminophen (TYLENOL) tablet | | | 1 dose, Starting Thu10/09/17 at | | | 2010, Until Thu10/09/17 at 2016 | | + +---+ | | | + +---+ + +-------+ +-------+---+---+ | alvimopan (ENTEREG) capsule 12 | Given | | 12 mg | | | | mg 12 mg, oral, PREPROCEDURE | | 8 08:57 | | | | | ONCE, 1 dose, Starting Fri | | PST | | | | | 10/09/17 at 0841, Until Fri | | | | | | | 10/09/17 at 0857 | | | | | | + +-------+ +-------+---+---+ +---+---+ | | | +---+---+ + +-------+ +-------+---+---+ | alvimopan (ENTEREG) capsule 12 | Given | | 12 mg | | | | mg 12 mg, oral, TWICE DAILY, 14 | | 8 09:22 | | | | | doses, First dose on 10/10/17 | | PST | | | | | at 0900, Last dose on Thu10/16/17 | | | | | | | at 2100 | | | | | | + +-------+ +-------+---+---+ +-------+ +-------+---+---+ | Given | | 12 mg | | | | | 8 21:24 | | | | | | PST | | | | +-------+ +-------+---+---+ | Given | | 12 mg | | | | | 8 08:32 | | | | | | PST | | | | +-------+ +-------+---+---+ + +---+ | | | + +---+ | alvimopan (ENTEREG) capsule 1 | | | dose, Starting 10/09/17 at | | | 0844, Until 10/09/17 at 0857 | | + +---+ | | | + +---+ + +-------+ +-------+---+---+ | baclofen (LIORESAL) tablet 10 | Given | | 10 mg | | | | mg 10 mg, oral, THREE TIMES | | 8 17:18 | | | | | DAILY NEEDED, Starting Mon | | PST | | | | | 10/19/17 at 0953, Until Fri | | | | | | | 10/23/17 at 1838, camachocups | | | | | | + +-------+ +-------+---+---+ +---+---+ | | | +---+---+ + +-------+ + +---+---+ | calcium carbonate chewable | Given | | 200 mg | | | | (TUMS) tablet 200 mg elemental | | 8 02:15 | elementa | | | | 200 mg elemental (500 mg total | | PST | l | | | | salt), oral, EVERY 2 HOURS | | | | | | | NEEDED, Starting 10/11/17 at | | | | | | | 0205, Until 10/23/17 at 1838, | | | | | | | dyspepsia | | | | | | + +-------+ + +---+---+ +-------+ + +---+---+ | Given | | 200 mg | | | | | 8 08:51 | elementa | | | | | PST | l | | | +-------+ + +---+---+ +---+---+ | | | +---+---+ + +---------+ +--------+---+---+ | ciprofloxacin (CIPRO) IV 400 | New Bag | | 400 mg | | | | mg in D5W (RTU) 400 mg, | | 8 04:01 | | | | | intravenous, EVERY 12 HOURS, | | PST | | | | | First dose on Thu10/20/17 at | | | | | | | 1545, Until Discontinued | | | | | | + +---------+ +--------+---+---+ +---------+ +--------+---+---+ | New Bag | | 400 mg | | | | | 8 15:57 | | | | | | PST | | | | +---------+ +--------+---+---+ | New Bag | | 400 mg | | | | | 8 04:01 | | | | | | PST | | | | +---------+ +--------+---+---+ +---+---+ | | | +---+---+ + +-------+ +--------+---+---+ | ciprofloxacin HCl (CIPRO) | Given | | 500 mg | | | | tablet 500 mg 500 mg, oral, | | 8 19:16 | | | | | TWICE DAILY, First dose on Thu | | PST | | | | | 10/22/17 at 1800, Until | | | | | | | Discontinued | | | | | | + +-------+ +--------+---+---+ +-------+ +--------+---+---+ | Given | | 500 mg | | | | | 8 05:48 | | | | | | PST | | | | +-------+ +--------+---+---+ +---+---+ | | | +---+---+ + +---------+ + + +---+ | dextrose 5%-NaCl 0.45%-KCl 20 | New Bag | | 75 mL/hr | 75 mL/hr | | | mEq/L IV infusion 75 mL/hr, | | 8 19:28 | | | | | intravenous, CONTINUOUS, Starting | | PST | | | | | 10/09/17 at 1930, Until Fri | | | | | | | 10/09/17 at 2148 | | | | | | + +---------+ + + +---+ + + + + +---+ | Rate/Dose Verify | | 75 mL/hr | 75 mL/hr | | | | 8 20:00 | | | | | | PST | | | | + + + + +---+ +---+---+ | | | +---+---+ + + + +-------+-------+---+ | dextrose 5%-NaCl 0.45%-KCl 20 | Rate/Dos | | 100 | 100 | | | mEq/L IV infusion 100 mL/hr, | e Verify | 8 19:28 | mL/hr | mL/hr | | | intravenous, CONTINUOUS, Starting | | PST | | | | | 10/14/17 at 1145, Until Sat | | | | | | | 10/17/17 at 1300 | | | | | | + + + +-------+-------+---+ + + +-------+-------+---+ | New Bag | | 100 | 100 | | | | 8 01:40 | mL/hr | mL/hr | | | | PST | | | | + + +-------+-------+---+ | Rate/Dose Verify | | 100 | 100 | | | | 8 05:12 | mL/hr | mL/hr | | | | PST | | | | + + +-------+-------+---+ +---+---+ | | | +---+---+ + + + +-------+-------+---+ | dextrose 5%-NaCl 0.45%-KCl 20 | Rate/Dos | | 100 | 100 | | | mEq/L IV infusion 100 mL/hr, | e Verify | 8 18:00 | mL/hr | mL/hr | | | intravenous, CONTINUOUS, Starting | | PST | | | | | 10/19/17 at 2030, Until Yessi | | | | | | | 10/22/17 at 0545 | | | | | | + + + +-------+-------+---+ + + +-------+-------+---+ | New Bag | | 100 | 100 | | | | 8 22:28 | mL/hr | mL/hr | | | | PST | | | | + + +-------+-------+---+ | Rate/Dose Verify | | 100 | 100 | | | | 8 04:30 | mL/hr | mL/hr | | | | PST | | | | + + +-------+-------+---+ + +---+ | | | + +---+ | dextrose 50 % in water IV 25 mL | | | 25 mL, intravenous, NEEDED, | | | Starting 10/10/17 at 0819, | | | Until Thu10/23/17 at 1838, CBG | | | less than 70 mg/dL if patient | | | unable to take PO, per Adult | | | Hypoglycemia Protocol | | + +---+ | | | + +---+ + +-------+ +-------+---+---+ | diatrizoate meglumine-sodium | Given | | 90 mL | | | | (GASTROGRAFPHI JNOESGASTROMARLON) | | 8 09:26 | | | | | 66-10 % oral solution 90 mL 90 | | PST | | | | | mL, feeding tube, ONCE, 1 dose, | | | | | | | Yess[place] 10/15/17 at 0900 | | | | | | + +-------+ +-------+---+---+ +---+---+ | | | +---+---+ + +-------+ +------+---+---+ | diazePAM (VALIUM) tablet 2 mg | Given | | 2 mg | | | | 2 mg, oral, FOUR TIMES DAILY | | 8 11:05 | | | | | NEEDED, Starting 10/10/17 at | | PST | | | | | 1009, Until Thu10/23/17 at 1838, | | | | | | | muscle spasms, hold for sedation | | | | | | + +-------+ +------+---+---+ +-------+ +------+---+---+ | Given | | 2 mg | | | | | 8 18:43 | | | | | | PST | | | | +-------+ +------+---+---+ | Given | | 2 mg | | | | | 8 12:02 | | | | | | PST | | | | +-------+ +------+---+---+ +---+---+ | | | +---+---+ + +-------+ +-------+---+---+ | diphenhydrAMINE (BENADRYL) | Given | | 25 mg | | | | injection 25 mg 25 mg, | | 8 20:13 | | | | | intravenous, ONCE, 1 dose, Fri | | PST | | | | | 10/09/17 at 2044 | | | | | | + +-------+ +-------+---+---+ + +---+ | | | + +---+ | diphenhydrAMINE (BENADRYL) | | | injection 1 dose, Starting Fri | | | 10/09/17 at 2010, Until Fri | | | 10/09/17 at 2012 | | + +---+ | | | + +---+ + +-------+ +---------+---+---+ | diphenhydrAMINE (BENADRYL) oral | Given | | 12.5 mg | | | | solution 12.5 mg 12.5 mg, oral, | | 8 13:10 | | | | | EVERY 6 HOURS NEEDED, | | PST | | | | | Starting 10/09/17 at 2138, | | | | | | | Until 10/23/17 at 1838, | | | | | | | itching | | | | | | + +-------+ +---------+---+---+ +-------+ +---------+---+---+ | Given | | 12.5 mg | | | | | 8 21:32 | | | | | | PST | | | | +-------+ +---------+---+---+ | Given | | 12.5 mg | | | | | 8 08:51 | | | | | | PST | | | | +-------+ +---------+---+---+ +---+---+ | | | +---+---+ + +-------+ +-------+---+--------+ | enoxaparin (LOVENOX) injection | Given | | 40 mg | | Right | | 40 mg 40 mg, subcutaneous, EVERY | | 8 21:29 | | | Arm | | EVENING, First dose on Fri | | PST | | | | | 10/09/17 at 2100, Until | | | | | | | Discontinued | | | | | | + +-------+ +-------+---+--------+ +-------+ +-------+---+---------+ | Given | | 40 mg | | Abdomen | | | 8 22:27 | | | | | | PST | | | | +-------+ +-------+---+---------+ | Given | | 40 mg | | Right | | | 8 20:40 | | | Arm | | | PST | | | | +-------+ +-------+---+---------+ +---+---+ | | | +---+---+ + +-------+ +--------+---+---+ | fentaNYL (SUBLIMAZE) injection | Given | | 50 mcg | | | | 50 mcg 50 mcg, intravenous, | | 8 19:27 | | | | | POSTPROCEDURE PRN, 4 doses, | | PST | | | | | Starting 10/09/17 at 1742, | | | | | | | Until Discontinued, severe pain | | | | | | | while in Phase I Recovery | | | | | | + +-------+ +--------+---+---+ +-------+ +--------+---+---+ | Given | | 50 mcg | | | | | 8 19:55 | | | | | | PST | | | | +-------+ +--------+---+---+ | Given | | 50 mcg | | | | | 8 19:57 | | | | | | PST | | | | +-------+ +--------+---+---+ +---+---+ | | | +---+---+ + +-------+ +--------+---+---+ | gabapentin (NEURONTIN) capsule | Given | | 300 mg | | | | 300 mg 300 mg, oral, THREE TIMES | | 8 08:14 | | | | | DAILY, First dose on Thu10/13/17 | | PST | | | | | at 0900, Until Discontinued | | | | | | + +-------+ +--------+---+---+ +-------+ +--------+---+---+ | Given | | 300 mg | | | | | 8 15:11 | | | | | | PST | | | | +-------+ +--------+---+---+ | Given | | 300 mg | | | | | 8 09:29 | | | | | | PST | | | | +-------+ +--------+---+---+ +---+---+ | | | +---+---+ + +-------+ +--------+---+---------+ | heparin injection 5,000 Units | Given | | 5,000 | | Abdomen | | 5,000 Units, subcutaneous, | | 8 09:27 | Units | | | | PREPROCEDURE ONCE, 1 dose, | | PST | | | | | Starting Thu10/09/17 at 0841, | | | | | | | Until Thu10/09/17 at 0927 | | | | | | + +-------+ +--------+---+---------+ + +---+ | | | + +---+ | heparin injection 1 dose, | | | Starting 10/09/17 at 0845, | | | Until 10/09/17 at 0927 | | + +---+ | | | + +---+ + +-------+ +--------+---+---+ | HYDROmorphone (DILAUDID) | Given | | 0.2 mg | | | | injection 0.2-0.5 mg 0.2-0.5 mg, | | 8 19:12 | | | | | intravenous, POSTPROCEDURE PRN, | | PST | | | | | Starting 10/09/17 at 1742, | | | | | | | Until 10/09/17 at 2048, | | | | | | | moderate pain while in Phase I | | | | | | | Recovery | | | | | | + +-------+ +--------+---+---+ +-------+ +--------+---+---+ | Given | | 0.3 mg | | | | | 8 19:30 | | | | | | PST | | | | +-------+ +--------+---+---+ | Given | | 0.5 mg | | | | | 8 20:07 | | | | | | PST | | | | +-------+ +--------+---+---+ +---+---+ | | | +---+---+ + +-------+ +--------+---+---+ | HYDROmorphone (DILAUDID) | Given | | 0.4 mg | | | | injection 0.2-0.6 mg 0.2-0.6 mg, | | 8 21:33 | | | | | intravenous, EVERY 2 HOURS | | PST | | | | | NEEDED, Starting 10/17/17 at | | | | | | | 1613, Until 10/21/17 at 1117, | | | | | | | severe pain | | | | | | + +-------+ +--------+---+---+ +-------+ +--------+---+---+ | Given | | 0.4 mg | | | | | 8 03:55 | | | | | | PST | | | | +-------+ +--------+---+---+ | Given | | 0.4 mg | | | | | 8 09:53 | | | | | | PST | | | | +-------+ +--------+---+---+ + +---+ | | | + +---+ | HYDROmorphone (DILAUDID) | | | injection 0.2-0.6 mg 0.2-0.6 mg, | | | intravenous, EVERY 6 HOURS | | | NEEDED, Starting Thu10/21/17 at | | | 1130, Until Thu10/23/17 at 1838, | | | severe pain | | + +---+ | | | + +---+ + +-------+ +--------+---+---+ | HYDROmorphone (DILAUDID) | Given | | 0.5 mg | | | | injection 0.3-0.9 mg 0.3-0.9 mg, | | 8 11:04 | | | | | intravenous, EVERY 2 HOURS | | PST | | | | | NEEDED, Starting 10/13/17 at | | | | | | | 0751, Until Yessi 10/15/17 at 1533, | | | | | | | breakthrough pain | | | | | | + +-------+ +--------+---+---+ +-------+ +--------+---+---+ | Given | | 0.5 mg | | | | | 8 12:53 | | | | | | PST | | | | +-------+ +--------+---+---+ | Given | | 0.5 mg | | | | | 8 15:02 | | | | | | PST | | | | +-------+ +--------+---+---+ +---+---+ | | | +---+---+ + +-------+ +------+---+---+ | HYDROmorphone (DILAUDID) tablet | Given | | 4 mg | | | | 2-4 mg 2-4 mg, oral, EVERY 3 | | 8 16:12 | | | | | HOURS NEEDED, Starting Sat | | PST | | | | | 10/17/17 at 1614, Until Fri | | | | | | | 10/23/17 at 1838, moderate pain | | | | | | + +-------+ +------+---+---+ +-------+ +------+---+---+ | Given | | 4 mg | | | | | 8 20:40 | | | | | | PST | | | | +-------+ +------+---+---+ | Given | | 4 mg | | | | | 8 03:35 | | | | | | PST | | | | +-------+ +------+---+---+ +---+---+ | | | +---+---+ + + + +---+---+---+ | HYDROmorphone 0.5 mg/mL PLAYGROUND MONITOR | Rate/Dos | | | | | | (ADULT STANDARD DOSE) in 0.9 % | e Verify | 8 05:10 | | | | | NaCl PLAYGROUND MONITOR Dose: 0.2 mg, Lockout | | PST | | | | | Interval: 7 Minutes | | | | | | + + + +---+---+---+ + + +---+---+---+ | Rate/Dose Verify | | | | | | | 8 08:24 | | | | | | PST | | | | + + +---+---+---+ | New Bag | | | | | | | 8 10:21 | | | | | | PST | | | | + + +---+---+---+ +---+---+ | | | +---+---+ + + + +---+---+---+ | HYDROmorphone 0.5 mg/mL PLAYGROUND MONITOR | Rate/Dos | | | | | | (ADULT STANDARD DOSE) in 0.9 % | e Verify | 8 02:00 | | | | | NaCl PLAYGROUND MONITOR Dose: 0.2 mg, Lockout | | PST | | | | | Interval: 7 Minutes | | | | | | + + + +---+---+---+ + + +---+---+---+ | Rate/Dose Verify | | | | | | | 8 06:09 | | | | | | PST | | | | + + +---+---+---+ | Rate/Dose Verify | | | | | | | 8 08:16 | | | | | | PST | | | | + + +---+---+---+ +---+---+ | | | +---+---+ + + + +---+---+---+ | HYDROmorphone 0.5 mg/mL PLAYGROUND MONITOR | Rate/Dos | | | | | | (ADULT STANDARD DOSE) in 0.9 % | e Verify | 8 04:13 | | | | | NaCl PLAYGROUND MONITOR Dose: 0.1 mg, Lockout | | PST | | | | | Interval: 10 Minutes | | | | | | + + + +---+---+---+ + + +---+---+---+ | Rate/Dose Verify | | | | | | | 8 05:12 | | | | | | PST | | | | + + +---+---+---+ | Rate/Dose Verify | | | | | | | 8 07:21 | | | | | | PST | | | | + + +---+---+---+ +---+---+ | | | +---+---+ + + + +--------+---+---+ | HYDROmorphone 0.5 mg/mL rescue | Bolus | | 0.2 mg | | | | bolus from PLAYGROUND MONITOR (ADULT STANDARD | from | 8 08:42 | | | | | DOSE) 0.2 mg intravenous, EVERY | Same Bag | PST | | | | | 10 MINUTES NEEDED, Starting | | | | | | | 10/09/17 at 1848, Until Mon | | | | | | | 10/12/17 at 1310, PLAYGROUND MONITOR clinician | | | | | | | rescue bolus. If exceeding 2 | | | | | | | doses in a rolling 60 minute time | | | | | | | frame, contact provider for PLAYGROUND MONITOR | | | | | | | assessment | | | | | | + + + +--------+---+---+ + + +--------+---+---+ | Bolus from Same Bag | | 0.2 mg | | | | | 8 18:54 | | | | | | PST | | | | + + +--------+---+---+ | Bolus from Same Bag | | 0.2 mg | | | | | 8 10:16 | | | | | | PST | | | | + + +--------+---+---+ +---+---+ | | | +---+---+ + + + +--------+---+---+ | HYDROmorphone 0.5 mg/mL rescue | Bolus | | 0.2 mg | | | | bolus from PLAYGROUND MONITOR (ADULT STANDARD | from | 8 18:46 | | | | | DOSE) 0.2 mg intravenous, EVERY | Same Bag | PST | | | | | 10 MINUTES NEEDED, Starting | | | | | | | 10/12/17 at 1318, Until Tue | | | | | | | 10/13/17 at 0751, PLAYGROUND MONITOR clinician | | | | | | | rescue bolus. If exceeding 2 | | | | | | | doses in a rolling 60 minute time | | | | | | | frame, contact provider for PLAYGROUND MONITOR | | | | | | | assessment | | | | | | + + + +--------+---+---+ +---+---+ | | | +---+---+ + + + +--------+---+---+ | HYDROmorphone 0.5 mg/mL rescue | Bolus | | 0.2 mg | | | | bolus from [employer]GROUND MONITOR (ADULT STANDARD | from | 8 01:41 | | | | | DOSE) 0.2 mg intravenous, EVERY | Same Bag | PST | | | | | 10 MINUTES NEEDED, Starting | | | | | | | Yessi 10/15/17 at 1532, Until Sat | | | | | | | 10/17/17 at 1614, PLAYGROUND MONITOR clinician | | | | | | | rescue bolus. If exceeding 2 | | | | | | | doses in a rolling 60 minute time | | | | | | | frame, contact provider for PLAYGROUND MONITOR | | | | | | | assessment | | | | | | + + + +--------+---+---+ + + +--------+---+---+ | Bolus from Same Bag | | 0.2 mg | | | | | 8 04:13 | | | | | | PST | | | | + + +--------+---+---+ | Bolus from Same Bag | | 0.2 mg | | | | | 8 15:26 | | | | | | PST | | | | + + +--------+---+---+ +---+---+ | | | +---+---+ + + + + +-------+---+ | insulin regular in NaCl 0.9% IV | Rate/Dos | | 0.7 | 0.7 | | | infusion (1 unit/mL) 0.1-50 | e Change | 8 03:02 | Units/hr | mL/hr | | | Units/hr (0.1-50 mL/hr), | | PST | | | | | intravenous, CONTINUOUS, Starting | | | | | | | 10/09/17 at 1945, Until Sat | | | | | | | 10/10/17 at 0820 | | | | | | + + + + +-------+---+ + + + +-------+---+ | Rate/Dose Change | | 0.8 | 0.8 | | | | 8 05:05 | Units/hr | mL/hr | | | | PST | | | | + + + +-------+---+ | Rate/Dose Verify | | 0.8 | 0.8 | | | | 8 07:00 | Units/hr | mL/hr | | | | PST | | | | + + + +-------+---+ +---+---+ | | | +---+---+ + +-------+ +-------+---+---+ | iohexol (OMNIPAQUE) 300 mg | Given | | 30 mL | | | | iodine/mL 30 mL 30 mL, oral, | | 8 10:18 | | | | | ONCE, 1 dose, 10/19/17 at 1015 | | PST | | | | + +-------+ +-------+---+---+ +---+---+ | | | +---+---+ + +---------+ +--------+---+---+ | iohexol (OMNIPAQUE) 350 mg | IV Push | | 100 mL | | | | iodine/mL injection 100 mL 100 | | 8 11:48 | | | | | mL, intravenous, ONCE, 1 dose, | | PST | | | | | 10/19/17 at 1230 | | | | | | + +---------+ +--------+---+---+ +---+---+ | | | +---+---+ + +---------+ + +---+---+ | lactated Ringers IV 1,000 mL, | New Bag | | 1,000 mL | | | | intravenous, ONCE, 1 dose, Wed | | 8 23:44 | | | | | 10/14/17 at 0015 | | PST | | | | + +---------+ + +---+---+ +---+---+ | | | +---+---+ + +---------+ +--------+---+---+ | lactated Ringers IV 500 mL, | New Bag | | 500 mL | | | | intravenous, ONCE, 1 dose, Yessi | | 8 02:37 | | | | | 10/15/17 at 0115 | | PST | | | | + +---------+ +--------+---+---+ +---+---+ | | | +---+---+ + + + +---------+---+---------+ | lidocaine (LIDODERM) 5 % patch | Applied | | 1 patch | | Abdomen | | 1 patch 1 patch, transdermal, | Patch | 8 15:58 | | | | | EVERY 24 HOURS, First dose on Sat | | PST | | | | | 10/10/17 at 1630, Until | | | | | | | Discontinued | | | | | | + + + +---------+---+---------+ + + +---------+---+---------+ | Applied Patch | | 1 patch | | Abdomen | | | 8 16:51 | | | | | | PST | | | | + + +---------+---+---------+ | Applied Patch | | 1 patch | | Abdomen | | | 8 17:17 | | | | | | PST | | | | + + +---------+---+---------+ +---+---+ | | | +---+---+ + +-------+ +--------+---+---+ | magnesium oxide (MAG-OX) tablet | Given | | 400 mg | | | | 400 mg 400 mg, oral, ONCE, 1 | | 8 08:52 | | | | | dose, 10/10/17 at 0800 | | PST | | | | + +-------+ +--------+---+---+ +---+---+ | | | +---+---+ + +-------+ +------+---+---+ | menthol (COUGH DROPS) lozenge 5 | Given | | 5 mg | | | | mg 5 mg (1 lozenge), oral, | | 8 13:28 | | | | | NEEDED, Starting 10/16/17 at | | PST | | | | | 1228, Until Thu10/23/17 at 1838, | | | | | | | sore throat | | | | | | + +-------+ +------+---+---+ +-------+ +------+---+---+ | Given | | 5 mg | | | | | 8 15:59 | | | | | | PST | | | | +-------+ +------+---+---+ + +---+ | | | + +---+ | menthol-zinc oxide (CALAZIME) | | | topical paste 0.2%-16.5% | | | topical, THREE TIMES DAILY | | | NEEDED, Starting 10/12/17 at | | | 1639, Until Thu10/23/17 at 1838, | | | skin irritation/breakdown, rash | | + +---+ | | | + +---+ + +-------+ +-------+---+---+ | metoclopramide HCl (REGLAN) | Given | | 10 mg | | | | injection 10 mg 10 mg, | | 8 23:53 | | | | | intravenous, EVERY 6 HOURS | | PST | | | | | NEEDED, Starting 10/13/17 at | | | | | | | 2330, Until Thu10/14/17 at 1247, | | | | | | | nausea/vomiting, fourth line | | | | | | + +-------+ +-------+---+---+ +-------+ +-------+---+---+ | Given | | 10 mg | | | | | 8 06:15 | | | | | | PST | | | | +-------+ +-------+---+---+ +---+---+ | | | +---+---+ + +-------+ +-------+---+---+ | metoclopramide HCl (REGLAN) | Given | | 10 mg | | | | injection 10 mg 10 mg, | | 8 03:28 | | | | | intravenous, EVERY 6 HOURS | | PST | | | | | NEEDED, Starting 10/18/17 at | | | | | | | 0323, Until Thu10/21/17 at 1120, | | | | | | | nausea/vomiting, fourth line | | | | | | + +-------+ +-------+---+---+ +-------+ +-------+---+---+ | Given | | 10 mg | | | | | 8 11:36 | | | | | | PST | | | | +-------+ +-------+---+---+ | Given | | 10 mg | | | | | 8 17:11 | | | | | | PST | | | | +-------+ +-------+---+---+ +---+---+ | | | +---+---+ + +-------+ +------+---+---+ | metoclopramide HCl (REGLAN) | Given | | 5 mg | | | | injection 5 mg 5 mg, | | 8 16:12 | | | | | intravenous, EVERY 6 HOURS, First | | PST | | | | | dose on Thu10/21/17 at 1600, | | | | | | | Until Discontinued | | | | | | + +-------+ +------+---+---+ +-------+ +------+---+---+ | Given | | 5 mg | | | | | 8 20:40 | | | | | | PST | | | | +-------+ +------+---+---+ | Given | | 5 mg | | | | | 8 03:36 | | | | | | PST | | | | +-------+ +------+---+---+ +---+---+ | | | +---+---+ + +-------+ +------+---+---+ | metoclopramide HCl (REGLAN) | Given | | 5 mg | | | | tablet 5 mg 5 mg, oral, EVERY 6 | | 8 10:16 | | | | | HOURS, First dose on Thu10/23/17 | | PST | | | | | at 1000, Until Discontinued | | | | | | + +-------+ +------+---+---+ +---+---+ | | | +---+---+ + +---------+ +--------+---+---+ | metroNIDAZOLE (FLAGYL) IV 500 | New Bag | | 500 mg | | | | mg 500 mg, intravenous, EVERY 8 | | 8 16:56 | | | | | HOURS, First dose on Thu10/20/17 | | PST | | | | | at 1700, Until Discontinued | | | | | | + +---------+ +--------+---+---+ +---------+ +--------+---+---+ | New Bag | | 500 mg | | | | | 8 01:24 | | | | | | PST | | | | +---------+ +--------+---+---+ | New Bag | | 500 mg | | | | | 8 10:00 | | | | | | PST | | | | +---------+ +--------+---+---+ +---+---+ | | | +---+---+ + +-------+ +--------+---+---+ | metroNIDAZOLE (FLAGYL) tablet | Given | | 500 mg | | | | 500 mg 500 mg, oral, THREE TIMES | | 8 16:12 | | | | | DAILY, First dose on Thu10/22/17 | | PST | | | | | at 1600, Until Discontinued | | | | | | + +-------+ +--------+---+---+ +-------+ +--------+---+---+ | Given | | 500 mg | | | | | 8 20:42 | | | | | | PST | | | | +-------+ +--------+---+---+ | Given | | 500 mg | | | | | 8 10:16 | | | | | | PST | | | | +-------+ +--------+---+---+ +---+---+ | | | +---+---+ + + + +---+ +---+ | NaCl 0.45%-KCl 20 mEq/L (09/29 | Rate/Dos | | | 75 mL/hr | | | NS-20 KCl) IV infusion | e Verify | 8 06:59 | | | | | intravenous, CONTINUOUS, Starting | | PST | | | | | 10/09/17 at 2230, Until Sat | | | | | | | 10/10/17 at 0815 | | | | | | + + + +---+ +---+ + + +---+ +---+ | Rate/Dose Change | | | 20 mL/hr | | | | 8 09:00 | | | | | | PST | | | | + + +---+ +---+ | Rate/Dose Verify | | | 20 mL/hr | | | | 8 11:07 | | | | | | PST | | | | + + +---+ +---+ + +---+ | | | + +---+ | naloxone (NARCAN) injection 40 | | | mcg 40 mcg, intravenous, | | | NEEDED, Starting [facility] 10/15/17 at | | | 1531, Until Thu10/23/17 at 1838, | | | over sedation | | + +---+ | | | + +---+ + +-------+ +------+---+---+ | ondansetron (ZOFRAN) injection | Given | | 4 mg | | | | 4 mg 4 mg, intravenous, EVERY 12 | | 8 23:14 | | | | | HOURS NEEDED, Starting Fri | | PST | | | | | 10/09/17 at 1848, Until Fri | | | | | | | 10/23/17 at 1838, nausea/vomiting | | | | | | | if unable to take oral | | | | | | | ondansetron | | | | | | + +-------+ +------+---+---+ +-------+ +------+---+---+ | Given | | 4 mg | | | | | 8 13:38 | | | | | | PST | | | | +-------+ +------+---+---+ | Given | | 4 mg | | | | | 8 13:53 | | | | | | PST | | | | +-------+ +------+---+---+ +---+---+ | | | +---+---+ + +-------+ +------+---+---+ | ondansetron (ZOFRAN) injection | Given | | 4 mg | | | | 4 mg 4 mg, intravenous, EVERY 12 | | 8 10:00 | | | | | HOURS, First dose on Thu10/14/17 | | PST | | | | | at 1445, Until Discontinued | | | | | | + +-------+ +------+---+---+ +-------+ +------+---+---+ | Given | | 4 mg | | | | | 8 20:40 | | | | | | PST | | | | +-------+ +------+---+---+ | Given | | 4 mg | | | | | 8 10:17 | | | | | | PST | | | | +-------+ +------+---+---+ +---+---+ | | | +---+---+ + +-------+ +------+---+---+ | ondansetron (ZOFRAN) tablet 8 | Given | | 8 mg | | | | mg 8 mg, oral, EVERY 12 HOURS | | 8 02:15 | | | | | NEEDED, Starting 10/09/17 at | | PST | | | | | 1848, Until 10/14/17 at 1247, | | | | | | | nausea/vomiting, first line | | | | | | + +-------+ +------+---+---+ +-------+ +------+---+---+ | Given | | 8 mg | | | | | 8 17:23 | | | | | | PST | | | | +-------+ +------+---+---+ +---+---+ | | | +---+---+ + +-------+ +-------+---+---+ | oxyCODONE (immediate release) | Given | | 10 mg | | | | (ROXICODONE) tablet 5-10 mg 5-10 | | 8 08:14 | | | | | mg, oral, EVERY 4 HOURS | | PST | | | | | NEEDED, Starting 10/13/17 at | | | | | | | 0751, Until 10/13/17 at 1514, | | | | | | | moderate pain, severe pain | | | | | | + +-------+ +-------+---+---+ +-------+ +-------+---+---+ | Given | | 10 mg | | | | | 8 12:07 | | | | | | PST | | | | +-------+ +-------+---+---+ +---+---+ | | | +---+---+ + + + +---+ +---+ | parenteral nutrition | Rate/Dos | | | 60 mL/hr | | | (PERIKABIVEN) at 40-60 mL/hr, | e Verify | 8 07:00 | | | | | intravenous, TPN 2100, Starting | | PST | | | | | 10/20/17 at 2100, Until Wed | | | | | | | 10/21/17 at 9 | | | | | | + + + +---+ +---+ + + +---+ +---+ | Rate/Dose Verify | | | 60 mL/hr | | | | 8 11:00 | | | | | | PST | | | | + + +---+ +---+ | Rate/Dose Verify | | | 60 mL/hr | | | | 8 18:00 | | | | | | PST | | | | + + +---+ +---+ +---+---+ | | | +---+---+ + + + +---+-------+---+ | parenteral nutrition | Rate/Dos | | | 132 | | | (PERIKABIVEN) at 60-132 mL/hr, | e Verify | 8 04:30 | | mL/hr | | | intravenous, TPN 2100, Starting | | PST | | | | | 10/21/17 at 2100, Until Yessi | | | | | | | 10/22/17 at 2058 | | | | | | + + + +---+-------+---+ + + +---+ +---+ | Rate/Dose Verify | | | 132 | | | | 8 07:30 | | mL/hr | | | | PST | | | | + + +---+ +---+ | Rate/Dose Verify | | | 60 mL/hr | | | | 8 09:53 | | | | | | PST | | | | + + +---+ +---+ +---+---+ | | | +---+---+ + +---------+ +---+ +---+ | parenteral nutrition | New Bag | | | 60 mL/hr | | | (PERIKABIVEN) at 60-132 mL/hr, | | 8 20:43 | | | | | intravenous, TPN 2100, Starting | | PST | | | | | Yessi 10/22/17 at 2100, Until Fri | | | | | | | 10/23/17 at 1838 | | | | | | + +---------+ +---+ +---+ + + +---+ +---+ | Rate/Dose Change | | | 132 | | | | 8 21:45 | | mL/hr | | | | PST | | | | + + +---+ +---+ | Rate/Dose Change | | | 60 mL/hr | | | | 8 07:46 | | | | | | PST | | | | + + +---+ +---+ +---+---+ | | | +---+---+ + +-------+ + +---+---+ | phenol (CHLORASEPTIC) 1.4 % | Given | | 2 sprays | | | | spray 1-3 spray 1-3 spray, oral, | | 8 09:24 | | | | | EVERY 2 HOURS NEEDED, | | PST | | | | | Starting Eyssi 10/15/17 at 0612, | | | | | | | Until 10/16/17 at 1228, sore | | | | | | | throat | | | | | | + +-------+ + +---+---+ +-------+ + +---+---+ | Given | | 2 sprays | | | | | 8 15:13 | | | | | | PST | | | | +-------+ + +---+---+ +---+---+ | | | +---+---+ + + + +-------+---+---+ | probiotic yogurt (HIMANSHU'S | Given - | | 0.99 | | | | YOGURT) 0.99 each 0.99 each | Food | 8 12:45 | each | | | | (rounded from 1 each), oral, | | PST | | | | | DAILY, First dose on 10/10/17 | | | | | | | at 0900, Until Discontinued | | | | | | + + + +-------+---+---+ + + +-------+---+---+ | Given - Food | | 0.99 | | | | | 8 09:21 | each | | | | | PST | | | | + + +-------+---+---+ | Given - Food | | 0.99 | | | | | 8 10:17 | each | | | | | PST | | | | + + +-------+---+---+ +---+---+ | | | +---+---+ + +-------+ +------+---+---+ | prochlorperazine (COMPAZINE) | Given | | 5 mg | | | | injection 5-10 mg 5-10 mg, | | 8 23:26 | | | | | intravenous, EVERY 6 HOURS | | PST | | | | | NEEDED, Starting Thu10/09/17 at | | | | | | | 1848, Until Thu10/21/17 at 1120, | | | | | | | nausea/vomiting not responding to | | | | | | | ondansetron and unable to take | | | | | | | oral prochlorperazine | | | | | | + +-------+ +------+---+---+ +-------+ +-------+---+---+ | Given | | 10 mg | | | | | 8 17:45 | | | | | | PST | | | | +-------+ +-------+---+---+ | Given | | 10 mg | | | | | 8 03:52 | | | | | | PST | | | | +-------+ +-------+---+---+ +---+---+ | | | +---+---+ + + + +---------+---+ + | scopolamine (TRANSDERM-SCOP) 1 | Applied | | 1 patch | | Right | | mg over 3 days 1 patch 1 patch, | Patch | 8 13:29 | | | Post | | transdermal, EVERY 72 HOURS, | | PST | | | Auricula | | First dose on Thu10/14/17 at | | | | | r | | 1415, Until Discontinued | | | | | | + + + +---------+---+ + + + +---------+---+ + | Applied Patch | | 1 patch | | Left | | | 8 15:27 | | | Post | | | PST | | | Auricula | | | | | | r | + + +---------+---+ + | Applied Patch | | 1 patch | | Right | | | 8 14:28 | | | Post | | | PST | | | Auricula | | | | | | r | + + +---------+---+ + +---+---+ | | | +---+---+ + +-------+ +---------+---+---+ | senna-docusate (SENOKOT S) | Given | | 2 | | | | 8.6-50 mg 2 tablet 2 tablet, | | 8 09:21 | tablets | | | | oral, TWICE DAILY, First dose on | | PST | | | | | 10/09/17 at 2100, Until | | | | | | | Discontinued | | | | | | + +-------+ +---------+---+---+ +---+---+ | | | +---+---+ + +-------+ +-------+---+---+ | simethicone chew (MYLICON) | Given | | 80 mg | | | | tablet 80 mg 80 mg, oral, THREE | | 8 23:59 | | | | | TIMES DAILY NEEDED, Starting | | PST | | | | | 10/17/17 at 2334, Until Fri | | | | | | | 10/23/17 at 1838, bloating | | | | | | + +-------+ +-------+---+---+ +---+---+ | | | +---+---+ + +-------+ +--------+---+---+ | tamsulosin (FLOMAX) capsule 0.4 | Given | | 0.4 mg | | | | mg 0.4 mg, oral, DAILY, First | | 8 08:32 | | | | | dose on 10/10/17 at 0915, | | PST | | | | | Until Discontinued | | | | | | + +-------+ +--------+---+---+ +-------+ +--------+---+---+ | Given | | 0.4 mg | | | | | 8 08:14 | | | | | | PST | | | | +-------+ +--------+---+---+ | Given | | 0.4 mg | | | | | 8 09:29 | | | | | | PST | | | | +-------+ +--------+---+---+ +---+---+ | | | +---+---+ in this encounter
--- OUTSIDE RECORDS SUMMARY | ~2018-01-20 | XMS | Encounter Summary ---
Demographics + + + | Address | [address] | | | [place] [address] | + + + | Home Phone | | + + + | Preferred Language | Unknown | + + + | Marital Status | Single | + + + | Samaritan Affiliation | NON | + + + | Race | White | + + + | Ethnic Group | Not or | + + + Author + + + | Author | [facility] | + + + | Organization | [facility] | + + + | Address | Unknown | + + + | Phone | Unavailable | + + + Support + + +---------+ + | Name | Relationship | Address | Phone | + + +---------+ + | JULI ALLEN | ECON | Unknown | | + + +---------+ + Care Team Providers + +------+ + | Care Singing Teacher Name | Role | Phone | + +------+ + | Marlee Duarte MD | PCP | | + +------+ + Reason for Referral Diagnostic Testing (Routine) + +--------+ + + + + | Status | Reason | Specialty | Diagnoses / | Referred By | Referred To | | | | | Procedures | Contact | Contact | + +--------+ + + + + | New Request | | Radiology | Diagnoses | Nick, | | | | | | Left arm | Constantino Dunaway MD | | | | | | pain | [address] | | | | | | Procedures | [address] | | | | | | [facility] | [address] | | | | | | VENOUS | [place], [place] | | | | | | DUPLEX UPPER | [address] | | | | | | EXTREMITY | Phone: | | | | | | BILAT COMP | [phone] | | | | | | | Fax: | | | | | | | [phone] | | + +--------+ + + + + Reason for Visit +--------+ + | Reason | Comments | +--------+ + | Other | VM left on [facility] line 11/04/17 at 1018 am | +--------+ + Encounter Details +--------+ + + + + | Date | Type | Department | Care Team | Description | +--------+ + + + + | 11/04/ | Telephone | Digestive Health | Constantino Romero, | Other (VM left on | | 2018 | | Center at [facility] | [address] | [facility] line 11/04/17 at | | | | Floor [address] | [address] | 1018 am) | | | | Yady Mailcode: CH4S | [place], [place] | | | | | [facility] | [address] | | | | | and [address], [address]th | [phone] | | | | | floor [place], [place] | | | | | | [address] | | | | | | [phone] | | | +--------+ + + + [...] | | | | | Angelica Schafer [place], | | | | | | [place] [address] | | | | | | [phone] | | | | | | | | +--------+---------+ + + + | 01/06/ | Office | Surgery | Constantino Romero, | | | 2018 | Visit | | [address] | | | | | | [address] | | | | | | [place] | | | | | | [address] | | | | | | [phone] | | | | | | | | +--------+---------+ + + + + +--------+ + + | Name | Priori | Associated Diagnoses | Order Schedule | | | ty | | | + +--------+ + + | VASC LAB VENOUS DUPLEX UPPER | Routin | Left arm pain | Expected: | | EXTREMITY BILAT COMP | e | | 11/04/2017, Expires: | | | | | 12/02/2018 | + +--------+ + + as of this encounter Visit Diagnoses + + | Diagnosis | + + | Left arm pain - Primary | + + | Pain in limb | + +"
--- OUTSIDE RECORDS SUMMARY | ~2018-01-20 | XMS | Encounter Summary ---
Demographics + + + | Address | [address] | | | [place] [address] | + + + | Home Phone | | + + + | Preferred Language | Unknown | + + + | Marital Status | Single | + + + | Advent Affiliation | NON | + + + | Race | White | + + + | Ethnic Group | Not or | + + + Author + + + | Author | [facility] | + + + | Organization | [facility] | + + + | Address | Unknown | + + + | Phone | Unavailable | + + + Support + + +---------+ + | Name | Relationship | Address | Phone | + + +---------+ + | JULI ALLEN | ECON | Unknown | | + + +---------+ + Care Team Providers + +------+ + | Care Deflash And Wash Operator Name | Role | Phone | [...] | | 2018 | | Center at [facility] 6th | [address] | Review | | | | Floor [address] | [address] | | | | | Yady Mailcode: CH[address]S | [place], [place] | | | | | [facility] | [address] | | | | | and Pamela, [facility] | [phone] | | | | | floor [place], [place] | | | | | | [address] | | | | | | [phone] | | | +--------+ + + + [...] | | | | | Angelica Schafer [place], | | | | | | [place] [address] | | | | | | [phone] | | | | | | | | +--------+---------+ + + + | 01/06/ | Office | Surgery | Constantino Romero, | | | 2018 | Visit | | [address] | | | | | | [address] | | | | | | [place], [place] | | | | | | [address] | | | | | | [phone] | | | | | | | | +--------+---------+ + + + as of this encounter Visit Diagnoses Not on filein this encounter"
--- OUTSIDE RECORDS SUMMARY | ~2018-01-20 | XMS | Encounter Summary ---
Demographics + + + | Address | [address] | | | [place] [address] | + + + | Home Phone | | + + + | Preferred Language | Unknown | + + + | Marital Status | Single | + + + | Rastafarian Affiliation | NON | + + + | Race | White | + + + | Ethnic Group | Not or | + + + Author + + + | Author | [facility] | + + + | Organization | [facility] | + + + | Address | Unknown | + + + | Phone | Unavailable | + + + Support + + +---------+ + | Name | Relationship | Address | Phone | + + +---------+ + | JULI ALLEN | ECON | Unknown | | + + +---------+ + Care Team Providers + +------+ + | Care Cut Out And Marking Machine Operator Name | Role | Phone | + +------+ + | Marlee Duarte MD | PCP | | + +------+ + Reason for Visit + + + | Reason | Comments | + + + | Scheduling | | + + + Encounter Details +--------+ + + + + | Date | Type | Department | Care Team | Description | +--------+ + + + + | 10/28/ | Telephone | Digestive Health | Constantino Romero, | Scheduling | | 2018 | | Center at [facility] 6th | [address] | | | | | Floor [address] | [address] | | | | | Yady Mailcode: CH4S | [place], [place] | | | | | [facility] | [address] | | | | | and [address], [address] | [phone] | | | | | floor [place], [place] | | | | | | [address] | | | | | | [phone] | | | +--------+ + + + [...] | | | | | Angelica Schafer [place], | | | | | | [place] [address] | | | | | | [phone] | | | | | | | | +--------+---------+ + + + | 01/06/ | Office | Surgery | Constantino Romero, | | | 2018 | Visit | | [address] | | | | | | [address] | | | | | | [place], [place] | | | | | | [address] | | | | | | [phone] | | | | | | | | +--------+---------+ + + + as of this encounter Visit Diagnoses Not on filein this encounter"
--- OUTSIDE RECORDS SUMMARY | ~2018-01-20 | XMS | Encounter Summary ---
Demographics + + + | Address | [address] | | | [place] [address] | + + + | Home Phone | | + + + | Preferred Language | Unknown | + + + | Marital Status | Single | + + + | Caodaism Affiliation | NON | + + + | Race | White | + + + | Ethnic Group | Not or | + + + Author + + + | Author | [facility] | + + + | Organization | [facility] | + + + | Address | Unknown | + + + | Phone | Unavailable | + + + Support + + +---------+ + | Name | Relationship | Address | Phone | + + +---------+ + | JULI ALLEN | ECON | Unknown | | + + +---------+ + Care Team Providers + +------+ + | Care Metal Neutralizer Name | Role | Phone | + [...] | | 2018 | | Center at [facility] 6[facility] | [address] | | | | | Floor [address] | [address] | | | | | Yady Mailcode: CH4S | [place], [place] | | | | | [facility] | [address] | | | | | and [address], [address] | [phone] | | | | | floor [place], [place] | | | | | | [address] | | | | | | [phone] | | | +--------+ + + + [...] | | | | | Angel[address] [place], | | | | | | [place] [address] | | | | | | [phone] | | | | | | | | +--------+---------+ + + + | 01/06/ | Office | Surgery | Constantino Romero, | | | 2018 | Visit | | [address] | | | | | | [address] | | | | | | [place], [place] | | | | | | [address] | | | | | | [phone] | | | | | | | | +--------+---------+ + + + as of this encounter Visit Diagnoses Not on filein this encounter"
--- OUTSIDE RECORDS SUMMARY | ~2018-01-20 | XMS | Encounter Summary ---
Demographics + + + | Address | [address] | | | [place] [address] | + + + | Home Phone | | + + + | Preferred Language | Unknown | + + + | Marital Status | Single | + + + | Voodoo Affiliation | NON | + + + | Race | White | + + + | Ethnic Group | Not or | + + + Author + + + | Author | [facility] | + + + | Organization | [facility] | + + + | Address | Unknown | + + + | Phone | Unavailable | + + + Support + + +---------+ + | Name | Relationship | Address | Phone | + + +---------+ + | JULI ALLEN | ECON | Unknown | | + + +---------+ + Care Team Providers + +------+ + | Care Adaptive Physical Educator Name | Role | Phone | + [...] + + | 10/09/ | Hospital | [facility] [address] | Jaleesa Burleson, | | | 2017 - | Encounter | [address] | | | | | | [place] [address] | | | | 10/23/ | | [phone] | | | | 2017 | | [...] may be different from t erma original. [facility]ly [facility] Surgery Team Inpatient Discharge Summary Aniket Scott [...] the prescribed narcotic-opioid (e.g. oxycodone, hydrocodone, Vicodin, Hooper, Percocet, Dilaudid) as needed. However, Vicodin/Hooper and Percocet contain acetam inophen in the [...] Narcotic-opioid pain medications (e.g. oxycodone, hydrocodone, Vicodin, Hooper, Percocet, Di laudid) can be constipating, therefore you should take a stool softener on the same day as s tarting your narcotic pain medicine. Options include: Milk of Magnesia: 2 Tablespoons Twice daily Colace (=Docusate): 1 pill Twice daily While these are some recommendations, any ekuq-cjj-xqjlrwc stool softener should work, and generics are [...] course, please call Dr Holger Burleson's office ([phone]), especially if you are considering going to an Emergency Room. FOLLOW-UP: Please call Dr. Burleson's office ([phone]) to schedule a follow-up appointment for 2 weeks after discharge. Condition on Discharge Stable Future Appointments Provider Department Dept Phone Center 10/29/2017 12:00 PM Jaleesa Burleson Digestive [facility] at [facility] 6th Floor [phone] Alina [facility] 04/05/2018 1:40 PM Liz Rodriguez Digestive [facility] at [facility] 6th Floor [phone] [facility] Schedule the following appointment(s) when you get home Marlee Duarte MD . Specialty: Internal Medicine Contact information [facility] [address] [place] [address] Physical Exam: Vital Signs at discharge: Ht 1.829 m (6' 0.01"), Wt 88 kg (194 lb 0.1 oz), BP 130/77, Pulse 83, Temperature 36.6 C (97.9 F), RR 18, SpO2 100%, BMI 26.31 kg/(m^2). General: comfortable, NAD Respiratory: unlabored breathing Cardio: Mild regular tachycardia Abdomen: soft, nontender, Incision clean dry and intact. Wearing abd binder, mildly distend ed. [place] out, steri strips placed. Minimal drainage from superior aspect of incision, mil d erythema. Extremities: WWP, no edema Mental status: awake and alert Drain: removed Outstanding labs/studies: None When to Call: Please call [facility] ([phone]) or the [facility] internal grinder set up operator after hours and ask for the [facility] Physician Certified Technician Specialist, Nurse or Surgery Resi dent collection team lead if you have any of the followin. Difficulty breathing or unusual shortness of breath 2. Excessive bleeding, drainage, redness and/or swelling at the operative site 3. Fevers (>101.5), chills, increased pain that is not relieved by pain medications 4. Persistent nausea or vomiting Discharging Physician: Aniket Scott DO Attending Physician: Jaleesa Scott DO [facility] Surgery Pager# [phone] [place], [place] [phone] in this encounter Discharge Instructions Jenny Boyer [...] Physician: Jaleesa Burleson MD Patient: NEW LICEA [id number] 24H events/Subjective: -tolerating diet -continued BM -no [...] Mark Haynes MD General Surgery, R-3 pg. [id number] [facility] [place] Associated attestation - Jaleesa Burleson MD - [...] possible dc without TPN. Jaleesa Burleson MD [facility] [address] [place] [address] Aniket Scott DO - 10/21/2017 7:48 AM PSTFormatting of this note may be different from t he original. [facility] Progress Note Attending Physician: Jaleesa Burleson MD Patient: NEW LICEA [id number] 24H events/Subjective: -one episode of emesis yesterday [...] this patient is Dr. Nick MD. Jovanni cSott R1 Pg [id number] Associated attestation - Jaleesa Burleson MD - [...] in next couple days. Jaleesa Burleson MD [facility] [address] [facility] [place] [address] Mark Haynes MD - 10/20/2017 6:43 PM PSTGreen Surgery Rectal Exam: External anus without lesion, defect or erythema. Tone good, staple line intact, anastomosi s patent, no blood, nontender, no palpable fluid collection, or fluctuance. Mark Haynes MD General Surgery, R-3 pg. [id number] [facility] [place] KristineKylah, [facility] - 10/20/2017 6:16 AM PSTFormatting of this note may be different f rom the original. [facility] Surgery Progress Note Attending Physician: Jaleesa Burleson MD Patient: NEW LICEA [id number] 24H events/Subjective: -one episode of emesis yesterday [...] 10/20/2017 ANIONALBCOR 12 10/19/2017 Assessment and Plan: eNw Licea is a 37 y.o. male sp [...] Mark Haynes MD General Surgery, R-3 pg. [id number] [facility] Kylah Casas, [facility] [address] [place] [address] Associated attestation - Jaleesa Burleson MD - [...] -OK to remove drain. Jaleesa Burleson MD [facility] [address] [facility] [place] [address] Yessenia Kylah, [facility] - 10/19/2017 5:45 AM PSTFormatting of this note may be different f rom the original. [facility] Surgery Progress Note Attending Physician: Jaleesa Burleson MD Patient: NEW LICEA [id number] 24H events/Subjective: -one episode of emesis yesterday [...] Mark Haynes MD General Surgery, R-3 pg. [id number] [facility] [place] Kylah Casas [facility] [address] [place] [address] Associated attestation - Jaleesa Burleson MD - [...] TPN and PO intake. Jaleesa Burleson MD [facility] [address] [place] [address] Mark Haynes MD - 10/18/2017 11:11 AM PSTGreen Surgery Progress Note Attending Physician: Jaleesa Burleson MD Patient: NEW LICEA [id number] 24H events/Subjective: -one episode of emesis yesterday, [...] Mark Haynes MD General Surgery, R-3 pg. [id number] [facility] Associated attestation - Shawna Rahman MD - [...] MD Division of Gastrointestinal [place] [address] Office: [phone] Mark Haynes MD - 10/17/2017 4:12 PM PSTGreen Surgery Progress Note Attending Physician: Jaleesa Burleson MD Patient: NEW LICEA [id number] 24H events/Subjective: -NGT out yesterday evening -denies [...] setting of loose stool 7. 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 Nick MD. Mark Haynes MD General Surgery, R-3 pg. [id number] [facility] Associated attestation - Shawna Rahman MD - [...] MD Division of Gastrointestinal and General Surgery [address], [place] [address] Office: [phone] Mark Haynes MD - 10/16/2017 6:25 AM PSTGreen Surgery Progress Note Attending Physician: Jaleesa Burleson MD Patient: NEW LICEA [id number] 24H events/Subjective: -AF -Feeling better this am [...] setting of loose stool 7. 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 Nick MD. Jovanni Scott R1 Pg [phone] Mark Haynes MD General Surgery, R-3 pg. [id number] [facility] [place] Associated attestation - Jaleesa Burleson MD - [...] still attempt enteral nutrition. Jaleesa Burleson MD [facility] [address] [facility] [place] [address] Aniket Scott DO - 10/15/2017 6:07 AM PSTGreen Surgery Progress Note Attending Physician: Jaleesa Burleson MD Patient: NEW LICEA [id number] 24H events/Subjective: -AF -episodes of nausea, w/bilious [...] setting of loose stool 7. 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 Nick MD. Jovanni Scott R1 Pg [id number] Associated attestation - Jaleesa Burleson MD - [...] of contrast. Hold discharge. 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 Nick MD. Jovanni Scott R1 Pg [id number] Associated attestation - Jaleesa Burleson MD - [...] net 24- 48 hours. Jaleesa Burleson MD [facility] [address] [place] [address] Aniket Scott, - 10/13/2017 6:20 AM PSTGreen Surgery Progress Note Attending Physician: Jaleesa Burleson MD Patient: NEW LICEA [id number] 24H events/Subjective: -AF/AGUILAR overnight -tolerating diet, still minimal PO -continues to have multiple small liquid BMs overnight -transition off PHOSPHATIC FERTILIZER SUPERVISOR today Objective: BP 132/84 | Pulse 107 [...] setting of loose stool 7. 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 Nick MD. Jovanni Scott R1 Pg [id number] Associated attestation - Jaleesa Burleson MD - [...] today -Anticipate discharge tomorrow. Jaleesa Burleson MD [facility] [address] [place] [address] Dalila Jonas MD - 10/10/2017 7:15 AM PSTFormatting of this note may be different from the original. [facility] Surgery Progress Note Hospital Day: 1 Author: Dalila Jonas MD Attending Physician: Jaleesa Burleson MD Patient: NEW LICEA [id number] 24H events/Subjective: Pt comfortable in bed this [...] day if tolerating PO 8. 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 OOB/ambulate. D/C rodolfo Burleson MD [facility] [address] [facility] [place] [address] Sebas Gunter MD - 10/09/2017 10:47 PM [...] | | | | | [address] [place], | | | | | | [place] [address] | | | | | | [phone] | | | | | | | | +--------+---------+ + + + | 01/06/ | Office | Surgery | Jaleesa Burleson, | | | 2018 | Visit | | [address] | | | | | | [address] | | | | | | [place], [place] | | | | | | [address] | | | | | | [phone] | | | | | | | [...] Laboratory | + + + | | [facility], POINT OF CARE TESTS [address] | | | [place] [address] | + + + CAPILLARY BLOOD GLUCOSE (NO CHG), POC (10/23/2017 5:39 AM) + +-------+ + | Component | Value | Ref Range | + +-------+ + | BLOOD GLUCOSE, POC | 93 | 70 - 99 mg/dL | + +-------+ + + + + | Specimen | Performing Laboratory | + + + | | [facility], POINT OF CARE TESTS [address] | | | [place] [address] | + + + CAPILLARY BLOOD GLUCOSE (NO CHG), POC (10/23/2017 12:02 AM) + +---------+ + | Component | Value | Ref Range | + +---------+ + | BLOOD GLUCOSE, POC | 108 (H) | 70 - 99 mg/dL | + +---------+ + + + + | Specimen | Performing Laboratory | + + + | | [facility], POINT OF CARE TESTS [address] | | | [place] [address] | + + + CAPILLARY BLOOD GLUCOSE [...] [address] | | | [place] [address] | + + + CAPILLARY BLOOD GLUCOSE [...] [address] | | | [place] [address] | + + + CAPILLARY BLOOD GLUCOSE [...] [address] | | | [place] [address] | + + + CBC (HEMOGRAM) ONLY [...] | + + + | Blood | [facility], CORE [address] | | | [place] [address] | + + + CBC ONLY (10/22/2017 4:22 AM) + + + | Specimen | Performing Laboratory | + + + | Blood | | + + + + + | Narrative | + + | The following orders were created for panel order CBC ONLY. | | Procedure | | Abnormality Status | | --------- | | ------ CBC (HEMOGRAM) | | ONLY[[id number]] Abnormal Final | | result Please view [...] [address] | | | [place] [address] | + + + CAPILLARY BLOOD GLUCOSE (NO CHG), POC (10/21/2017 6:05 PM) + +-------+ + | Component | Value | Ref Range | + +-------+ + | BLOOD GLUCOSE, POC | 91 | 70 - 99 mg/dL | + +-------+ + + + + | Specimen | Performing Laboratory | + + + | | [facility], POINT OF CARE TESTS [address] | | | [place] [address] | + + + CAPILLARY BLOOD GLUCOSE (NO CHG), POC (10/21/2017 12:20 PM) + +---------+ + | Component | Value | Ref Range | + +---------+ + | BLOOD GLUCOSE, POC | 124 (H) | 70 - 99 mg/dL | + +---------+ + + + + | Specimen | Performing Laboratory | + + + | | [facility], POINT OF CARE TESTS [address] | | | [place] [address] | + + + CAPILLARY BLOOD GLUCOSE [...] [address] | | | [place] [address] | + + + CBC (HEMOGRAM) ONLY [...] | + + + | Blood | [facility], CORE [address] [place] [address] | | | [place] [address] | + + + CBC ONLY (10/21/2017 4:07 AM) + + + | Specimen | Performing Laboratory | + + + | Blood | | + + + + + | Narrative | + + | The following orders were created for panel order CBC ONLY. | | Procedure | | Abnormality Status | | --------- | | ------ CBC (HEMOGRAM) | | ONLY[[id number]] Abnormal Final | | result Please view [...] | >60 | >60 mL/min | | [place]IAN | | | + +---------+ + | EGFR NON | >60 | >60 mL/min | | -LITHUANIAN | | | + +---------+ + | [...] | + + + | Blood | [facility], [facility] [address] | | | [place] [address] | + + + + + | [...] [address] | | | [place] [address] | + + + CBC (HEMOGRAM) ONLY [...] | + + + | Blood | [facility], CORE [address] | | | [place] [address] | + + + CBC ONLY (10/20/2017 10:29 AM) + + + | Specimen | Performing Laboratory | + + + | Blood | | + + + + + | Narrative | + + | The following orders were created for panel order CBC ONLY. | | Procedure | | Abnormality Status | | --------- | | ------ CBC (HEMOGRAM) | | ONLY[[id number]] Abnormal Final | | result Please view [...] | + + + | Blood | [facility], CORE [address] [place] [address] | | | [place] [address] | + + + + + | [...] | + + + | Blood | [facility] [id number] [place] [address] | | | [address] | + + + CALCIUM, IONIZED, WHOLE [...] | + + + | Blood | [facility], CORE [address] | | | [place] [address] | + + + ALT, PLASMA (10/20/2017 10:29 AM) + +--------+ + | Component | Value | Ref Range | + +--------+ + | ALT (SGPT) | 82 (H) | <=60 U/L | + +--------+ + + + + | Specimen | Performing Laboratory | + + + | Blood | [facility], CORE [address] [place] [address] | | | [place], [place] [address] | + + + TRIGLYCERIDES, PLASMA (10/20/2017 10:29 AM) + +---------+ + | Component | Value | Ref Range | + +---------+ + | TRIGLYCERIDES | 182 (H) | <150 mg/dL | + +---------+ + + + + | Specimen | Performing Laboratory | + + + | Blood | [facility], CORE [address] | | | [place] [address] | + + + + + | [...] | + + + | Blood | [facility], CORE [address] | | | [place] [address] | + + + ALKALINE PHOSPHATASE, PLASMA (10/20/2017 10:29 AM) + +-------+ + | Component | Value | Ref Range | + +-------+ + | ALK PHOS | 99 | 53 - 128 U/L | + +-------+ + + + + | Specimen | Performing Laboratory | + + + | Blood | [facility], CORE [address] | | | [place] [address] | + + + BILIRUBIN DIRECT (10/20/2017 [...] | + + + | Blood | [facility], CORE [address] | | | [place] [address] | + + + BILIRUBIN TOTAL (10/20/2017 [...] | + + + | Blood | [facility], CORE [address] | | | [place] [address] | + + + PHOSPHORUS, PLASMA (10/20/2017 10:29 AM) + +-------+ + | Component | Value | Ref Range | + +-------+ + | PHOSPHORUS, PLASMA | 3.3 | 2.4 - 4.7 mg/dL | | (LAB) | | | + +-------+ + + + + | Specimen | Performing Laboratory | + + + | Blood | [facility], CORE [address] | | | [place] [address] | + + + ALBUMIN, PLASMA (10/20/2017 10:29 AM) + +---------+ + | Component | Value | Ref Range | + +---------+ + | ALBUMIN, PLASMA | 2.8 (L) | 3.5 - 4.7 g/dL | | (LAB) | | | + +---------+ + + + + | Specimen | Performing Laboratory | + + + | Blood | [facility], CORE [address] [place] [address] | | | [place] [address] | + + + MAGNESIUM, PLASMA (10/20/2017 10:29 AM) + +-------+ + | Component | Value | Ref Range | + +-------+ + | MAGNESIUM,PLASMA | 2.4 | 1.6 - 2.6 mg/dL | + +-------+ + + + + | Specimen | Performing Laboratory | + + + | Blood | [facility], CORE [address] | | | [place] [address] | + + + + + | [...] | >60 | >60 mL/min | | LITHUANIAN | | | + +---------+ + | EGFR NON | >60 | >60 mL/min | | -LITHUANIAN | | | + +---------+ + | [...] | + + + | Blood | [facility], CORE [address] | | | [facility] [address] | + + + + + | [...] | Narrative | + + | EXAM: [place] CHEST PICC LINE CHECK 10/20/17 09:17:09 HISTORY: [...] Note | + + | Service Account, [employer] [facility] Interface - 10/20/2017 1:09 PM PST EXAM: [place] CHEST | | PICC LINE CHECK 10/20/17 [...] Note | | Indications:Antibiotics Procedure location: Unit:[facility] Room: #12 Providers: PICC | | Nurse name: Elana Poon RN Assisted by Isabel Barakat RN BSN Pre-Procedure Consent: | | written consent obtained Consent given by: Patient Patient identity confirmed per | | protocol: Yes Team Pause: Immediatly prior to the procedure a pause per protocol was | | called. A pause verifies correct patient, procedure, equipment, direct support professional home health and | | site/side marked as required. [...] Basilic | | vein. Catheter lot number: [id number] with a length of 55 cm was [...] Laboratory | + + + | | [facility] RADIOLOGY VOICE RECOGNITION | + + + [...] | >60 | >60 mL/min | | [place]ITHUANIAN | | | + +---------+ + | EGFR NON | >60 | >60 mL/min | | -LITHUANIAN | | | + +---------+ + | [...] | + + + | Blood | [facility], CORE [address] [place] [address] | | | [place] [address] | + + + + + | [...] | + + + | Blood | [facility], [facility] [address] [place] [address] | | | [place] [address] | + + + CBC ONLY (10/18/2017 7:00 AM) + + + | Specimen | Performing Laboratory | + + + | Blood | | + + + + + | Narrative | + + | The following orders were created for panel order CBC ONLY. | | Procedure | | Abnormality Status | | --------- | | ------ CBC (HEMOGRAM) | | ONLY[[id number]] Abnormal Final | | result Please view [...] | >60 | >60 mL/min | | LITHUANIAN | | | + +---------+ + | EGFR NON | >60 | >60 mL/min | | -LITHUANIAN | | | + +---------+ + | [...] | + + + | Blood | [facility], [facility] [address] | | | [place] [address] | + + + + + | [...] | >60 | >60 mL/min | | LITHUANIAN | | | + + + + | EGFR NON | >60 | >60 mL/min | | -LITHUANIAN | | | + + + + [...] | + + + | Blood | [facility], [facility] [address] | | | [place] [address] | + + + + + | [...] | + + + | Blood | [facility], CORE [address] | | | [place] [address] | + + + + + | [...] | >60 | >60 mL/min | | LITHUANIAN | | | + +---------+ + | EGFR NON | >60 | >60 mL/min | | -LITHUANIAN | | | + +---------+ + | [...] | + + + | Blood | [facility], CORE [address] | | | [facility] [address] | + + + + + | [...] Note | + + | Service Account, [employer] [facility] - 10/16/2017 10:44 AM PST [...] Laboratory | + + + | | [facility] RADIOLOGY VOICE RECOGNITION | + + + [...] Note | + -+ | Service Account, [employer] [facility] - 10/15/2017 1:28 PM PST [...] | + + + | Blood | [facility], CORE [address] | | | [place] [address] | + + + CBC ONLY (10/15/2017 4:06 AM) + + + | Specimen | Performing Laboratory | + + + | Blood | | + + + + + | Narrative | + + | The following orders were created for panel order CBC ONLY. | | Procedure | | Abnormality Status | | --------- | | ------ CBC (HEMOGRAM) | | ONLY[[id number]] Abnormal Final | | result Please view [...] | + + + | Blood | [facility], CORE [address] | | | [place] [address] | + + + + + | [...] | >60 | >60 mL/min | | LITHUANIAN | | | + +---------+ + | EGFR NON | >60 | >60 mL/min | | -LITHUANIAN | | | + +---------+ + | [...] | + + + | Blood | [facility], C[address] | | | [place] [address] | + + + + + | [...] Note | + + | Service Account, [facility] - 10/15/2017 9:01 AM [...] | + + + | Blood | [facility] LABORATORY [facility], CORE [address] | | | [place], [place] [address] | + + + + + | [...] | >60 | >60 mL/min | | LITHUANIAN | | | + +---------+ + | EGFR NON | >60 | >60 mL/min | | -LITHUANIAN | | | + +---------+ + | [...] | + + + | Blood | [facility], C[address] [place] [address] | | | [place] [address] | + + + + + | [...] [address] | | | [place] [address] | + + + CAPILLARY BLOOD GLUCOSE [...] [address] | | | [place] [address] | + + + CAPILLARY BLOOD GLUCOSE [...] [address] | | | [place] [address] | + + + CAPILLARY BLOOD GLUCOSE [...] [address] | | | [place] [address] | + + + CAPILLARY BLOOD GLUCOSE (NO CHG), POC (10/10/2017 6:58 AM) + +---------+ + | Component | Value | Ref Range | + +---------+ + | BLOOD GLUCOSE, POC | 117 (H) | 70 - 99 mg/dL | + +---------+ + + + + | Specimen | Performing Laboratory | + + + | | [facility] [place] POINT OF CARE TESTS [address] | | | [place] [address] | + + + CBC (HEMOGRAM) ONLY [...] | + + + | Blood | [facility], CORE [address] [place] [address] | | | [place] [address] | + + + MAGNESIUM, PLASMA (10/10/2017 5:06 AM) + +-------+ + | Component | Value | Ref Range | + +-------+ + | MAGNESIUM,PLASMA | 1.8 | 1.6 - 2.6 mg/dL | + +-------+ + + + + | Specimen | Performing Laboratory | + + + | Blood | [facility], CORE [address] [address] | | | [place] [address] | + + + + + | [...] | >60 | >60 mL/min | | LITHUANIAN | | | + +---------+ + | EGFR NON | >60 | >60 mL/min | | -LITHUANIAN | | | + +---------+ + | [...] | + + + | Blood | [facility], CORE [address] | | | [place] [address] | + + + + + | [...] | | ------ CBC (HEMOGRAM) | | ONLY[[id number]] Abnormal Final | | result Please view [...] + + + | | [facility] [place], POINT OF CARE TESTS [address] | | | [place] [address] | + + + CAPILLARY BLOOD GLUCOSE [...] TESTS [address] | | | [place] [address] | + + + CAPILLARY BLOOD GLUCOSE (NO CHG), POC (10/10/2017 12:54 AM) + +---------+ + | Component | Value | Ref Range | + +---------+ + | BLOOD GLUCOSE, POC | 104 (H) | 70 - 99 mg/dL | + +---------+ + + + + | Specimen | Performing Laboratory | + + + | | [facility] [place], POINT OF CARE TESTS [address] | | | [place] [address] | + + + CAPILLARY BLOOD GLUCOSE (NO CHG), POC (10/09/2017 11:47 PM) + +---------+ + | Component | Value | Ref Range | + +---------+ + | BLOOD GLUCOSE, POC | 106 (H) | 70 - 99 mg/dL | + +---------+ + + + + | Specimen | Performing Laboratory | + + + | | [facility] [place], POINT OF CARE TESTS [address] | | | [place] [address] | + + + CAPILLARY BLOOD GLUCOSE [...] [address] | | | [place] [address] | + + + GLUCOSE, PLASMA (10/09/2017 9:17 PM) + +---------+ + | Component | Value | Ref Range | + +---------+ + | GLUCOSE, PLASMA | 188 (H) | 70 - 99 mg/dL | | (LAB) | | | + +---------+ + + + + | Specimen | Performing Laboratory | + + + | Blood | [facility], [facility] [address] | | | [place] [address] | + + + + + | [...] TESTS [address] | | | [place] [address] | + + + PROCEDURE NOTE (10/09/2017 8:00 PM)CAPILLARY BLOOD GLUCOSE (NO CHG), POC (10/09/2017 7:33 PM) + +---------+ + | Component | Value | Ref Range | + +---------+ + | BLOOD GLUCOSE, POC | 160 (H) | 70 - 99 mg/dL | + +---------+ + + + + | Specimen | Performing Laboratory | + + + | | [facility] [place], POINT OF CARE TESTS [address] | | | [place] [address] | + + + PROCEDURE NOTE (10/09/2017 [...] cm umbilical defect + a couple tiny [place] cheese defects along the midline. | | [...] | intervals. After a pause and multimedia educational specialist-out by the entire operating staff, the abdomen [...] | | defect + a couple tiny [place] cheese defects along the midline. Given the [...] the rectus muscle for the purpose of muslim of linea | | alba, as well [...] [address] | | | [place] [address] | + + + PROCEDURE NOTE (10/09/2017 [...] | | contact: Bertin aguero at pager [phone] | + + CAPILLARY BLOOD GLUCOSE (NO [...] TESTS [address] | | | [place] [address] | + + + CARDIOLOGY (10/09/2017)in this [...] 90 mL | | | | (GASTROGRAFPHI JONESGASTROMARLON) | | 8 09:26 | | | [...] + + +---+---+---+ | HYDROmorphone 0.5 mg/mL PHOSPHATIC FERTILIZER SUPERVISOR | Rate/Dos | | | | | | (ADULT STANDARD DOSE) in 0.9 % | e Verify | 8 05:10 | | | | | NaCl PHOSPHATIC FERTILIZER SUPERVISOR Dose: 0.2 mg, Lockout | | PST [...] + + +---+---+---+ | HYDROmorphone 0.5 mg/mL PHOSPHATIC FERTILIZER SUPERVISOR | Rate/Dos | | | | | | (ADULT STANDARD DOSE) in 0.9 % | e Verify | 8 02:00 | | | | | NaCl PHOSPHATIC FERTILIZER SUPERVISOR Dose: 0.2 mg, Lockout | | PST [...] + + +---+---+---+ | HYDROmorphone 0.5 mg/mL PHOSPHATIC FERTILIZER SUPERVISOR | Rate/Dos | | | | | | (ADULT STANDARD DOSE) in 0.9 % | e Verify | 8 04:13 | | | | | NaCl PHOSPHATIC FERTILIZER SUPERVISOR Dose: 0.1 mg, Lockout | | PST [...] mg | | | | bolus from PHOSPHATIC FERTILIZER SUPERVISOR (ADULT STANDARD | from | 8 08:42 | | | | | DOSE) 0.2 mg intravenous, EVERY | Same Bag | PST | | | | | 10 MINUTES NEEDED, Starting | | | | | | | 10/09/17 at 1848, Until Mon | | | | | | | 10/12/17 at 1310, PHOSPHATIC FERTILIZER SUPERVISOR clinician | | | | | | | rescue bolus. If exceeding 2 | | | | | | | doses in a rolling 60 minute time | | | | | | | frame, contact provider for PHOSPHATIC FERTILIZER SUPERVISOR | | | | | | | [...] mg | | | | bolus from PHOSPHATIC FERTILIZER SUPERVISOR (ADULT STANDARD | from | 8 18:46 | | | | | DOSE) 0.2 mg intravenous, EVERY | Same Bag | PST | | | | | 10 MINUTES NEEDED, Starting | | | | | | | 10/12/17 at 1318, Until Tue | | | | | | | 10/13/17 at 0751, PHOSPHATIC FERTILIZER SUPERVISOR clinician | | | | | | | rescue bolus. If exceeding 2 | | | | | | | doses in a rolling 60 minute time | | | | | | | frame, contact provider for PHOSPHATIC FERTILIZER SUPERVISOR | | | | | | | assessment | | | | | | + + + +--------+---+---+ +---+---+ | | | +---+---+ + + + +--------+---+---+ | HYDROmorphone 0.5 mg/mL rescue | Bolus | | 0.2 mg | | | | bolus from PHOSPHATIC FERTILIZER SUPERVISOR (ADULT STANDARD | from | 8 01:41 | | | | | DOSE) 0.2 mg intravenous, EVERY | Same Bag | PST | | | | | 10 MINUTES NEEDED, Starting | | | | | | | Yessi 10/15/17 at 1532, Until Sat | | | | | | | 10/17/17 at 1614, PHOSPHATIC FERTILIZER SUPERVISOR clinician | | | | | | | rescue bolus. If exceeding 2 | | | | | | | doses in a rolling 60 minute time | | | | | | | frame, contact provider for PHOSPHATIC FERTILIZER SUPERVISOR | | | | | | | [...] mcg, intravenous, | | | NEEDED, Starting [facility] 10/15/17 at | | | 1531, Until [...] PST | | | | | Starting Yessi 10/15/17 at 0612, | | | | [...]
--- OUTSIDE RECORDS SUMMARY | ~2018-01-20 | XMS | Clinical Summary ---
Demographics + + + | Address | [address] | | | [place] [address] | + + + | Home Phone | | + + + | Preferred Language | Unknown | + + + | Marital Status | Single | + + + | Rastafari Affiliation | NON | + + + [...] Team Providers + +------+ + | Care Principal Research Economist Name | Role | Phone | + +------+ + | Marlee Duarte MD | PP | | + +------+ + Source Comments JEREMY is fully live on both [facility] and [facility] InPatient.[facility] Allergies + + + + + + [...] | 2017 | | | MD | [facility] line 11/04/17 at | | | | [...] | | | original. | | | [place] | | | Health and | | [...] | | , Vicodin, | | | [place], | | | Percocet, | | | [...] | | , Vicodin, | | | [place], | | | Percocet, | | | [...] | | | office | | | [phone] | | | [phone]), | | | [...] | | | information | | | [place] | | | Medical | | | [id number] | | | [place] | | | DrCoos Lamont | | | [place] | | | [phone] | | [phone] | | | [...] | | | clinic | | | [phone] | | | [phone]) or the | | | [facility] | | | jeeper operator | | | [phone] | | [phone] | | | after hours | | | and ask | | | for the | | | [place] | | | Surgery | | | Physician | | | Oil Well Driller, | | | Nurse or | | [...] | | | Surgery | | | [phone] | | | 11 Pager# | | | [phone] | | | [phone] | | [address] | | | Pk | | | [place], | | | [place] | | | [phone] | | [phone] | +---+ + from Last 3 Months [...] | | | | | | [place] [address] | | | | | | [phone] | | | | | | | | +--------+---------+ + + + | 01/06/ | Office | | Constantino Romero, | | | 2018 | Visit | | [address] | | | | | | [address] | | | | | | [place], [place] | | | | | | [address] | | | | | | [phone] | | | | | | | [...] | n | ETHICON | | | [id number] | | Hernia Repair - | | | | | | | | [id number]: Qty: 1 on | | | | | | | | 10/09/2017 by Nick, | | | | | | | | Constantino Dunaway MD | | | | | | | + +------+--------+ +--------+--------+--------+ | [facility] Bard [id number] | | N/A: | BARD | | 08/27/ | [id number] | | Hernia Soft Lightweight Low | | Abdome | | | 2019 | 6 / | | Profile Strong Knit | | n | | | | [id number] | | Construction Monofilament - | | | | | | 029 | | [id number]: Qty: 1 on | | | | [...] Laboratory | + + + | | [facility], POINT OF CARE TESTS [address] | | | [place] [address] | + + + CBC (HEMOGRAM) ONLY [...] | + + + | Blood | [facility], [address] | | | [place] [address] | + + + CBC ONLY (10/22/2017 4:22 AM) + + + | Specimen | Performing Laboratory | + + + | Blood | | + + + + + | Narrative | + + | The following orders were created for panel order CBC ONLY. | | Procedure | | Abnormality Status | | --------- | | ------ CBC (HEMOGRAM) | | ONLY[[id number]] Abnormal Final | | result Please view results for these tests on the | | individual orders. | + + from Last 3 Months
--- OUTSIDE RECORDS SUMMARY | ~2018-01-20 | XMS | Encounter Summary ---
Demographics + + + | Address | [address] | | | [place] [address] | + + + | Home Phone [...] + + | Author | [facility] | + + + | Organization | [facility] | + + + | Address | Unknown | + + + | Phone | Unavailable | + + + Support + + +---------+ + | Name | Relationship | Address | Phone | + + +---------+ + | JULI ALLEN | ECON | Unknown | | + + +---------+ + Care Team Providers + +------+ + | Care Photographer Finish Name | Role | Phone | + [...] [address]ergio | | | | | | [facility] | [address] | | | | | | VENOUS | [place], [place] | | | | | | DUPLEX UPPER | [address] | | | | | | EXTREMITY | Phone: | | | | | | BILAT COMP | [phone] | | | | | | | Fax: | | | | | | | [phone] | | + +--------+ + + + + Reason for Visit +--------+ + | Reason | Comments | +--------+ + | Other | VM left on [facility] line 11/04/17 at 1018 am | +--------+ + Encounter Details +--------+ + + + + | Date | Type | Department | Care Team | Description | +--------+ + + + + | 11/04/ | Telephone | Digestive Health | Constantino Romero, | Other (VM left on | | 2018 | | Center at [facility] 6th | [address] | [facility] line 11/04/17 at | | | | Floor [address] | [address] | 1018 am) | | | | Yady Mailcode: CH4S | [place], [place] | | | | | [facility] | [address] | | | | | and Pamela, 6th | [phone] | | | | | floor [place], [place] | | | | | | [address] | | | | | | [phone] | | | +--------+ + + + [...] | | | | | [address] [place], | | | | | | [place] [address] | | | | | | [phone] | | | | | | | | +--------+---------+ + + + | 01/06/ | Office | Surgery | Constantino Romero, | | | 2018 | Visit | | [address] | | | | | | [address] | | | | | | [place] | | | | | | [address] | | | | | | [phone] | | | | | | | [...]
--- OUTSIDE RECORDS SUMMARY | ~2018-01-20 | XMS | Encounter Summary ---
Demographics + + + | Address | [address] | | | [place] [address] | + + + | Home Phone | | + + + | Preferred Language | Unknown | + + + | Marital Status | Single | + + + | Worship Affiliation | NON | + + + [...] Team Providers + +------+ + | Care Grain Combine Driver Name | Role | Phone | + +------+ + | Marlee Duarte MD | PCP | | + +------+ + Encounter Details +--------+ + + + + | Date | Type | Department | Care Team | Description | +--------+ + + + + | 12/22/ | Telephone | Digestive Health | Constantino Romero, | | | 2018 | | Center [facility] 6th | [address] | | | | | Floor [address] | [address] | | | | | Yady Mailcode: CH4S | [place], [place] | | | | | [facility] | [address] | | | | | [address] | [phone] | | | | | floor [place], [place] | | | | | | [address] | | | | | | [phone] | | | +--------+ + + + [...] Hill | | | | | | [address] [place] [place], | | | | | | [place] [address] | | | | | | [phone] | | | | | | | | +--------+---------+ + + + | 01/06/ | Office | Surgery | Constantino Romero, | | | 2018 | Visit | | [address] | | | | | | [address] | | | | | | [place], [place] | | | | | | [address] | | | | | | [phone] | | | | | | | | +--------+---------+ + + + as of this encounter Visit Diagnoses Not on filein this encounter"
--- OUTSIDE RECORDS SUMMARY | ~2018-01-20 | XMS | Encounter Summary ---
Demographics + + + | Address | [address] | | | [place] [address] | + + + | Home Phone | | + + + | Preferred Language | Unknown | + + + | Marital Status | Single | + + + | Jewish Affiliation | NON | + + + | Race | White | + + + | Ethnic Group | Not or | + + + Author + + + | Author | [facility] | + + + | Organization | [facility] | + + + | Address | Unknown | + + + | Phone | Unavailable | + + + Support + + +---------+ + | Name | Relationship | Address | Phone | + + +---------+ + | JULI ALLEN | ECON | Unknown | | + + +---------+ + Care Team Providers + +------+ + | Care Machine Plate Stacker Name | Role | Phone | + [...] Hill | | | | | | [facility] | | | | | | [place], [place] | | | | | | [address] | | | +--------+ + + + [...] | | 2017 | Visit | | [address] | | | | | | Angelica Schafer [facility] | | | | | | [place] [address] | | | | | | [phone] | | | | | | | | +--------+---------+ + + + | 01/06/ | Office | Surgery | Constantino Romero, | | | 2018 | Visit | | [address] | | | | | | [address] | | | | | | [place] | | | | | | [address] | | | | | | [phone] | | | | | | | | +--------+---------+ + + + as of this encounter Visit Diagnoses Not on filein this encounter"
--- OUTSIDE RECORDS SUMMARY | ~2018-01-20 | XMS | Encounter Summary ---
Demographics + + + | Address | [address] | | | [place] [address] | + + + | Home Phone [...] Team Providers + +------+ + | Care Insurance Agent Name | Role | Phone | + +------+ + | Marlee Duarte MD | PCP | | + +------+ + Encounter Details +--------+ + + + + | Date | Type | Department | Care Team | Description | +--------+ + + + + | 12/22/ | Telephone | Digestive Health | Constantino Romero, | | | 2018 | | Center [facility] 6th | [address] | | | | | Floor [address] | [address] | | | | | Yady Mailcode: CH4S | [place], [place] | | | | | [facility] | [address] | | | | | [address] | [phone] | | | | | floor [place], [place] | | | | | | [address] | | | | | | [phone] | | | +--------+ + + + [...] | | | | | [address] [place], | | | | | | [place] [address] | | | | | | [phone] | | | | | | | | +--------+---------+ + + + | 01/06/ | Office | Surgery | Constantino Romero, | | | 2018 | Visit | | [address] | | | | | | [address] | | | | | | [place], [place] | | | | | | [address] | | | | | | [phone] | | | | | | | | +--------+---------+ + + + as of this encounter Visit Diagnoses Not on filein this encounter"
--- OUTSIDE RECORDS SUMMARY | ~2018-01-20 | XMS | Encounter Summary ---
Demographics + + + | Address | [address] | | | [place] [address] | + + + | Home Phone | | + + + | Preferred Language | Unknown | + + + | Marital Status | Single | + + + | Sabianism Affiliation | NON | + + + | Race | White | + + + | Ethnic Group | Not or | + + + Author + + + | Author | [facility] | + + + | Organization | [facility] | + + + | Address | Unknown | + + + | Phone | Unavailable | + + + Support + + +---------+ + | Name | Relationship | Address | Phone | + + +---------+ + | JULI ALLEN | ECON | Unknown | | + + +---------+ + Care Team Providers + +------+ + | Care Packing Inspector Name | Role | Phone | + [...] [address] | | | | | | [facility] | | | | | | [place], [place] | | | | | | [address] | | | +--------+ + + + [...] | | 2017 | Visit | | [address] | | | | | | Angelica Schafer [facility] | | | | | | [place] [address] | | | | | | [phone] | | | | | | | | +--------+---------+ + + + | 01/06/ | Office | Surgery | Constantino Romero, | | | 2018 | Visit | | [address] | | | | | | [address] | | | | | | [place] | | | | | | [address] | | | | | | [phone] | | | | | | | | +--------+---------+ + + + as of this encounter Visit Diagnoses Not on filein this encounter"
[~2018-01-20 19:53] MED LIST changes: +HYDROMORPHONE HC2 MG PO; +NAPROXEN500 MG PO; +TYLENOL325 MG PO
[2018-01-20] MEDS ORDERED: AMOXICILLIN500 MG PO (22:41)
[2018-01-20] MEDS ORDERED: FLAGYL500 MG PO (23:00)
[2018-01-20] MEDS ORDERED: LEVAQUIN750 MG PO (23:00)
[2018-01-26] MEDS ORDERED: PERCOCET 10-321 EACH PO (12:14)
== END 2018-01-20 23:19 | disposition home or self-care (01) ==
LOC: ED 19:53
DX: L03.317 Cellulitis of buttock (principal); Z88.5 Allergy status to narcotic agent; Z91.030 Bee allergy status; Z79.899 Other long term (current) drug therapy
CPT/HCPCS: 71045; 80053; 81001; 83605; 85025; 87040; 96360; 99283; J7030

== ENCOUNTER 2018-01-27 09:40 | Day surgery (SDC) | payer OTHER ==
[~2018-01-27] VITALS: Ht 182.9 cm; Wt 82.6 kg
[~2018-01-27 09:40] MED LIST changes: +AMOXICILLIN500 MG PO; +FLAGYL500 MG PO; +LEVAQUIN750 MG PO; +PERCOCET 10-321 EACH PO
--- NOTE | 2018-01-27 11:11 | NUR ---
SURVEY RESEARCHER IN TO DO SADDLE BLOCK. 1107 SITTING UPRIGHT X 10 MIN. FOR BLOCK TO BE EFFECTIVE. IV PATENT. SAT ON RM AIR 98%.
--- NOTE | 2018-01-27 12:00 | NUR ---
01/27/18 1200 Barbara Britton 1152 PT ARRIVED IN PACU WIDE AWAKE WITH NO C/O'S.
--- NOTE | 2018-01-28 07:54 | OR ---
[facility] [address] [place], [place] [address] Signed DATE OF OPERATION: 01/27/2018 SURGEON: Hector Arias MD PREOPERATIVE DIAGNOSIS: Left gluteal versus perirectal abscess. POSTOPERATIVE DIAGNOSIS: Left perirectal abscess. PROCEDURES: 1. Incision and drainage of left perirectal abscess. 2. Wound cultures. ESTIMATED BLOOD LOSS: None. INDICATIONS: New is a 37-year-old gentleman who has a history of ulcerative colitis. He has undergone a total abdominal proctocolectomy with ileoanal J-pouch anastomosis with Dr. Liz Rodriguez at [facility]. He later had hernia in his right lower quadrant, repaired from the protective loop ileostomy. More recently, he has been having pain and swelling just to the left of his anus. He went to the emergency room for evaluation. He was tender in that area, but there was no obvious fluctuance. He was given Levaquin and Flagyl and asked to see me for followup in the office. The day that he came to see me, the skin broke open and he said it was quite a bit of pus and decrease in his pain. On exam, it was still very red and tender. We really could not probe the wound or squeeze it any significant extent. We went ahead and gave New some Percocet and asked him to stay on Levaquin and Flagyl. We scheduled him for 2 days later for the OR for exam under anesthesia with incision and drainage of that abscess. I had reviewed this with New and his girlfriend. They had expressed understanding and wished to proceed. PROCEDURE NOTE: I have met with New and his step dad in our preop area. We all agreed with his abscess being on the left side. Of course, the skin is open in the size of my index finger and it is very obvious. In addition, New received preoperative antibiotics and after a saddle block with our nurse account director, he received his heparin shot. He was then taken in the operating room and placed in the prone jenifer-knife position with appropriate padding and monitoring. SCDs were placed. He was then prepped and draped Electronically Signed By: HECTOR ARIAS MD 01/28/18 0754 PATIENT NAME: NEW LICEA JR OPERATIVE REPORT DATE OF : 80 REPORT #: [id number] PHYSICIAN: HECTOR ARIAS MD PCP: Constantino Romero MD REPORT IS CONFIDENTIAL AND NOT TO BE RELEASED WITHOUT AUTHORIZATION [facility] [address] [place], [place] [address] Signed in the usual sterile fashion. He was given monitored anesthesia care per our nurse account director. After this, we examined the anal canal and I could feel the staple line about 3 cm, maybe 4 cm up inside the anal canal. The wound was opened and he had a little bit of blood clot there. Once we broke that loose, we got out 10, maybe 15 mL of pus. Deep wound cultures were taken. We then opened the skin in a cruciate fashion, so we could insert the index finger and examine the abscess cavity. It traveled up along the rectum and was headed more posteriorly. All the loculations were broke up and the wound was copiously irrigated and suctioned out with warm antibiotic saline solution until completely clear. After this, local anesthetic was injected into the skin around the wound and then 4-inch Kerlix gauze roll soaked in full strength. Dakin's solution was inserted into the wound until full. Dry ABD was placed along with dry underwear. New was then rotated into the supine position on his hospital bed and taken into the recovery room in stable condition. Hector Arias MD ALB/MODL /[id number] cc: SALOMON Moctezuma MD Andrew L Bower, MD Copies: LYN NGUYEN KIM MD BOWER, ANDREW L MD ~ Electronically Signed By: HECTOR ARIAS MD 01/28/18 0754 PATIENT NAME: NEW LICEA JR OPERATIVE REPORT DATE OF : 80 REPORT #: [id number] PHYSICIAN: HECTOR ARIAS MD PCP: Constantino Romero MD REPORT IS CONFIDENTIAL AND NOT TO BE RELEASED WITHOUT AUTHORIZATION
== END 2018-01-27 12:35 | disposition home or self-care (01) ==
LOC: DS 09:40 → OPS 09:40 → DS 12:00
PROVIDERS: Colon & Rectal Surgery
PROC: 0D9P3ZZ Drainage of Rectum, Percutaneous Approach (ICD-10-PCS; principal; 2018-01-27 12:00)
DX: K61.1 Rectal abscess (principal); Z88.5 Allergy status to narcotic agent; Z79.899 Other long term (current) drug therapy
CPT/HCPCS: 00902; 87070; 87075; 87205; J0694; J1644; J1885; J2250; J2405; J2704; J7120

== ENCOUNTER 2018-03-30 07:50 | Day surgery (SDC) | payer OTHER ==
[~2018-03-30] VITALS: Ht 182.9 cm; Wt 86.0 kg
[2018-03-30] MEDS ORDERED: DAYTIME COLD-F1 EAC2 PO (08:02)
--- NOTE | 2018-03-30 09:03 | NUR ---
03/30/18 0903 Aracely Jenkins 0846 PT ARRIVED DROWSY AND TALKING. ON 3L NC. 0850 PT DENIES NAUSEA AND PAIN, RESP EVEN AND UNLABORED.
--- NOTE | 2018-03-30 10:37 | OR ---
[facility] [address] [place], [place] [address] Signed DATE OF OPERATION: SURGEON: Hector Arias MD PREOPERATIVE DIAGNOSES: 1. Personal history of ulcerative colitis. 2. Status post total abdominal proctocolectomy with ileoanal J-pouch anastomosis. POSTOPERATIVE DIAGNOSES: 1. Unremarkable J-pouch. 2. Minimal internal hemorrhoids. PROCEDURE: Colonoscopy with cold biopsies (limited). ESTIMATED BLOOD LOSS: None. INDICATIONS: New is a 37-year-old gentleman who has a long history of ulcerative colitis. He told me today he had a colostomy probably for 10 years. Eventually, he underwent a total abdominal proctocolectomy with an ileoanal J-pouch anastomosis. He has been doing well since that time. He eventually had 7-hour complex hernia repair with Dr. Romero for his colostomy site. Unfortunately, I do not have any more details than that. More recently, he had a perirectal abscess, which I drained on the left and a few weeks later, he had one on the right, which drained on its own and it responded well to the Augmentin. In the meantime, he has been to see his colorectal surgeon. He is ordered to have a limited barium enema to assess the J-pouch and to see if there is any leaks. I was asked at the local general surgeon to do a limited colonoscopy to evaluate the J-pouch as well. I had met with New in the office along with his girlfriend. We had a long discussion regarding the above details. New is very familiar with endoscopy obviously. I reviewed with him the nature of that procedure along with its risks including, but not limited to gas bloating, crampy abdominal pain, bleeding, perforation, requiring surgery, and missed diagnosis. He expressed understanding and wished to proceed. PROCEDURE NOTE: New was taken into our endoscopy suite and placed in the left lateral decubitus position. He was given 5 mg of Versed and 100 mcg of fentanyl to cover the case. A digital rectal exam was performed and a course I could feel his ileoanal anastomosis. It is large enough to admit my index finger. The adult colonoscope was slowly and Electronically Signed By: HECTOR ARIAS MD 03/30/18 1037 PATIENT NAME: NEW LICEA JR OPERATIVE REPORT DATE OF : 80 REPORT #: [id number] PHYSICIAN: HECTOR ARIAS MD PCP: Constantino Romero MD REPORT IS CONFIDENTIAL AND NOT TO BE RELEASED WITHOUT AUTHORIZATION [facility] [address] [place], [place] [address] Signed carefully inserted under direct visualization through the anal canal into the J-pouch itself. It is very obvious this is a terminal ileum. It is quite healthy. I could see the staple lines are well intact with no evidence of any ulceration or granulation tissue. We did pass the colonoscope up into the terminal ileum just the short distance maybe 5 or 6 cm, not very far. It was giving us resistance and it was not opening up with the insufflation of gas, so we simply did not advance the scope any further. However, that tissue was also quite healthy. Back in the J-pouch itself we took a couple of random biopsies for pathologic review. We did not retroflex the scope on this occasion. The scope was then slowly withdrawn and we could see the anastomosis is well healed. No evidence of any ulceration or granulation tissue that I could see. He has just a little bit internal hemorrhoid tissue. After this, the gas was suctioned out, the colonoscope removed. New tolerated the procedure quite well. RECOMMENDATIONS: I will see New back in my office in 7 to 14 days to review his results. Hector Arias MD ALB/MODL /[id number] cc: MD Hector Lenz MD Copies: JARROD BLOOD MD, ANDREW L MD ~ Electronically Signed By: HECTOR ARIAS MD 03/30/18 1037 PATIENT NAME: NEW LICEA JR OPERATIVE REPORT DATE OF : 80 REPORT #: [id number] PHYSICIAN: HECTOR ARIAS MD PCP: Constantino Romero MD REPORT IS CONFIDENTIAL AND NOT TO BE RELEASED WITHOUT AUTHORIZATION
== END 2018-03-30 09:25 | disposition home or self-care (01) ==
LOC: OPS 07:50 → DS 07:50 → OPS 09:00 → DS 09:00 → OPS 09:25
PROVIDERS: Colon & Rectal Surgery
PROC: 0DBB8ZX Excision of Ileum, Via Natural or Artificial Opening Endoscopic, Diagnostic (ICD-10-PCS; principal; 2018-03-30 09:00)
DX: K64.8 Other hemorrhoids (principal); Z90.49 Acquired absence of other specified parts of digestive tract; Z98.890 Other specified postprocedural states; Z88.5 Allergy status to narcotic agent; Z79.2 Long term (current) use of antibiotics; Z79.899 Other long term (current) drug therapy
CPT/HCPCS: 99153; G0500; J2250; J3010

== ENCOUNTER 2019-05-22 19:13 | Emergency (ER) | payer OTHER ==
[~2019-05-22] VITALS: Ht 182.9 cm; Wt 85.4 kg
[~2019-05-22 19:13] MED LIST changes: +DAYTIME COLD-F1 EAC2 PO
[2019-05-22] MEDS ORDERED: AMOXICILLIN875 MG PO (19:22)
[2019-05-22] MEDS ORDERED: NORCO 5-325 TA1 EACH PO (22:27)
[2019-05-22] MEDS ORDERED: AUGMENTIN 875-1 EACH PO (22:27)
== END 2019-05-22 22:50 | disposition home or self-care (01) ==
LOC: ED 19:13
DX: J01.90 Acute sinusitis, unspecified (principal); Z88.5 Allergy status to narcotic agent; Z91.030 Bee allergy status
CPT/HCPCS: 70450; 80053; 85025; 96361; 96374; 96375; 99284-25; J1200; J1885; J2765; J7030

== ENCOUNTER 2019-05-28 18:56 | Emergency (ER) | payer OTHER ==
[~2019-05-28] VITALS: Ht 182.9 cm; Wt 85.3 kg
[~2019-05-28 18:56] MED LIST changes: +AUGMENTIN 875-1 EACH PO; +NORCO 5-325 TA1 EACH PO
--- OUTSIDE RECORDS SUMMARY | 2019-05-28 18:58 | XMS ---
PreManage Notification: AMANDA LICEA Security [employer] Lpn Events No recent Security Events currently on file CRITERIA MET - [facility] - 2 Visits in 30 Days CARE PROVIDERS There are no care providers on record at this time. Pina has no Care Guidelines for this patient. Frannie VISIT COUNT (12 MO.) [address] [facility] TOTAL 2 NOTE: Visits indicate total known visits. ED/C VISIT TRACKING (12 MO.) 05/28/2019 18:[address] [facility] [facility] OR TYPE: Emergency COMPLAINT: - SINUS PAIN 05/22/2019 19:13 [facility] TYPE: Emergency COMPLAINT: - NECK PAIN DIAGNOSES: - Headache - Acute sinusitis, unspecified - Bee allergy status - Allergy status to narcotic agent status INPATIENT VISIT TRACKING (12 MO.) No inpatient visits to display in this time frame [email or web address]
== END 2019-05-28 19:37 | disposition home or self-care (01) ==
LOC: ED 18:56
DX: J32.9 Chronic sinusitis, unspecified (principal); Z88.5 Allergy status to narcotic agent; Z91.030 Bee allergy status
CPT/HCPCS: 99283

== ENCOUNTER 2024-07-12 13:29 | Emergency (ER) | payer OTHER ==
[~2024-07-12] VITALS: Ht 182.9 cm; Wt 91.9 kg
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
[2024-07-12] MEDS ORDERED: LIDOCAINE HCL 4% 1 EACH PATCH TD ONE (14:00)
[2024-07-12] MEDS ORDERED: KETOROLAC TROMETHAMINE 60 MG/2 ML VIAL IM ONE (14:00)
[2024-07-12] MEDS ORDERED: LIDODERM1 EACH TOP (14:54)
[2024-07-12] MEDS ORDERED: CYCLOBENZAPRINE10 MG PO (14:54)
[2024-07-12] MEDS ORDERED: KETOROLAC TROME10 MG PO (14:54)
[2024-07-12 15:05] VITALS: BP 136/93
[2024-07-12] MEDS ORDERED: LIDOCAINE PATCH REMOVAL 1 EA TD SCH (21:00)
== END 2024-07-12 15:05 | disposition home or self-care (01) ==
LOC: ED 13:29
DX: M54.2 Cervicalgia (principal); M54.50 Low back pain, unspecified; Z87.820 Personal history of traumatic brain injury; Z91.038 Other insect allergy status; Z88.5 Allergy status to narcotic agent; V53.5XXA Driver of pick-up truck or van injured in collision with car, pick-up truck or van in traffic accident, initial encounter
CPT/HCPCS: 96372; 99283; A9270; J1885